=== PATIENT | male | born 1980 | race Caucasian/White ===

== ENCOUNTER 2017-11-15 10:04 | Emergency (ER) | payer BC ==
[~2017-11-15] VITALS: Ht 177.8 cm; Wt 80.1 kg
[~2017-11-15 10:04] MED LIST: LEVO5TAB7 PO; RMCI IV
[2017-11-15 10:06] VITALS: TEMP 36.4; Ht 177.8 cm; Wt 80.1 kg
[2017-11-15] MEDS ORDERED: SODIUM CHLORIDE 0.9% 1000ML 1,000 ML IV STA (10:24)
[2017-11-15] MEDS ORDERED: MoRPHine SULFATE 10 MG/ML CARP/VIAL IV STA ×2 (10:24→11:06)
[2017-11-15] MEDS ORDERED: ONDANSETRON INJ 2 MG/ML 2 ML VIAL IV STA (10:24)
[2017-11-15] MEDS ORDERED: OPTIRAY 320 IV PRN (10:30)
[2017-11-15 10:36] LABS: BASO % 0.3 %; BASO ABS # 0.02 K/uL (0-0.2); EOS % 1.3 %; EOS ABS # 0.09 K/uL (0-0.5); HEMOGLOBIN 14.7 g/dL (14.0-18.0); IG# 0.02 K/uL (0.00-0.02); LYMPH ABS # 2.42 K/uL (1.2-3.4); MEAN CELL VOLUME 90.5 fL (80-100); MEAN CORPUSCULAR HEMOGLOBIN 30.9 pg (25-34); MEAN CORPUSCULAR HGB CONC 34.2 g/dl (32-36); MEAN PLATELET VOLUME 10.1 fL (7.4-10.4); MONO % 9.1 %; MONO ABS # 0.65 K/uL (0.11-0.59); NEUT ABS # 3.91 K/uL (1.4-6.5); PLATELET COUNT 248 K/uL (130-400); RED CELL DISTRIBUTION WIDTH CV 12.4 % (11.5-14.5); RED CELL DISTRIBUTION WIDTH SD 41.2 fL (36.4-46.3); WHITE BLOOD COUNT 7.11 K/uL (4.8-10.8)
[2017-11-15 10:54] LABS: ALBUMIN 4.1 gm/dl (3.4-5.0); ALKALINE PHOSPHATASE 101 U/L (45-117); ALT/SGPT 38 U/L (12-78); AST/SGOT 24 U/L (15-37); BLOOD UREA NITROGEN 14 mg/dl (7-18); CALCIUM 8.8 mg/dl (8.5-10.1); CARBON DIOXIDE 25 mmol/L (21-32); CREATININE 1.12 mg/dl (0.60-1.40); GLUCOSE 110 mg/dl (70-99); LIPASE 178 U/L (73-393); SODIUM 140 mmol/L (136-145)
[2017-11-15] MEDS ORDERED: MoRPHine SULFATE 10 MG/ML CARP/VIAL IM STA (10:59)
[2017-11-15] MEDS ORDERED: METOCLOPRAMIDE HCL INJ 5 MG/ML 2 ML VIAL IV. STA (12:03)
[2017-11-15] MEDS ORDERED: MoRPHine SULFATE 4 MG/ML 1 ML CARP\\VIAL IV STA (12:33)
--- NOTE | 2017-11-15 15:20 | DIAGNOSTIC IMAGING REPORT ---
ABD/PELVIS IV AND ORAL CONT CLINICAL HISTORY: 37 years-old Male presenting with ABDOMINAL PAIN/GI, history of Crohn's disease. TECHNIQUE: Multidetector CT of the abdomen and pelvis was performed after the administration of oral and intravenous contrast. IV contrast: None. A dose lowering technique was used consistent with the principles of ALARA (as low as reasonably achievable). COMPARISON: 09/04/2017. CT DOSE (mGy.cm): The estimated cumulative dose is 353.88 mGy.cm. FINDINGS: Mortgage Funder topogram: Unremarkable. Lung bases: Bibasilar opacities greater on the right, likely atelectasis. Normal heart size. No pericardial or pleural effusion. Liver: Normal morphology. Density suggestive of hepatic steatosis. Few small hepatic cysts suspected. Patent hepatic vasculature. Biliary: No intrahepatic or extrahepatic biliary ductal dilatation. Normal gallbladder. Pancreas: Normal. Spleen: Normal. Adrenal glands: Normal. Kidneys and ureters: Asymmetric enhancement of the kidneys with delayed enhancement of the right kidney. Mild right pelvocaliectasis. Mild right hydroureter. Obstructing 3 mm calculus at the right ureterovesical junction. Mild right urothelial thickening. Moderate right perinephric fluid. Additional punctate nonobstructing right renal calculus in the interpolar region. Cyst suspected in the right kidney. Bladder: Normal. No bladder calculus. Pelvic organs: Prostate and seminal vesicles normal. Bowel: Few diverticula in the colon. Postsurgical changes of ileocecectomy with right lower quadrant ileocolic anastomosis. No bowel wall thickening allowing for underdistention of the small bowel and use of positive oral contrast. No bowel obstruction. Peritoneal cavity: No free fluid or intraperitoneal gas. Lymph nodes: No enlarged lymph nodes in the abdomen or pelvis. Vasculature: Aorta and IVC patent and normal in caliber. Abdominal wall: Bilateral gynecomastia. Musculoskeletal: Serpiginous sclerotic lines in the femoral heads again evidence of osteonecrosis. IMPRESSION: 1. Obstructing 3 mm calculus at the ureterovesical junction in the distal right ureter. Resultant mild right hydroureteronephrosis. The degree of perinephric fluid could suggest calyceal rupture. 2. Additional nonobstructing punctate right renal calculus. 3. No evidence of active bowel inflammation allowing for underdistention of distal small bowel. Postsurgical changes of ileocecectomy and right lower quadrant ileocolic anastomosis. 4. Hepatic steatosis. 5. Extensive right basilar atelectasis. Electronically signed by: Maurisio Chandler M.D. 11/15/2017 3:18 PM Dictated Date/Time: 11/15/2017 3:07 PM
[2017-11-15] MEDS ORDERED: KETOROLAC TROMETHAMINE 30 MG/ML VIAL IV STA (15:31)
[2017-11-15] MEDS ORDERED: ONDANSETRON INJ 2 MG/ML 2 ML VIAL ONE (15:51)
[2017-11-15] MEDS ORDERED: ONDA4TAB10 SL (17:10)
[2017-11-15] MEDS ORDERED: OXYC-737 PO (17:10)
[2017-11-15 17:21] VITALS: BP 118/68; PULSE 78; O2SAT 98
--- NOTE | 2017-11-16 12:37 | EMERGENCY ROOM VISIT NOTE ---
ED Visit Note First contact with patient: 10:14 Chief Complaint: Abdominal pain. History of Present Illness: Mr. Guy is a 37 year-old white male who ambulates into the ED complaining of lower abdominal pain inferior to the umbilicus in the midline. Historically patient reports Crohn's disease and is status post partial colectomy and ileectomy with reversal. Kidney stones with stent placement. Patient reports approximately 2 hours ago he was driving and had an acute onset of severe abdominal pain. Since that time the pain has been constant. He describes his pain as a sharp sensation and places it just inferior to the umbilicus in the midline of the lower quadrants. He rates his discomfort 8/10. His pain has been constant but slightly waxed and waned in intensity. His pain is nonradiating. He has not identified any aggravating or alleviating factors related to the pain. He has not taken any medications for pain prior to arrival at the hospital. Associated with his pain he reports he has been nauseated and vomiting and reports he had seen some bright red blood in his vomitus. He denies fevers, chills, sweats, skin eruptions, skin color changes, headache, dizziness, lightheadedness,, neck, back pain, chest pain, shortness of breath, upper abdominal pain, diarrhea, constipation, rectal bleeding, black/tarry stools, urinary symptoms, hematuria, diarrhea, rectal bleeding, black/tarry stools, urinary symptoms, hematuria. Review of Systems: As noted above in history of present illness. All body systems were reviewed and found to be negative as noted above. Past Medical History: As previously noted, bowel obstructions, psoas abscess. Current Medications: Remicade, Xyzal. Allergies to Medications: Macrolides. Social History: Patient is currently employed; he feels safe in his home environment; he denies tobacco and alcohol use. Physical Examination: Vital Signs: Date Time Temp Pulse Resp B/P (MAP) Pulse Ox O2 Delivery O2 Flow Rate FiO2 11/15/17 17:21 78 16 118/68 98 11/15/17 15:46 80 16 120/73 94 Room Air 11/15/17 14:52 67 11/15/17 14:02 50 18 119/72 95 Room Air 11/15/17 12:12 56 18 123/79 96 Room Air 11/15/17 10:47 46 11/15/17 10:40 45 18 137/85 95 Room Air 11/15/17 10:06 36.4 57 18 153/105 98 Room Air GENERAL: 37-year-old female in moderate distress due to pain, nontoxic-appearing , afebrile and hemodynamically stable. Patient is found lying prone on the bed writhing in pain. NEUROLOGICAL: Awake, alert and oriented to person, place and time. Answering questions appropriately and following commands. Good hand eye coordination. SKIN: Warm, dry and pink. No soft tissue eruptions or trauma noted. HEENT: Atraumatic and normocephalic. PERRLA. Sclera white and conjunctiva pink. Oral cavity moist and pink. Pharynx is nonerythematous or edematous. Speech normal. No lymphadenopathy. Trachea midline. No jugular venous distention. BACK: No tenderness over the bony spine. No CVA tenderness. THORAX: Lungs sounds are clear to auscultation and equal bilaterally with symmetrical chest wall. No wheezing, rales or rhonchi. No crepitus, tenderness , subcutaneous air or deformities noted. HEART: Regular rate and rhythm. No gallops, rubs or murmurs are appreciated. ABDOMEN: Flat and soft with diffuse tenderness throughout the lower abdomen. Positive bowel sounds in all quadrants. No guarding, rigidity or organomegaly. EXTREMITIES: Moves all extremities well on command and with purpose. All distal neurovascular statuses are intact and equal bilaterally. ED Course: Patient is assessed as noted above. Patient's medication list was reviewed. Laboratory Testing: Test 11/15/17 10:20 11/15/17 16:23 Range/Units White Blood Count 7.11 4.8-10.8 K/uL Red Blood Count 4.75 4.7-6.1 M/uL Hemoglobin 14.7 14.0-18.0 g/dL Hematocrit 43.0 42-52 % Mean Corpuscular Volume 90.5 80-100 fL Mean Corpuscular Hemoglobin 30.9 25-34 pg Mean Corpuscular Hemoglobin Concent 34.2 32-36 g/dl Platelet Count 248 130-400 K/uL Mean Platelet Volume 10.1 7.4-10.4 fL Neutrophils (%) (Auto) 55.0 % Lymphocytes (%) (Auto) 34.0 % Monocytes (%) (Auto) 9.1 % Eosinophils (%) (Auto) 1.3 % Basophils (%) (Auto) 0.3 % Neutrophils # (Auto) 3.91 1.4-6.5 K/uL Lymphocytes # (Auto) 2.42 1.2-3.4 K/uL Monocytes # (Auto) 0.65 0.11-0.59 K/uL Eosinophils # (Auto) 0.09 0-0.5 K/uL Basophils # (Auto) 0.02 0-0.2 K/uL RDW Standard Deviation 41.2 36.4-46.3 fL RDW Coefficient of Variation 12.4 11.5-14.5 % Immature Granulocyte % (Auto) 0.3 % Immature Granulocyte # (Auto) 0.02 0.00-0.02 K/uL Erythrocyte Sedimentation Rate 7 0-14 mm/hr Sodium Level 140 136-145 mmol/L Potassium Level 4.0 3.5-5.1 mmol/L Chloride Level 107 98-107 mmol/L Carbon Dioxide Level 25 21-32 mmol/L Anion Gap 8.0 3-11 mmol/L Blood Urea Nitrogen 14 7-18 mg/dl Creatinine 1.12 0.60-1.40 mg/dl Est Creatinine Clear Calc Drug Dose 93.2 ml/min Estimated GFR () 96.7 Estimated GFR (Non- 83.5 BUN/Creatinine Ratio 12.4 10-20 Random Glucose 110 70-99 mg/dl Calcium Level 8.8 8.5-10.1 mg/dl Total Bilirubin 0.3 0.2-1 mg/dl Direct Bilirubin < 0.1 0-0.2 mg/dl Aspartate Amino Transf (AST/SGOT) 24 15-37 U/L Alanine Aminotransferase (ALT/SGPT) 38 12-78 U/L Alkaline Phosphatase 101 45-117 U/L C-Reactive Protein < 0.29 0-0.29 mg/dl Total Protein 8.0 6.4-8.2 gm/dl Albumin 4.1 3.4-5.0 gm/dl Lipase 178 73-393 U/L Urine Color YELLOW Urine Appearance CLEAR CLEAR Urine pH 5.0 4.5-7.5 Urine Specific [place] 1.043 1.000-1.030 Urine Protein NEG NEG Urine Glucose (UA) NEG NEG Urine Ketones TRACE NEG Urine Occult Blood NEG NEG Urine Nitrite NEG NEG Urine Bilirubin NEG NEG Urine Urobilinogen NEG NEG Urine Leukocyte Esterase NEG NEG IV Contrast Abdominal/Pelvic CT: Was reviewed by myself and read by the radiologist and shows a 3 mm calculus in the right UVJ resulting in mild right hydroureteronephrosis. Radiologist notes with the degree of perinephric fluid this could represent a calyceal rupture. Additional nonobstructing punctate renal calculi were noted on the right. No evidence of acute bowel inflammation or for nondistended small bowel. Postsurgical changes were noted. Hepatic steatosis. Extensive right basilar atelectasis. Patient was hydrated with normal saline and he received a total of 60 mg of morphine IV and 30 mg of Toradol IV for pain and he received a total of 8 mg of Zofran and 10 mg of Reglan for nausea/vomiting. Patient was reassessed multiple times during her stay in emergency department. Patient's case was reviewed with Dr. Richards; we agreed on diagnostic approach, treatment, disposition and plan. Patient was educated about today's findings and instructed on his treatment plan ; he verbalized understanding and agreement with this plan. Right ureter calculus. Clinical Impression: Right ureter calculus. Patient initially my differential diagnosis Decision-Making: I considered Crohn's exacerbation, perforated viscus, bowel obstruction, acute appendicitis, ureter calculus, and other causes. Disposition: Patient discharged home in stable condition; prior to departure he was reassessed and subjectively reported that he was feeling much better. He rated his discomfort 2/10 and reported resolution of nausea. Plan: Patient was placed on a sliding pain medication scale of ibuprofen, acetaminophen and OxyIR; his name was checked in state database and no red flags were noted and he was given appropriate narcotic precautions. Patient was prescribed Zofran 4 mg every 6 hours as needed for nausea/vomiting. Patient was encouraged to stay well-hydrated with increased clear fluids. Patient was encouraged to strain all urine and collect all stones for testing. Patient was encouraged to follow-up with Dr. Angélica Cross, [facility] urology , for specialty care and treatment. Patient was encouraged return the ED for worsening/uncontrolled pain, worsening nausea/vomiting, fevers, urinary symptoms or any new/concerning symptoms. LATE NOTE: On reviewing the patient's case on November 16 and the findings of a suggestion calyceal rupture was found. I attempted to contact the patient but was unsuccessful. I did contact Dr. Cross for consultation and she felt regular follow-up was appropriate. Additionally I did give her the patient's contact information and she was going to have her office contact him for follow- up appointment.
== END 2017-11-15 17:21 | disposition home or self-care (01) ==
LOC: C.EDB 10:06
DX: N20.1 Calculus of ureter (principal); K50.90 Crohn's disease, unspecified, without complications; Z90.49 Acquired absence of other specified parts of digestive tract; Z79.899 Other long term (current) drug therapy; Z88.8 Allergy status to other drugs, medicaments and biological substances

== ENCOUNTER 2018-08-09 15:33 | Inpatient (IN) ==
[2018-08-09] MEDS ORDERED: MoRPHine SULFATE 4 MG/ML 1 ML CARP\\VIAL IV STA (15:56)
[2018-08-09] MEDS ORDERED: ONDANSETRON INJ 2 MG/ML 2 ML VIAL IV STA (15:56)
[2018-08-09] MEDS ORDERED: SODIUM CHLORIDE 0.9% 1000ML 1,000 ML IV ONE (15:56)
[2018-08-09 16:39] LABS: Hematocrit (blood only) 47.8 % (42-52); Hemoglobin 16.6 g/dL (14.0-18.0); Immature Granulocytes # (auto) 0.03 K/uL (0.00-0.02); Immature Granulocytes % (auto) 0.3 %; Lymphocytes # (auto) 0.48 K/uL (1.2-3.4); Lymphocytes % (auto) 4.2 %; Mean Corpuscular Hgb Conc 34.7 g/dL (32-36); Mean Corpuscular Volume 90.9 fL (80-100); Mean Platelet Volume 10.2 fL (7.4-10.4); Monocytes # (auto) 0.07 K/uL (0.11-0.59); Monocytes % (auto) 0.6 %; Neutrophils # (auto) 10.89 K/uL (1.4-6.5); Neutrophils % (auto) 94.9 %; Platelet Count 257 K/uL (130-400); RDW Coefficient of Variation 12.5 % (11.5-14.5); RDW Standard Deviation 41.6 fL (36.4-46.3); Red Blood Count 5.26 M/uL (4.7-6.1); White Blood Count 11.47 K/uL (4.8-10.8)
[2018-08-09 17:14] LABS: Alanine Aminotransferase 36 U/L (12-78); Albumin Level 4.6 gm/dl (3.4-5.0); Alkaline Phosphatase 132 U/L (45-117); Bilirubin,Total 0.6 mg/dl (0.2-1); Blood Urea Nitrogen 11 mg/dl (7-18); Calcium 9.6 mg/dl (8.5-10.1); Carbon Dioxide 25 mmol/L (21-32); Chloride 104 mmol/L (98-107); Est GFR (African American) 103.9; Est GFR (Non-African American) 89.6; Glucose 96 mg/dl (70-99); Sodium 137 mmol/L (136-145); Total Protein 9.2 gm/dl (6.4-8.2)
[2018-08-09 17:51] LABS: Potassium 4.2 mmol/L (3.5-5.1)
[2018-08-09 17:56] LABS: Aspartate Aminotransferase 17 U/L (15-37); Bilirubin Direct < 0.1 mg/dl (0-0.2)
[2018-08-09] MEDS ORDERED: IOVERSOL 100ml IV PRN (18:04)
--- NOTE | 2018-08-09 18:34 | CT Scan Report ---
ABDOMEN AND PELVIS CT WITH IV CONTRAST CT DOSE: 305.72 mGy.cm HISTORY: Acute generalized abdominal pain with history of Crohn's disease and prior small bowel obstr uction ro sbo hx crohns and sbo TECHNIQUE: Multiaxial CT images of the abdomen and pelvis were performed following the use of intrave nous contrast. A dose lowering technique was utilized adhering to the principles of ALARA. COMPARISON STUDY: CT abdomen and pelvis 11/15/2017. FINDINGS: Minimal subsegmental bibasilar atelectasis. Additionally, there are patchy groundglass densities abo ut the left lung base. No pneumatosis or pneumoperitoneum. The imaged inferior cardiac chambers appea r unremarkable. Hepatic steatosis. No evidence of cirrhosis or focal hepatic mass lesion. Patency of the hepatic and portal veins. Spleen, pancreas, gallbladder and adrenal glands are unremarkable. Mild nonspecific wal l thickening of the bladder with partial distention. No ureteral calculi or obstructive uropathy. Sug gested punctate nonobstructing calculus of the inferior pole right kidney. The aorta and IVC are unre markable. There is no adenopathy. Minimal colonic diverticulosis without acute diverticulitis. Partial distention about the majority of the colon. Postoperative changes from ileocecectomy with right lower quadrant ileocolic anastomosis. There are multiple prominent fluid-filled loops of ileum measuring up to 2.6 cm transversely with tr ansitioned decreased caliber bowel seen just proximal to the ileocolic anastomosis. There is a focal loop of ileum with demonstrates mucosal hyperemia with wall thickening (image 267 series 3) signifyin g the transition point. Minimal interloop edema. No drainable fluid collection or perforation. Soft tissues are unremarkable. Bones appear to be intact. Moderate disc space narrowing at L5-S1. Elisha scular necrosis about the bilateral femoral heads. No evidence of articular collapse. IMPRESSION: 1. Partial small bowel obstruction with transition point noted within the lower central abdomen. The transition point is noted at a focal loop of ileum which demonstrates wall thickening with mucosal hy peremia suggestive of a stricture likely related to patient's known inflammatory bowel disease. 2. Postoperative changes from ileocecectomy with ileocolic anastomosis. 3. No evidence of perforation, pneumatosis or pneumoperitoneum. 4. Mild colonic diverticulosis without acute diverticulitis. 5. 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 6. Mild subsegmental bibasilar atelectasis. Additional patchy groundglass opacities of the left lung base may reflect a superimposed pneumonitis. Correlate clinically. Electronically signed by: Hai Madrigal M.D. 08/09/2018 6:33 PM
--- NOTE | 2018-08-09 19:46 | History & Physical Report ---
Date of Service August 09, 2018 Assessment & Plan (1) Small bowel obstruction: Patient with partial SBO with transition point in the lower central abdomen. Hyperemia suggestive of stricture most likely secondary to underlying Crohns disease. Patient is comfortable at present. No nausea. -Admit to medical floor -Check ESR and CRP -Abdominal exams q 4 hours while awake -NPO -LR at 125mL/hr x 2 liters -Electrolyte repletion -Solumedrol 60mg IV daily -GI Consult - appreciate assistance with this case Present on Admission?: Yes (2) Crohns disease: As above. Patient with longstanding history of Crohns disease, known stricture with multiple SBOs in the past. He is on Remicade q 8 weeks. Frequent steroid use -Solumedrol 60mg IV daily. Patient with AVN noted on imaging - ideally provide shortest duration of steroids possible -Continue pro biotic -GI Consult -patient known to Dr. Poon Present on Admission?: Yes (3) Leukocytosis: Afebrile, hemodynamically stable. Most likely reactive in setting of SBO and possible Crohns flare -Monitor CBC F/E/N - LR at 125mL/hr x 2 liters, monitor electrolytes and replete as needed, NPO for ow PPx - patient is low risk for DVT. Encourage ambulation, IVF as above Code - Full Dispo - admit to medical floor History of Present Illness Chief Complaint: SBO Primary Care Provider: Keyshawn Frost Favio Guy is a pleasant 38yo C male with history of Crohns since age 12, s/p ileocolectomy, multiple SBOs in the past presenting with SBO. Patient states that this AM he began to feel epigastric abdominal pain. Nausea associated with the pain, no vomiting, no diarrhea or constipation. Last BM was this AM, small amount. He is presently not passing flatus. He denies fevers/chills. Denies melena/hematochezia. Symptoms are typical of prior SBOs. No additional complaints at this time ER Course: Morphine 4mg, Zofran 4mg Allergies Allergy/AdvReac Type Severity Reaction Status Date / Time Macrolide Antibiotics Allergy Intermediate GI SYMPTOMS Verified 08/09/18 16:35 Home Medications Home Medications Medication Instructions Recorded Confirmed Type infliximab [Remicade] 100 mg IV [id number] 01/06/18 08/09/18 History lactobacillus combination no.4 3,000 mmu cells PO HS 08/09/18 08/09/18 History [Probiotic] melatonin 10 mg PO HS 08/09/18 08/09/18 History Past Med/Surg History Medical History Hx of Crohn's disease Hx of renal calculi Hx of small bowel obstruction Surgical History History of surgical removal of terminal ileum Hx of colostomy Family History Other Unobtainable family history due to adoption Social History marital status: Current Living Situation: Significant Other current occupational status: unemployed Feels Safe at Home: Yes Smoking Status: Never smoker Hx Alcohol Use: Yes Hx Substance Use: No Review of Systems Review of Systems: All systems reviewed & are unremarkable except as noted in HPI & below Physical Exam Physical Exam: General: patient resting comfortably, NAD, non-toxic in appearance, AA&O x 4 Skin: warm, dry, intact, no rashes or lesions HEENT: NC/AT, PERRL, EOMI, anicteric sclera, conjunctiva without injection, external ear normal to inspection and nontender, nares patent, moist mucus membranes, dentition intact, no oropharyngeal lesions, neck supple, trachea midline, no LAD, no thyromegaly, no JVD Heart: +S1/S2, regular, no m/r/g Lungs: equal air entry bilaterally, no rales/rhonchi/wheezes Abd: bowel sounds absent after listening x 1 minute, soft, NT/ND, no ma sses/organomegaly/ascites Ext: warm, 2+ pulses in UE/LE bilaterally, no clubbing/cyanosis or edema Neuro: nonfocal, patient AA&O x 4, speech intact, no facial droop, moving all extremities on command with equal strength 5/5 Results & Data Vital Signs (Past 12 Hours) Vital Signs Temp Pulse Pulse Resp BP BP Pulse Ox 08/09/18 17:43 76 20 124/68 95 08/09/18 15:43 36.5 C 79 18 132/80 97 Laboratory Results Lab Results 08/09/18 08/09/18 08/09/18 Range/Units 16:07 16:07 17:28 WBC 11.47 H (4.8-10.8) K/uL RBC 5.26 (4.7-6.1) M/uL Hgb 16.6 (14.0-18.0) g/dL Hct 47.8 (42-52) % MCV 90.9 (80-100) fL MCH 31.6 (25-34) pg MCHC 34.7 (32-36) g/dL RDW Std Deviation 41.6 (36.4-46.3) fL RDW Coeff of Aga 12.5 (11.5-14.5) % Plt Count 257 (130-400) K/uL MPV 10.2 (7.4-10.4) fL Immature Gran % (Auto) 0.3 % Neut % (Auto) 94.9 % Lymph % (Auto) 4.2 % [place] % (Auto) 0.6 % Eos % (Auto) 0.0 % Baso % (Auto) 0.0 % Immature Gran # (Auto) 0.03 H (0.00-0.02) K/uL Neut # (Auto) 10.89 H (1.4-6.5) K/uL Lymph # (Auto) 0.48 L (1.2-3.4) K/uL [place] # (Auto) 0.07 L (0.11-0.59) K/uL Eos # (Auto) 0.00 (0-0.5) K/uL Baso # (Auto) 0.00 (0-0.2) K/uL Sodium 137 (136-145) mmol/L Potassium 4.2 (3.5-5.1) mmol/L Chloride 104 (98-107) mmol/L Carbon Dioxide 25 (21-32) mmol/L Anion Gap 8.0 (3-11) BUN 11 (7-18) mg/dl Creatinine 1.05 (0.6-1.4) mg/dl Est Cr Clr Drug Dosing Not Reportable Est GFR ( Amer) 103.9 Est GFR (Non-Af Amer) 89.6 BUN/Creatinine Ratio 10.0 (10-20) Glucose 96 (70-99) mg/dl Calcium 9.6 (8.5-10.1) mg/dl Total Bilirubin 0.6 (0.2-1) mg/dl Direct Bilirubin < 0.1 (0-0.2) mg/dl AST 17 (15-37) U/L ALT 36 (12-78) U/L Alkaline Phosphatase 132 H (45-117) U/L Total Protein 9.2 H (6.4-8.2) gm/dl Albumin 4.6 (3.4-5.0) gm/dl Lipase 117 (73-393) U/L Diagnostic Findings ABDOMEN AND PELVIS CT WITH IV CONTRAST CT DOSE: 305.72 mGy.cm HISTORY: Acute generalized abdominal pain with history of Crohn's disease and prior small bowel obstruction ro sbo hx crohns and sbo TECHNIQUE: Multiaxial CT images of the abdomen and pelvis were performed following the use of intravenous contrast. A dose lowering technique was utilized adhering to the principles of ALARA. COMPARISON STUDY: CT abdomen and pelvis 11/15/2017. FINDINGS: Minimal subsegmental bibasilar atelectasis. Additionally, there are patchy groundglass densities about the left lung base. No pneumatosis or pneumoperitoneum. The imaged inferior cardiac chambers appear unremarkable. Hepatic steatosis. No evidence of cirrhosis or focal hepatic mass lesion. Patency of the hepatic and portal veins. Spleen, pancreas, gallbladder and adrenal glands are unremarkable. Mild nonspecific wall thickening of the bladder with partial distention. No ureteral calculi or obstructive uropathy. Suggested punctate nonobstructing calculus of the inferior pole right kidney. The aorta and IVC are unremarkable. There is no adenopathy. Minimal colonic diverticulosis without acute diverticulitis. Partial distention about the majority of the colon. Postoperative changes from ileocecectomy with right lower quadrant ileocolic anastomosis. There are multiple prominent fluid- filled loops of ileum measuring up to 2.6 cm transversely with transitioned decreased caliber bowel seen just proximal to the ileocolic anastomosis. There is a focal loop of ileum with demonstrates mucosal hyperemia with wall thickening (image 267 series 3) signifying the transition point. Minimal interloop edema. No drainable fluid collection or perforation. Soft tissues are unremarkable. Bones appear to be intact. Moderate disc space narrowing at L5-S1. 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 No evidence of articular collapse. IMPRESSION: 1. Partial small bowel obstruction with transition point noted within the lower central abdomen. The transition point is noted at a focal loop of ileum which demonstrates wall thickening with mucosal hyperemia suggestive of a stricture likely related to patient's known inflammatory bowel disease. 2. Postoperative changes from ileocecectomy with ileocolic anastomosis. 3. No evidence of perforation, pneumatosis or pneumoperitoneum. 4. Mild colonic diverticulosis without acute diverticulitis. 5. 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 6. Mild subsegmental bibasilar atelectasis. Additional patchy groundglass opacities of the left lung base may reflect a superimposed pneumonitis. Correlate clinically. Electronically signed by: Hai Madrigal M.D. 08/09/2018 6:33 PM Dictated: 08/09/181820 Transcribed: 08/09/181820 Code Status & VTE Plan Code Status FULL Critical Care Time Critical Care Time: No (1) Crohns disease Gastrointestinal tract location: small intestine Digestive disease complication type: with intestinal obstruction Qualified Code(s): K50.012 - Crohn's disease of small intestine with intestinal obstruction
[2018-08-09] MEDS ORDERED: NON-FORMULARY MEDICATION (Lactobacillus Combination No.4 [Probiotic] 3,000 mmu cells) PO SCH (21:31)
[2018-08-09] MEDS ORDERED: ONDANSETRON INJ 2 MG/ML 2 ML VIAL IV PRN (21:31)
[2018-08-09] MEDS ORDERED: MoRPHine SULFATE 4 MG/ML 1 ML CARP\\VIAL IV PRN (21:31)
[2018-08-09 21:57] LABS: C Reactive Protein 0.45 mg/dl (0-0.29); Magnesium 2.1 mg/dl (1.8-2.4)
[2018-08-09] MEDS ORDERED: methylPREDNISolone 60 MG in SYRINGE 0 ML IV SCH (22:00)
[2018-08-09] MEDS: LACTATED RINGER'S 1,000 ML IV SCH (22:07)
--- NOTE | 2018-08-09 22:14 | Emergency Department Note ---
Entered by Fidel Romeo acting as a scribe for Viktor Dominguez History of Present Illness General Chief complaint: Abdominal Pain Stated complaint: abdominal pain-hx crohns Time Seen by Provider: 08/09/18 15:45 Source: patient History of Present Illness Onset (ago): hour(s) (this morning) Location: abdomen Pain Consistency: + intermittent Quality: + other (mid-abdominal pain prior to hx of small bowel obstruction) Associated symptoms: + other (nausea without vomiting) The patient is a 38 year old male who presents to the Emergency Room with complaints of intermittent mid-abdominal pain beginning this morning. The patient states that his pain comes in waves. He feels nauseated from the pain but denies any vomiting. He denies melena or hematochezia. He reports a history of Crohns treated with Remicade by Dr. Poon. He also notes a history of small bowel obstruction and states that his current symptoms feel similar. Home Medications Home Medications Medication Instructions Recorded Confirmed Type infliximab [Remicade] 100 mg IV Q8WK 01/06/18 08/09/18 History lactobacillus combination no.4 3,000 mmu cells PO HS 08/09/18 08/09/18 History [Probiotic] melatonin 10 mg PO HS 08/09/18 08/09/18 History Allergies Allergy/AdvReac Type Severity Reaction Status Date / Time Macrolide Antibiotics Allergy Intermediate GI SYMPTOMS Verified 08/09/18 16:35 Past Med/Surg History Medical History Hx of Crohn's disease Hx of renal calculi Hx of small bowel obstruction Surgical History History of surgical removal of terminal ileum Hx of colostomy Family History Other Unobtainable family history due to adoption Social History Preferred Language: Lithuanian Communication Ability: Effective Fabrication Supervisor Required: No Beliefs That Will Affect Care: None marital status: Current Living Situation: Spouse current occupational status: unemployed Other Information That Helps Us Care for You: No Feels Safe at Home: Yes Safety Concerns: Feels Safe At This Time Smoking Status: Former smoker Do You Dip or Chew Tobacco: No Second Hand Exposure: No Tobacco Cessation Education Requested by Patient: No Hx Alcohol Use: Yes Alcohol type: hard liquor Hx Substance Use: No Review of Systems See HPI for pertinent positives & negatives. and A total of 10 systems reviewed and were otherwise negative Physical Exam Vital Signs Vital Signs - 24 hr 08/09/18 15:43 08/09/18 17:43 08/09/18 19:50 Temperature 36.5 C Temperature Source Oral Sepsis Recent Fever Within 48 Hours No Sepsis New/Unexplained Change in Mental Status No Sepsis Action Taken by Nursing No Action Required Pulse Rate 79 Pulse Rate [Right Finger] 76 78 Respiratory Rate 18 20 16 Respiratory Effort / Characteristics Non-Labored Non-Labored Respiratory Depth Normal Normal Respiratory Pattern Blood Pressure 132/80 Blood Pressure [Right Arm] 124/68 114/86 Blood Pressure Mean 97 Blood Pressure Mean [Right Arm] 86 95 Blood Pressure Position [Right Arm] Pulse Oximetry 97 95 100 Oxygen Delivery Method Room Air Room Air 08/09/18 20:37 08/09/18 21:05 Temperature 36.8 C Temperature Source Oral Sepsis Recent Fever Within 48 Hours Sepsis New/Unexplained Change in Mental Status Sepsis Action Taken by Nursing Pulse Rate 62 Pulse Rate [Right Finger] 58 L Respiratory Rate 18 16 Respiratory Effort / Characteristics Non-Labored Spontaneous Respiratory Depth Normal Respiratory Pattern Regular Blood Pressure 139/79 Blood Pressure [Right Arm] 118/81 Blood Pressure Mean Blood Pressure Mean [Right Arm] 93 Blood Pressure Position [Right Arm] Sitting Pulse Oximetry 100 97 Oxygen Delivery Method Room Air Room Air GENERAL: He is oriented to person, place, and time. He appears well-developed and well-nourished. He does not appear distressed. HENT: Exam performed. - Head: Normocephalic and atraumatic. - Right Ear: External ear normal. No mastoid tenderness. - Left Ear: External ear normal. No mastoid tenderness. - Mouth/Throat: The oropharynx is clear and moist. No trismus in the jaw. No de ntal abscesses or uvula swelling. No oropharyngeal exudate or tonsillar abscesses. EYES: Conjunctivae and EOM are normal. Pupils are equal, round, and reactive to light. Right eye exhibits no discharge. Left eye exhibits no discharge. No scleral icterus. NECK: Normal range of motion. Neck supple. No JVD present. No spinous process tenderness present. No carotid bruit present. No rigidity. No tracheal deviation and normal range of motion present. No Brudzinski's sign and no Kernig's sign noted. CV: Normal rate, regular rhythm, normal heart sounds and intact distal pulses. There is no peripheral edema. Palpable radial pulses bue. PULM/CHEST: Effort normal and breath sounds normal. No respiratory distress. No stridor. He has no wheezes. He has no rales. - Chest Wall: He exhibits no tenderness. ABD: The abdomen is soft. Bowel sounds are normal. He has no distension. No mass is present. There is epigastric pain on palpation. There is no rebound, no guarding, no Terry's sign and no tenderness at McBurney's point. Rovsig negative. MUSC/SKEL: Normal range of motion. There is no peripheral edema, tenderness or deformity. LYMPH: No cervical adenopathy. NEURO: He is alert and oriented to person, place, and time. He has normal strength. No cranial nerve deficit or sensory deficit. Coordination and gait normal. GCS eye subscore is 4. GCS verbal subscore is 5. GCS motor subscore is 6. Cerebellar tests wnl. SKIN: Skin is warm and dry. He is not diaphoretic. PSYCH: He has a normal mood and affect. Behavior is normal. Judgment and thought content normal. Course 1554: The patient was evaluated in room C2B. A complete history and physical examination were performed. 185: Vital signs stable. Labs within normal limits. CT of the abdomen showed small bowel obstruction. The [facility] Hospitalist service was notified of the patients case. The patient will be evaluated for hospitalization under Dr. Tidwell. Administered Medications Lactated Ringer's (Lr) 1,000 mls @ 125 mls/hr IV .Q8H ALYSHA Stop: 08/10/18 13:30 Last Admin: 08/09/18 22:07 Dose: 125 mls/hr Documented by: [id number] Methylprednisolone 60 mg/ (Syringe) 0.96 mls @ 1.5 mls/min IV Q24H ALYSHA Stop: 09/08/18 21:59 Last Admin: 08/09/18 22:04 Dose: 1.5 mls/min Documented by: [id number] Discontinued Medications Sodium Chloride (Nss 1000ml) 1,000 mls @ 999 mls/hr IV .Q1H1M ONE Stop: 08/09/18 16:56 Last Infusion: 08/09/18 19:00 Dose: 0 mls/hr Documented by: [id number] Admin: 08/09/18 17:20 Dose: 999 mls/hr Documented by: [id number] Ioversol (Optiray 320 100ml) 93 ml IV ONCE PRN PRN Reason: Interaction Checking Stop: 08/13/18 18:03 Last Admin: 08/09/18 18:04 Dose: 93 ml Documented by: [id number] Morphine Sulfate (Morphine Sulfate) 4 mg IV NOW STA Stop: 08/09/18 15:57 Last Admin: 08/09/18 17:20 Dose: 4 mg Documented by: [id number] Ondansetron HCl (Zofran) 4 mg IV NOW STA Stop: 08/09/18 15:57 Last Admin: 08/09/18 17:20 Dose: 4 mg Documented by: [id number] Medical Decision Making Medical Records Attestation: I reviewed the patient's medical records. Home Medications Current Medication List: was personally reviewed by me Laboratory Data Attestation: I reviewed the patient's lab results. Result diagrams: 08/09/18 16:07 08/09/18 17:28 Lab Results 08/09/18 08/09/18 08/09/18 Range/Units 16:07 16:07 17:28 WBC 11.47 H (4.8-10.8) K/uL RBC 5.26 (4.7-6.1) M/uL Hgb 16.6 (14.0-18.0) g/dL Hct 47.8 (42-52) % MCV 90.9 (80-100) fL MCH 31.6 (25-34) pg MCHC 34.7 (32-36) g/dL RDW Std Deviation 41.6 (36.4-46.3) fL RDW Coeff of Aga 12.5 (11.5-14.5) % Plt Count 257 (130-400) K/uL MPV 10.2 (7.4-10.4) fL Immature Gran % (Auto) 0.3 % Neut % (Auto) 94.9 % Lymph % (Auto) 4.2 % [place] % (Auto) 0.6 % Eos % (Auto) 0.0 % Baso % (Auto) 0.0 % Immature Gran # (Auto) 0.03 H (0.00-0.02) K/uL Neut # (Auto) 10.89 H (1.4-6.5) K/uL Lymph # (Auto) 0.48 L (1.2-3.4) K/uL [place] # (Auto) 0.07 L (0.11-0.59) K/uL Eos # (Auto) 0.00 (0-0.5) K/uL Baso # (Auto) 0.00 (0-0.2) K/uL Sodium 137 (136-145) mmol/L Potassium 4.2 (3.5-5.1) mmol/L Chloride 104 (98-107) mmol/L Carbon Dioxide 25 (21-32) mmol/L Anion Gap 8.0 (3-11) BUN 11 (7-18) mg/dl Creatinine 1.05 (0.6-1.4) mg/dl Est Cr Clr Drug Dosing Not Reportable Est GFR ( Amer) 103.9 Est GFR (Non-Af Amer) 89.6 BUN/Creatinine Ratio 10.0 (10-20) Glucose 96 (70-99) mg/dl Calcium 9.6 (8.5-10.1) mg/dl Phosphorus 4.0 (2.5-4.9) mg/dl Magnesium 2.1 (1.8-2.4) mg/dl Total Bilirubin 0.6 (0.2-1) mg/dl Direct Bilirubin < 0.1 (0-0.2) mg/dl AST 17 (15-37) U/L ALT 36 (12-78) U/L Alkaline Phosphatase 132 H (45-117) U/L C-Reactive Protein 0.45 H (0-0.29) mg/dl Total Protein 9.2 H (6.4-8.2) gm/dl Albumin 4.6 (3.4-5.0) gm/dl Lipase 117 (73-393) U/L Imaging Data Radiologist's Impression: Radiology results as stated below per my review and the radiologist's interpretation: ABDOMEN AND PELVIS CT WITH IV CONTRAST CT DOSE: 305.72 mGy.cm HISTORY: Acute generalized abdominal pain with history of Crohn's disease and prior small bowel obstruction ro sbo hx crohns and sbo TECHNIQUE: Multiaxial CT images of the abdomen and pelvis were performed following the use of intravenous contrast. A dose lowering technique was utilized adhering to the principles of ALARA. COMPARISON STUDY: CT abdomen and pelvis 11/15/2017. FINDINGS: Minimal subsegmental bibasilar atelectasis. Additionally, there are patchy groundglass densities about the left lung base. No pneumatosis or pneumoperitoneum. The imaged inferior cardiac chambers appear unremarkable. Hepatic steatosis. No evidence of cirrhosis or focal hepatic mass lesion. Patency of the hepatic and portal veins. Spleen, pancreas, gallbladder and adrenal glands are unremarkable. Mild nonspecific wall thickening of the bladder with partial distention. No ureteral calculi or obstructive uropathy. Suggested punctate nonobstructing calculus of the inferior pole right kidney. The aorta and IVC are unremarkable. There is no adenopathy. Minimal colonic diverticulosis without acute diverticulitis. Partial distention about the majority of the colon. Postoperative changes from ileocecectomy with right lower quadrant ileocolic anastomosis. There are multiple prominent fluid- filled loops of ileum measuring up to 2.6 cm transversely with transitioned decreased caliber bowel seen just proximal to the ileocolic anastomosis. There is a focal loop of ileum with demonstrates mucosal hyperemia with wall thi ckening (image 267 series 3) signifying the transition point. Minimal interloop edema. No drainable fluid collection or perforation. Soft tissues are unremarkable. Bones appear to be intact. Moderate disc space narrowing at L5-S1. 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 No evidence of articular collapse. IMPRESSION: 1. Partial small bowel obstruction with transition point noted within the lower central abdomen. The transition point is noted at a focal loop of ileum which demonstrates wall thickening with mucosal hyperemia suggestive of a stricture likely related to patient's known inflammatory bowel disease. 2. Postoperative changes from ileocecectomy with ileocolic anastomosis. 3. No evidence of perforation, pneumatosis or pneumoperitoneum. 4. Mild colonic diverticulosis without acute diverticulitis. 5. 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 6. Mild subsegmental bibasilar atelectasis. Additional patchy groundglass opacities of the left lung base may reflect a superimposed pneumonitis. Correlate clinically. Electronically signed by: Hai Madrigal M.D. 08/09/2018 6:33 PM Blood Pressure Blood Pressure Findings: Normal blood pressure Blood Pressure Disposition: did not require urgent referral MDM Narrative Vital signs stable. Labs within normal limits. CT of the abdomen showed small bowel obstruction. The [facility] Hospitalist service was notified of the patients case. The patient will be evaluated for hospitalization under Dr. Tidwell. Impression & Plan Small bowel obstruction Discharge Plan Visit Data *Final* Discharge Date/Time: 08/09/18 20:37 Chief Complaint: Abdominal Pain Stated Complaint: abdominal pain-hx crohns ED Provider: Viktor Dominguez Discharge Problem: Small bowel obstruction Patient Disposition: Admitted As Inpatient Discharge Instructions Interventions: ED Discharge Assessment Last Done: 08/09/18 20:37 The scribe's documentation has been prepared under my direction and personally reviewed by me in its entirety. I confirm that the note above accurately reflects all work, treatment, procedures, and medical decision making performed by me.
[2018-08-10 05:30] LABS: Hematocrit (blood only) 41.6 % (42-52); Hemoglobin 14.2 g/dL (14.0-18.0); Immature Granulocytes # (auto) 0.04 K/uL (0.00-0.02); Immature Granulocytes % (auto) 0.4 %; Lymphocytes # (auto) 0.96 K/uL (1.2-3.4); Lymphocytes % (auto) 8.7 %; Mean Corpuscular Hgb Conc 34.1 g/dL (32-36); Mean Platelet Volume 10.1 fL (7.4-10.4); Monocytes % (auto) 0.9 %; Neutrophils # (auto) 9.94 K/uL (1.4-6.5); Platelet Count 256 K/uL (130-400); RDW Coefficient of Variation 12.5 % (11.5-14.5); Red Blood Count 4.62 M/uL (4.7-6.1); White Blood Count 11.04 K/uL (4.8-10.8)
[2018-08-10 06:00] LABS: BUN Creatinine Ratio 12.6 (10-20); Calcium 8.9 mg/dl (8.5-10.1); Creatinine Clr Calc Pharmacy 116.2 ml/min; Est GFR (African American) 125.7; Est GFR (Non-African American) 108.5; Potassium 4.1 mmol/L (3.5-5.1)
[2018-08-10] MEDS: LACTATED RINGER'S 1,000 ML IV SCH ×2 (06:12→06:21)
--- NOTE | 2018-08-10 09:17 | Gastrointestinal Consultation ---
Date of Consultation August 10, 2018 Assessment & Plan (1) Crohn's disease of ileum with intestinal obstruction: Patient is a 38 yo male with fibrostenosing Crohn's Disease with a history of distant ileocecectomy hospitalized with a small jun obstruction noted at the area of his ileal stricture. He has been advised in the past by his colorectal surgeon at [facility] to have another resection, but he has not complied with this recommendation. He has also been noncompliant with his Remicade infusions and office visits. 1) Pain is resolved at present; when patient begins to move his bowels, OK to increase diet to liquids. Did discuss with patient that upon discharge he should utilize a low residue/low fiber diet. 2) Change IV Solumedrol to 40 mg daily. Will plan to do an 8 week steroid taper upon discharge beginning at 40 mg daily x 1 week, then decreasing by 5 mg weekly x 8 weeks. Discussed importance of use of Vitamin D & Calcium supplementation while on corticosteroids and the need for an outpatient DEXA scan. 3) Given delay in Remicade therapy, will plan for an Infliximab trough and antibody levels to be performed prior to next infusion. 4) Discussed the importance of following through with his colorectal surgeon at [facility]. I did offer a local colorectal surgery evaluation, however he reports he will stay at [facility]. Discussed that SBOs may continue to happen until this issue is addressed surgically. 5) Plan to obtain orthopedic notes from outpatient evaluation of AVN. Thank you for allowing us to participate in the care of this patient. If you should have further questions or concerns, do not hesitate to contact us at extension [phone] or [phone]. Supervising Physician Co-Signing Physician Notes Agree with KRISTEN Cooper as above Abd: Soft, NT, ND, +BS Continue current therapy Continue supportive care History of Present Illness Reason for Consultation: SBO, Crohn's Disease Attending Physician: Keisha Marie DO History of Present Illness Patient is a 38 yo male with a known history of Crohn's Disease complicated by history of steroid dependency and fibrostenosing disease of the small bowel which has required surgical resection in the past. He is currently on Remicade 5 mg/kg q 8 hours but is not compliant with routine office follow-up. He also admits that he is more than 1 month overdue Additionally, he has followed for years with [facility] and reported to me at the time of establishing with our practice that he has been advised to have another surgery. This recommendation was made over 1 year ago. In the past he has told me that he has been putting this off. He has been hospitalized for SBOs in the past. He is now hospitalized with another bowel obstruction. After developing worsening abdominal pain, he presented for further evaluation at the ER. A CT scan indicates a transition point in the ileum and suggests stricturing disease. Imaging also indicates bilateral AVN which aligns with his history of steroid dependency. Of note, other than a hospitalization for another SBO, he has not utilized steroids in the past 1 year. He reports he saw someone from orthopedics for the AVN and was reassured it was less severe than originally thought, but I don't have records of this and he is unsure of which provider told him this. Today, he reports his pain has entirely resolved. He is passing flatus. He feels like he needs to have a bowel movement. He denies other symptoms at present. His H/H is within normal limits. WBC count is 11,000. Allergies Allergy/AdvReac Type Severity Reaction Status Date / Time Macrolide Antibiotics Allergy Intermediate GI SYMPTOMS Verified 08/09/18 16:35 Home Medications Home Medications Medication Instructions Recorded Confirmed Type infliximab [Remicade] 100 mg IV Q8WK 01/06/18 08/09/18 History lactobacillus combination no.4 3,000 mmu cells PO HS 08/09/18 08/09/18 History [Probiotic] melatonin 10 mg PO HS 08/09/18 08/09/18 History Patient History Medical History Hx of Crohn's disease Hx of renal calculi Hx of small bowel obstruction Surgical History History of surgical removal of terminal ileum Hx of colostomy Family History Other Unobtainable family history due to adoption Social History Preferred Language: Czech Communication Ability: Effective County Supervisor Required: No Beliefs That Will Affect Care: None marital status: Current Living Situation: Spouse current occupational status: unemployed Other Information That Helps Us Care for You: No Feels Safe at Home: Yes Safety Concerns: Feels Safe At This Time Smoking Status: Former smoker Do You Dip or Chew Tobacco: No Second Hand Exposure: No Tobacco Cessation Education Requested by Patient: No Hx Alcohol Use: Yes Alcohol type: hard liquor Hx Substance Use: No Review of Systems Constitutional: no chills, no sweats and no fatigue Eyes: no acute complaints Ear, Nose, Mouth, Throat: no acute complaints Respiratory: no cough and no dyspnea Cardiovascular: no chest pain Gastrointestinal: no abdominal pain, no bloating, no constipation and no diarrhea/loose stools Musculoskeletal: no back pain Integumentary: no rash Neurologic: no acute issues Psychiatric: no acute issues Endocrine: no fatigue Hematologic / Lymphatic: no easy bleeding Physical Exam Constitutional: WD/WN, vitals as above Eyes: PERRL, conjunctivae normal, anicteric sclerae ENMT: external ear and nose normal, oropharynx normal Neck: normal visual inspection Respiratory: normal respiratory effort, lungs clear to auscultation Cardiovascular: Rate/Rhythm: regular rate and regular rhythm Gastrointestinal (Abdomen): normal bowel sounds, soft, nontender, no hepatosplenomegaly Musculoskeletal: no cyanosis or clubbing, extremities motor strength 5/5 Skin: no rashes, warm and dry Psychiatric: A+Ox3, euthymic affect Results & Data Vital Signs (Past 12 Hours) Vital Signs Temp Pulse Resp BP Pulse Ox 08/10/18 07:35 36.7 C 86 16 106/65 97 08/09/18 23:39 36.6 C 56 L 16 116/77 95
[2018-08-10] MEDS: ACETAMINOPHEN 325 MG TAB PO PRN ×2 (16:22→21:59)
--- NOTE | 2018-08-10 18:17 | Family Medicine Progress Note ---
Date of Service August 10, 2018 Assessment & Plan (1) Crohn's disease of ileum with intestinal obstruction: Small bowel obstruction: Patient with partial SBO with transition point in the lower central abdomen. Hyperemia suggestive of stricture most likely secondary to underlying Crohns disease. -ESR (34) and CRP (.45) -Advanced to clear diet. No regular diet or discharge until BM passed -LR at 125mL/hr x 2 liters -Electrolyte repletion -Solumedrol 40mg IV daily -GI Consult - appreciate assistance with this case. Please see note from 08/10 for recommendations Crohns disease: As above. Patient with longstanding history of Crohns disease, known stricture with multiple SBOs in the past, non-compliant with outpatient plans. He is on Remicade q 8 weeks but has missed his last infusion. -Solumedrol 40mg IV daily. Patient with AVN noted on imaging - ideally provide shortest duration of steroids possible. Taper as directed by GI. -Continue pro biotic -GI Consult -patient known to Dr. Poon Leukocytosis: Afebrile, hemodynamically stable. Most likely reactive in setting of SBO and possible Crohns flare -Monitor CBC F/E/N - LR at 125mL/hr x 2 liters, monitor electrolytes and replete as needed, clear liquids for now PPx - patient is low risk for DVT. Encourage ambulation, IVF as above Code - Full (2) Crohns disease: Supervising Physician Co-Signing Physician Notes Resident Physician Supervision Note: I independently interviewed and examined the patient and verified the martini history and physical, reviewed labs and image studies, discussed the case with the resident Dr. Madrid and agree with the findings and care plan. Subjective Patient in good spirits today. Denies abdominal pain. Reports he is passing wind. Eager for discharge home. Denies n/v. Review of Systems Review of Systems: All systems reviewed & are unremarkable except as noted in HPI & below Constitutional: no fever, no chills and no body aches Respiratory: no cough Cardiovascular: no chest pain Gastrointestinal: no abdominal pain, no nausea and no vomiting Physical Exam Constitutional: WD/WN, vitals as above + well hydrated and average body habitus Eyes: PERRL, conjunctivae normal, anicteric sclerae ENMT: external ear and nose normal, oropharynx normal Neck: normal visual inspection Respiratory: normal respiratory effort, lungs clear to auscultation Cardiovascular: RRR, no murmur, no edema Gastrointestinal (Abdomen): normal bowel sounds, soft, nontender, no hepatosplenomegaly Skin: no rashes, warm and dry Neurologic: PERRL, EOMI, accommodation nl, no face palsy, no dysarthria Psychiatric: A+Ox3, euthymic affect Results & Data Vital Signs (Past 12 Hours) Vital Signs Temp Pulse Resp BP Pulse Ox 08/10/18 15:12 36.6 C 71 17 113/71 98 08/10/18 07:35 36.7 C 86 16 106/65 97 Laboratory Results 08/10/18 08/10/18 08/09/18 Range/Units 05:12 05:12 17:28 WBC 11.04 H (4.8-10.8) K/uL RBC 4.62 L (4.7-6.1) M/uL Hgb 14.2 (14.0-18.0) g/dL Hct 41.6 L (42-52) % MCV 90.0 (80-100) fL MCH 30.7 (25-34) pg MCHC 34.1 (32-36) g/dL RDW Std Deviation 41.0 (36.4-46.3) fL RDW Coeff of Aga 12.5 (11.5-14.5) % Plt Count 256 (130-400) K/uL MPV 10.1 (7.4-10.4) fL Immature Gran % (Auto) 0.4 % Neut % (Auto) 90.0 % Lymph % (Auto) 8.7 % Randall % (Auto) 0.9 % Eos % (Auto) 0.0 % Baso % (Auto) 0.0 % Immature Gran # (Auto) 0.04 H (0.00-0.02) K/uL Neut # (Auto) 9.94 H (1.4-6.5) K/uL Lymph # (Auto) 0.96 L (1.2-3.4) K/uL Randall # (Auto) 0.10 L (0.11-0.59) K/uL Eos # (Auto) 0.00 (0-0.5) K/uL Baso # (Auto) 0.00 (0-0.2) K/uL ESR (0-14) mm/hr Sodium 138 (136-145) mmol/L Potassium 4.1 (3.5-5.1) mmol/L Chloride 106 (98-107) mmol/L Carbon Dioxide 26 (21-32) mmol/L Anion Gap 6.0 (3-11) BUN 11 (7-18) mg/dl Creatinine 0.89 (0.6-1.4) mg/dl Est Cr Clr Drug Dosing 116.2 ml/min Est GFR ( Amer) 125.7 Est GFR (Non-Af Amer) 108.5 BUN/Creatinine Ratio 12.6 (10-20) Glucose 115 H (70-99) mg/dl Calcium 8.9 (8.5-10.1) mg/dl Phosphorus 4.0 (2.5-4.9) mg/dl Magnesium 2.1 (1.8-2.4) mg/dl C-Reactive Protein 0.45 H (0-0.29) mg/dl 08/09/18 Range/Units 16:07 WBC (4.8-10.8) K/uL RBC (4.7-6.1) M/uL Hgb (14.0-18.0) g/dL Hct (42-52) % MCV (80-100) fL MCH (25-34) pg MCHC (32-36) g/dL RDW Std Deviation (36.4-46.3) fL RDW Coeff of Aga (11.5-14.5) % Plt Count (130-400) K/uL MPV (7.4-10.4) fL Immature Gran % (Auto) % Neut % (Auto) % Lymph % (Auto) % Randall % (Auto) % Eos % (Auto) % Baso % (Auto) % Immature Gran # (Auto) (0.00-0.02) K/uL Neut # (Auto) (1.4-6.5) K/uL Lymph # (Auto) (1.2-3.4) K/uL Randall # (Auto) (0.11-0.59) K/uL Eos # (Auto) (0-0.5) K/uL Baso # (Auto) (0-0.2) K/uL ESR 34 H (0-14) mm/hr Sodium (136-145) mmol/L Potassium (3.5-5.1) mmol/L Chloride (98-107) mmol/L Carbon Dioxide (21-32) mmol/L Anion Gap (3-11) BUN (7-18) mg/dl Creatinine (0.6-1.4) mg/dl Est Cr Clr Drug Dosing ml/min Est GFR ( Amer) Est GFR (Non-Af Amer) BUN/Creatinine Ratio (10-20) Glucose (70-99) mg/dl Calcium (8.5-10.1) mg/dl Phosphorus (2.5-4.9) mg/dl Magnesium (1.8-2.4) mg/dl C-Reactive Protein (0-0.29) mg/dl Medications Administered Current Inpatient Medications Acetaminophen (Tylenol) 650 mg PO Q4H PRN PRN Reason: Pain or Fever Stop: 09/09/18 15:33 Last Admin: 08/10/18 16:22 Dose: 650 mg Documented by: Methylprednisolone 40 mg/ (Syringe) 0.64 mls @ 1.5 mls/min IV Q24H ALYSHA Stop: 09/09/18 21:59 Morphine Sulfate (Morphine Sulfate) 4 mg IV Q4H PRN PRN Reason: Pain Stop: 08/23/18 21:30 Ondansetron HCl (Zofran) 4 mg IV Q6H PRN PRN Reason: Nausea Stop: 09/08/18 21:30 Resident Activity Tracking Resident Involvement: Resident Care Provided Care Provided: Adult Hospital Medicine (1) Crohns disease Digestive disease complication type: with intestinal obstruction Gastrointestinal tract location: small intestine Qualified Code(s): K50.012 - Crohn's disease of small intestine with intestinal obstruction
[2018-08-10] MEDS ORDERED: methylPREDNISolone 40 MG in SYRINGE 0 ML IV SCH (22:00)
[2018-08-11 07:39] LABS: Hematocrit (blood only) 43.3 % (42-52); Hemoglobin 14.7 g/dL (14.0-18.0); Immature Granulocytes # (auto) 0.04 K/uL (0.00-0.02); Immature Granulocytes % (auto) 0.4 %; Lymphocytes # (auto) 0.78 K/uL (1.2-3.4); Lymphocytes % (auto) 7.3 %; Mean Corpuscular Hgb Conc 33.9 g/dL (32-36); Mean Corpuscular Volume 90.6 fL (80-100); Mean Platelet Volume 10.5 fL (7.4-10.4); Monocytes % (auto) 1.9 %; Neutrophils # (auto) 9.71 K/uL (1.4-6.5); Neutrophils % (auto) 90.4 %; Platelet Count 291 K/uL (130-400); RDW Coefficient of Variation 12.5 % (11.5-14.5); RDW Standard Deviation 41.2 fL (36.4-46.3); Red Blood Count 4.78 M/uL (4.7-6.1); White Blood Count 10.73 K/uL (4.8-10.8)
[2018-08-11 08:00] LABS: BUN Creatinine Ratio 16.8 (10-20); Calcium 8.8 mg/dl (8.5-10.1); Creatinine Clr Calc Pharmacy 107.7 ml/min; Est GFR (African American) 115.7; Est GFR (Non-African American) 99.9
--- NOTE | 2018-08-11 09:37 | Gastroenterology Progress Note ---
Date of Service August 11, 2018 Assessment & Plan (1) Crohn's disease of ileum with intestinal obstruction: Patient is a 38 yo male with fibrostenosing Crohn's Disease with a history of distant ileocecectomy hospitalized with a small bowel obstruction noted at the area of his ileal stricture. He is now pain-free, tolerating a diet, and moving his bowels. 1) Symptoms resolved at present. Patient is moving his bowels, is pain free, and is tolerating a diet. 2) Plan to do an 8 week steroid taper upon discharge beginning at 40 mg daily x 1 week, then decreasing by 5 mg weekly x 8 weeks. Discussed importance of use of Vitamin D & Calcium supplementation while on corticosteroids and the need for an outpatient DEXA scan. 3) Given delay in Remicade therapy, will plan for an Infliximab trough and antibody levels to be performed prior to next infusion. 4) Discussed the importance of following through with his colorectal surgeon at [facility]. I did offer a local colorectal surgery evaluation, however he reports he will stay at [facility]. Discussed that SBOs may continue to happen until this issue is addressed surgically. 5) Plan to obtain orthopedic notes from outpatient evaluation of AVN. Patient is ok for d/c from a GI standpoint. We will sign off at this time and will be contacting the patient regarding the appropriate outpatient follow-up. Thank you for allowing us to participate in the care of this patient. If you should have further questions or concerns, do not hesitate to contact us at extension [phone] or [phone]. Supervising Physician Co-Signing Physician Notes Agree with KRISTEN Cooper as above Patient discharged prior to my evaluation Subjective Patient is a 38 yo male hospitalized with a SBO 2/2 stricturing Crohn's Disease. He is feeling much better. Pain is resolved. He is moving his bowels and is tolerating a diet this AM (toast & oatmeal). He reports no further issues at present. Review of Systems Constitutional: no fever, no chills and no fatigue Respiratory: no cough and no dyspnea Cardiovascular: no chest pain Gastrointestinal: no abdominal pain, no nausea, no vomiting, no excessive flatulence, no constipation and no diarrhea/loose stools Physical Exam Constitutional: WD/WN, vitals as above Respiratory: normal respiratory effort, lungs clear to auscultation Cardiovascular: Rate/Rhythm: regular rate and regular rhythm Gastrointestinal (Abdomen): normal bowel sounds, soft, nontender, no hepatosplenomegaly Skin: no rashes, warm and dry Results & Data Vital Signs (Past 12 Hours) Vital Signs Temp Pulse Resp BP Pulse Ox 08/11/18 07:44 36.8 C 61 16 127/74 96 08/10/18 23:03 36.6 C 58 L 14 117/65 93
--- NOTE | 2018-08-11 11:52 | Discharge Summary ---
Date of Service August 11, 2018 Admission HPI Per Admitting Provider Favio Guy is a pleasant 38yo C male with history of Crohns since age 12, s/p ileocolectomy, multiple SBOs in the past presenting with SBO. Patient states that this AM he began to feel epigastric abdominal pain. Nausea associated with the pain, no vomiting, no diarrhea or constipation. Last BM was this AM, small amount. He is presently not passing flatus. He denies fevers/chills. Denies melena/hematochezia. Symptoms are typical of prior SBOs. No additional complaints at this time ER Course: Morphine 4mg, Zofran 4mg Principal Diagnosis SBO Discharge Exam Vitals noted and within normal limits . GENERAL: Awake, alert to person, place, and time, nontoxic-appearing, in no distress HENT: Normocephalic, atraumatic. Mucus membranes appear moist. EYES: Normal conjunctiva. Sclera non-icteric. EOMI. NECK: Supple. Full range of motion. No JVD RESPIRATORY: Clear to auscultation. Normal work of breathing. CARDIAC: Regular rate, normal rhythm. Extremities warm and well perfused. ABDOMEN: Soft, non-distended. No tenderness to palpation in all four quadrants. No rebound or guarding. No masses. Bowel sounds are normal. LOWER EXTREMITIES: Inspection of calves reveal equal size bilaterally. They are non-tender. No edema. No discoloration. NEURO: No focal gross focal motor deficits noted. Sensation in tact. CN II-XII grossly in tact. SKIN: Rash not present. No jaundice noted. Significant lesions not present. PSYCH: Appropriate mood and affect. Cooperative. Exam as done by Kacy Clement MD, Communications Program Manager. Discharge Data Allergies Allergy/AdvReac Type Severity Reaction Status Date / Time Macrolide Antibiotics Allergy Intermediate GI SYMPTOMS Verified 08/09/18 16:35 Consultations 08/09/18 18:47 ED Decision to Admit Stat 08/09/18 21:31 Consult Gastroenterology Routine Ordered Studies 08/09/18 15:56 CT abd pelvis IV con only Stat Hospital Course (1) Crohn's disease of ileum with intestinal obstruction: 38yo male with history of Crohns since age 12, s/p ileocolectomy, multiple SBOs in the past presenting with SBO. Follows with gastroenterology (Dr. Poon) and colorectal surgeon at [facility]. Small bowel obstruction: -Partial SBO with transition point in the lower central abdomen on CT. Hyperemia suggestive of stricture most likely secondary to underlying Crohns disease. Elevated ESR (34) and CRP (.45) here. Pain improved with bowel rest and slow advance of diet, and is pain free on day of discharge. -Electrolyte repletion and IV hydration given here, along with bowel rest and slow resumption of full diet upon discharge. -Seen by GI here (Dr. Poon and Jenniffer Alanis PA-C) - plan for prolonged taper of steroids (see below). Scheduling remicade in outpatient, and strong urging to follow up with colorectal surgeon in [facility] as previously discussed -- pt has been told he would benefit from resection, but has delayed, and not been fully compliant with remicade either. Avascular necrosis noted on CT scan - likely from the steroid use. Currently asymptomatic. To be followed as outpatient. Chronic steroid use GI recommends DEXA scan and continue vit D and calcium supplementation. Crohns disease: As above. Leukocytosis: Afebrile, hemodynamically stable. Most likely reactive in setting of SBO and possible Crohns flare A Racquel PATRICK (2) Crohns disease: Total Time Total Time Spent Total Time Spent (In Minutes): 30 Discharge Plan Discharge Items Patient Disposition: Home - Self-Care Reason For Visit: SBO Discharge Diagnosis: SBO, CROHN'S Condition: Good Discharge Goals: Decrease discomfort, Improve function and Learn about illness Activity: Per 'Additional Instructions' section Bathing: No limitations Sexual Activity: When tolerated Non-emergency contact: Primary Care Provider, Surgeon and Digital Marketing Lead Call non-emergency contact if: you have any medication questions, your pain is not controlled and your temperature is above 100.5 Follow-up/Referrals: Keyshawn Frost [Primary Care Provider] - 08/15/18 12:15 pm (Please, follow up with Dr. Frost on WednesdayAugust 15 at 12:15 pm. *If you need to change this appointment, call the office at [phone].) Diet: Low Fiber and Low Fat Addtl Provider Instructions: You were admitted due to abdominal pain found to be due to a small bowel obstruction -- which is located at the site of your previous surgery. As discussed, you will be following up with your surgeon at [facility] regarding plans for surgical intervention. As far as your medications, gastroenterology recommend: 1) Plan to do an 8 week steroid taper upon discharge beginning at 40 mg daily x 1 week (4 of 10mg tab daily), then 35 mg x 1 week (3 of 10mg tab + 1 of 5mg tab daily) , then 30mg x 1 week (3 of 10mg tab daily), then 25 mg x 1 wk (2 of 10 mg tab daily + 1 of 5mg tab daily), then 20 mg x 1 wk (2 of 10 mg tabs daily), then 15mg x 1 wk (1 of 10 mg tab + 1 of 5mg tab daily), then 10mg x 1 wk, (1 of 10mg tab daily) then 5 mg x 1 wk. (1 of 5mg tab daily). Tabs are in 10mg, and 5mg increments. Please see directions. As discussed, it is important to use Vitamin D & Calcium supplementation while on corticosteroids, and also to get an outpatient DEXA scan. 2) Given delay in Remicade therapy, GI will plan for an Infliximab trough and antibody levels to be performed prior to your next infusion. If your symptoms should recur, please do not hesitate to reach out directly to your brick picker, or your surgeon. Since surgery has been recommended in the past, delay in reaching out is not advised -- if you are at all concerned, you should return to the ER. Again, the sooner you reach out to your surgeon for follow up of this flare, the better. Be Well A Racquel PATRICK Prescriptions: New prednisone 5 mg tablet See Rx Instructions .ROUTE .COMPLEX Qty: 28 RF: 0 prednisone 10 mg tablet See Rx Instructions .ROUTE .COMPLEX Qty: 112 RF: 0 Continued Remicade 100 mg Recon Soln 100 mg IV Q8WK RF: 0 melatonin 10 mg Tablet 10 mg PO HS RF: 0 Probiotic 3 billion cell Capsule 3,000 mmu cells PO HS RF: 0 Stand-Alone Forms: Call Back Authorization, Replaced By [facility] Discharge Orders: Discharge Order (Routine); Ordered 08/11/18 Ordered By: Kacy Clement Admission Data Admit Date/Time: 08/09/18 19:35 Attending Provider: Cyndy Mckeon Admit Provider: Keisha Marie Primary Care Provider: Keyshawn Frost Other Providers: Caleb Tidwell ; Glynn Poon ; Keisha Marie Service: Surgical Services Other Interventions: Discharge Summary Assessment (RN) Last Done: 08/11/18 11:34 Pending Studies at Discharge: No DC Date/Time DO NOT enter until pt leaves facility: 08/11/18 12:12 Supervising Physician Co-Signing Physician Notes Resident Physician Supervision Note: I independently interviewed and examined the patient and verified the martini history and physical, reviewed labs and image studies, discussed the case with the resident Dr. Clement and agree with the findings and care plan. Resident Activity Tracking Resident Involvement: Resident Care Provided Care Provided: Adult Hospital Medicine
== END 2018-08-11 12:12 | disposition home or self-care (01) | DRG 386 ==
LOC: ED 15:33 → SUATTDRO 19:35 → 3W 19:35

== ENCOUNTER 2019-07-10 10:56 | Inpatient (IN) ==
[2019-07-10] MEDS ORDERED: SODIUM CHLORIDE 0.9% 1000ML 2,000 ML IV ONE (11:16)
[2019-07-10] MEDS ORDERED: MoRPHine SULFATE 4 MG/ML 1 ML CARP\\VIAL IV STA (11:16)
[2019-07-10] MEDS ORDERED: ONDANSETRON INJ 2 MG/ML 2 ML VIAL IV STA (11:16)
--- NOTE | 2019-07-10 11:29 | Emergency Department Note ---
History of Present Illness General Chief Complaint: Abdominal Pain Stated Complaint: ABD PAIN History of Present Illness Maximum Pain Intensity: 8 This patient is a 39-year-old male who presents to the emergency department ambulatory via private vehicle for evaluation of abdominal pain that started last night. He describes it as a severe, colicky cramping sensation particularly in the upper abdomen. The patient has a history of Crohn's disease. He reports having 3 surgeries on his abdomen approximately 20 years ago. Since then, he has gotten bowel obstruction secondary to adhesions. His last 1 was approximately 1 year ago. The patient also reports nausea without vomiting. He has had diarrhea since last night. No blood in his stool. The patient tried Zofran and oxycodone with minimal relief of his symptoms. He denies any fever. He is currently on Remicade every 8 weeks. Home Medications Home Medications Medication Instructions Recorded Confirmed Type infliximab 100 mg intravenous See Rx Instructions IV Q8WK 06/20/19 07/10/19 History solution Allergies Allergy/AdvReac Type Severity Reaction Status Date / Time Macrolide Antibiotics Allergy Intermediate GI SYMPTOMS Verified 07/10/19 11:44 Past Med/Surg History Medical History Crohn's disease of ileum with intestinal obstruction Encounter for postvasectomy sperm count Hx of renal calculi Surgical History History of surgical removal of terminal ileum Hx of colostomy Family History Other Adopted Unobtainable family history due to adoption Social History Preferred Language: Mozambican Communication Ability: Effective Brick Baker Required: No Beliefs That Will Affect Care: None marital status: Current Living Situation: Spouse current occupational status: unemployed Other Information That Helps Us Care for You: No Feels Safe at Home: Yes Safety Concerns: Feels Safe At This Time Smoking Status: Former smoker Tobacco Type: cigarettes ; Smoking End Date: more than 10 years ago ; Second Hand Exposure: No ; Hx Alcohol Use: Yes Alcohol type: hard liquor Hx Substance Use: No Review of Systems A total of 10 systems reviewed and were otherwise negative Physical Exam Vital Signs: Vital Signs - 24 hr 07/10/19 11:02 07/10/19 12:57 07/10/19 14:00 Temperature 36.8 C Temperature Source Oral Pulse Rate 114 H Pulse Rate [Apical ] 82 80 Respiratory Rate 20 18 18 Respiratory Effort / Characteristics Non-Labored Sponta neous Respiratory Depth Normal Respiratory Patter n Regular Blood Pressure 142/100 H Blood Pressure [Le ft Arm] 140/95 121/90 Blood Pressure Kim n 114 Blood Pressure Kim n [Left Arm] 110 100 Blood Pressure Pos ition Sitting Pulse Oximetry 96 98 98 Oxygen Delivery Me thod Room Air Room Air Sepsis Recent Feve r Within 48 Hours No Sepsis New/Unexpla ined Change in Men alessandra Status No Sepsis Action Take n by Nursing No Action Required 07/10/19 16:09 Temperature Temperature Source Pulse Rate Pulse Rate [Apical ] 70 Respiratory Rate 18 Respiratory Effort / Characteristics Respiratory Depth Respiratory Patter n Blood Pressure Blood Pressure [Le ft Arm] 113/71 Blood Pressure Kim n Blood Pressure Kim n [Left Arm] 85 Blood Pressure Pos ition Pulse Oximetry 97 Oxygen Delivery Me thod Room Air Sepsis Recent Feve r Within 48 Hours Sepsis New/Unexpla ined Change in Men alessandra Status Sepsis Action Take n by Nursing Constitutional: WD/WN, vitals as above Eyes: EOM intact bilaterally ENMT: external ear and nose normal, oropharynx normal Neck: trachea midline Respiratory: normal respiratory effort, lungs clear to auscultation Cardiovascular: RRR, no murmur, no edema Gastrointestinal (Abdomen): normal bowel sounds, soft, nontender, no hepatosplenomegaly Musculoskeletal: no cyanosis or clubbing, extremities motor strength 5/5 Skin: no rashes, warm and dry Neurologic: Alert and oriented x3. No focal motor deficits. Psychiatric: Acting appropriately Course Course Patient was seen and examined Vital signs including blood pressure were reviewed medications list was verified with patient Labs were obtained, and a saline lock was established Medications ordered Imaging was performed and reviewed Upon reevaluation, patient was still complaining of pain. He was ordered more medications. We discussed his results. He voiced understanding. The case was discussed with the mom and the hospitalist team. They kindly agreed to evaluate the patient for likely inpatient management. Administered Medications Hydromorphone HCl (Dilaudid) 0.5 mg IV Q3H PRN PRN Reason: Pain Stop: 07/24/19 17:08 Last Admin: 07/10/19 17:29 Dose: 0.5 mg Documented by: [id number] Sodium Chloride (Nss 1000ml) 1,000 mls @ 125 mls/hr IV .Q8H ALYSHA Stop: 07/11/19 17:08 Last Admin: 07/10/19 17:22 Dose: 125 mls/hr Documented by: [id number] Methylprednisolone 40 mg/ (Syringe) 0.64 mls @ 1.5 mls/min IV DAILY ALYSHA Stop: 08/09/19 17:29 Last Admin: 07/10/19 17:48 Dose: 1.5 mls/min Documented by: [id number] Ondansetron HCl (Zofran) 4 mg IV Q4H PRN PRN Reason: Nausea And Vomiting Stop: 08/09/19 17:08 Last Admin: 07/10/19 17:36 Dose: 4 mg Documented by: [id number] Discontinued Medications Hydromorphone HCl (Dilaudid) 0.5 mg IV NOW STA Stop: 07/10/19 14:02 Last Admin: 07/10/19 14:13 Dose: 0.5 mg Documented by: [id number] Sodium Chloride (Nss 1000ml) 2,000 mls @ 999 mls/hr IV .Q2H1M ONE Stop: 07/10/19 13:16 Last Infusion: 07/10/19 13:49 Dose: 0 mls/hr Documented by: [id number] Admin: 07/10/19 11:30 Dose: 999 mls/hr Documented by: [id number] Promethazine HCl (Phenergan) 25 mg in 51 mls @ 204 mls/hr IV NOW STA Stop: 07/10/19 14:15 Last Infusion: 07/10/19 16:17 Dose: 0 mls/hr Documented by: [id number] Admin: 07/10/19 14:13 Dose: 204 mls/hr Documented by: [id number] Ioversol (Optiray 320 100ml) 94 ml IV ONCE PRN PRN Reason: Interaction Checking Stop: 07/14/19 13:45 Last Admin: 07/10/19 13:47 Dose: 94 ml Documented by: [id number] Morphine Sulfate (Morphine Sulfate) 4 mg IV NOW STA Stop: 07/10/19 11:17 Last Admin: 07/10/19 11:31 Dose: 4 mg Documented by: [id number] Ondansetron HCl (Zofran) 4 mg IV NOW STA Stop: 07/10/19 11:17 Last Admin: 07/10/19 11:31 Dose: 4 mg Documented by: [id number] Medical Decision Making Differential Diagnosis Differential diagnosis: Crohn's flare, bowel obstruction, bowel perforation, gastroenteritis, pancreatitis, gallbladder pathology, among others Medical Records Attestation: I reviewed the patient's medical records. Home Medications Current Medication List: was personally reviewed by me Laboratory Data Attestation: I reviewed the patient's lab results. Result diagrams: 07/10/19 11:30 07/10/19 11:30 Lab Results 07/10/19 07/10/19 07/10/19 Range/Units 11:30 11:30 11:30 WBC 13.82 H (4.8-10.8) K/uL RBC 4.95 (4.7-6.1) M/uL Hgb 15.5 (14.0-18.0) g/dL Hct 45.2 (42-52) % MCV 91.3 (80-100) fL MCH 31.3 (25-34) pg MCHC 34.3 (32-36) g/dL RDW Std Deviation 41.1 (36.4-46.3) fL RDW Coeff of Aga 12.4 (11.5-14.5) % Plt Count 290 (130-400) K/uL MPV 10.1 (7.4-10.4) fL Immature Gran % (Auto) 0.1 % Neut % (Auto) 84.2 % Lymph % (Auto) 8.8 % [place] % (Auto) 6.7 % Eos % (Auto) 0.1 % Baso % (Auto) 0.1 % Immature Gran # (Auto) 0.02 (0.00-0.02) K/uL Neut # (Auto) 11.64 H (1.4-6.5) K/uL Lymph # (Auto) 1.22 (1.2-3.4) K/uL [place] # (Auto) 0.92 H (0.11-0.59) K/uL Eos # (Auto) 0.01 (0-0.5) K/uL Baso # (Auto) 0.01 (0-0.2) K/uL Sodium 138 (136-145) mmol/L Potassium 3.9 (3.5-5.1) mmol/L Chloride 105 (98-107) mmol/L Carbon Dioxide 25 (21-32) mmol/L Anion Gap 8.0 (3-11) BUN 13 (7-18) mg/dl Creatinine 0.94 (0.6-1.4) mg/dl Est Cr Clr Drug Dosing 108.9 ml/min Est GFR ( Amer) 117.9 Est GFR (Non-Af Amer) 101.7 BUN/Creatinine Ratio 13.4 (10-20) Glucose 96 (70-99) mg/dl Calcium 9.7 (8.5-10.1) mg/dl Phosphorus 4.0 (2.5-4.9) mg/dl Magnesium 2.1 (1.8-2.4) mg/dl Total Bilirubin 0.5 (0.2-1) mg/dl AST 20 (15-37) U/L ALT 32 (12-78) U/L Alkaline Phosphatase 103 (45-117) U/L Total Protein 8.9 H (6.4-8.2) gm/dl Albumin 4.3 (3.4-5.0) gm/dl Globulin 4.6 H (2.5-4.0) gm/dl Albumin/Globulin Ratio 0.9 (0.9-2) Urine Color Yellow Urine Appearance Clear (Clear) Urine pH 5.5 (4.5-7.5) Ur Specific [place] 1.022 (1.000-1.030) Urine Protein Negative (Negative) Urine Glucose (UA) Negative (Negative) Urine Ketones 1+ H (Negative) Urine Blood Negative (Negative) Urine Nitrite Negative (Negative) Urine Bilirubin Negative (Negative) Urine Urobilinogen Negative (Negative) Ur Leukocyte Esterase Negative (Negative) Imaging Data Attestation: I personally reviewed and interpreted this imaging study as follows: Radiologist's Impression: CT abdomen and pelvis with IV and oral contrast IMPRESSION: 1. High-grade partial or complete small bowel obstruction in the right mid abdomen, where there is feces within small bowel. This is located in the mid ileum. This could either be due to adhesions or, less likely, fibrostenotic stricture. 2. Postsurgical changes of ileocecectomy with unremarkable ileocolic anastomosis. No evidence of inflammatory change or obstruction of the neoterminal ileum or distal ileum. 3. No convincing evidence of active inflammation or penetrating disease. 4. Intramural fat deposition in the rectosigmoid colon can be seen as sequela of chronic inflammation as well as in the setting of obesity or chronic steroid exposure. 5. Hepatic steatosis suspected. ACT 112: Negative or not required by law. MDM Narrative This patient is a 39-year-old male, history of Crohn's, who presents to the emergency department with complaints of abdominal pain and nausea. On exam, his abdomen was fairly benign. He did have bowel sounds present. The patient's lab work reveals mild leukocytosis. I reviewed outpatient records. He has not had imaging for quite some time. A CT scan was performed. This is consistent with a likely high-grade partial small bowel obstruction versus possible a complete bowel obstruction. As the patient did not have pain relief for nausea relief and he is not tolerating liquids, I did not feel comfortable sending the patient home. The patient will be further evaluated by the hospitalist group for likely inpatient management. The patient was in agreement. Impression & Plan SBO (small bowel obstruction), Crohn disease Discharge Plan Visit Data *Final* Discharge Date/Time: 07/10/19 16:53 Chief Complaint: Abdominal Pain Stated Complaint: ABD PAIN ED Provider: Nehemiah Mcgowan ED Midlevel Provider: Bella Benoit Discharge Problem: SBO (small bowel obstruction), Crohn disease Patient Disposition: Admitted As Inpatient Condition: Fair Discharge Instructions Interventions: ED Discharge Assessment Last Done: 07/10/19 16:53
[2019-07-10 11:46] LABS: Basophils # (auto) 0.01 K/uL (0-0.2); Basophils % (auto) 0.1 %; Eosinophils # (auto) 0.01 K/uL (0-0.5); Eosinophils % (auto) 0.1 %; Hematocrit (blood only) 45.2 % (42-52); Hemoglobin 15.5 g/dL (14.0-18.0); Immature Granulocytes # (auto) 0.02 K/uL (0.00-0.02); Immature Granulocytes % (auto) 0.1 %; Lymphocytes # (auto) 1.22 K/uL (1.2-3.4); Lymphocytes % (auto) 8.8 %; Mean Corpuscular Hemoglobin 31.3 pg (25-34); Mean Corpuscular Hgb Conc 34.3 g/dL (32-36); Mean Corpuscular Volume 91.3 fL (80-100); Mean Platelet Volume 10.1 fL (7.4-10.4); Monocytes # (auto) 0.92 K/uL (0.11-0.59); Monocytes % (auto) 6.7 %; Neutrophils # (auto) 11.64 K/uL (1.4-6.5); Neutrophils % (auto) 84.2 %; Platelet Count 290 K/uL (130-400); RDW Coefficient of Variation 12.4 % (11.5-14.5); RDW Standard Deviation 41.1 fL (36.4-46.3); Red Blood Count 4.95 M/uL (4.7-6.1); White Blood Count 13.82 K/uL (4.8-10.8)
[2019-07-10 12:03] LABS: Albumin Level 4.3 gm/dl (3.4-5.0); BUN Creatinine Ratio 13.4 (10-20); Calcium 9.7 mg/dl (8.5-10.1); Creatinine Clr Calc Pharmacy 108.9 ml/min; Est GFR (African American) 117.9; Est GFR (Non-African American) 101.7; Magnesium 2.1 mg/dl (1.8-2.4); Potassium 3.9 mmol/L (3.5-5.1)
[2019-07-10 12:06] LABS: Albumin Globulin Ratio 0.9 (0.9-2); Bilirubin,Total 0.5 mg/dl (0.2-1); Globulin 4.6 gm/dl (2.5-4.0); Total Protein 8.9 gm/dl (6.4-8.2)
[2019-07-10 12:32] LABS: Appearance Urine Clear (Clear); Bilirubin Urine Negative (Negative); Blood Urine Negative (Negative); Color Urine Yellow; Glucose Urine UA Negative (Negative); Ketones Urine 1+ (Negative); Leukocyte Esterase Urine Negative (Negative); Nitrite Urine Negative (Negative); Protein Urine Negative (Negative); Specific Gravity Urine 1.022 (1.000-1.030); Urobilinogen Urine Negative (Negative); pH Urine 5.5 (4.5-7.5)
[2019-07-10] MEDS ORDERED: IOVERSOL 100ml IV PRN (13:46)
[2019-07-10] MEDS ORDERED: HYDROmorphone INJ 0.5 MG/0.5 ML SYR IV STA (14:01)
[2019-07-10] MEDS ORDERED: PROMETHAZINE 25 MG/51 ML BAG IV STA (14:01)
--- NOTE | 2019-07-10 14:01 | CT Scan Report ---
CT abd pelvis oral and IV con CLINICAL HISTORY: 39 years-old Male presenting with abd pain hx chron's/obs. TECHNIQUE: Multidetector CT of the abdomen and pelvis was performed after the administration of oral and intravenous contrast. IV contrast: 94 mL of Optiray 320. One or more dose lowering techniques wer e used consistent with the principles of ALARA (as low as reasonably achievable), including automatic exposure control, mA or kV adjustment to individual patient size, and/or use of iterative reconstruc tion. COMPARISON: 08/09/2018. CT DOSE (mGy.cm): The estimated cumulative dose is 361.26 mGy.cm. FINDINGS: [employer] topogram: Vasectomy clips noted. Lung bases: Normal heart size. No pericardial or pleural effusion. Minimal dependent changes likely a telectasis. Liver: Normal morphology. Density suggestive of hepatic steatosis. No focal lesion. Patent hepatic va sculature. Biliary: No intrahepatic or extrahepatic biliary ductal dilatation. Normal gallbladder. Pancreas: Normal. Spleen: Normal. Adrenal glands: Normal. Kidneys and ureters: Few small cysts in the right kidney. No nephrolithiasis or hydronephrosis. Urete rs nondistended. Bladder: Normal. Pelvic organs: Prostate and seminal vesicles normal. Bowel: Intramural fat deposition within the rectum and sigmoid colon. Few diverticula at the proximal sigmoid and descending colon. Postsurgical changes of ileocecectomy with a patent ileocolic anastomo sis. The distal ileum is decompressed. The neoterminal ileum is normal-appearing. Mid ileum is dilate d with feces noted at the site of a transition point located in the right posterior mid abdomen (seri es 3 image 309). Smooth transition to a less dilated caliber upstream. Focal kinking at the site of o bstruction. Stomach is mildly distended with oral contrast. Oral contrast has not progressed substant ially into the small bowel beyond the duodenum. Peritoneal cavity: Trace interloop fluid is noted in the left anterior and central abdomen. No free i ntraperitoneal gas. Lymph nodes: No enlarged lymph nodes in the abdomen or pelvis. Vasculature: Aorta and IVC patent and normal in caliber. Abdominal wall: Gynecomastia. 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 No evidence of cortic al collapse. Sacroiliac joints and spine grossly normal. IMPRESSION: 1. High-grade partial or complete small bowel obstruction in the right mid abdomen, where there is f eces within small bowel. This is located in the mid ileum. This could either be due to adhesions or, less likely, fibrostenotic stricture. 2. Postsurgical changes of ileocecectomy with unremarkable ileocolic anastomosis. No evidence of inf lammatory change or obstruction of the neoterminal ileum or distal ileum. 3. No convincing evidence of active inflammation or penetrating disease. 4. Intramural fat deposition in the rectosigmoid colon can be seen as sequela of chronic inflammatio n as well as in the setting of obesity or chronic steroid exposure. 5. Hepatic steatosis suspected. ACT 112: Negative or not required by law. Electronically signed by: Maurisio Chandler M.D. 07/10/2019 1:59 PM
--- NOTE | 2019-07-10 16:22 | History & Physical Report ---
Date of Service July 10, 2019 Assessment & Plan (1) Crohn's disease of ileum with intestinal obstruction: -Admit to [facility] -Currently n.p.o., continue supportive care for analgesia and nausea, pt will refuse NGT -WBC = 13.72, trend with a.m. CBC -CT abd reviewed: high grade partial or complete small bowel obstruction in the right mid abdomen, fibro-stenotic stricture, postsurgical changes of ileo- septectomy with unremarkable ileocolic anastomosis. -GI consulted, follows with Dr. Poon and Jenniffer Alanis as outpatient -last seen was about 1 year ago -Appears that he has been following with colorectal surgeon with [facility], may reconsider consultation with colorectal surgery pending GI consult -Typically receives Remicade infusion at [facility], was due 6 days ago, can try to arrange to infusion to happen while admitted to prevent further delay in therapy DVT ppx: Encourage ambulation, no chemical prophylaxis CODE STATUS: Full code Disposition: Patient from home, likely to remain in the hospital x1 to 2 days (2) Leukocytosis: - Trend as above. History of Present Illness Primary Care Provider: Keyshawn Frost This is a 39-year-old male with PMHx of fibrostenosing Crohn's disease, history of distant ileostomy, terminal ileum resection, done at age 15, with ileal stricture presenting with increased nausea and abdominal pain with small bowel obstruction as seen on abdominal imaging. Patient is currently maintained on Remicade every 8 weeks, last time taken was almost 9 weeks ago, but has just had difficulty having the procedure scheduled due to COVID-19. Patient reports adamantly that he will refuse an NG tube if this is presented for him to have placed. Last time of oral intake was last night for dinner. Patient was able to tolerate oral contrast for CT abdomen. Nausea and abdominal pain have subsided since receiving medication here in ER. Denies any other acute respiratory complaints. Allergies Allergy/AdvReac Type Severity Reaction Status Date / Time Macrolide Antibiotics Allergy Intermediate GI SYMPTOMS Verified 07/10/19 11:44 Home Medications Home Medications Medication Instructions Recorded Confirmed Type infliximab 100 mg intravenous See Rx Instructions IV Q8WK 06/20/19 07/10/19 History solution Past Med/Surg History Medical History (Updated 07/10/19 @ 16:27 by Gill Chand PA-C) Crohn's disease of ileum with intestinal obstruction Encounter for postvasectomy sperm count Hx of renal calculi Surgical History History of surgical removal of terminal ileum Hx of colostomy Family History Other Adopted Unobtainable family history due to adoption Social History Preferred Language: Kiswahili Communication Ability: Effective Physician/Internist Required: No Beliefs That Will Affect Care: None marital status: Current Living Situation: Spouse current occupational status: unemployed Other Information That Helps Us Care for You: No Feels Safe at Home: Yes Safety Concerns: Feels Safe At This Time Smoking Status: Former smoker Tobacco Type: cigarettes ; Smoking End Date: more than 10 years ago ; Second Hand Exposure: No ; Hx Alcohol Use: Yes Alcohol type: hard liquor Hx Substance Use: No Review of Systems Review of Systems: Constitutional: No fever, sweats or chills Eyes: No diplopia, no worsening or blurred vision ENT: normal hearing, no trouble swallowing Respiratory: No cough, sputum, dyspnea at rest or on exertion Cardiovascular: No chest pain, tightness or palpitations Abdomen: + Pain, + nausea, no vomiting, no diarrhea or constipation Musculoskeletal: No joint pain, calf pain, swelling Neurologic: No weakness, numbness/tingling, or balance problems Psychiatric: No anxiety or depression Skin: No rash or itch Physical Exam Physical Exam: General: awake, alert, no apparent distress Head: Normocephalic, atraumatic ENT: PERRL, EOMI, no pharyngeal exudate, mucous membranes moist Chest: Clear to auscultation, on room air, no adventitious breath sounds Cardiac: Regular rate and rhythm, no murmur, no JVD, normal peripheral pulses, good capillary refill Abdominal: NABS x 4 quadrants, soft, mildly distended in the epigastric region, + minimally tender in epigastric, otherwise nontender to palpation, no rebound, guarding or tenderness Extremities: Normal inspection, no peripheral edema or erythema, calfs nontender to palpation Psych: Normal mood and affect Neuro: AAO x 3, strength intact bilaterally and rated 5/5, no motor deficits, speech is clear, no peripheral sensory deficits Skin: no rash or erythema Constitutional: WD/WN, vitals as above Eyes: normal visual emerson by confrontation and + anicteric sclerae Neck: normal visual inspection and trachea midline Respiratory: normal respiratory effort, lungs clear to auscultation Cardiovascular: Rate/Rhythm: regular rate and regular rhythm Gastrointestinal (Abdomen): Inspection/Auscultation: + abdomen distended Percussion/Palpation: + abdomen tender (epigastric) and abdomen soft Musculoskeletal: Head/Neck/Chest: normocephalic and head atraumatic Neg for peripheral LE edema, + pedal pulses Skin: no rashes, warm and dry Neurologic: awake; not confused Speech / Cognition: normal speech Psychiatric: A+Ox3, euthymic affect Lymphatic: Exam as done by Lolis Miranda DO Results & Data Results & Data ([facility]) Vital Signs (Past 12 Hours) Vital Signs Temp Pulse Pulse Resp BP BP Pulse Ox 07/10/19 14:00 80 18 121/90 98 07/10/19 12:57 82 18 140/95 98 07/10/19 11:02 36.8 C 114 H 20 142/[address] abd pelvis oral and IV con CLINICAL HISTORY: 39 years-old Male presenting with abd pain hx chron's/obs. TECHNIQUE: Multidetector CT of the abdomen and pelvis was performed after the administration of oral and intravenous contrast. IV contrast: 94 mL of Optiray 320. One or more dose lowering techniques were used consistent with the principles of ALARA (as low as reasonably achievable), including automatic exposure control, mA or kV adjustment to individual patient size, and/or use of iterative reconstruction. COMPARISON: 08/09/2018. CT DOSE (mGy.cm): The estimated cumulative dose is 361.26 mGy.cm. FINDINGS: [employer] topogram: Vasectomy clips noted. Lung bases: Normal heart size. No pericardial or pleural effusion. Minimal dependent changes likely atelectasis. Liver: Normal morphology. Density suggestive of hepatic steatosis. No focal lesion. Patent hepatic vasculature. Biliary: No intrahepatic or extrahepatic biliary ductal dilatation. Normal gallbladder. Pancreas: Normal. Spleen: Normal. Adrenal glands: Normal. Kidneys and ureters: Few small cysts in the right kidney. No nephrolithiasis or hydronephrosis. Ureters nondistended. Bladder: Normal. Pelvic organs: Prostate and seminal vesicles normal. Bowel: Intramural fat deposition within the rectum and sigmoid colon. Few diverticula at the proximal sigmoid and descending colon. Postsurgical changes of ileocecectomy with a patent ileocolic anastomosis. The distal ileum is decompressed. The neoterminal ileum is normal-appearing. Mid ileum is dilated with feces noted at the site of a transition point located in the right posterior mid abdomen (series 3 image 309). Smooth transition to a less dilated caliber upstream. Focal kinking at the site of obstruction. Stomach is mildly distended with oral contrast. Oral contrast has not progressed substantially in to the small bowel beyond the duodenum. Peritoneal cavity: Trace interloop fluid is noted in the left anterior and central abdomen. No free intraperitoneal gas. Lymph nodes: No enlarged lymph nodes in the abdomen or pelvis. Vasculature: Aorta and IVC patent and normal in caliber. Abdominal wall: Gynecomastia. 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 No evidence of cortical collapse. Sacroiliac joints and spine grossly normal. IMPRESSION: 1. High-grade partial or complete small bowel obstruction in the right mid abdomen, where there is feces within small bowel. This is located in the mid ileum. This could either be due to adhesions or, less likely, fibrostenotic stricture. 2. Postsurgical changes of ileocecectomy with unremarkable ileocolic an astomosis. No evidence of inflammatory change or obstruction of the neoterminal ileum or distal ileum. 3. No convincing evidence of active inflammation or penetrating disease. 4. Intramural fat deposition in the rectosigmoid colon can be seen as sequela of chronic inflammation as well as in the setting of obesity or chronic steroid exposure. 5. Hepatic steatosis suspected. ACT 112: Negative or not required by law. Supervising Physician Co-Signing Physician Notes Pt seen and examined by me. Denies chest pain or SOB. Pt states he ate dinner last night without issue, but it was later that night that he had onset of nausea and abd pain. He has had no emesis with this. States he had a bowel movement last night prior to bed. Pt has had 3 surgeries related to his Crohn's disease. He states he has a piece of scar tissue that has caused many bowel obstructions over the last 20 years, about 1-2x/year. He states his abd pain is better, but pain meds are wearing off now. Nausea is improved. Pt states he will refuse NGT. "I would rather just throw up than have a tube down my nose." Agree with HPI/ROS as noted by PA See above for my exam in PE section Agree with plan as outlined above CTAP notes partial vs complete bowel obstruction Hx of same, has always resolved with conservative tx NPO, IVF Follows with Dr. Poon, c/s pending PG Care Time/CCT Total # of Minutes Spent Total Time Spent with Patient: Total time spent is greater than 50% in coordination of care (as documented) at patient's floor/unit and/or counseling patient: Coding Level of Care Code 03680 Initial Inpt Care Lvl 3 Diagnoses Crohn's disease of ileum with intestinal obstruction K50.012 Leukocytosis D72.829
[2019-07-10] MEDS ORDERED: PROMETHAZINE HCL 25 MG TAB PO PRN (17:09)
[2019-07-10] MEDS ORDERED: ACETAMINOPHEN 325 MG TAB PO PRN (17:09)
[2019-07-10] MEDS: SODIUM CHLORIDE 0.9% 1000ML 1,000 ML IV SCH (17:22)
[2019-07-10] MEDS: HYDROmorphone INJ 0.5 MG/0.5 ML SYR IV PRN (17:29)
[2019-07-10] MEDS: ONDANSETRON INJ 2 MG/ML 2 ML VIAL IV PRN (17:36)
[2019-07-10] MEDS: methylPREDNISolone 40 MG in SYRINGE 0 ML IV SCH (17:48)
--- NOTE | 2019-07-10 18:15 | Surgery Consultation ---
Date of Consultation July 10, 2019 Assessment & Plan (1) Crohn's disease of ileum with intestinal obstruction: This is a 39y M with a PMH of Crohn's disease requiring an ileostomy & ileocecectomy in the past around ~1995 at [facility] who now presents to the [facility] ED on 07/10/19 with complaints of abdominal pain. Workup in the ED with a CT scan showing high-grade partial or complete small bowel obstruction in the right mid abdomen, where there is feces within small bowel along with an unremarkable ileocolic anastomosis. At this time patient is minimally tender to palpation and abdomen is soft. He is feeling better since admission after receiving anti- emetics. He has not vomited with this episode of SBO thus far and he is currently refusing an NGT. Appreciate medical management of this patient along with a GI consultation. At this time recommended a course of conservative management with NPO + IVF for bowel rest. Dr Childers-patient seen and examined Agree with above-patient now has been ordered [id number] by the GI team We will obtain a KUB in the morning to assess transit of contrast and also check his mag and phos He does not seem to be in any distress and his small bowel does not seem to be significantly dilated Yet History of Present Illness Attending Physician: Lolis Miranda, History of Present Illness This is a 39y M with a PMH of Crohn's disease requiring an ileostomy & ileocecectomy in the past around ~1995 at [facility] who now presents to the [facility] ED on 07/10/19 with complaints of abdominal pain. Patient reports that his abdominal pain started last night and has been coming and going in waves of pain, located primarily in the central abdomen. He initially thought this was a flare of his Crohn's and that it would pass with time as it has before. Unfortunately, the pain continued to worsen and he had bouts of diarrhea this AM prompting him to come to the ER for evaluation. In the ED a CT a/p was obtained that revealed high-grade partial or complete small bowel obstruction in the right mid abdomen, where there is feces within small bowel. This is located in the mid ileum, and could either be due to adhesions or, less likely, fibrostenotic stricture. He patient reports a history of dealing with multiple Crohn's flare ups or bowel obstructions in the past, spending at least a wk in the hospital each year. Patient reports that all of his prior SBO's have been treated conservatively and he is currently refusing an NGT. He normally has 1-3 normal BM's a day, but last night endorsed + diarrhea (non-bloody). He endorses nausea without emesis, sweats associated with the pain, and some chills. He last ate yesterday evening, steak and potatoes. Patient has been seen by Dr. Poon and Jenniffer Alanis before and has been managed with Remicade infusions every 2 months and was due for one 6 days ago. He states he has followed with a Surgeon at [facility] as he understands he may need another surgery, however he admits that with the Covid-19 situation things have been postponed. Surgery was consulted to follow along for SBO. Allergies Allergy/AdvReac Type Severity Reaction Status Date / Time Macrolide Antibiotics Allergy Intermediate GI SYMPTOMS Verified 07/10/19 11:44 Home Medications Home Medications Medication Instructions Recorded Confirmed Type infliximab 100 mg intravenous See Rx Instructions IV [id number] 06/20/19 07/10/19 History solution Patient History Medical History Crohn's disease of ileum with intestinal obstruction Encounter for postvasectomy sperm count Hx of renal calculi Surgical History History of surgical removal of terminal ileum Hx of colostomy Family History Other Adopted Unobtainable family history due to adoption Social History Preferred Language: Bengali Communication Ability: Effective Sap Analyst Required: No Beliefs That Will Affect Care: None marital status: Current Living Situation: Spouse current occupational status: unemployed Other Information That Helps Us Care for You: No Feels Safe at Home: Yes Safety Concerns: Feels Safe At This Time Smoking Status: Former smoker Tobacco Type: cigarettes ; Smoking End Date: more than 10 years ago ; Second Hand Exposure: No ; Hx Alcohol Use: Yes Alcohol type: hard liquor Hx Substance Use: No Review of Systems Constitutional: + chills and + sweats; no fever Respiratory: allergies Gastrointestinal: + abdominal pain (intermittent abd. pain, mostly central), + nausea and + diarrhea/loose stools; no vomiting Physical Exam Physical Exam: awake/alert Respiratory: normal respiratory effort Gastrointestinal (Abdomen): Inspection/Auscultation: + abdomen distended (mild) and + abdominal surgical scar Percussion/Palpation: + abdomen tender (mild discomfort to palpation, mostly central abd) and abdomen soft Results & Data Vital Signs (Past 12 Hours) Vital Signs Temp Pulse Pulse Pulse Resp BP BP 07/10/19 17:06 36.9 C 64 16 102/65 07/10/19 16:53 75 18 120/77 07/10/19 16:09 70 18 113/71 07/10/19 14:00 80 18 121/90 07/10/19 12:57 82 18 140/95 07/10/19 11:02 36.8 C 114 H 20 142/100 H Pulse Ox 07/10/19 17:06 97 07/10/19 16:53 97 07/10/19 16:09 97 07/10/19 14:00 98 07/10/19 12:57 98 07/10/19 11:[address] abd pelvis oral and IV con CLINICAL HISTORY: 39 years-old Male presenting with abd pain hx chron's/obs. TECHNIQUE: Multidetector CT of the abdomen and pelvis was performed after the administration of oral and intravenous contrast. IV contrast: 94 mL of Optiray 320. One or more dose lowering techniques were used consistent with the tyler nciples of ALARA (as low as reasonably achievable), including automatic exposure control, mA or kV adjustment to individual patient size, and/or use of iterative reconstruction. COMPARISON: 08/09/2018. CT DOSE (mGy.cm): The estimated cumulative dose is 361.26 mGy.cm. FINDINGS: Media Relations Director topogram: Vasectomy clips noted. Lung bases: Normal heart size. No pericardial or pleural effusion. Minimal depen dent changes likely atelectasis. Liver: Normal morphology. Density suggestive of hepatic steatosis. No focal lesion. Patent hepatic vasculature. Biliary: No intrahepatic or extrahepatic biliary ductal dilatation. Normal gallbladder. Pancreas: Normal. Spleen: Normal. Adrenal glands: Normal. Kidneys and ureters: Few small cysts in the right kidney. No nephrolithiasis or hydronephrosis. Ureters nondistended. Bladder: Normal. Pelvic organs: Prostate and seminal vesicles normal. Bowel: Intramural fat deposition within the rectum and sigmoid colon. Few diverticula at the proximal sigmoid and descending colon. Postsurgical changes of ileocecectomy with a patent ileocolic anastomosis. The distal ileum is decompressed. The neoterminal ileum is normal-appearing. Mid ileum is dilated with feces noted at the site of a transition point located in the right posterior mid abdomen (series 3 image 309). Smooth transition to a less dilated caliber upstream. Focal kinking at the site of obstruction. Stomach is mildly distended with oral contrast. Oral contrast has not progressed substantially into the small bowel beyond the duodenum. Peritoneal cavity: Trace interloop fluid is noted in the left anterior and central abdomen. No free intraperitoneal gas. Lymph nodes: No enlarged lymph nodes in the abdomen or pelvis. Vasculature: Aorta and IVC patent and normal in caliber. Abdominal wall: Gynecomastia. 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 No evidence of cortical collapse. Sacroiliac joints and spine grossly normal. IMPRESSION: 1. High-grade partial or complete small bowel obstruction in the right mid abdomen, where there is feces within small bowel. This is located in the mid ileum. This could either be due to adhesions or, less likely, fibrostenotic stricture. 2. Postsurgical changes of ileocecectomy with unremarkable ileocolic anastomosis. No evidence of inflammatory change or obstruction of the neoterminal ileum or distal ileum. 3. No convincing evidence of active inflammation or penetrating disease. 4. Intramural fat deposition in the rectosigmoid colon can be seen as sequela of chronic inflammation as well as in the setting of obesity or chronic steroid exposure. 5. Hepatic steatosis suspected. ACT 112: Negative or not required by law. Electronically signed by: Maurisio Chandler M.D. 07/10/2019 1:59 PM PG Care Time/CCT Total # of Minutes Spent Total Time Spent with Patient: Total time spent is greater than 50% in coordination of care (as documented) at patient's floor/unit and/or counseling patient: Coding Level of Care Code 80229 Inpt Consult Level 3 Diagnoses Crohn's disease of ileum with intestinal obstruction K50.012
[2019-07-10] MEDS ORDERED: 1.2 MICRON FILTER 1 EA IV ONE (18:31)
[2019-07-10] MEDS ORDERED: INFLIXIMAB 100 MG/10 ML VIAL IV SCH (18:45)
[2019-07-11] MEDS: SODIUM CHLORIDE 0.9% 1000ML 1,000 ML IV SCH ×2 (01:27→08:40)
[2019-07-11] MEDS: ONDANSETRON INJ 2 MG/ML 2 ML VIAL IV PRN (04:42)
[2019-07-11] MEDS: HYDROmorphone INJ 0.5 MG/0.5 ML SYR IV PRN (04:42)
[2019-07-11 05:16] LABS: Hematocrit (blood only) 40.3 % (42-52); Hemoglobin 13.5 g/dL (14.0-18.0); Mean Corpuscular Hemoglobin 31.2 pg (25-34); Mean Corpuscular Hgb Conc 33.5 g/dL (32-36); Mean Corpuscular Volume 93.1 fL (80-100); Mean Platelet Volume 10.2 fL (7.4-10.4); Platelet Count 237 K/uL (130-400); RDW Coefficient of Variation 12.5 % (11.5-14.5); RDW Standard Deviation 42.9 fL (36.4-46.3); Red Blood Count 4.33 M/uL (4.7-6.1); White Blood Count 11.95 K/uL (4.8-10.8)
[2019-07-11 05:59] LABS: Albumin Globulin Ratio 0.8 (0.9-2); Albumin Level 3.2 gm/dl (3.4-5.0); BUN Creatinine Ratio 12.5 (10-20); Bilirubin,Total 0.6 mg/dl (0.2-1); Calcium 8.2 mg/dl (8.5-10.1); Creatinine Clr Calc Pharmacy 115.1 ml/min; Est GFR (African American) 124.8; Est GFR (Non-African American) 107.7; Globulin 3.8 gm/dl (2.5-4.0); Magnesium 2.1 mg/dl (1.8-2.4); Phosphorus 4.5 mg/dl (2.5-4.9); Potassium 4.4 mmol/L (3.5-5.1)
--- NOTE | 2019-07-11 08:04 | XRay Report ---
XR abdomen 2V w PA chest CLINICAL HISTORY: 39 years-old Male presenting with h/o sbo. TECHNIQUE: PA view of the chest and supine and left lateral decubitus views of the abdomen were obtai zandra. COMPARISON: CT from 07/10/2019 and plain radiographs from 02/13/2019 and 01/05/2018. FINDINGS: Cardiomediastinal silhouette normal. Minimal left basilar opacities. No pleural effusion or pneumotho rax. Residual oral contrast in the nondistended stomach. Contrast has transited to the rectum indicating t he absence of a complete bowel obstruction. Gaseous distended loop of small bowel in the upper abdome n. The extent of small bowel distention may be decreased or the appearance may be due to fluid-filled loops. No gross pneumoperitoneum. Allowing for bowel gas and oral contrast, no calcifications to suggest nephrolithiasis. Osseous structures normal. IMPRESSION: 1. Minimal left basilar atelectasis. 2. No complete bowel obstruction evidenced by oral contrast transiting to the rectum. 3. Small bowel obstruction likely persists. Evaluation limited by the paucity of small bowel gas. ACT 112: Negative or not required by law. Electronically signed by: Maurisio Chandler M.D. 07/11/2019 8:02 AM
--- NOTE | 2019-07-11 08:04 | Surgery Progress Note ---
Date of Service July 11, 2019 Assessment & Plan (1) SBO (small bowel obstruction): His KUB shows contrast in Lt colon- some progress, clinically looks improved cont npo for now, cont IV steroids may consider some clears later Subjective some mild pain feeling a little better- no fllatus or bm he is hungry Physical Exam Physical Exam: less distended, some bowel sounds min tenderness Constitutional: no acute distress and not ill appearing Respiratory: normal respiratory effort Cardiovascular: Rate/Rhythm: regular rate Skin: no rashes, warm and dry Neurologic: awake Psychiatric: Orientation: alert Results & Data Vital Signs (Past 12 Hours) Vital Signs Temp Pulse Resp BP Pulse Ox 07/11/19 07:58 36.6 C 07/11/19 07:52 59 L 16 109/66 92 07/10/19 23:37 36.6 C 60 16 117/67 96 PG Care Time/CCT Total # of Minutes Spent Total Time Spent with Patient: Total time spent is greater than 50% in coordination of care (as documented) at patient's floor/unit and/or counseling patient: Coding Level of Care Code 90464 Subseq Hosp Care Lvl 3 Diagnoses SBO (small bowel obstruction) K56.609
[2019-07-11] MEDS: methylPREDNISolone 40 MG in SYRINGE 0 ML IV SCH (08:41)
--- NOTE | 2019-07-11 10:34 | History & Physical Report ---
Date of Service July 11, 2019 Assessment & Plan (1) Crohn's disease of ileum with intestinal obstruction: I discussed the need for better detention chronic care of his aggressive form of Crohn's disease. It is atypical for a patient to be seen almost 1 year apart, with no interim care in our office, for obstructive symptoms. I informed him that to provide him with the best care, he will need to be seen 3 times per year, every 4 months, while on chronic therapy, to ensure that his lab testing and Immunizations are up to date, and also to attempt to intervene with mild symptoms prior to progression and need of hospitalization. Recommend continuing Solumedrol 40 mg IV daily If patient has BM, and can tolerate PO intake, he can be discharged. Increase Remicade to 10 mg/kg every 8 weeks Followup with Colorectal surgery at [facility] upon discharge. (2) Medical non-compliance: History of Present Illness Chief Complaint: Crohn's ileitis with SBO Primary Care Provider: Keyshawn Frost Favio Guy is a 39 yo CM with a history of fibrostenosing Crohn's ileitis and medical non-compliance who presented to the ER on 07/10/2019, with complaints of abdominal pain. He was subsequently admitted with evidence of a SBO on CT imaging. He is maintained on Remicade 5 mg/kg every 8 weeks. The patient has a remote history in 1995 of undergoing an ileocecectomy at [facility]. He was last admitted to [facility] in August 2018, and did not followup in our office as requested since that time. He was admitted, refused NG tube placement, received IV steroids, and was seen by surgery. He does not have any acute surgical needs. His abdominal X-ray from this AM did show contrast in the rectum from that which was administered for his CT scan, and therefore is evidence that this is not a complete obstruction. The patient is requesting inpatient Remicade therapy. At present he states that he has no abdominal pain. He has not passed gas, or had a BM during this hospitalization. He denies nausea, vomiting, hematemesis, melena, hematochezia, fevers or chills. He has no further complaints. Allergies Allergy/AdvReac Type Severity Reaction Status Date / Time Macrolide Antibiotics Allergy Intermediate GI SYMPTOMS Verified 07/10/19 11:44 Home Medications Home Medications Medication Instructions Recorded Confirmed Type infliximab 100 mg intravenous See Rx Instructions IV Q8WK 06/20/19 07/10/19 History solution Past Med/Surg History Medical History Crohn's disease of ileum with intestinal obstruction Encounter for postvasectomy sperm count Hx of renal calculi Surgical History History of surgical removal of terminal ileum Hx of colostomy Family History Other Adopted Unobtainable family history due to adoption Social History Preferred Language: Cook Islander Communication Ability: Effective Corporate Director Of Human Resources Required: No Beliefs That Will Affect Care: None marital status: Current Living Situation: Spouse current occupational status: unemployed Other Information That Helps Us Care for You: No Feels Safe at Home: Yes Safety Concerns: Feels Safe At This Time Smoking Status: Former smoker Tobacco Type: cigarettes ; Smoking End Date: more than 10 years ago ; Second Hand Exposure: No ; Hx Alcohol Use: Yes Alcohol type: hard liquor Hx Substance Use: No Review of Systems All systems reviewed & are unremarkable except as noted in HPI & below Physical Exam Constitutional: WD/WN, vitals as above Eyes: PERRL, conjunctivae normal, anicteric sclerae ENMT: external ear and nose normal, oropharynx normal Neck: trachea midline, no thyromegaly Respiratory: normal respiratory effort, lungs clear to auscultation Cardiovascular: RRR, no murmur, no edema Gastrointestinal (Abdomen): normal bowel sounds, soft, nontender, no hepatosplenomegaly Skin: no rashes, warm and dry Psychiatric: A+Ox3, euthymic affect Results & Data Vital Signs (Past 12 Hours) Vital Signs Temp Pulse Resp BP Pulse Ox 07/11/19 07:58 36.6 C 07/11/19 07:52 59 L 16 109/66 92 07/10/19 23:37 36.6 C 60 16 117/67 96 Code Status & VTE Plan VTE Prophylaxis Plan VTE Prophylaxis will be ordered: Yes Coding Level of Care Code 78565 Initial Inpt Care Lvl 3 Diagnoses Crohn's disease of ileum with intestinal obstruction K50.012 Medical non-compliance Z91.19
--- NOTE | 2019-07-11 12:42 | Hospitalist Progress Note ---
Date of Service July 11, 2019 Assessment & Plan (1) SBO (small bowel obstruction): -Admit to [facility] Seen by surgery, advised can adv diet if bowel movement--trial of clears pt refused NGT on admission -WBC = 13.72 on admission, improved -CT abd reviewed: high grade partial or complete small bowel obstruction in the right mid abdomen, fibro-stenotic stricture, postsurgical changes of ileo- septectomy with unremarkable ileocolic anastomosis. -GI consulted, follows with Dr. Poon and Jenniffer Alanis as outpatient -last seen was about 1 year ago F/U KUB this AM shows SBO, neg for large bowel involvement -Appears that he has been following with colorectal surgeon with [facility], may reconsider consultation with colorectal surgery pending GI consult (2) Leukocytosis: - Trend as above. (3) Crohn's disease of ileum with intestinal obstruction: -Typically receives Remicade infusion at [facility], was due 6 days ago, can try to arrange to infusion to happen while admitted to prevent further delay in therapy Pharmacy called and states that there was some sort of scheduling issue with [facility]. This will be available on d/c unless there is a Crohn's issue while admitted Pt is aware DVT ppx: Encourage ambulation, no chemical prophylaxis CODE STATUS: Full code Admission and Anticipated Discharge Date Admission Date: July 10, 2019 Subjective Pt states he is much improved. No current pain or nausea. He did not develop any emesis during his admission. He did have a large bowel movement earlier today. He is hungry and would like to eat. Pt denies fever, SOB, chest pain, LE pain or swelling. Review of Systems Review of Systems: Pertinent positives and negatives reviewed in HPI--all others negative Physical Exam Constitutional: WD/WN, vitals as above Eyes: normal visual emerson by confrontation and + anicteric sclerae Neck: normal visual inspection and trachea midline Respiratory: normal respiratory effort, lungs clear to auscultation Cardiovascular: Rate/Rhythm: regular rate and regular rhythm Gastrointestinal (Abdomen): Inspection/Auscultation: abdomen not distended Percussion/Palpation: abdomen soft; abdomen nontender Musculoskeletal: Head/Neck/Chest: normocephalic and head atraumatic Skin: no rashes, warm and dry Neurologic: awake; not confused Speech / Cognition: normal speech Psychiatric: A+Ox3, euthymic affect Results & Data Results & Data ([facility]) Vital Signs (Past 12 Hours) Vital Signs Temp Pulse Resp BP Pulse Ox 07/11/19 07:58 36.6 C 07/11/19 07:52 59 L 16 109/66 92 PG Care Time/CCT Total # of Minutes Spent Total Time Spent with Patient: Total time spent is greater than 50% in coordination of care (as documented) at patient's floor/unit and/or counseling patient: Coding Level of Care Code 17970 Subseq Hosp Care Lvl 3 Diagnoses SBO (small bowel obstruction) K56.609 Leukocytosis D72.829 Crohn's disease of ileum with intestinal obstruction K50.012
--- NOTE | 2019-07-11 15:05 | Discharge Summary ---
Date of Service July 11, 2019 Admission HPI Per Admitting Provider Favio Guy is a 39 yo CM with a history of fibrostenosing Crohn's ileitis and medical non-compliance who presented to the ER on 07/10/2019, with complaints of abdominal pain. He was subsequently admitted with evidence of a SBO on CT imaging. He is maintained on Remicade 5 mg/kg every 8 weeks. The patient has a remote history in 1995 of undergoing an ileocecectomy at [facility]. He was last admitted to [facility] in August 2018, and did not followup in our office as requested since that time. He was admitted, refused NG tube placement, received IV steroids, and was seen by surgery. He does not have any acute surgical needs. His abdominal X-ray from this AM did show contrast in the rectum from that which was administered for his CT scan, and therefore is evidence that this is not a complete obstruction. The patient is requesting inpatient Remicade therapy. At present he states that he has no abdominal pain. He has not passed gas, or had a BM during this hospitalization. He denies nausea, vomiting, hematemesis, melena, hematochezia, fevers or chills. He has no further complaints. Principal Diagnosis Pt states he is much improved. No current pain or nausea. He did not develop any emesis during his admission. He did have a large bowel movement earlier today. He is hungry and would like to eat. Pt denies fever, SOB, chest pain, LE pain or swelling. Pt tolerated clears and full liquids earlier today. He was still hungry and requested a full tray. Pt was re-evaluated by gen surg and felt that if he tolerated a full tray, he could be d/c'd to home. Pt was later able to tolerate a full diet and wants to go home. Discharge Exam Constitutional WD/WN, vitals as above Eyes normal visual emerson by confrontation and + anicteric sclerae Neck normal visual inspection and trachea midline Respiratory normal respiratory effort, lungs clear to auscultation Cardiovascular Rate/Rhythm: regular rate and regular rhythm Gastrointestinal (Abdomen) Inspection/Auscultation: abdomen not distended Percussion/Palpation: abdomen soft; abdomen nontender Musculoskeletal Head/Neck/Chest: normocephalic and head atraumatic Skin no rashes, warm and dry Neurologic awake; not confused Speech / Cognition: normal speech Psychiatric A+Ox3, euthymic affect Discharge Data Allergies Allergy/AdvReac Type Severity Reaction Status Date / Time Macrolide Antibiotics Allergy Intermediate GI SYMPTOMS Verified 07/10/19 11:44 Consultations 07/10/19 14:59 ED Decision to Admit Stat 07/10/19 17:09 Consult Gastroenterology Routine 07/10/19 17:26 Consult General Surgery Routine Ordered Studies 07/10/19 11:16 CT abd pelvis oral and IV con Stat Hospital Course (1) SBO (small bowel obstruction): -Admit to [facility] Seen by surgery, advised can adv diet if bowel movement--trial of clears pt refused NGT on admission -WBC = 13.72 on admission, improved -CT abd reviewed: high grade partial or complete small bowel obstruction in the right mid abdomen, fibro-stenotic stricture, postsurgical changes of ileo- septectomy with unremarkable ileocolic anastomosis. -GI consulted, follows with Dr. Poon and Jenniffer Alanis as outpatient -last seen was about 1 year ago F/U KUB this AM shows SBO, neg for large bowel involvement -Appears that he has been following with colorectal surgeon with [facility], may reconsider consultation with colorectal surgery pending GI consult (2) Leukocytosis: - Trend as above. (3) Crohn's disease of ileum with intestinal obstruction: -Typically [facility] Rem[facility]ade infusion at [facility], was due 6 days ago, can try to arrange to infusion to happen while admitted to prevent further delay in therapy Pharmacy called and states that there was some sort of scheduling issue with GI and [facility]. This will be available on d/c unless there is a Crohn's issue while admitted Pharmacy spoke with [facility] and pt is scheduled for remicade infusion tomorrow (07/11) at 7a with the [facility]. This was included on his d/c paperwork. DVT ppx: Encourage ambulation, no chemical prophylaxis CODE STATUS: Full code Total Time Total Time Spent Total Time Spent (In Minutes): >30 Total Time Includes: Examination of the Patient, Discharge Planning, Medication Reconciliation, Communication With Other Providers and Other Discharge Plan Discharge Items Patient Disposition: Home - Self-Care Reason For Visit: SBO Discharge Diagnosis: SBO Condition on Discharge: Fair Activity: Resume your previous activity Non-emergency contact: Primary Care Provider and Radar Technician Call non-emergency contact if: you have any medication questions, your symptoms worsen and your pain is not controlled Follow-up/Referrals: Keyshawn Frost [Primary Care Provider] - Diet: Regular Addtl Attending Provider Instructions: You are scheduled for your remicade infusion tomorrow (07/11) at 7a with the [facility]. Please let them know if you cannot make this appt. Pending Studies at Discharge: No Stand-Alone Forms: My [facility] [email or web address], Smoking Cessation Medications and DC Order Prescriptions: Continued Remicade 100 mg recon soln See Rx Instructions IV Q8WK RF: 0 Discharge Orders: Discharge Order (Routine); Ordered 07/11/19 Ordered By: Lolis Miranda Admission Data Admit Date/Time: 07/10/19 16:18 Attending Provider: Lolis Miranda Admit Provider: Lolis Miranda Primary Care Provider: Keyshawn Frost Other Providers: Glynn Poon ; Tray Childers ; Yasir Eddy Coding Level of Care Code D/C Day Management >30 mins Diagnoses SBO (small bowel obstruction) K56.609 Leukocytosis D72.829 Crohn's disease of ileum with intestinal obstruction K50.012
== END 2019-07-11 16:47 | disposition home or self-care (01) | DRG 387 ==
LOC: ED 10:56 → 3E 16:18

== ENCOUNTER 2019-11-03 19:21 | Inpatient (IN) ==
[2019-11-03] MEDS ORDERED: ONDANSETRON INJ 2 MG/ML 2 ML VIAL IV STA (20:17)
[2019-11-03] MEDS ORDERED: MoRPHine SULFATE 4 MG/ML 1 ML CARP\\VIAL IV STA (20:17)
[2019-11-03] MEDS ORDERED: SODIUM CHLORIDE 0.9% 1000ML 1,000 ML IV SCH (20:30)
--- NOTE | 2019-11-03 20:56 | Emergency Department Note ---
Impression & Plan SBO (small bowel obstruction), Crohn's colitis, Abdominal pain ED Provider Note NAME: ROSCOE YEAGER AGE: 39 SEX: M : 1980 ARRIVES VIA: Walk-In INFORMANT: Patient, ED PROVIDER(S): Bill Reddy MD Chief Complaint: Abdominal pain HPI: Patient does present with concern for abdominal pain. The patient states it is primarily located just above the umbilicus. This started around 3 PM it comes and goes. The patient states that it waxes and wanes. The patient does describe it is sharp and pulling. The patient has had some associated nausea with dry heaves. Patient denies any recent travel. Patient does have a known history of Crohn's and has had several surgeries in the past. No recent surgeries or procedures. The patient denies any tobacco use. The patient does occasionally his alcohol but none recently. The patient denies any chest pains, shortness of breath. The patient states that he did have a bowel movement today that was nonbloody. The patient denies any scrotal or penile pain or swelling. Patient did take 40 mg of prednisone prior to arrival. This did not improve his pain. Patient's pain is been persistent and has not improved since it began. ROS: See HPI for pertinent positives and negatives. A total of 10 systems were reviewed and otherwise negative. Past medical history: See below Surgical history: See below Social history: See below Physical Exam: GENERAL: Wearing a mask, NAD, non-toxic. Mildly uncomfortable in appearance. EYE EXAM: Normal conjunctiva. PERRL, no anisocoria and EOM's grossly intact w/o pain. NECK: Supple, no nuchal rigidity, no adenopathy, non-tender. No signs of meningismus. LUNGS: Clear to auscultation. Normal chest wall mechanics. HEART: NSR, no MRG. ABDOMEN: Abdomen soft, non-tender, normo-active bowel sounds, no masses, no r ebound or guarding. BACK: No CVA TTP. SKIN: No rashes and no bruising. UPPER EXTREMITIES: Upper extremities are grossly normal. LOWER EXTREMITIES: Grossly normal, no edema. NEURO EXAM: A&O x3, cranial nerves II-XII grossly intact, normal speech, moves all 4 extremities on command w/o issue. Differential diagnoses: Appendicitis, testicular torsion, infections, diverticulitis, UTI, obstruction, mesenteric ischemia, aortic pathology, inflammatory bowel disease, renal colic, PUD, pancreatitis, biliary pathology, hernia, volvulus, constipation, as well as other pathologies. Course: Patient was seen and evaluated the bedside. Full history physical exam was performed. EKG: None Imaging Studies: Radiology results as stated below per my review in the radiologist's interpretation: Cardiac monitoring: An order was placed for continuous cardiac monitoring. The monitor shows a rate of 80 with sinus rhythm. MDM: Patient was seen due to concern for abdominal pain. The patient was concerned of a possible Crohn's flare versus an obstruction. The patient does see Dr. Poon. Patient has mild white blood cell count of 15,000. Normal H&H and platelet count. Kidney function is unremarkable. Tracely elevated blood glucose at 106 with the patient did recently take prednisone. Patient did drink p.o. contrast and subsequently was taken for CT of the abdomen pelvis. Patient CT does show concern for small bowel obstruction and associated Crohn's flare. I did speak with the on-call general surgeon Dr. South. He is agreeable to medically admit as the patient does not have any active vomiting. An NG was placed given the concern for the gastric distention. The patient had refused this. I discussed the risks and benefits of placing the NG which he still declined at this time. I did speak the on-call hospitalist Dr. Marie. Patient was admitted to the medicine service. Past Med/Surg History Medical History Crohn's disease of ileum with intestinal obstruction Crohns disease (Inactive) Hx of renal calculi Surgical History History of surgical removal of terminal ileum Hx of colostomy Family History Other Adopted Unobtainable family history due to adoption Social History Smoking Status: Former smoker Tobacco Type: Cigarettes Second Hand Exposure: No; Hx Alcohol Use: Yes Alcohol type: hard liquor Hx Substance Use: No Preferred Language: Mauritian Communication Ability: Effective [employer] Required: No Beliefs That Will Affect Care: None marital status: Current Living Situation: Spouse current occupational status: unemployed Feels Safe at Home: Yes Allergies Allergies Allergy/AdvReac Type Severity Reaction Status Date / Time Macrolide Antibiotics Allergy Intermediate GI SYMPTOMS Verified 11/03/19 20:29 morphine AdvReac Redness of Verified 11/03/19 22:56 Skin ANTIBIOTICS ENDING AXCIN Allergy Unknown Uncoded 11/03/19 20:28 Home Meds Home Medications Medication Instructions Recorded Confirmed infliximab 100 mg intravenous See Rx Instructions IV Q8WK 06/20/19 11/03/19 solution prednisone 40 mg PO .TODAY 11/03/19 11/03/19 Results & Data (ED) Vital Signs Vital Signs - 24 hr 11/03/19 19:35 11/03/19 21:11 11/03/19 22:00 Temperature 36.9 C Temperature Source Oral Pulse Rate 89 80 Pulse Rate [Right Finger] 80 Pulse Rate from SpO2 Sensor 85 Respiratory Rate 24 20 16 Respiratory Effort / Characteristics Non-Labored Respiratory Depth Normal Blood Pressure 143/95 H 133/67 Blood Pressure [Left Arm] 129/75 Blood Pressure Mean 111 122 Blood Pressure Mean [Left Arm] 93 Pulse Oximetry 93 95 95 Oxygen Delivery Method Room Air Room Air Room Air Sepsis Recent Fever Within 48 Hours No Sepsis New/Unexplained Change in Mental Status No Sepsis Action Taken by Nursing No Action Required 11/03/19 22:30 11/03/19 23:00 11/03/19 23:30 Temperature Temperature Source Pulse Rate 76 85 76 Pulse Rate [Right Finger] Pulse Rate from SpO2 Sensor 74 85 75 Respiratory Rate 19 18 16 Respiratory Effort / Characteristics Respiratory Depth Blood Pressure 137/81 136/83 139/83 Blood Pressure [Left Arm] Blood Pressure Mean 98 100 94 Blood Pressure Mean [Left Arm] Pulse Oximetry 96 92 94 Oxygen Delivery Method Room Air Sepsis Recent Fever Within 48 Hours Sepsis New/Unexplained Change in Mental Status Sepsis Action Taken by Nursing 11/04/19 00:00 11/04/19 00:30 11/04/19 01:00 Temperature Temperature Source Pulse Rate 65 Pulse Rate [Right Finger] Pulse Rate from SpO2 Sensor 67 78 67 Respiratory Rate 15 Respiratory Effort / Characteristics Respiratory Depth Blood Pressure 124/74 116/65 112/70 Blood Pressure [Left Arm] Blood Pressure Mean 80 76 82 Blood Pressure Mean [Left Arm] Pulse Oximetry 95 93 94 Oxygen Delivery Method Sepsis Recent Fever Within 48 Hours Sepsis New/Unexplained Change in Mental Status Sepsis Action Taken by Correction Medications Current Medication List: was personally reviewed by me Laboratory Data Attestation: I reviewed the patient's lab results. Result diagrams: 11/03/19 21:42 11/03/19 21:42 Lab Results 11/03/19 11/03/19 Range/Units 21:42 21:42 WBC 15.28 H (4.8-10.8) K/uL RBC 4.91 (4.7-6.1) M/uL Hgb 15.5 (14.0-18.0) g/dL Hct 45.2 (42-52) % MCV 92.1 (80-100) fL MCH 31.6 (25-34) pg MCHC 34.3 (32-36) g/dL RDW Std Deviation 41.7 (36.4-46.3) fL RDW Coeff of Aga 12.3 (11.5-14.5) % Plt Count 254 (130-400) K/uL MPV 10.4 (7.4-10.4) fL Immature Gran % (Auto) 0.5 % Neut % (Auto) 89.4 % Lymph % (Auto) 7.4 % [place] % (Auto) 2.5 % Eos % (Auto) 0.1 % Baso % (Auto) 0.1 % Neut # (Auto) 13.67 H (1.4-6.5) K/uL Lymph # (Auto) 1.13 L (1.2-3.4) K/uL [place] # (Auto) 0.38 (0.11-0.59) K/uL Eos # (Auto) 0.02 (0-0.5) K/uL Baso # (Auto) 0.01 (0-0.2) K/uL Immature Gran # (Auto) 0.07 H (0.00-0.02) K/uL Sodium 139 (136-145) mmol/L Potassium 4.4 (3.5-5.1) mmol/L Chloride 109 H (98-107) mmol/L Carbon Dioxide 24 (21-32) mmol/L Anion Gap 6.0 (3-11) BUN 16 (7-18) mg/dl Creatinine 0.95 (0.6-1.4) mg/dl Est Cr Clr Drug Dosing 107.8 ml/min Est GFR ( Amer) 116.4 Est GFR (Non-Af Amer) 100.4 BUN/Creatinine Ratio 16.6 (10-20) Glucose 106 H (70-99) mg/dl Calcium 9.5 (8.5-10.1) mg/dl Total Bilirubin 0.3 (0.2-1) mg/dl AST 17 (15-37) U/L ALT 32 (12-78) U/L Alkaline Phosphatase 104 (45-117) U/L Total Protein 8.4 H (6.4-8.2) gm/dl Albumin 4.1 (3.4-5.0) gm/dl Globulin 4.3 H (2.5-4.0) gm/dl Albumin/Globulin Ratio 1.0 (0.9-2) Lipase 122 (73-393) U/L Administered Medications Fentanyl Citrate (Fentanyl Citrate) 75 mcg IV Q1H PRN PRN Reason: Pain Stop: 11/17/19 22:38 Last Admin: 11/04/19 00:01 Dose: 75 mcg Documented by: [id number] Admin: 11/03/19 22:51 Dose: 75 mcg Documented by: [id number] Ondansetron HCl (Zofran) 4 mg IV Q1H PRN PRN Reason: nausea Stop: 12/03/19 22:20 Last Admin: 11/04/19 00:01 Dose: 4 mg Documented by: [id number] Discontinued Medications Sodium Chloride (Nss 1000ml) 1,000 mls @ 999 mls/hr IV .Q1H1M ALYSHA Stop: 11/03/19 21:30 Last Infusion: 11/03/19 22:26 Dose: 0 mls/hr Documented by: [id number] Admin: 11/03/19 21:08 Dose: 999 mls/hr Documented by: [id number] Ioversol (Optiray 320 100ml) 94 ml IV ONCE ONE Stop: 11/04/19 00:21 Last Admin: 11/04/19 00:20 Dose: 94 ml Documented by: [id number] Morphine Sulfate (Morphine Sulfate) 4 mg IV NOW STA Stop: 11/03/19 20:18 Last Admin: 11/03/19 21:08 Dose: 4 mg Documented by: [id number] Ondansetron HCl (Zofran) 4 mg IV NOW STA Stop: 11/03/19 20:18 Last Admin: 11/03/19 21:08 Dose: 4 mg Documented by: [id number] Discharge Plan Visit Data Chief Complaint: GI Assessment Stated Complaint: GI Assessment- [facility] ED Provider: Bill Reddy Discharge Problem: SBO (small bowel obstruction), Crohn's colitis, Abdominal pain Forms Stand Alone Forms: [employer] Prescriptions Prescriptions: No Action Remicade 100 mg recon soln See Rx Instructions IV Q8WK RF: 0 prednisone 10 mg Tablet 40 mg PO .TODAY RF: 0 Discharge Problem: Crohn's colitis Qualifiers: Digestive disease complication type: with intestinal obstruction Qualified Code (s): K50.112 - Crohn's disease of large intestine with intestinal obstruction Abdominal pain Qualifiers: Abdominal location: periumbilical Qualified Code(s): R10.33 - Periumbilical pain
[2019-11-03 21:51] LABS: Basophils # (auto) 0.01 K/uL (0-0.2); Basophils % (auto) 0.1 %; Eosinophils # (auto) 0.02 K/uL (0-0.5); Eosinophils % (auto) 0.1 %; Hematocrit (blood only) 45.2 % (42-52); Hemoglobin 15.5 g/dL (14.0-18.0); Immature Granulocytes # (auto) 0.07 K/uL (0.00-0.02); Immature Granulocytes % (auto) 0.5 %; Lymphocytes # (auto) 1.13 K/uL (1.2-3.4); Lymphocytes % (auto) 7.4 %; Mean Corpuscular Hemoglobin 31.6 pg (25-34); Mean Corpuscular Hgb Conc 34.3 g/dL (32-36); Mean Corpuscular Volume 92.1 fL (80-100); Mean Platelet Volume 10.4 fL (7.4-10.4); Monocytes # (auto) 0.38 K/uL (0.11-0.59); Monocytes % (auto) 2.5 %; Neutrophils # (auto) 13.67 K/uL (1.4-6.5); Neutrophils % (auto) 89.4 %; Platelet Count 254 K/uL (130-400); RDW Coefficient of Variation 12.3 % (11.5-14.5); RDW Standard Deviation 41.7 fL (36.4-46.3); Red Blood Count 4.91 M/uL (4.7-6.1); White Blood Count 15.28 K/uL (4.8-10.8)
[2019-11-03 22:08] LABS: Albumin Level 4.1 gm/dl (3.4-5.0); BUN Creatinine Ratio 16.6 (10-20); Calcium 9.5 mg/dl (8.5-10.1); Creatinine Clr Calc Pharmacy 107.8 ml/min; Est GFR (African American) 116.4; Est GFR (Non-African American) 100.4; Potassium 4.4 mmol/L (3.5-5.1)
[2019-11-03 22:11] LABS: Bilirubin,Total 0.3 mg/dl (0.2-1); Globulin 4.3 gm/dl (2.5-4.0); Total Protein 8.4 gm/dl (6.4-8.2)
[2019-11-03] MEDS ORDERED: MoRPHine SULFATE 4 MG/ML 1 ML CARP\\VIAL IV PRN (22:21)
[2019-11-03] MEDS ORDERED: ONDANSETRON INJ 2 MG/ML 2 ML VIAL IV PRN (22:21)
[2019-11-03] MEDS: fentaNYL citrate 100 MCG/2 ML VIAL IV PRN (22:51)
[2019-11-04] MEDS: fentaNYL citrate 100 MCG/2 ML VIAL IV PRN (00:01)
[2019-11-04] MEDS ORDERED: IOVERSOL 100ml IV ONE (00:20)
[2019-11-04] MEDS ORDERED: SODIUM CHLORIDE 0.9% 500 ML IV SCH (00:45)
[2019-11-04] MEDS ORDERED: MoRPHine SULFATE 4 MG/ML 1 ML CARP\\VIAL IV STA (01:45)
[2019-11-04] MEDS ORDERED: HYDROmorphone INJ 1 MG/ML SYRINGE IV STA (01:47)
[2019-11-04] MEDS ORDERED: PROMETHAZINE 12.5 MG/50.5 ML BAG IV STA (01:50)
--- NOTE | 2019-11-04 02:36 | History & Physical Report ---
Date of Service November 04, 2019 Assessment & Plan (1) SBO (small bowel obstruction): 39-year-old male with Crohn's disease presenting with small bowel obstruction likely secondary to acute flare of Crohn's. He is afebrile, hemodynamically stable. Abdomen is tender but no peritoneal signs at this time. -Admit to medical floor N.p.o. except meds -Check ESR, CRP, lactic acid IV fluid and electrolyte repletion Pain control with Dilaudid 1 mg IV every 4 hours as needed Antiemetics with Zofran and Phenergan as needed Solu-Medrol 40 mg IV daily KUB later today General surgery consultation [facility] assistance. Consult gastroenterologypatient is known to Dr. Poon Present on Admission?: Yes (2) Crohn's colitis: Patient with history of Crohn's currently on infliximab 100 mg every 8 weeks. Received his injection yesterday. Management as above FENnormal saline at 100 mL/h x 2 L, electrolyte repletion as needed, n.p.o. for now Codefull Dispositionadmit to medical floor for ongoing management of SBO and Crohn's flare Admission and Anticipated Discharge Date Admission Date: 11/04/2019 Anticipated date of discharge: 11/06/19 History of Present Illness Chief Complaint: Abdominal pain Primary Care Provider: Keyshawn Frost Favio Guy is a 39-year-old male with history of Crohn's disease presenting with abdominal pain and partial bowel obstruction. Patient reports that this afternoon he had sudden onset of central abdominal pain as well as nausea and dry heaving. He is not passing flatus. Last bowel movement was this morning. He denies fevers/chills/chest pain/shortness of breath/bloody bowel movements. Patient with seeds infliximab 100 mg IV q. 8 weeks. His last infusion was today. Additionally, he took 40 mg of oral prednisone before coming to the ER in hopes of improving his abdominal pain. On arrival to the ER he was afebrile, hemodynamically stable. NG tube was refused Patient presently complaining of severe abdominal pain as well as nausea. No additional complaints at this time. He had an episode of emesis during my encounter which he vomited a bag full of contrast. ER course: Fentanyl, morphine, Zofran, normal saline, Phenergan Allergies Allergy/AdvReac Type Severity Reaction Status Date / Time Macrolide Antibiotics Allergy Intermediate GI SYMPTOMS Verified 11/03/19 20:29 morphine AdvReac Redness of Verified 11/03/19 22:56 Skin Home Medications Home Medications Medication Instructions Recorded Confirmed Type infliximab 100 mg intravenous See Rx Instructions IV Q8WK 06/20/19 11/03/19 History solution prednisone 40 mg PO .TODAY 11/03/19 11/03/19 History Past Med/Surg History Medical History Crohn's disease of ileum with intestinal obstruction Crohns disease (Inactive) Hx of renal calculi Surgical History History of surgical removal of terminal ileum Hx of colostomy Family History Other Adopted Unobtainable family history due to adoption Social History Smoking Status: Former smoker Tobacco Type: Cigarettes Second Hand Exposure: No; Hx Alcohol Use: Yes Alcohol type: hard liquor Hx Substance Use: No Preferred Language: Slovak Communication Ability: Effective Business Area Director Required: No Beliefs That Will Affect Care: None marital status: Current Living Situation: Spouse current occupational status: unemployed Feels Safe at Home: Yes Review of Systems Review of Systems: All systems reviewed & are unremarkable except as noted in HPI & below Physical Exam Physical Exam: General: patient resting comfortably, NAD, non-toxic in appearance, in mild distress secondary to pain and nausea, AA&O x 4 Skin: warm, dry, intact, no rashes or lesions HEENT: NC/AT, PERRL, EOMI, anicteric sclera, conjunctiva without injection, external ear normal to inspection and nontender, nares patent, moist mucus membranes, dentition intact, no oropharyngeal lesions, neck supple, trachea midline, no LAD, no thyromegaly, no JVD Heart: +S1/S2, regular, no m/r/g Lungs: equal air entry bilaterally, no rales/rhonchi/wheezes Abd: Diminished bowel sounds, soft, nondistended, tender with palpation but no rebound/guarding/peritoneal signs, no masses/organomegaly/ascites Ext: warm, 2+ pulses in UE/LE bilaterally, no clubbing/cyanosis or edema Neuro: nonfocal, patient AA&O x 4, speech intact, no facial droop, moving all extremities on command with equal strength 5/5 Results & Data Results & Data ([facility]) Vital Signs (Past 12 Hours) Vital Signs Temp Pulse Pulse Resp BP BP Pulse Ox 11/04/19 02:00 104/71 92 11/04/19 01:30 125/75 94 11/04/19 01:00 112/70 94 11/04/19 00:30 116/65 93 11/04/19 00:00 65 15 124/74 95 11/03/19 23:30 76 16 139/83 94 11/03/19 23:00 85 18 136/83 92 11/03/19 22:30 76 19 137/81 96 11/03/19 22:00 80 16 133/67 95 11/03/19 21:11 80 20 129/75 95 11/03/19 19:35 36.9 C 89 24 143/95 H 93 Laboratory Results Lab Results 11/03/19 11/03/19 Range/Units 21:42 21:42 WBC 15.28 H (4.8-10.8) K/uL RBC 4.91 (4.7-6.1) M/uL Hgb 15.5 (14.0-18.0) g/dL Hct 45.2 (42-52) % MCV 92.1 (80-100) fL MCH 31.6 (25-34) pg MCHC 34.3 (32-36) g/dL RDW Std Deviation 41.7 (36.4-46.3) fL RDW Coeff of Aga 12.3 (11.5-14.5) % Plt Count 254 (130-400) K/uL MPV 10.4 (7.4-10.4) fL Immature Gran % (Auto) 0.5 % Neut % (Auto) 89.4 % Lymph % (Auto) 7.4 % [place] % (Auto) 2.5 % Eos % (Auto) 0.1 % Baso % (Auto) 0.1 % Neut # (Auto) 13.67 H (1.4-6.5) K/uL Lymph # (Auto) 1.13 L (1.2-3.4) K/uL [place] # (Auto) 0.38 (0.11-0.59) K/uL Eos # (Auto) 0.02 (0-0.5) K/uL Baso # (Auto) 0.01 (0-0.2) K/uL Immature Gran # (Auto) 0.07 H (0.00-0.02) K/uL Sodium 139 (136-145) mmol/L Potassium 4.4 (3.5-5.1) mmol/L Chloride 109 H (98-107) mmol/L Carbon Dioxide 24 (21-32) mmol/L Anion Gap 6.0 (3-11) BUN 16 (7-18) mg/dl Creatinine 0.95 (0.6-1.4) mg/dl Est Cr Clr Drug Dosing 107.8 ml/min Est GFR ( Amer) 116.4 Est GFR (Non-Af Amer) 100.4 BUN/Creatinine Ratio 16.6 (10-20) Glucose 106 H (70-99) mg/dl Calcium 9.5 (8.5-10.1) mg/dl Total Bilirubin 0.3 (0.2-1) mg/dl AST 17 (15-37) U/L ALT 32 (12-78) U/L Alkaline Phosphatase 104 (45-117) U/L Total Protein 8.4 H (6.4-8.2) gm/dl Albumin 4.1 (3.4-5.0) gm/dl Globulin 4.3 H (2.5-4.0) gm/dl Albumin/Globulin Ratio 1.0 (0.9-2) Lipase 122 (73-393) U/L Diagnostic Findings CT abdomen and pelvis with contrast: Per stat radsmall bowel obstruction and active Crohn's disease. Previous bowel surgery. Appendix not identified. Gastric distention. Mild fatty liver. Small right renal cysts. Small low- attenuation foci in the right kidney. Avascular necrosis of the hips. Code Status & VTE Plan Code Status Full code PG Care Time/CCT Total # of Minutes Spent Total Time Spent with Patient: Total time spent is greater than 50% in coordination of care (as documented) at patient's floor/unit and/or counseling patient: Coding Level of Care Code 10315 Initial Inpt Care Lvl 2 Diagnoses SBO (small bowel obstruction) K56.609 Crohn's colitis K50.112 Digestive disease complication type: with intestinal obstruction (1) Crohn's colitis Digestive disease complication type: with intestinal obstruction Qualified Code(s): K50.112 - Crohn's disease of large intestine with intestinal obstruction
[2019-11-04] MEDS ORDERED: HYDROmorphone INJ 1 MG/ML SYRINGE IV PRN (02:49)
[2019-11-04] MEDS ORDERED: ONDANSETRON INJ 2 MG/ML 2 ML VIAL IV PRN (02:49)
[2019-11-04] MEDS ORDERED: PROMETHAZINE HCL 12.5 MG in SODIUM CHLORIDE 0.9% 50 ML IV PRN (02:49)
[2019-11-04] MEDS ORDERED: methylPREDNISolone 40 MG in SYRINGE 0 ML IV SCH (03:00)
[2019-11-04] MEDS: SODIUM CHLORIDE 0.9% 1000ML 1,000 ML IV SCH ×2 (03:14→14:31)
[2019-11-04 03:28] LABS: C Reactive Protein 0.49 mg/dl (0-0.29); Phosphorus 3.3 mg/dl (2.5-4.9)
--- NOTE | 2019-11-04 07:21 | CT Scan Report ---
CT abd pelvis oral and IV con CT DOSE: 446.64 mGy.cm HISTORY: Pain. Crohn's disease. h/o crohn's ab pain TECHNIQUE: Multiaxial CT images of the abdomen and pelvis were performed following the use of intrave nous and oral contrast. A dose lowering technique was utilized adhering to the principles of ALARA. COMPARISON STUDY: 07/10/2019 FINDINGS: Lung bases are clear. The liver spleen and pancreas are unremarkable. Kidneys enhance uniformly. The upper abdominal bowel pattern is nonobstructive. Operative changes consistent with a prior partial small bowel resection Moderate distention of the mid to distal small bowel. Mild infiltrative change of the fat surrounding the distal small bowel which is normal in terms of caliber. Transit mild edematous change of the res idual components of the sigmoid. No evidence for true abscess collection. Process. IMPRESSION: 1. Findings consistent with a partial distal small bowel obstructive process. 2. Well-defined abscess or collection is not seen. 3. Postoperative changes as have been described multiple number of prior times. ACT 112: Negative or not required by law. The above report was generated using voice recognition software. It may contain grammatical, syntax or spelling errors. Electronically signed by: Luis Manuel Clya M.D. 11/04/2019 7:19 AM
[2019-11-04 09:02] LABS: Basophils # (auto) 0.01 K/uL (0-0.2); Basophils % (auto) 0.1 %; Hematocrit (blood only) 42.9 % (42-52); Hemoglobin 14.8 g/dL (14.0-18.0); Immature Granulocytes # (auto) 0.03 K/uL (0.00-0.02); Immature Granulocytes % (auto) 0.3 %; Lymphocytes # (auto) 0.94 K/uL (1.2-3.4); Lymphocytes % (auto) 8.8 %; Mean Corpuscular Hemoglobin 31.8 pg (25-34); Mean Corpuscular Hgb Conc 34.5 g/dL (32-36); Mean Corpuscular Volume 92.1 fL (80-100); Mean Platelet Volume 10.2 fL (7.4-10.4); Monocytes # (auto) 0.08 K/uL (0.11-0.59); Monocytes % (auto) 0.8 %; Neutrophils # (auto) 9.59 K/uL (1.4-6.5); Platelet Count 247 K/uL (130-400); RDW Coefficient of Variation 12.5 % (11.5-14.5); RDW Standard Deviation 42.1 fL (36.4-46.3); Red Blood Count 4.66 M/uL (4.7-6.1); White Blood Count 10.65 K/uL (4.8-10.8)
[2019-11-04 09:28] LABS: BUN Creatinine Ratio 12.3 (10-20); Calcium 9.4 mg/dl (8.5-10.1); Creatinine Clr Calc Pharmacy 113.8 ml/min; Est GFR (African American) 124.3; Est GFR (Non-African American) 107.2; Potassium 4.3 mmol/L (3.5-5.1)
--- NOTE | 2019-11-04 09:37 | XRay Report ---
XR KUB/Abdomen 1 view CLINICAL HISTORY: SBO COMPARISON STUDY: No previous studies for comparison. FINDINGS: The soft tissues, psoas shadows, renal outlines and intestinal gas pattern appear normal. T here is no evidence for bowel obstruction. No abnormal abdominal calcifications are seen. IMPRESSION: Normal study. ACT 112: Negative or not required by law. The above report was generated using voice recognition software. It may contain grammatical, syntax or spelling errors. Electronically signed by: Luis Manuel Clay M.D. 11/04/2019 9:35 AM
[2019-11-04 11:45] VITALS: BP 125/71; PULSE 105; TEMP 98.4; O2SAT 94
[2019-11-04 11:46] LABS: Appearance Urine Clear (Clear); Bilirubin Urine Negative (Negative); Blood Urine Negative (Negative); Color Urine Yellow; Glucose Urine UA Negative (Negative); Ketones Urine Negative (Negative); Leukocyte Esterase Urine Negative (Negative); Nitrite Urine Negative (Negative); Protein Urine Negative (Negative); Specific Gravity Urine 1.014 (1.000-1.030); Urobilinogen Urine Negative (Negative)
[2019-11-04] MEDS ORDERED: ACETAMINOPHEN 325 MG TAB PO PRN (13:56)
--- NOTE | 2019-11-04 15:48 | Discharge Summary ---
Date of Service November 04, 2019 Admission HPI Per Admitting Provider Favio Guy is a 39-year-old male with history of Crohn's disease presenting with abdominal pain and partial bowel obstruction. Patient reports that this afternoon he had sudden onset of central abdominal pain as well as nausea and dry heaving. He is not passing flatus. Last bowel movement was this morning. He denies fevers/chills/chest pain/shortness of breath/bloody bowel movements. Patient with seeds infliximab 100 mg IV q. 8 weeks. His last infusion was today. Additionally, he took 40 mg of oral prednisone before coming to the ER in hopes of improving his abdominal pain. On arrival to the ER he was afebrile, hemodynamically stable. NG tube was refused Patient presently complaining of severe abdominal pain as well as nausea. No additional complaints at this time. He had an episode of emesis during my encounter which he vomited a bag full of contrast. ER course: Fentanyl, morphine, Zofran, normal saline, Phenergan Admission Exam Per Admitting Provider General: patient resting comfortably, NAD, non-toxic in appearance, in mild distress secondary to pain and nausea, AA&O x 4 Skin: warm, dry, intact, no rashes or lesions HEENT: NC/AT, PERRL, EOMI, anicteric sclera, conjunctiva without injection, external ear normal to inspection and nontender, nares patent, moist mucus membranes, dentition intact, no oropharyngeal lesions, neck supple, trachea midline, no LAD, no thyromegaly, no JVD Heart: +S1/S2, regular, no m/r/g Lungs: equal air entry bilaterally, no rales/rhonchi/wheezes Abd: Diminished bowel sounds, soft, nondistended, tender with palpation but no rebound/guarding/peritoneal signs, no masses/organomegaly/ascites Ext: warm, 2+ pulses in UE/LE bilaterally, no clubbing/cyanosis or edema Neuro: nonfocal, patient AA&O x 4, speech intact, no facial droop, moving all extremities on command with equal strength 5/5 Principal Diagnosis SBO Discharge Exam Constitutional WD/WN, vitals as above no acute distress Eyes PERRL, conjunctivae normal, anicteric sclerae ENMT external ear and nose normal, oropharynx normal Neck trachea midline, no thyromegaly Respiratory normal respiratory effort, lungs clear to auscultation Cardiovascular RRR, no murmur, no edema Gastrointestinal (Abdomen) normal bowel sounds, soft, nontender, no hepatosplenomegaly Musculoskeletal no cyanosis or clubbing, extremities motor strength 5/5 Skin no rashes, warm and dry Neurologic PERRL, EOMI, accommodation nl, no face palsy, no dysarthria Psychiatric A+Ox3, euthymic affect Lymphatic no cervical or axillary lymphadenopathy Discharge Data Allergies Allergy/AdvReac Type Severity Reaction Status Date / Time Macrolide Antibiotics Allergy Intermediate GI SYMPTOMS Verified 11/03/19 20:29 morphine AdvReac Redness of Verified 11/03/19 22:56 Skin Consultations 11/04/19 00:44 ED Decision to Admit Stat 11/04/19 02:49 Consult Gastroenterology Routine 11/04/19 15:25 Consult [facility] tube station attendant Routine Ordered Studies 11/03/19 20:17 CT abd pelvis oral and IV con Urgent Hospital Course (1) SBO (small bowel obstruction): 39-year-old male with Crohn's disease presenting with small bowel obstruction on CT, likely secondary to acute flare of Crohn's. Admitted to general medical floor. CRP elevated slightly at 0.49, ESR 10. Vital signs stable. Afebrile. Given IVF, antiemetics and pain control. Repeat KUB with resolution of SBO Patient tolerated low fiber diet. No abdominal pain. Instructed to continue prednisone 40mg x 5 days and to follow up with Dr. Poon and PCP outpatient Nurse navigator to make appointment next week and call with appointment time. GI consulted, but given improvement and follows with jatinder Medina for discharge with close follow up (2) Crohn's colitis: Patient with history of Crohn's currently on infliximab 100 mg every 8 weeks. Received his injection 11/01 Discharged home with prednisone, zofran and instructed to follow up with Dr. Poon's office and PCP for post hospital follow up. Total Time Total Time Spent Total Time Spent (In Minutes): 60 Discharge Plan Discharge Items Patient Disposition: Home - Self-Care Reason For Visit: SBO, CROHNS Discharge Diagnosis: Small Bowel Obstruction, Crohns Goals: You have been hospitalized for an acute medical problem. During your stay at [facility], we have made an effort to correct the problem that brought you to the hospital while keeping you as comfortable as possible. Medications were used to bring your condition under control and your discharge instructions will include directions for any medications you should take after leaving the hospital. Please make sure you see your Primary Care Provider as part of your follow up plan. Activity: Resume your previous activity Non-emergency contact: Primary Care Provider and Coin Wrapping Machine Operator Call non-emergency contact if: you have any medication questions, your symptoms worsen and your pain is concerning for you Follow-up/Referrals: Glynn Poon DO [Physician] - (in 1 week) Keyshawn Frost [Primary Care Provider] - Diet: Low Fiber Addtl Attending Provider Instructions: You have been hospitalized for a small bowel obstruction secondary to your crohn's disease. You were given IV fluids and pain control and repeat imaging has shown resolution of the obstruction. It is recommended that you follow up with Dr. Poon in the next week to monitor your crohn's and for routine maintenance. You should continue 40mg of prednisone daily for the next fine days and then may resume prior dosing. A prescription has been sent for the increased dose of prednisone to your pharmacy. Please follow up with your primary care provider in the next week to monitor your progress and for hospital follow-up. A short prescription of Zofran (ondansetron) has been sent that you may utilize as needed for nausea. Please return to the emergency room for any worsening abdominal pain, fevers, inability to maintain adequate oral intake or for any other symptoms that are concerning for you. It has been a pleasure being a part of the medical team providing for you while you have been in the hospital. Take care! Pending Studies at Discharge: No Stand-Alone Forms: My [facility] [employer], Smoking Cessation Medications and DC Order Prescriptions: New ondansetron 4 mg tablet,disintegrating 4 mg PO Q6H PRN (Reason: nausea and vomiting) Qty: 7 RF: 0 Continued Remicade 100 mg recon soln See Rx Instructions IV Q8WK RF: 0 Changed prednisone 10 mg Tablet 40 mg PO QDB 5 Days Qty: 20 RF: 0 Discharge Orders: Discharge Order (Routine); Ordered 11/04/19 Ordered By: Yamilet Crowe Admission Data Admit Date/Time: 11/04/19 01:55 Attending Provider: Surjit Bardales Admit Provider: Keisha Marie Primary Care Provider: Keyshawn Frost Other Providers: Keisha Marie ; Glynn Poon Other Interventions: Discharge Summary Assessment (RN) Last Done: 11/04/19 15:09 DC Date/Time DO NOT enter until pt leaves facility: 11/04/19 15:45 Coding Level of Care Code Admit/DC Same Day >8hr Level 3 Diagnoses SBO (small bowel obstruction) K56.609 Crohn's colitis K50.112 Digestive disease complication type: with intestinal obstruction
== END 2019-11-04 15:45 | disposition home or self-care (01) | DRG 389 ==
LOC: ED 19:21 → SUATTDRO 11-04 01:55 → 3N 11-04 01:55

== ENCOUNTER 2020-07-26 17:18 | Inpatient (IN) ==
[2020-07-26] MEDS ORDERED: SODIUM CHLORIDE 0.9% 1000ML 1,000 ML IV ONE (18:08)
[2020-07-26] MEDS ORDERED: HYDROmorphone INJ 0.5 MG/0.5 ML SYR IV STA ×3 (18:20→20:49)
[2020-07-26] MEDS ORDERED: ONDANSETRON INJ 2 MG/ML 2 ML VIAL IV STA (18:20)
--- NOTE | 2020-07-26 18:26 | Emergency Department Note ---
Impression & Plan SBO (small bowel obstruction), Crohn's colitis, Leukocytosis, Abdominal pain ED Provider Note NAME: ROSCOE YEAGER AGE: 40 SEX: M : 1980 ARRIVES VIA: Walk-In INFORMANT: Patient ED PROVIDER(S): Tony Mckay DO CHIEF COMPLAINT: abdominal pain HPI: Patient is a 40-year-old male who presents the ER for abdominal pain. Symptoms started this past Wednesday. It comes and goes in waves. He describes as a dull severe pain that last for several minutes and then abates. He had surgery in April to fix a stricture which was causing him multiple bowel ob structions. He denies any headache or change in vision. No chest pain or shortness of breath. Belly pain is in the epigastric region. Denies any dysuria urgency or frequency. Still passing gas. Last bowel movement was on Wednesday. He has not been eating much or drinking much since Wednesday. ROS: See above HPI for pertinent positives & negatives. A total of 10 systems reviewed and were otherwise negative. PAST MEDICAL HISTORY:See Below PAST SURGICAL HISTORY:See Below FAMILY HISTORY:See Below SOCIAL HISTORY:See Below HOME MEDICATIONS:See Below ALLERGIES:See Below VITALS:See Below PHYSICAL EXAMINATION: GENERAL: Sitting up in bed, alert, disheveled, curled up holding abdomen EYE EXAM: normal conjunctiva. PERRL and EOM's grossly intact. OROPHARYNX: no exudate, no erythema, lips, buccal mucosa, and tongue normal and mucous membranes are moist NECK: supple, no nuchal rigidity, no adenopathy, non-tender LUNGS: Clear to auscultation. Normal chest wall mechanics HEART: no murmurs, S1 normal and S2 normal ABDOMEN: abdomen soft, mild epigastric tenderness with an old midline incision which is clean dry and intact, normo-active bowel sounds, no masses, no rebound or guarding. UPPER EXTREMITIES: upper extremities are grossly normal. LOWER EXTREMITIES: No pitting edema. NEURO EXAM: Normal sensorium, cranial nerves II-XII grossly intact, normal speech, no gross weakness of arms, no gross weakness of legs. MEDICAL DECISION MAKING: Patient is a 40-year-old male with a past medical history of Crohn's and multiple small bowel obstructions and recent abdominal surgery back in April that presents the ER for abdominal pain some nausea. He has not had a bowel movement since Wednesday. IV was established blood work was obtained. Labs show a leukocytosis of 14,000. No significant anemia. BMP with mild hyponatremia. LFTs bilirubin was unremarkable. Lipase was normal. UA was clean. Covid was negative. CT abdomen pelvis confirms small bowel obstruction. He was given IV fluids and 2 dose of IV narcotics as well as Zofran. He was updated bedside and discussed with the hospitalist as well as been from general surgery who evaluated him at bedside and patient was admitted to Dr. Marie. Triage Nursing notes reviewed. Limited review of prior medical records performed Vital Signs: reviewed and remarkable for no significant abnormalities Differential diagnosis: Differential diagnoses includes but is not limited to gastritis, peptic ulcer disease, GERD, gallbladder disease, pancreatitis, small bowel obstruction, acute coronary syndrome, pericarditis, ischemic bowel, irritable bowel disease, irritable bowel syndrome, appendicitis, diverticulitis, malignancy, hernia, urinary tract infection, torsion, [/ectopic (if female)], perforation, trauma, infectious. ER treatment provided: See below Diagnostics interpreted by me: ECG: none Cardiac Monitoring: An order was placed for continuous cardiac monitoring. The monitor shows a rate of 62 with sinus rhythm. Laboratory studies: As stated above and show below. Imaging studies: CT abdomen pelvis shows small bowel obstruction Consultation(s): Discussed with Dr. Marie from the hospitalist service for admission Discussed with Quincy Siddiqi from general surgery who evaluated the patient at bedside Procedures: none Critical Care: None Past Med/Surg History Medical History Crohn's disease of ileum with intestinal obstruction Crohns disease Hx of renal calculi Lumbar herniated disc Surgical History History of colostomy reversal 1995 History of cystoscopy History of surgical removal of terminal ileum History of tonsillectomy Hx of colostomy 1995 Hx of vasectomy Family History Other Adopted Unobtainable family history due to adoption Social History Smoking Status: Never smoker Tobacco Type: Cigarettes Second Hand Exposure: No; Hx Alcohol Use: Yes Alcohol type: beer Hx Substance Use: No Preferred Language: Zimbabwean Communication Ability: Effective Residence Hall Director Required: No Beliefs That Will Affect Care: None marital status: Current Living Situation: Spouse and Family Current Living Situation Comment: Lives with and 2 kids current occupational status: unemployed Feels Safe at Home: Yes Assistive Devices: Contacts and Glasses Allergies Allergies Allergy/AdvReac Type Severity Reaction Status Date / Time clarithromycin [From Biaxin] Allergy Intermediate "got Verified 07/26/20 19:36 really sick" morphine AdvReac Mild "arm got Verified 07/26/20 19:36 red" Home Meds Home Medications Medication Instructions Recorded Confirmed infliximab 100 mg intravenous See Rx Instructions IV Q8WK 12/15/19 07/26/20 solution budesonide [Uceris] 9 mg PO DAILY 07/26/20 07/26/20 dicyclomine 20 mg PO BID 07/26/20 07/26/20 Results & Data (ED) Vital Signs Vital Signs - 24 hr 07/26/20 17:51 07/26/20 18:08 07/26/20 19:19 Temperature 36.7 C Temperature Source Temporal Artery Scan Pulse Rate 116 H Pulse Rate [Apical] 66 Respiratory Rate 19 18 Respiratory Effort / Characteristics Non-Labored Respiratory Depth Normal Blood Pressure 130/84 Blood Pressure [Left Arm] 126/84 Blood Pressure Mean 99 Blood Pressure Mean [Left Arm] 98 Pulse Oximetry 96 96 97 Oxygen Delivery Method Room Air Room Air Room Air Sepsis Recent Fever Within 48 Hours No Sepsis New/Unexplained Change in Mental Status No Sepsis Action Taken by Nursing No Action Required 07/26/20 21:00 Temperature Temperature Source Pulse Rate Pulse Rate [Apical] 65 Respiratory Rate 18 Respiratory Effort / Characteristics Respiratory Depth Blood Pressure Blood Pressure [Left Arm] 128/65 Blood Pressure Mean Blood Pressure Mean [Left Arm] 86 Pulse Oximetry 98 Oxygen Delivery Method Room Air Sepsis Recent Fever Within 48 Hours Sepsis New/Unexplained Change in Mental Status Sepsis Action Taken by Nursing Laboratory Data Result diagrams: 07/26/20 18:40 07/26/20 18:40 Lab Results 07/26/20 07/26/20 07/26/20 Range/Units 18:40 18:40 18:40 WBC 14.45 H (4.8-10.8) K/uL RBC 5.19 (4.7-6.1) M/uL Hgb 16.2 (14.0-18.0) g/dL Hct 47.1 (42-52) % MCV 90.8 (80-100) fL MCH 31.2 (25-34) pg MCHC 34.4 (32-36) g/dL RDW Std Deviation 42.4 (36.4-46.3) fL RDW Coeff of Aga 12.9 (11.5-14.5) % Plt Count 311 (130-400) K/uL MPV 10.1 (7.4-10.4) fL Immature Gran % (Auto) 0.2 % Neut % (Auto) 82.5 % Lymph % (Auto) 9.3 % [place] % (Auto) 7.6 % Eos % (Auto) 0.3 % Baso % (Auto) 0.1 % Neut # (Auto) 11.93 H (1.4-6.5) K/uL Lymph # (Auto) 1.34 (1.2-3.4) K/uL [place] # (Auto) 1.10 H (0.11-0.59) K/uL Eos # (Auto) 0.04 (0-0.5) K/uL Baso # (Auto) 0.01 (0-0.2) K/uL Immature Gran # (Auto) 0.03 H (0.00-0.02) K/uL Sodium 135 L (136-145) mmol/L Potassium 4.3 (3.5-5.1) mmol/L Chloride 101 (98-107) mmol/L Carbon Dioxide 24 (21-32) mmol/L Anion Gap 10.0 (3-11) BUN 13 (7-18) mg/dl Creatinine 0.98 (0.6-1.4) mg/dl Est Cr Clr Drug Dosing 100.2 ml/min Est GFR ( Amer) 111.3 Est GFR (Non-Af Amer) 96.1 BUN/Creatinine Ratio 13.0 (10-20) Glucose 105 H (70-99) mg/dl Calcium 9.5 (8.5-10.1) mg/dl Total Bilirubin 0.6 (0.2-1) mg/dl AST 19 (15-37) U/L ALT 23 (12-78) U/L Alkaline Phosphatase 140 H (45-117) U/L Total Protein 9.1 H (6.4-8.2) gm/dl Albumin 4.0 (3.4-5.0) gm/dl Globulin 5.1 H (2.5-4.0) gm/dl Albumin/Globulin Ratio 0.8 L (0.9-2) Lipase 69 L (73-393) U/L Specimen Hemolysis Urine Color Dark Yellow Urine Appearance Clear (Clear) Urine pH 5.0 (4.5-7.5) Ur Specific [place] 1.032 H (1.000-1.030) Urine Protein 1+ H (Negative) Urine Glucose (UA) Negative (Negative) Urine Ketones 4+ H (Negative) Urine Blood Trace H (Negative) Urine Nitrite Negative (Negative) Urine Bilirubin Negative (Negative) Urine Urobilinogen Negative (Negative) Ur Leukocyte Esterase Negative (Negative) Urine WBC (Auto) 1-5 (0-5) /hpf Urine RBC (Auto) 0-4 (0-4) /hpf U Hyaline Cast (Auto) 1-5 (0-5) /lpf U Epithel Cells (Auto) 0-5 (0-5) /lpf Urine Bacteria (Auto) Negative (Negative) COVID-19 Eval Order SARS-CoV-2 (PCR) (Negative) Influenza Type A (PCR) (Neg) Influenza Type B (PCR) (Neg) RSV (RT-PCR) (Neg) 07/26/20 07/26/20 Range/Units 20:25 20:25 WBC (4.8-10.8) K/uL RBC (4.7-6.1) M/uL Hgb (14.0-18.0) g/dL Hct (42-52) % MCV (80-100) fL MCH (25-34) pg MCHC (32-36) g/dL RDW Std Deviation (36.4-46.3) fL RDW Coeff of Aga (11.5-14.5) % Plt Count (130-400) K/uL MPV (7.4-10.4) fL Immature Gran % (Auto) % Neut % (Auto) % Lymph % (Auto) % [place] % (Auto) % Eos % (Auto) % Baso % (Auto) % Neut # (Auto) (1.4-6.5) K/uL Lymph # (Auto) (1.2-3.4) K/uL [place] # (Auto) (0.11-0.59) K/uL Eos # (Auto) (0-0.5) K/uL Baso # (Auto) (0-0.2) K/uL Immature Gran # (Auto) (0.00-0.02) K/uL Sodium (136-145) mmol/L Potassium (3.5-5.1) mmol/L Chloride (98-107) mmol/L Carbon Dioxide (21-32) mmol/L Anion Gap (3-11) BUN (7-18) mg/dl Creatinine (0.6-1.4) mg/dl Est Cr Clr Drug Dosing ml/min Est GFR ( Amer) Est GFR (Non-Af Amer) BUN/Creatinine Ratio (10-20) Glucose (70-99) mg/dl Calcium (8.5-10.1) mg/dl Total Bilirubin (0.2-1) mg/dl AST (15-37) U/L ALT (12-78) U/L Alkaline Phosphatase (45-117) U/L Total Protein (6.4-8.2) gm/dl Albumin (3.4-5.0) gm/dl Globulin (2.5-4.0) gm/dl Albumin/Globulin Ratio (0.9-2) Lipase (73-393) U/L Specimen Hemolysis Urine Color Urine Appearance (Clear) Urine pH (4.5-7.5) Ur Specific [place] (1.000-1.030) Urine Protein (Negative) Urine Glucose (UA) (Negative) Urine Ketones (Negative) Urine Blood (Negative) Urine Nitrite (Negative) Urine Bilirubin (Negative) Urine Urobilinogen (Negative) Ur Leukocyte Esterase (Negative) Urine WBC (Auto) (0-5) /hpf Urine RBC (Auto) (0-4) /hpf U Hyaline Cast (Auto) (0-5) /lpf U Epithel Cells (Auto) (0-5) /lpf Urine Bacteria (Auto) (Negative) COVID-19 Eval Order CovFluRsv at [facility] SARS-CoV-2 (PCR) NEGATIVE (Negative) Influenza Type A (PCR) Negative (Neg) Influenza Type B (PCR) Negative (Neg) RSV (RT-PCR) Negative (Neg) Administered Medications Discontinued Medications Hydromorphone HCl (Hydromorphone Inj 0.5 Mg/0.5 Ml Syr) 0.5 mg IV NOW STA Stop: 07/26/20 18:21 Last Admin: 07/26/20 18:51 Dose: 0.5 mg Documented by: [id number] Hydromorphone HCl (Hydromorphone Inj 0.5 Mg/0.5 Ml Syr) 0.5 mg IV NOW STA Stop: 07/26/20 20:43 Last Admin: 07/26/20 21:13 Dose: 0.5 mg Documented by: [id number] Sodium Chloride (Nss 1000ml) 1,000 mls @ 999 mls/hr IV .Q1H1M ONE Stop: 07/26/20 19:08 Last Infusion: 07/26/20 19:47 Dose: 0 mls/hr Documented by: [id number] Admin: 07/26/20 18:46 Dose: 999 mls/hr Documented by: [id number] Ioversol (Optiray 300 100ml) 87 ml IV ONCE ONE Stop: 07/26/20 19:45 Last Admin: 07/26/20 19:45 Dose: 87 ml Documented by: [id number] Ondansetron HCl (Ondansetron Inj 2 Mg/Ml 2 Ml Vial) 4 mg IV NOW STA Stop: 07/26/20 18:21 Last Admin: 07/26/20 18:50 Dose: 4 mg Documented by: [id number] Imaging Data Radiologist's Impression: Abdomen/Pelvis CT 07/26/20 18:08 CT OF THE ABDOMEN AND PELVIS WITH CONTRAST CLINICAL HISTORY: Abdominal pain. Crohn's disease. COMPARISON STUDY: CT of the abdomen and pelvis February 28, 2020. TECHNIQUE: Following IV administration of 87 mL of Optiray, axial images of the abdomen and pelvis were obtained from the lung bases to the proximal femurs. Images were reviewed in the axial, sagittal, and coronal planes. IV contrast was administered without complication. Automated exposure control was utilized for the study. A dose lowering technique was utilized adhering to the principles of ALARA. CT DOSE: 352.79 mGy.cm FINDINGS: Ground glass opacities within the lower lungs favor atelectasis. No pneumatosis, free air or portal venous gas is present. There is probable hepatic steatosis. Several subcentimeter hepatic lesions are similar to prior exam. These are likely benign. The spleen, adrenal glands and pancreas as well as the left kidney are unremarkable. A few right renal calculi measure up to 4 mm. There is a probable cyst within the upper pole of the right kidney. There are no ureteral calculi and there is no hydronephrosis. There is no biliary or pancreatic ductal dilatation. Interval bowel resection is noted since CT of February 28, 2020 with ileocolonic anastomosis is noted. Note is made of multiple loops of mildly dilated small bowel with bowel wall thickening and evidence for hyperemia. There is mesenteric infiltration and a small amount of ascites. This has developed since prior CT. Transition point within the right mid abdomen is noted on axial image 282 of 506. Distal small bowel is decompressed. Small bowel feces sign is noted. The findings represent a small bowel obstruction. Major vasculature is patent. There is no abscess. 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 There is no evidence for collapse. IMPRESSION: 1. Multiple loops of mildly dilated small bowel with transition point within the right mid abdomen and decompressed distal small bowel. Small bowel feces sign. The findings represent a small bowel obstruction which could be due to adhesions or active inflammatory bowel disease. Associated mesenteric infiltration and a small amount of ascites. No abscess. No free air. 2. Mild wall thickening and evidence for hyperemia of multiple small bowel loops suggests active inflammatory bowel disease. ACT 112: Negative or not required by law. Electronically signed by: Jethro Nino M.D. 07/26/2020 8:08 PM Discharge Plan Visit Data Chief Complaint: Abdominal Pain Stated Complaint: STOMACH PAIN ED Provider: Tony Mckay Discharge Problem: SBO (small bowel obstruction), Crohn's colitis, Leukocytosis, Abdominal pain Forms Stand Alone Forms: My [facility] [employer] Prescriptions Prescriptions: No Action Remicade 100 mg recon soln See Rx Instructions IV Q8WK RF: 0 dicyclomine 20 mg Tablet 20 mg PO BID RF: 0 budesonide [Uceris] 9 mg Tablet,Delayed And Ext.Release 9 mg PO DAILY RF: 0 Discharge Problem: Crohn's colitis Qualifiers: Digestive disease complication type: unspecified complication Qualified Code(s): K50.119 - Crohn's disease of large intestine with unspecified complications Leukocytosis Qualifiers: Leukocytosis type: unspecified Qualified Code(s): D72.829 - Elevated white blood cell count, unspecified Abdominal pain Qualifiers: Abdominal location: unspecified location Qualified Code(s): R10.9 - Unspecified abdominal pain
[2020-07-26 18:49] LABS: Basophils # (auto) 0.01 K/uL (0-0.2); Basophils % (auto) 0.1 %; Eosinophils # (auto) 0.04 K/uL (0-0.5); Eosinophils % (auto) 0.3 %; Hematocrit (blood only) 47.1 % (42-52); Hemoglobin 16.2 g/dL (14.0-18.0); Immature Granulocytes # (auto) 0.03 K/uL (0.00-0.02); Immature Granulocytes % (auto) 0.2 %; Lymphocytes # (auto) 1.34 K/uL (1.2-3.4); Lymphocytes % (auto) 9.3 %; Mean Corpuscular Hemoglobin 31.2 pg (25-34); Mean Corpuscular Hgb Conc 34.4 g/dL (32-36); Mean Corpuscular Volume 90.8 fL (80-100); Mean Platelet Volume 10.1 fL (7.4-10.4); Monocytes % (auto) 7.6 %; Neutrophils # (auto) 11.93 K/uL (1.4-6.5); Neutrophils % (auto) 82.5 %; Platelet Count 311 K/uL (130-400); RDW Coefficient of Variation 12.9 % (11.5-14.5); RDW Standard Deviation 42.4 fL (36.4-46.3); Red Blood Count 5.19 M/uL (4.7-6.1); White Blood Count 14.45 K/uL (4.8-10.8)
[2020-07-26 18:56] LABS: Appearance Urine Clear (Clear); Bacteria Urine Automated Negative (Negative); Bilirubin Urine Negative (Negative); Blood Urine Trace (Negative); Color Urine Dark Yellow; Epithelial Cell Urine Auto 0-5 /lpf (0-5); Glucose Urine UA Negative (Negative); Ketones Urine 4+ (Negative); Leukocyte Esterase Urine Negative (Negative); Nitrite Urine Negative (Negative); Protein Urine 1+ (Negative); RBC Urine Automated 0-4 /hpf (0-4); Specific Gravity Urine 1.032 (1.000-1.030); Urobilinogen Urine Negative (Negative)
[2020-07-26 19:12] LABS: Albumin Globulin Ratio 0.8 (0.9-2); Bilirubin,Total 0.6 mg/dl (0.2-1); Calcium 9.5 mg/dl (8.5-10.1); Creatinine Clr Calc Pharmacy 100.2 ml/min; Est GFR (African American) 111.3; Est GFR (Non-African American) 96.1; Globulin 5.1 gm/dl (2.5-4.0); Potassium 4.3 mmol/L (3.5-5.1); Total Protein 9.1 gm/dl (6.4-8.2)
[2020-07-26] MEDS ORDERED: OPTIRAY 300 100mL IV ONE (19:44)
--- NOTE | 2020-07-26 20:10 | CT Scan Report ---
CT OF THE ABDOMEN AND PELVIS WITH CONTRAST CLINICAL HISTORY: Abdominal pain. Crohn's disease. COMPARISON STUDY: CT of the abdomen and pelvis February 28, 2020. TECHNIQUE: Following IV administration of 87 mL of Optiray, axial images of the abdomen and pelvis we re obtained from the lung bases to the proximal femurs. Images were reviewed in the axial, sagittal, and coronal planes. IV contrast was administered without complication. Automated exposure control wa s utilized for the study. A dose lowering technique was utilized adhering to the principles of ALARA . CT DOSE: 352.79 mGy.cm FINDINGS: Ground glass opacities within the lower lungs favor atelectasis. No pneumatosis, free air o r portal venous gas is present. There is probable hepatic steatosis. Several subcentimeter hepatic le sions are similar to prior exam. These are likely benign. The spleen, adrenal glands and pancreas as well as the left kidney are unremarkable. A few right renal calculi measure up to 4 mm. There is a pr obable cyst within the upper pole of the right kidney. There are no ureteral calculi and there is no hydronephrosis. There is no biliary or pancreatic ductal dilatation. Interval bowel resection is note d since CT of February 28, 2020 with ileocolonic anastomosis is noted. Note is made of multiple loops of mildly dilated small bowel with bowel wall thickening and evidence for hyperemia. There is mesent jaclyn infiltration and a small amount of ascites. This has developed since prior CT. Transition point within the right mid abdomen is noted on axial image 282 of 506. Distal small bowel is decompressed. Small bowel feces sign is noted. The findings represent a small bowel obstruction. Major vasculature is patent. There is no abscess. 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 There is no vikki dence for collapse. IMPRESSION: 1. Multiple loops of mildly dilated small bowel with transition point within the right mid abdomen an d decompressed distal small bowel. Small bowel feces sign. The findings represent a small bowel obstr uction which could be due to adhesions or active inflammatory bowel disease. Associated mesenteric in filtration and a small amount of ascites. No abscess. No free air. 2. Mild wall thickening and evidence for hyperemia of multiple small bowel loops suggests active infl ammatory bowel disease. ACT 112: Negative or not required by law. Electronically signed by: Jethro Nino M.D. 07/26/2020 8:08 PM
--- NOTE | 2020-07-26 20:42 | History & Physical Report ---
Date of Service July 26, 2020 Assessment & Plan (1) Crohn's disease of ileum with intestinal obstruction: 40 yo C male with history of Crohn's disease since age 12, presently being managed with Infliximab infusion q 8 weeks. Patient with multiple bowel surgeries and multiple episodes of SBO in the past. He most recently had a redo ileocolic resection and lysis of adhesions performed at [facility] [place] on [place]. Patient presents today with two days of intermittent abdominal pain, last BM [address] with multiple loops of mildly dilated SB with transition points in the right mid abdomen and decompressed distal small bowel - findings consistent with SBO possibly due to adhesions or active inflammatory bowel disease. Patient is afebrile, HD stable, non-toxic in appearance. No abdominal distention or nausea at this time. -Admit to medical floor -Check ESR, CRP -Keep NPO, bowel rest -IVF with LR at 125mL/hr, electrolyte repletion as needed -Zofran 4mg IV q 6 hours PRN nausea -Dilaudid 0.5mg IV q 2 hours as needed -GI Consultation appreciated - patient is known to Dr. Poon -Will hold off on steroids for now. Patient states he is to avoid Prednisone due to AVN of hips F/E/N - LR at 125mL/hr x 2 liters, montior electroltyes and replete as needed, NPO for now Ppx - Lovenox daily Code - Full per discussion with patient Dispo -Admit to medical Present on Admission?: Yes History of Present Illness Chief Complaint: Abdominal pain Primary Care Provider: Keyshawn Frost Favio Guy is a 40yo male with history of Crohn's disease since age 12 currently on Remicade presenting with abdominal pain and partial bowel obstruction. Patient has been having episodic abdominal pain over the last 2 days. He states the pain comes in waves and is fairly severe, 8/10 and is located diffusely but mostly above his umbilicus. Pain episodes are associated with chills, nausea and sweating. He denies diarrhea/vomiting. Last BM was 2 days ago. He has not really eaten much x 2 days. He is passing gas without difficulty. Patient was prescribed budesonide and dicyclomine yesterday for presumed Crohn's flare. He reports he is not to take Prednisone anymore due to avascular necrosis of the hips. No additional complaints at this time. Patient has had multiple bowel obstructions in the past. Last colonoscopy on 03/11/20 revealed a stenotic and ulcerated end-to-end ileo-colonic anastomosis. He was seen at [facility] and had laparoscopic assisted ileocolic resection and lysis of adhesions performed on 04/15/20. He has been doing quite well since then and is understandably frustrated to be back in the hospital for a bowel obstruction. Patient follows locally with Dr. Poon. ER Course: Dilaudid 0.5mg, Zofran 4mg IV, NSS x 1L Allergies Allergy/AdvReac Type Severity Reaction Status Date / Time clarithromycin [From Biaxin] Allergy Intermediate "got Verified 07/26/20 19:36 really sick" morphine AdvReac Mild "arm got Verified 07/26/20 19:36 red" Home Medications Medication Instructions Recorded Confirmed Type infliximab 100 mg intravenous See Rx Instructions IV Q8WK 12/15/19 07/26/20 History solution budesonide [Uceris] 9 mg PO DAILY 07/26/20 07/26/20 History dicyclomine 20 mg PO BID 07/26/20 07/26/20 History Past Med/Surg History Medical History Crohn's disease of ileum with intestinal obstruction Crohns disease Hx of renal calculi Lumbar herniated disc Surgical History History of colostomy reversal 1995 History of cystoscopy History of surgical removal of terminal ileum History of tonsillectomy Hx of colostomy 1995 Hx of vasectomy Family History Other Adopted Unobtainable family history due to adoption Social History Smoking Status: Never smoker Tobacco Type: Cigarettes Second Hand Exposure: No; Hx Alcohol Use: Yes Alcohol type: beer Hx Substance Use: No Preferred Language: Greek Communication Ability: Effective Cotton Puller Required: No Beliefs That Will Affect Care: None marital status: Current Living Situation: Spouse and Family Current Living Situation Comment: Lives with and 2 kids current occupational status: unemployed Feels Safe at Home: Yes Assistive Devices: Contacts and Glasses Review of Systems Review of Systems: All systems reviewed & are unremarkable except as noted in HPI & below Physical Exam Physical Exam: General: patient resting comfortably, NAD, non-toxic in appearance, AA&O x 4 Skin: warm, dry, intact, no rashes or lesions HEENT: NC/AT, PERRL, EOMI, anicteric sclera, conjunctiva without injection, external ear normal to inspection and nontender, nares patent, slightly dry mucus membranes, dentition intact, no oropharyngeal lesions, neck supple, trachea midline, no LAD, no thyromegaly, no JVD Heart: +S1/S2, regular, no m/r/g Lungs: equal air entry bilaterally, no rales/rhonchi/wheezes Abd: +BS mildly hyperactive, soft, NT/ND, no masses/organomegaly/ascites Ext: warm, 2+ pulses in UE/LE bilaterally, no clubbing/cyanosis or edema Neuro: nonfocal, patient AA&O x 4, speech intact, no facial droop, moving all extremities on command with equal strength 5/5 Results & Data Results & Data ([facility]) Vital Signs (Past 12 Hours) Vital Signs Temp Pulse Pulse Resp BP BP Pulse Ox 07/26/20 19:19 66 18 126/84 97 07/26/20 18:08 96 07/26/20 17:51 36.7 C 116 H 19 130/84 96 Laboratory Results Lab Results 07/26/20 07/26/20 07/26/20 Range/Units 18:40 18:40 18:40 WBC 14.45 H (4.8-10.8) K/uL RBC 5.19 (4.7-6.1) M/uL Hgb 16.2 (14.0-18.0) g/dL Hct 47.1 (42-52) % MCV 90.8 (80-100) fL MCH 31.2 (25-34) pg MCHC 34.4 (32-36) g/dL RDW Std Deviation 42.4 (36.4-46.3) fL RDW Coeff of Aga 12.9 (11.5-14.5) % Plt Count 311 (130-400) K/uL MPV 10.1 (7.4-10.4) fL Immature Gran % (Auto) 0.2 % Neut % (Auto) 82.5 % Lymph % (Auto) 9.3 % [place] % (Auto) 7.6 % Eos % (Auto) 0.3 % Baso % (Auto) 0.1 % Neut # (Auto) 11.93 H (1.4-6.5) K/uL Lymph # (Auto) 1.34 (1.2-3.4) K/uL [place] # (Auto) 1.10 H (0.11-0.59) K/uL Eos # (Auto) 0.04 (0-0.5) K/uL Baso # (Auto) 0.01 (0-0.2) K/uL Immature Gran # (Auto) 0.03 H (0.00-0.02) K/uL Sodium 135 L (136-145) mmol/L Potassium 4.3 (3.5-5.1) mmol/L Chloride 101 (98-107) mmol/L Carbon Dioxide 24 (21-32) mmol/L Anion Gap 10.0 (3-11) BUN 13 (7-18) mg/dl Creatinine 0.98 (0.6-1.4) mg/dl Est Cr Clr Drug Dosing 100.2 ml/min Est GFR ( Amer) 111.3 Est GFR (Non-Af Amer) 96.1 BUN/Creatinine Ratio 13.0 (10-20) Glucose 105 H (70-99) mg/dl Calcium 9.5 (8.5-10.1) mg/dl Total Bilirubin 0.6 (0.2-1) mg/dl AST 19 (15-37) U/L ALT 23 (12-78) U/L Alkaline Phosphatase 140 H (45-117) U/L Total Protein 9.1 H (6.4-8.2) gm/dl Albumin 4.0 (3.4-5.0) gm/dl Globulin 5.1 H (2.5-4.0) gm/dl Albumin/Globulin Ratio 0.8 L (0.9-2) Lipase 69 L (73-393) U/L Specimen Hemolysis Urine Color Dark Yellow Urine Appearance Clear (Clear) Urine pH 5.0 (4.5-7.5) Ur Specific [place] 1.032 H (1.000-1.030) Urine Protein 1+ H (Negative) Urine Glucose (UA) Negative (Negative) Urine Ketones 4+ H (Negative) Urine Blood Trace H (Negative) Urine Nitrite Negative (Negative) Urine Bilirubin Negative (Negative) Urine Urobilinogen Negative (Negative) Ur Leukocyte Esterase Negative (Negative) Urine WBC (Auto) 1-5 (0-5) /hpf Urine RBC (Auto) 0-4 (0-4) /hpf U Hyaline Cast (Auto) 1-5 (0-5) /lpf U Epithel Cells (Auto) 0-5 (0-5) /lpf Urine Bacteria (Auto) Negative (Negative) COVID-19 Eval Order 07/26/20 Range/Units 20:25 WBC (4.8-10.8) K/uL RBC (4.7-6.1) M/uL Hgb (14.0-18.0) g/dL Hct (42-52) % MCV (80-100) fL MCH (25-34) pg MCHC (32-36) g/dL RDW Std Deviation (36.4-46.3) fL RDW Coeff of Aga (11.5-14.5) % Plt Count (130-400) K/uL MPV (7.4-10.4) fL Immature Gran % (Auto) % Neut % (Auto) % Lymph % (Auto) % [place] % (Auto) % Eos % (Auto) % Baso % (Auto) % Neut # (Auto) (1.4-6.5) K/uL Lymph # (Auto) (1.2-3.4) K/uL [place] # (Auto) (0.11-0.59) K/uL Eos # (Auto) (0-0.5) K/uL Baso # (Auto) (0-0.2) K/uL Immature Gran # (Auto) (0.00-0.02) K/uL Sodium (136-145) mmol/L Potassium (3.5-5.1) mmol/L Chloride (98-107) mmol/L Carbon Dioxide (21-32) mmol/L Anion Gap (3-11) BUN (7-18) mg/dl Creatinine (0.6-1.4) mg/dl Est Cr Clr Drug Dosing ml/min Est GFR ( Amer) Est GFR (Non-Af Amer) BUN/Creatinine Ratio (10-20) Glucose (70-99) mg/dl Calcium (8.5-10.1) mg/dl Total Bilirubin (0.2-1) mg/dl AST (15-37) U/L ALT (12-78) U/L Alkaline Phosphatase (45-117) U/L Total Protein (6.4-8.2) gm/dl Albumin (3.4-5.0) gm/dl Globulin (2.5-4.0) gm/dl Albumin/Globulin Ratio (0.9-2) Lipase (73-393) U/L Specimen Hemolysis Urine Color Urine Appearance (Clear) Urine pH (4.5-7.5) Ur Specific [place] (1.000-1.030) Urine Protein (Negative) Urine Glucose (UA) (Negative) Urine Ketones (Negative) Urine Blood (Negative) Urine Nitrite (Negative) Urine Bilirubin (Negative) Urine Urobilinogen (Negative) Ur Leukocyte Esterase (Negative) Urine WBC (Auto) (0-5) /hpf Urine RBC (Auto) (0-4) /hpf U Hyaline Cast (Auto) (0-5) /lpf U Epithel Cells (Auto) (0-5) /lpf Urine Bacteria (Auto) (Negative) COVID-19 Eval Order [facility]FluRsv at [facility] Diagnostic Findings CT OF THE ABDOMEN AND PELVIS WITH CONTRAST CLINICAL HISTORY: Abdominal pain. Crohn's disease. COMPARISON STUDY: CT of the abdomen and pelvis February 28, 2020. TECHNIQUE: Following IV administration of 87 mL of Optiray, axial images of the abdomen and pelvis were obtained from the lung bases to the proximal femurs. Images were reviewed in the axial, sagittal, and coronal planes. IV contrast was administered without complication. Automated exposure control was utilized for the study. A dose lowering technique was utilized adhering to the principles of ALARA. CT DOSE: 352.79 mGy.cm FINDINGS: Ground glass opacities within the lower lungs favor atelectasis. No pneumatosis, free air or portal venous gas is present. There is probable hepatic steatosis. Several subcentimeter hepatic lesions are similar to prior exam. These are likely benign. The spleen, adrenal glands and pancreas as well as the left kidney are unremarkable. A few right renal calculi measure up to 4 mm. There is a probable cyst within the upper pole of the right kidney. There are no ureteral calculi and there is no hydronephrosis. There is no biliary or pancreatic ductal dilatation. Interval bowel resection is noted since CT of February 28, 2020 with ileocolonic anastomosis is noted. Note is made of multiple loops of mildly dilated small bowel with bowel wall thickening and evidence for hyperemia. There is mesenteric infiltration and a small amount of ascites. This has developed since prior CT. Transition point within the right mid abdomen is noted on axial image 282 of 506. Distal small bowel is decompr essed. Small bowel feces sign is noted. The findings represent a small bowel obstruction. Major vasculature is patent. There is no abscess. 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 There is no evidence for collapse. IMPRESSION: 1. Multiple loops of mildly dilated small bowel with transition point within the right mid abdomen and decompressed distal small bowel. Small bowel feces sign. The findings represent a small bowel obstruction which could be due to adhesions or active inflammatory bowel disease. Associated mesenteric infiltration and a small amount of ascites. No abscess. No free air. 2. Mild wall thickening and evidence for hyperemia of multiple small bowel loops suggests active inflammatory bowel disease. ACT 112: Negative or not required by law. Electronically signed by: Jethro Nino M.D. 07/26/2020 8:08 PM Dictated: 07/26/201952Transcribed: 07/26/201952 Code Status & VTE Plan Code Status Full Code PG Care Time/CCT Total # of Minutes Spent Total Time Spent with Patient: Total time spent is greater than 50% in coordination of care (as documented) at patient's floor/unit and/or counseling patient: Coding Level of Care Code 80274 Initial Inpt Care Lvl 2 Diagnoses Crohn's disease of ileum with intestinal obstruction K50.012
--- NOTE | 2020-07-26 21:12 | Surgery Consultation ---
Date of Consultation July 26, 2020 Assessment & Plan (1) SBO (small bowel obstruction): Patient is being admitted to the hospital by the hospitalist service. We will proceed as follows: Maintain n.p.o. status Provide IV fluid for hydration Provide analgesics Provide antiemetics Discussed with the patient that as he does not have any nausea, vomiting, or abdominal distention he would not require an NG tube at this time. If he clinically deteriorates to have discussed with him that this modality may be required. Primary service has already consulted the patient's prison officer which I feel is the prudent course of action as we cannot definitively ascertain if the patient is having a current flare of his Crohn's disease. Will await gastroenterology input to see if patient will require any further modalities for this problem. I have discussed with the patient that ideally we would prefer to avoid surgical intervention as patient is already required multiple surgeries with small bowel resection. If the patient does require further small bowel resection this could place him at risk for short gut syndrome. In addition I have discussed with the patient that if he does require any additional surgery it is best to be performed by his colorectal surgeon at [facility] who specializes in this problem. We will continue to follow along while the patient is hospitalized. Supervising Physician Co-Signing Physician Notes History, labs and imaging reviewed, agree with above. 40 y/o with diverticulitis with contained microperforation and possible abscess. Will plan for non operative management, patient may benefit from elective sigmoidectomy. IV abx, npo, ivf's. May need colonoscopy if hasn't had one recently. History of Present Illness Reason for Consultation: Abdominal pain History of Present Illness This is a 40-year-old male who was diagnosed with Crohn's disease at the age of 12. Patient says that during his childhood he required 3 surgeries secondary to this disease. He also most recently had a surgery in April of this year at [facility] secondary to a small bowel stricture. Patient says that he was doing well however approximately 2 days ago he began experiencing some abdominal pain. He felt as though he was having a flare of his Crohn's disease so he has been in contact with his local prison officer. He said that they tried various medicines but despite these modalities his abdominal pain did not improve. He did notice some shakes when he has waves of pain but has not had any fevers or chills. He denies any nausea vomiting. He denies any bright red blood per rectum or melanotic stools. He also denies any diarrhea. He notes that the pain is described as a cramp-like pain without any modifying factors. As the pain has not improved whatsoever in the past 48 hours he presented to the emergency department In the emergency department the patient had labs and imaging which were independently reviewed by myself. Patient underwent a CT scan of the abdomen that showed some dilated loops of small bowel raising the concern for a small bowel obstruction. Distal small bowel was noted to be decompressed. Hyperemia of some of the small bowel was noted raising concern for an inflammatory bowel disease flare. There is no abscess or free air noted. Patient's white blood cell count was elevated at 14.4. His hemoglobin, hematocrit, and platelet count are all noted be within normal range. A chemistry profile showed his sodium was 135, potassium was noted be within normal range. His BUN and creatinine were noted to be within normal range. A Covid test has been sent and is pending At the time of my interview he is resting comfortably in bed he was in no distress. He was noted to be afebrile and hemodynamically stable. Allergies Allergy/AdvReac Type Severity Reaction Status Date / Time clarithromycin [From Biaxin] Allergy Intermediate "got Verified 07/26/20 19:36 really sick" morphine AdvReac Mild "arm got Verified 07/26/20 19:36 red" Home Medications Medication Instructions Recorded Confirmed Type infliximab 100 mg intravenous See Rx Instructions IV Q8WK 12/15/19 07/26/20 History solution budesonide [Uceris] 9 mg PO DAILY 07/26/20 07/26/20 History dicyclomine 20 mg PO BID 07/26/20 07/26/20 History Patient History Medical History Crohn's disease of ileum with intestinal obstruction Crohns disease Hx of renal calculi Lumbar herniated disc Surgical History History of colostomy reversal 1995 History of cystoscopy History of surgical removal of terminal ileum History of tonsillectomy Hx of colostomy 1995 Hx of vasectomy Family History Other Adopted Unobtainable family history due to adoption Social History Smoking Status: Former smoker Tobacco Type: Cigarettes Second Hand Exposure: No; Hx Alcohol Use: Yes Alcohol type: beer Hx Substance Use: No Preferred Language: Rwandan Communication Ability: Effective Crimp Setter Required: No Beliefs That Will Affect Care: None marital status: Current Living Situation: Spouse and Family Current Living Situation Comment: Lives with and 2 kids current occupational status: unemployed Feels Safe at Home: Yes Assistive Devices: Glasses Review of Systems Constitutional: + chills; no fever Eyes: no diplopia Ear, Nose, Mouth, Throat: no ear pain Respiratory: no cough and no dyspnea Cardiovascular: no chest pain Gastrointestinal: + abdominal pain; no nausea, no vomiting, no diarrhea/loose stools and no blood in stools Genitourinary: no dysuria Musculoskeletal: no back pain Integumentary: no rash Neurologic: no localized weakness Physical Exam Constitutional: well developed and well nourished; no acute distress Eyes: no conjunctival abnormality ENMT: Ears: no hearing impairment Neck: trachea midline Respiratory: normal respiratory effort, lungs clear to auscultation Cardiovascular: Rate/Rhythm: regular rate and regular rhythm Gastrointestinal (Abdomen): Abdomen is soft and nondistended. There is some generalized tenderness noted with palpation throughout his abdomen. There is no rebound tenderness or guarding. Patient had a well-healed midline incision. He also had several well-healed laparoscopic surgical sites. There is no evidence of any enterocutaneous fistulas. No palpable hernias were noted. Musculoskeletal: No calf tenderness Skin: no rashes, warm and dry Neurologic: moves all extremities Psychiatric: A+Ox3, euthymic affect Results & Data ([facility]) Vital Signs (Past 12 Hours) Vital Signs Temp Pulse Pulse Resp BP BP Pulse Ox 07/26/20 19:19 66 18 126/84 97 07/26/20 18:08 96 07/26/20 17:51 36.7 C 116 H 19 130/84 96 PG Care Time/CCT Total # of Minutes Spent Total Time Spent with Patient: Total time spent is greater than 50% in coordin ation of care (as documented) at patient's floor/unit and/or counseling patient: Coding Level of Care Code 18544 Inpt Consult Level 5 Diagnoses SBO (small bowel obstruction) K56.609
[2020-07-26 21:40] LABS: Influenza A virus by PCR Negative (Neg); Influenza B virus by PCR Negative (Neg); RSV by PCR Negative (Neg); SARS CoV2 RNA(COVID-19) InHosp NEGATIVE (Negative)
[2020-07-26] MEDS: LACTATED RINGER'S 1,000 ML IV SCH (22:45)
[2020-07-26 23:00] LABS: C Reactive Protein 2.97 mg/dl (0-0.29); Magnesium 2.2 mg/dl (1.8-2.4)
[2020-07-26] MEDS ORDERED: HYDROmorphone INJ 0.5 MG/0.5 ML SYR ONE (23:16)
[2020-07-27] MEDS: FAMOTIDINE 20 MG in SYRINGE 3 ML IV SCH ×3 (00:21→21:08)
--- NOTE | 2020-07-27 05:54 | Surgery Progress Note ---
Date of Service July 27, 2020 Assessment & Plan (1) SBO (small bowel obstruction): Patient has either small bowel obstruction versus a a flare of his Crohn's disease. We will continue his management the following fashion: Continue n.p.o. status Continue IV fluid for hydration Await GI recommendations about the need for possible steroids for possible Crohn's flare Continue analgesics Continue antiemetics Serial labs are to be followed with today's labs pending As noted previously if the patient does require surgical intervention will be best be served by his colorectal surgeon at [facility] Lovenox is in place for DVT prevention We will continue to follow along while patient is hospitalized Admission and Anticipated Discharge Date Admission Date: July 26, 2020 Supervising Physician Co-Signing Physician Notes Patient seen and examined, labs reviewed, agree with above. 40-year-old male with history of Crohn's disease and multiple abdominal surgeries including resection of a stricture in [place] in April, presented with Crohn's flare versus partial small bowel obstruction. He has been passing flatus. He states this feels more like a flare. He is on Remicade for maintenance. He normally sees [facility]. He has a history of avascular necrosis so they are hesitant to use steroids but this is worked for him in the past. On exam he is afebrile with stable vitals. His abdomen is soft, mildly tender, minimally distended. This appears to be more likely a Crohn's flare, we will recommend consulting GI. If he did need surgical intervention would recommend transfer to tertiary facility with colorectal support. Otherwise continue nonoperative management for now. Patient refuses NG tube. Subjective Patient notes that since admission he feels slightly improved. He denies any worsening abdominal pain. He denies nausea vomiting. He is passing flatus but his bowels were not moving. He denies any fevers, shakes, chills. Physical Exam Gastrointestinal (Abdomen): Abdomen is soft and nondistended. Bowel sounds are present. Patient did have some generalized discomfort of his abdomen with palpation but no rebound tenderness or guarding is noted. Results & Data ([facility]) Vital Signs (Past 12 Hours) Vital Signs Temp Pulse Pulse Pulse Resp BP BP 07/26/20 22:45 37 C 72 18 131/74 07/26/20 21:00 65 18 128/65 07/26/20 19:19 66 18 126/84 07/26/20 18:08 07/26/20 17:51 36.7 C 116 H 19 130/84 Pulse Ox 07/26/20 22:45 95 07/26/20 21:00 98 07/26/20 19:19 97 07/26/20 18:08 96 07/26/20 17:51 96 PG Care Time/CCT Total # of Minutes Spent Total Time Spent with Patient: Total time spent is greater than 50% in coordination of care (as documented) at patient's floor/unit and/or counseling p atient: Coding Level of Care Code 79881 Subseq Hosp Care Lvl 1 Diagnoses SBO (small bowel obstruction) K56.609
[2020-07-27] MEDS: LACTATED RINGER'S 1,000 ML IV SCH ×3 (06:37→23:11)
[2020-07-27 06:54] LABS: Basophils # (auto) 0.01 K/uL (0-0.2); Basophils % (auto) 0.1 %; Eosinophils # (auto) 0.05 K/uL (0-0.5); Eosinophils % (auto) 0.6 %; Hematocrit (blood only) 38.1 % (42-52); Hemoglobin 13.1 g/dL (14.0-18.0); Immature Granulocytes # (auto) 0.01 K/uL (0.00-0.02); Immature Granulocytes % (auto) 0.1 %; Lymphocytes # (auto) 1.43 K/uL (1.2-3.4); Lymphocytes % (auto) 16.8 %; Mean Corpuscular Hemoglobin 31.1 pg (25-34); Mean Corpuscular Hgb Conc 34.4 g/dL (32-36); Mean Corpuscular Volume 90.5 fL (80-100); Mean Platelet Volume 10.1 fL (7.4-10.4); Monocytes # (auto) 0.75 K/uL (0.11-0.59); Monocytes % (auto) 8.8 %; Neutrophils # (auto) 6.28 K/uL (1.4-6.5); Neutrophils % (auto) 73.6 %; Platelet Count 278 K/uL (130-400); RDW Coefficient of Variation 12.9 % (11.5-14.5); Red Blood Count 4.21 M/uL (4.7-6.1); White Blood Count 8.53 K/uL (4.8-10.8)
[2020-07-27 07:16] LABS: Alanine Aminotransferase 14 U/L (12-78); Albumin Level 3.2 gm/dl (3.4-5.0); Aspartate Aminotransferase 10 U/L (15-37); BUN Creatinine Ratio 14.4 (10-20); Bilirubin Direct < 0.1 mg/dl (0-0.2); Blood Urea Nitrogen 11 mg/dl (7-18); Calcium 8.9 mg/dl (8.5-10.1); Carbon Dioxide 27 mmol/L (21-32); Chloride 103 mmol/L (98-107); Creatinine Clr Calc Pharmacy 133.1 ml/min; Est GFR (Non-African American) 114.7; Glucose 97 mg/dl (70-99); Sodium 136 mmol/L (136-145)
[2020-07-27 07:29] LABS: Alkaline Phosphatase 106 U/L (45-117); Bilirubin,Total 0.5 mg/dl (0.2-1); Total Protein 6.9 gm/dl (6.4-8.2)
[2020-07-27] MEDS: ENOXAPARIN INJ 40 MG/0.4 ML SYR SQ SCH (07:39)
[2020-07-27] MEDS: HYDROmorphone INJ 0.5 MG/0.5 ML SYR IV PRN ×3 (07:40→14:23)
[2020-07-27] MEDS: ONDANSETRON INJ 2 MG/ML 2 ML VIAL IV PRN ×2 (07:46→18:29)
--- NOTE | 2020-07-27 14:27 | Gastrointestinal Consultation ---
Date of Consultation July 27, 2020 Assessment & Plan (1) SBO (small bowel obstruction): (2) Crohn's disease of ileum with intestinal obstruction: active IBD with SBO. 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 We discussed possible short term steroid use to overcome this flare vs. surgical options, he is amenable to trying to steroids at this time Recs: --start IV solumedrol 40 mg BID, if no improvement in 2 days then would discontinue steroids and transfer to [facility] for surgical evaluation --daily KUBs --NPO --replete lytes prn supportive care Thank you for allowing me to participate in the care of this patient History of Present Illness Attending Physician: Ad Carreno, DO 40 yo male with hx Crohns disease on remicade last dose in may 2020, s/p surgery for small bowel/anastomotic stricture in Apr 2020 at [facility] here with worsening symptoms, abdominal pains. CT imaging shows small bowel obstruction and evidence of active IBD. Currently NPO for the last 3 days. labs reviewed. VSS. Allergies Allergy/AdvReac Type Severity Reaction Status Date / Time clarithromycin [From Biaxin] Allergy Intermediate "got Verified 07/26/20 19:36 really sick" morphine AdvReac Mild "arm got Verified 07/26/20 19:36 red" Home Medications Medication Instructions Recorded Confirmed Type infliximab 100 mg intravenous See Rx Instructions IV [id number] 12/15/19 07/26/20 History solution budesonide [Uceris] 9 mg PO DAILY 07/26/20 07/26/20 History dicyclomine 20 mg PO BID 07/26/20 07/26/20 History Patient History Medical History Crohn's disease of ileum with intestinal obstruction Crohns disease Hx of renal calculi Lumbar herniated disc Surgical History History of colostomy reversal 1995 History of cystoscopy History of surgical removal of terminal ileum History of tonsillectomy Hx of colostomy 1995 Hx of vasectomy Family History Other Adopted Unobtainable family history due to adoption Social History Smoking Status: Former smoker Tobacco Type: Cigarettes Second Hand Exposure: No; Hx Alcohol Use: Yes Alcohol type: beer Hx Substance Use: No Preferred Language: Romansh Communication Ability: Effective 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 Required: No Beliefs That Will Affect Care: None marital status: Current Living Situation: Spouse and Family Current Living Situation Comment: Lives with and 2 kids current occupational status: unemployed Feels Safe at Home: Yes Assistive Devices: Glasses Review of Systems Constitutional: no fever, no chills and no weight loss Eyes: as per Subjective / HPI Ear, Nose, Mouth, Throat: as per Subjective / HPI Respiratory: no dyspnea and no dyspnea on exertion Cardiovascular: no chest pain and no palpitations Gastrointestinal: as per Subjective / HPI Musculoskeletal: no joint pain and no swelling Integumentary: no rash and no lesions Neurologic: no numbness and no paresthesia Psychiatric: no depression and no anxiety Endocrine: no fatigue Hematologic / Lymphatic: no easy bleeding and no easy bruising Physical Exam Constitutional: WD/WN, vitals as above Eyes: EOM intact bilaterally Neck: normal visual inspection Respiratory: normal respiratory effort, lungs clear to auscultation Cardiovascular: RRR, no murmur, no edema Gastrointestinal (Abdomen): Inspection/Auscultation: abdomen normal to inspection; abdomen not distended Percussion/Palpation: + abdomen tender (mild) and abdomen soft; no hepatosplenomegaly Musculoskeletal: Extremities: no cyanosis Gait: normal gait Skin: no rashes, warm and dry Neurologic: moves all extremities Psychiatric: A+Ox3, euthymic affect Results & Data ([facility]) Vital Signs (Past 12 Hours) Vital Signs Temp Pulse Resp BP Pulse Ox 07/27/20 08:09 36.9 C 63 18 115/67 94 PG Care Time/CCT Total # of Minutes Spent Total Time Spent with Patient: Total time spent is greater than 50% in coordination of care (as documented) at patient's floor/unit and/or counseling patient: Coding Level of Care Code 93032 Inpt Consult Level 4 Diagnoses SBO (small bowel obstruction) K56.609 Crohn's disease of ileum with intestinal obstruction K50.012
[2020-07-27] MEDS ORDERED: HYDROmorphone INJ 0.5 MG/0.5 ML SYR IV STA (15:00)
[2020-07-27] MEDS ORDERED: HYDROmorphone INJ 0.5 MG/0.5 ML SYR IV PRN (15:02)
--- NOTE | 2020-07-27 15:28 | Hospitalist Progress Note ---
Date of Service July 27, 2020 Assessment & Plan (1) Abdominal pain: 40yo male with Crohn's disease (on remicade) admitted 07/26 with severe abdominal pain and nausea suspected 2/2 Crohn's flare-up vs SBO. Patient has a history of multiple bowel surgeries (three in childhood at [facility], and a recent ileocolic resection and adhesion lysis on 04/15/20 at [facility]) as well as a history of recurrent SBO. Abdominal pain, nausea -CT abd/pelvis with mildly dilated loops of small bowel with transition points in the right mid-abdomen, decompressed distal small bowel, bowel wall thickening and hyperemia -Consistent with SBO as well as Crohn's flare-up; could be either or both -Pain/nausea improved, passing flatus -Surgery consulted, appreciate ongoing recommendations: -Surgery currently not indicated -If necessary, will require transfer to tertiary medical center (likely [facility]) -GI consulted, appreciate ongoing recommendations: -Trial of solumedrol IV 40mg bid; cautious use given history of AVN -If no improvement within 2 days, d/c steroids and recommend transfer to [facility] -Daily KUB -NPO; replete electrolytes as indicated -LR at 125mL/hr -Continue dilauded- increased dose on 07/27 from 0.5mg to 1mg (q2h prn), continue to monitor -Continue zofran 4mg q6h prn -Continue famotidine 20mg IV bid -BMP daily History of avascular necrosis -Cautious use of steroids -Will monitor for symptoms given trial of solumedrol FEN: NPO, LR at 125mL/hr Code status: full code DVT ppx: lovenox 40mg qAM Isolation: none Held home meds: dicyclomine, budesonide Consults: general surgery, GI Dispo: med/surg (2) Crohn's colitis: Admission and Anticipated Discharge Date Admission Date: July 26, 2020 Supervising Physician Co-Signing Physician Notes I also saw the patient with the resident physician and confirmed martini portions of the history and physical examination. Agree with the impression and plan as noted in the resident documentation. Briefly, 40-year-old male with history of Crohn's disease, presently managed with infliximab infusion to 2 months, with recent surgery at [facility] in [place] (04/15/2020, ileocolic resection and lysis of adhesions) admitted yesterday with Crohn's flare and small bowel obstruction. This morning, upon exam, he states the pain is improved. He notes "gurgling" with passing of flatus. Exam 127/80, 59, 18, 36.7 C, 94% on room air Alert and oriented. No acute distress. Hemodynamically stable. Abdomen soft, mildly tender. No rebound or guarding. Bowel sounds are auscultated but hypoactive. Data Blood blood cell count improved from 14.45 to 8.53 this morning. Hemoglobin 13.1 Sodium 136, potassium 4.0, BUN 11, creatinine 0.75. AST 10, ALT 14. Alkaline phosphatase 106. C-reactive protein from admission 2.97. PCR for COVID-19, influenza, and RSV are negative. CT of the abdomen pelvis consistent with small bowel obstruction. There is also noted to be mild wall thickening and hyperemia of multiple small bowel loops consistent with active IBD. Impression and plan IBD, active flare Small bowel obstruction Appreciate consultations from gastroenterology and general surgery N.p.o./bowel rest IV fluids Trial of Solu-Medrol Pain control DVT prophylaxis Disposition will depend on course over next 24-48 hours. Subjective Patient is doing okay today - has "been better, been worse". Endorses continued abdominal pain - it is far better than yesterday, but still not well-controlled. No BM since admission (last BM 07/24) but continues to pass flatus. Only experiences nausea when he has a sharp pain. Denies fever, chills, SOB, diarrhea, dizziness, lightheadedness, or other symptoms. Review of Systems Review of Systems: See HPI Physical Exam Physical Exam: Constitutional: well-appearing, no acute distress, interactive CV: regular rhythm, no murmurs, extremities well-perfused Resp: CTABL, no increased work of breathing GI: soft, nondistended, mild tenderness to palpation just right of the umbilicus, minimal tenderness to palpation elsewhere, no guarding or rebound tenderness, BS normoactive in all four quadrants Skin: warm, dry, no rashes appreciated Results & Data Results & Data ([facility]) Vital Signs (Past 12 Hours) Vital Signs Temp Pulse Resp BP Pulse Ox 07/27/20 08:09 36.9 C 63 18 115/67 94 Resident Activity Tracking Resident Involvement: Resident Care Provided Care Provided: Adult Hospital Medicine (1) Abdominal pain Abdominal location: unspecified location Qualified Code(s): R10.9 - Unspecified abdominal pain (2) Crohn's colitis Digestive disease complication type: unspecified complication Qualified Code(s): K50.119 - Crohn's disease of large intestine with unspecified complications
[2020-07-27] MEDS: methylPREDNISolone 40 MG in SYRINGE 0 ML IV SCH (15:52)
--- NOTE | 2020-07-28 06:05 | Surgery Progress Note ---
Date of Service July 28, 2020 Assessment & Plan (1) SBO (small bowel obstruction): Small bowel obstruction may be related to a flare of his Crohn's disease. GI recommendations noted and steroids have been initiated. As patient symptoms have improved and he is passing flatus may consider advancing diet to clears Continue IV fluid for hydration until certain oral intake is adequate Continue analgesics Continue antiemetics As noted previously if the patient does require surgical intervention will be best be served by his colorectal surgeon at [facility] Lovenox is in place for DVT prevention We will continue to follow along while patient is hospitalized Admission and Anticipated Discharge Date Admission Date: July 26, 2020 Supervising Physician Co-Signing Physician Notes Patient seen and examined, labs reviewed, agree with above. 40-year-old male with history of Crohn's disease and multiple abdominal surgeries including resec tion of a stricture in [place] in April, presented with Crohn's flare versus partial small bowel obstruction. Patient saw Dr. Dao with GI in consultation yesterday, steroids were started. He is feeling much better, continues to pass gas. Still slightly bloated and with some discomfort but this is significantly improved. On exam he is afebrile stable vitals. Abdomen soft, mildly distended, nontender. KUB with partially dilated small bowel but air in the left colon. We will advance him to clear liquids. He will need continued follow-up with GI and potentially with his colorectal surgeon. Subjective Patient notes that his abdominal pain is improved since admission. He denies nausea vomiting. He did not have a bowel movement but is passing flatus. He denies any fevers, shakes, chills. Physical Exam Constitutional: well developed and well nourished; no acute distress Gastrointestinal (Abdomen): Abdomen is soft and nondistended with positive bowel sounds. There is minimal pain with palpation. Results & Data ([facility]) Vital Signs (Past 12 Hours) Vital Signs Temp Pulse Resp BP Pulse Ox 07/27/20 23:03 36.4 C L 65 14 107/55 L 94 PG Care Time/CCT Total # of Minutes Spent Total Time Spent with Patient: Total time spent is greater than 50% in coordination of care (as documented) at patient's floor/unit and/or counseling patient: Coding Level of Care Code 16184 Subseq Hosp Care Lvl 1 Diagnoses SBO (small bowel obstruction) K56.609
[2020-07-28] MEDS: LACTATED RINGER'S 1,000 ML IV SCH ×2 (06:22→14:24)
[2020-07-28 07:37] LABS: Basophils # (auto) 0.01 K/uL (0-0.2); Basophils % (auto) 0.1 %; Hematocrit (blood only) 37.3 % (42-52); Hemoglobin 13.1 g/dL (14.0-18.0); Immature Granulocytes # (auto) 0.01 K/uL (0.00-0.02); Immature Granulocytes % (auto) 0.1 %; Lymphocytes # (auto) 1.38 K/uL (1.2-3.4); Lymphocytes % (auto) 16.6 %; Mean Corpuscular Hemoglobin 31.3 pg (25-34); Mean Corpuscular Hgb Conc 35.1 g/dL (32-36); Mean Corpuscular Volume 89.2 fL (80-100); Mean Platelet Volume 9.8 fL (7.4-10.4); Monocytes % (auto) 7.2 %; Platelet Count 273 K/uL (130-400); RDW Coefficient of Variation 12.6 % (11.5-14.5); RDW Standard Deviation 40.6 fL (36.4-46.3); Red Blood Count 4.18 M/uL (4.7-6.1)
[2020-07-28 07:48] LABS: Calcium 9.2 mg/dl (8.5-10.1); Creatinine Clr Calc Pharmacy 127.9 ml/min; Est GFR (African American) 130.9; Est GFR (Non-African American) 112.9; Potassium 4.2 mmol/L (3.5-5.1)
--- NOTE | 2020-07-28 07:55 | XRay Report ---
KUB CLINICAL HISTORY: concern for SBO COMPARISON STUDY: CT of the abdomen and pelvis July 26, 2020. FINDINGS: A loop of moderately dilated small bowel is noted. There is a small amount of gas within th e rectum. There is gas within the left colon. A right renal calculus is noted. IMPRESSION: Loop of moderately dilated small bowel. The findings suggest a persistent small bowel ob struction. ACT 112: Negative or not required by law. Electronically signed by: Jethro Nino M.D. 07/28/2020 7:54 AM
[2020-07-28] MEDS: ENOXAPARIN INJ 40 MG/0.4 ML SYR SQ SCH (08:41)
[2020-07-28] MEDS: methylPREDNISolone 40 MG in SYRINGE 0 ML IV SCH (08:42)
[2020-07-28] MEDS: FAMOTIDINE 20 MG in SYRINGE 3 ML IV SCH (08:43)
--- NOTE | 2020-07-28 09:40 | Hospitalist Progress Note ---
Date of Service July 28, 2020 Assessment & Plan (1) Abdominal pain: 40yo male with Crohn's disease (on remicade) admitted 07/26 with severe abdominal pain and nausea suspected 2/2 Crohn's flare-up vs SBO. Patient has a history of multiple bowel surgeries (three in childhood at [facility], and a recent ileocolic resection and adhesion lysis on 04/15/20 at [facility]) as well as a history of recurrent SBO. Abdominal pain, nausea -CT abd/pelvis with mildly dilated loops of small bowel with transition points in the right mid-abdomen, decompressed distal small bowel, bowel wall thickening and hyperemia -Consistent with SBO as well as Crohn's flare-up; could be either or both -Pain/nausea improved, passing flatus -Surgery consulted, appreciate ongoing recommendations: -Surgery currently not indicated -If necessary, will require transfer to tertiary medical center (likely [facility]) -GI consulted, appreciate ongoing recommendations: -Trial of solumedrol IV 40mg bid; cautious use given history of AVN -If no improvement within 2 days, d/c steroids and recommend transfer to [facility] [[email or web address] -Daily KUB -NPO; replete electrolytes as indicated -LR at 125mL/hr -Continue dilauded- increased dose on 07/27 from 0.5mg to 1mg (q2h prn), continue to monitor -Continue zofran 4mg q6h prn -Continue famotidine 20mg IV bid -BMP daily History of avascular necrosis -Cautious use of steroids -Will monitor for symptoms given trial of solumedrol FEN: NPO, LR at 125mL/hr Code status: full code DVT ppx: lovenox 40mg qAM Isolation: none Held home meds: dicyclomine, budesonide Consults: general surgery, GI Dispo: med/surg (2) Crohn's colitis: Admission and Anticipated Discharge Date Admission Date: July 26, 2020 Results & Data Results & Data ([facility]) Vital Signs (Past 12 Hours) Vital Signs Temp Pulse Resp BP Pulse Ox 07/28/20 07:51 36.8 C 68 18 117/68 94 07/27/20 23:03 36.4 C L 65 14 107/55 L 94 (1) Abdominal pain Abdominal location: unspecified location Qualified Code(s): R10.9 - Unspecified abdominal pain (2) Crohn's colitis Digestive disease complication type: unspecified complication Qualified Code(s): K50.119 - Crohn's disease of large intestine with unspecified complications
--- NOTE | 2020-07-28 16:04 | Discharge Summary ---
Date of Service July 28, 2020 Admission HPI Per Admitting Provider Favio Guy is a 40yo male with history of Crohn's disease since age 12 currently on Remicade presenting with abdominal pain and partial bowel obstruction. Patient has been having episodic abdominal pain over the last 2 days. He states the pain comes in waves and is fairly severe, 8/10 and is located diffusely but mostly above his umbilicus. Pain episodes are associated with chills, nausea and sweating. He denies diarrhea/vomiting. Last BM was 2 days ago. He has not really eaten much x 2 days. He is passing gas without difficulty. Patient was prescribed budesonide and dicyclomine yesterday for presumed Crohn's flare. He reports he is not to take Prednisone anymore due to avascular necrosis of the hips. No additional complaints at this time. Patient has had multiple bowel obstructions in the past. Last colonoscopy on 03/11/20 revealed a stenotic and ulcerated end-to-end ileo-colonic anastomosis. He was seen at [facility] and had laparoscopic assisted ileocolic resection and lysis of adhesions performed on 04/15/20. He has been doing quite well since then and is understandably frustrated to be back in the hospital for a bowel obstruction. Patient follows locally with Dr. Poon. ER Course: Dilaudid 0.5mg, Zofran 4mg IV, NSS x 1L Admission Exam Per Admitting Provider General: patient resting comfortably, NAD, non-toxic in appearance, AA&O x 4 Skin: warm, dry, intact, no rashes or lesions HEENT: NC/AT, PERRL, EOMI, anicteric sclera, conjunctiva without injection, external ear normal to inspection and nontender, nares patent, slightly dry mucus membranes, dentition intact, no oropharyngeal lesions, neck supple, trachea midline, no LAD, no thyromegaly, no JVD Heart: +S1/S2, regular, no m/r/g Lungs: equal air entry bilaterally, no rales/rhonchi/wheezes Abd: +BS mildly hyperactive, soft, NT/ND, no masses/organomegaly/ascites Ext: warm, 2+ pulses in UE/LE bilaterally, no clubbing/cyanosis or edema Neuro: nonfocal, patient AA&O x 4, speech intact, no facial droop, moving all extremities on command with equal strength 5/5 Principal Diagnosis SBO Crohn's exacerbation Discharge Exam General: A&Ox3. NAD. Cooperative. HEENT: Atraumatic, normocephalic. Pulm: CTAB A&P. -wheezes, -rales, -rhonchi. Symmetrical chest rise. No increase work of breathing. No respiratory distress. Cardiac: RRR, -mrg. Radial pulses intact and symmetrical. Abdominal: soft, non-tender, non-distended, BS x 4 Skin: warm, dry Discharge Data Allergies Allergy/AdvReac Type Severity Reaction Status Date / Time clarithromycin [From Biaxin] Allergy Intermediate "got Verified 07/26/20 19:36 really sick" morphine AdvReac Mild "arm got Verified 07/26/20 19:36 red" Consultations 07/26/20 20:13 ED Decision to Admit Stat 07/26/20 22:32 Consult Gastroenterology Routine Ordered Studies 07/26/20 18:08 CT abd pelvis IV con only Stat Hospital Course (1) Abdominal pain: 40yo male with Crohn's disease (on remicade) admitted 07/26-07/28 with severe abdominal pain and nausea suspected 2/2 Crohn's flare-up vs SBO. Patient has a history of multiple bowel surgeries (three in childhood at [facility], and a recent ileocolic resection and adhesion lysis on 04/15/20 at [facility]) as well as a history of recurrent SBO. Abdominal pain, nausea - CT abd/pelvis with mildly dilated loops of small bowel with transition points in the right mid-abdomen, decompressed distal small bowel, bowel wall thickening and hyperemia -Consistent with SBO as well as Crohn's flare-up; could be either or both - GI consulted for Crohn's flare: started patient on Solu-Medrol 40mg IV BID, after 3 doses patient's abdominal pain completely resolved (no need for pain meds x24 hours) - Surgery consulted for SBO: recommended bowel rest; patient quickly improved, had BM x2 on 07/28, and was gradually advanced to low-fiber diet on 07/28 which he tolerated well without issues -Patient was also repleted with LR at 125mL/hr; stopped on 07/28 - On discharge, patient will do 6-day Prednisone taper (60/40/20) - f/u with GI and PCP History of avascular necrosis -Cautious use of steroids (2) Crohn's colitis: Total Time Total Time Spent Total Time Spent (In Minutes): 40 minutes Total Time Includes: Examination of the Patient, Discharge Planning, Medication Reconciliation and Communication With Other Providers Discharge Plan Discharge Items Patient Disposition: Home - Self-Care Reason For Visit: SBO, CROHNS DISEASE Discharge Diagnosis: SBO Crohn's Exacerbation Activity: Per Instructions section Non-emergency contact: Primary Care Provider and Drum Sander Offbearer Call non-emergency contact if: you have any medication questions, your symptoms worsen, your pain is not controlled and you have a fever Follow-up/Referrals: Jose Granados [Physician] - Keyshawn Frost [Primary Care Provider] - Diet: Low Fiber Addtl Attending Provider Instructions: You were admitted to [facility] on 07/26/2020 for a small bowel obstruction and Crohn's exacerbation. In regards to the small bowel obstruction, our surgeon was consulted and recommended you have a short bowel rest (nothing by mouth) without surgical intervention. This seemed to help, as your abdominal pain improved and you eventually passed gas and had a bowel movement on 07/28. You were also advanced to a low-fiber diet and did well with this. In regards to your Crohn's exacerbation, our GI specialist was consulted and recommended IV steroids (Solu-Medrol), which seemed to lead to significant improvement in your abdominal pain almost immediately after initiation. You will be discharged in improved, stable condition on 07/28/2020. You will be prescribed a 6-day steroid taper as follows, starting TOMORROW: 1. Prednisone 60mg (3 pills) per day x2 days 2. Prednisone 40mg (2 pills) per day x2 days 3. Prednisone 20 mg (1 pill) per day x2 days You should follow up closely with your GI doctor and your PCP. You should continue to maintain a low-fiber diet. You should continue to take your home medications as prescribed. We hope you continue to feel better. It was a pleasure to help provide your care while you were hospitalized. Pending Studies at Discharge: No Stand-Alone Forms: My [facility], Smoking Cessation Medications and DC Order Prescriptions: New prednisone 20 mg tablet 20 mg PO DAILY Qty: 12 RF: 0 Continued Remicade 100 mg recon soln See Rx Instructions IV Q8WK RF: 0 dicyclomine 20 mg Tablet 20 mg PO BID RF: 0 budesonide [Uceris] 9 mg Tablet,Delayed And Ext.Release 9 mg PO DAILY RF: 0 Discharge Orders: Discharge Order (Routine); Ordered 07/28/20 Ordered By: Jae Maldonado Admission Data Admit Date/Time: 07/26/20 20:40 Attending Provider: Ad Carreno Admit Provider: Keisha Marie Primary Care Provider: Keyshawn Frost Other Providers: Keisha Marie ; Glynn Poon Resident Activity Tracking Resident Involvement: Resident Care Provided Care Provided: Adult Hospital Medicine
[2020-07-28] MEDS ORDERED: methylPREDNISolone 40 MG in SYRINGE 0 ML IV ONE (17:00)
== END 2020-07-28 17:50 | disposition home or self-care (01) | DRG 386 ==
LOC: ED 17:18 → SUATTDRO 20:40 → 3N 20:40

== ENCOUNTER 2021-07-16 21:26 | Observation (INO) ==
[2021-07-16] MEDS ORDERED: ACETAMINOPHEN 1,000 MG/100 ML VIAL IV STA (22:17)
[2021-07-16] MEDS ORDERED: SODIUM CHLORIDE 0.9% 1000ML 1,000 ML IV ONE (22:17)
[2021-07-16] MEDS ORDERED: METOCLOPRAMIDE HCL INJ 5 MG/ML 2 ML VIAL IV STA (22:17)
--- NOTE | 2021-07-16 23:24 | Emergency Department Note ---
History of Present Illness General Chief complaint: GI Assessment Stated complaint: CROHNS FLARE UP History of Present Illness Maximum Pain Intensity: 6 This 41-year-old with Crohn's disease and follows with [facility] presents to the ER complaining of abdominal pain concern for another Crohn's flare who is on Remicade Location: Abdomen Quality: Painful Severity: Moderate Duration: Past day Timing: Started yesterday Context: Patient was concerned and came in Modifying factors: better with rest; worse with activity Patient complains of subjective fever and chills. He has had an abscess and colon resection in the past. Patient denies chest pain, dyspnea, vomiting, diarrhea, cough, congestion. Home Medications Medication Instructions Recorded Confirmed Type infliximab 100 mg intravenous See Rx Instructions IV Q8WK 12/15/19 07/17/21 History solution (Remicade) levocetirizine 5 mg tablet (Xyzal) 5 mg PO HS PRN 09/20/20 07/17/21 History acetaminophen 500 mg tablet 1,000 mg PO Q6H PRN 07/17/21 07/17/21 History (Tylenol Extra Strength) ibuprofen 200 mg tablet 400 mg PO Q6H PRN 07/17/21 07/17/21 History Allergies Allergy/AdvReac Type Severity Reaction Status Date / Time clarithromycin [From Biaxin] Allergy Intermediate "got Verified 07/17/21 01:08 really sick" Past Med/Surg History Medical History Abdominal pain Crohn's disease of ileum with intestinal obstruction Crohns disease Hx of renal calculi Leukocytosis Lumbar herniated disc Surgical History History of colostomy reversal 1995 History of cystoscopy History of surgical removal of terminal ileum History of tonsillectomy Hx of colostomy 1995 Hx of vasectomy Family History Other Adopted Unobtainable family history due to adoption Social History Smoking Status: Never smoker Tobacco Type: Cigarettes Second Hand Exposure: No; Hx Alcohol Use: Yes Alcohol type: beer Hx Substance Use: No Preferred Language: Indian Communication Ability: Effective Manager Convention Required: No Beliefs That Will Affect Care: None marital status: Current Living Situation: Spouse and Family Current Living Situation Comment: Lives with and 2 kids current occupational status: unemployed Feels Safe at Home: Yes Assistive Devices: None Review of Systems A total of 10 systems reviewed and were otherwise negative Physical Exam Vital Signs Vital Signs - 24 hr 07/16/21 21:42 07/17/21 02:00 Temperature 36.6 C Temperature Source Oral Pulse Rate 90 Pulse Rate [Right] 87 Respiratory Rate 18 18 Respiratory Effort / Characteristics Non-Labored Spontaneous Non-Labored Respiratory Depth Normal Normal Blood Pressure 118/63 Blood Pressure [Right Arm] 132/90 Blood Pressure Mean 81 Blood Pressure Mean [Right Arm] 104 Pulse Oximetry 97 99 Oxygen Delivery Method Room Air Room Air Sepsis Recent Fever Within 48 Hours No Sepsis New/Unexplained Change in Mental Status No Sepsis Action Taken by Nursing No Action Required VITALS: Vitals are noted on the nurse's note and reviewed by myself. Vital signs stable. GENERAL: White male who appears in pain, in no acute distress, nondiaphoretic, well-developed well-nourished. SKIN: The skin was without rashes, erythema, edema, or bruising. There is no tenting of the skin. Capillary reflex less than 2 seconds. HEAD: Normocephalic atraumatic. EARS: External auditory canals clear EYES: Pupils equal round and reactive to light and accommodation. Conjunctivae without injection, sclerae without icterus. Extraocular movements intact. NOSE: Patent, turbinates without inflammation or discharge. MOUTH: Mucous membranes moist. Pharynx without erythema or exudate. Uvula midline. Airway patent. Tongue does not deviate. NECK: Supple without nuchal rigidity. No lymphadenopathy. No thyromegaly. Cervical spine is nontender. No JVD. HEART: Regular rate and rhythm . LUNGS: Clear to auscultation bilaterally without wheezes, rales or rhonchi. No retractions or accessory muscle use. ABDOMEN: Positive bowel sounds x 4. Normal tympanic percussion. Soft, tender mid abdomen, without masses or organomegaly. Terry sign negative. No guarding or rebound tenderness. No CVA tenderness MUSCULOSKELETAL: No muscle atrophy, erythema, or edema noted. NEURO: Patient was alert and oriented to person place and time. Normal sensation to light and sharp touch. No focal neurological deficits. Course Administered Medications Discontinued Medications Sodium Chloride (Nss 1000ml) 1,000 mls @ 999 mls/hr IV .Q1H1M ONE Stop: 07/16/21 23:17 Last Infusion: 07/17/21 00:14 Dose: 0 mls/hr Documented by: [id number] Admin: 07/16/21 23:21 Dose: 999 mls/hr Documented by: [id number] Acetaminophen (Ofirmev) 1,000 mg in 100 mls @ 400 mls/hr IV NOW STA Stop: 07/16/21 22:31 Last Infusion: 07/17/21 00:14 Dose: 0 mls/hr Documented by: [id number] Admin: 07/16/21 23:21 Dose: 400 mls/hr Documented by: [id number] Ioversol (Optiray 320 100ml) 100 ml IV ONCE ONE Stop: 07/17/21 01:22 Last Admin: 07/17/21 01:22 Dose: 93 ml Documented by: [id number] Metoclopramide HCl (Metoclopramide Hcl Inj 5 Mg/Ml 2 Ml Vial) 10 mg IV NOW STA Stop: 07/16/21 22:18 Last Admin: 07/16/21 23:21 Dose: 10 mg Documented by: [id number] Medical Decision Making Medical Records Attestation: I reviewed the patient's medical records. Home Medications Current Medication List: was personally reviewed by me Laboratory Data Attestation: I reviewed the patient's lab results. Result diagrams: 07/16/21 23:11 07/16/21 23:11 Lab Results 07/16/21 07/16/21 07/16/21 Range/Units 23:11 23:11 23:11 WBC 18.32 H (4.8-10.8) K/uL RBC 4.71 (4.7-6.1) M/uL Hgb 15.1 (14.0-18.0) g/dL Hct 43.4 (42-52) % MCV 92.1 (80-100) fL MCH 32.1 (25-34) pg MCHC 34.8 (32-36) g/dL RDW Std Deviation 44.2 (36.4-46.3) fL RDW Coeff of Aga 13.0 (11.5-14.5) % Plt Count 259 (130-400) K/uL MPV 10.6 H (7.4-10.4) fL Immature Gran % (Auto) 0.3 % Neut % (Auto) 90.1 % Lymph % (Auto) 4.2 % Creek % (Auto) 5.2 % Eos % (Auto) 0.1 % Baso % (Auto) 0.1 % Neut # (Auto) 16.52 H (1.4-6.5) K/uL Lymph # (Auto) 0.77 L (1.2-3.4) K/uL Creek # (Auto) 0.95 H (0.11-0.59) K/uL Eos # (Auto) 0.01 (0-0.5) K/uL Baso # (Auto) 0.02 (0-0.2) K/uL Immature Gran # (Auto) 0.05 H (0.00-0.02) K/uL ESR 26 H (0-15) mm/hr Sodium 136 (136-145) mmol/L Potassium 3.8 (3.5-5.1) mmol/L Chloride 102 (98-107) mmol/L Carbon Dioxide 25 (21-32) mmol/L Anion Gap 9 (3-11) BUN 10 (6-23) mg/dl Creatinine 0.75 (0.6-1.4) mg/dl Est Cr Clr Drug Dosing 133.8 ml/min Est GFR ( Amer) 132.1 ml/min Est GFR (Non-Af Amer) 113.9 ml/min BUN/Creatinine Ratio 13.3 (10-20) Glucose 96 (70-99(Fasting)) mg/dl Lactate (0.4-2.0) mmol/L Calcium 9.7 (8.5-10.1) mg/dl Total Bilirubin 0.6 (0.2-1.0) mg/dl AST 17 (13-39) U/L ALT 15 (7-52) U/L Alkaline Phosphatase 111 H (34-104) U/L C-Reactive Protein 0.58 H (0-0.5) mg/dl Total Protein 8.0 (6.0-8.3) gm/dl Albumin 4.6 (3.4-5.0) gm/dl Globulin 3.4 (2.5-4.0) gm/dl Albumin/Globulin Ratio 1.4 (0.9-2) Lipase 20 (11-82) U/L 07/16/21 Range/Units 23:11 WBC (4.8-10.8) K/uL RBC (4.7-6.1) M/uL Hgb (14.0-18.0) g/dL Hct (42-52) % MCV (80-100) fL MCH (25-34) pg MCHC (32-36) g/dL RDW Std Deviation (36.4-46.3) fL RDW Coeff of Aga (11.5-14.5) % Plt Count (130-400) K/uL MPV (7.4-10.4) fL Immature Gran % (Auto) % Neut % (Auto) % Lymph % (Auto) % Creek % (Auto) % Eos % (Auto) % Baso % (Auto) % Neut # (Auto) (1.4-6.5) K/uL Lymph # (Auto) (1.2-3.4) K/uL Creek # (Auto) (0.11-0.59) K/uL Eos # (Auto) (0-0.5) K/uL Baso # (Auto) (0-0.2) K/uL Immature Gran # (Auto) (0.00-0.02) K/uL ESR (0-15) mm/hr Sodium (136-145) mmol/L Potassium (3.5-5.1) mmol/L Chloride (98-107) mmol/L Carbon Dioxide (21-32) mmol/L Anion Gap (3-11) BUN (6-23) mg/dl Creatinine (0.6-1.4) mg/dl Est Cr Clr Drug Dosing ml/min Est GFR ( Amer) ml/min Est GFR (Non-Af Amer) ml/min BUN/Creatinine Ratio (10-20) Glucose (70-99(Fasting)) mg/dl Lactate 0.5 (0.4-2.0) mmol/L Calcium (8.5-10.1) mg/dl Total Bilirubin (0.2-1.0) mg/dl AST (13-39) U/L ALT (7-52) U/L Alkaline Phosphatase (34-104) U/L C-Reactive Protein (0-0.5) mg/dl Total Protein (6.0-8.3) gm/dl Albumin (3.4-5.0) gm/dl Globulin (2.5-4.0) gm/dl Albumin/Globulin Ratio (0.9-2) Lipase (11-82) U/L Imaging Data Attestation: I personally reviewed and interpreted this imaging study as follows: MDM Narrative Prior records/ancillary studies reviewed. Triage Nursing notes reviewed. Additional history obtained from nursing. The patient's history was concerning for abdominal pain. Differential diagnosis: Etiologies such as appendicitis, diverticulitis, PUD, biliary pathology, UTI, pancreatitis, obstruction, mesenteric ischemia, aortic pathology, infections, inflammatory bowel disease, renal colic, as well as others were entertained. Physical examination findings: As above. ER treatment provided: An order was placed for continuous cardiac monitoring. The monitor shows a rate of 60-1 20 with a sinus rhythm. IV fluids, Tylenol, Reglan On reassessment the patient felt better. Diagnostics interpreted by me: The labs revealed leukocytosis, elevated inflammatory markers Imaging studies: Preliminary Findings Only See Final Report For Complete Findings CT ABDOMEN & PELVIS With Contrast: Fluid with air-fluid levels visualized in the colon, compatible with a diarrheal state. Fluid-filled dilated loops of small bowel within the upper abdomen with trace interloop fluid and probable transition visualized in the right lower quadrant, compatible with a small bowel obstruction which may be the result of adhesions.. Status post right hemicolectomy. No drainable fluid collection or free air visualized in the abdomen or pelvis. Heterogeneous opacities left lung base laterally favored atelectasis over infiltrate. Radiologist: Lily Caraballo M.D. Consultation: A consultation was placed with the hospitalist. The case was discussed and diagnostics were reviewed. The patient was evaluated in the ER for further treatment. Exam and history seem consistent with Crohn's with bowel obstruction that is re current. Medicine was consulted. He will be evaluated for admission. By the evaluation outlined above emergent etiologies such as appendicitis, diverticulitis, PUD, biliary pathology, UTI, pancreatitis, mesenteric ischemia, aortic pathology, infections, renal colic, as well as others were deemed relatively unlikely. The pt informed about the findings as listed above. All questions were answered and pleased with the treatment. The chart was completed utilizing [employer] voice recognition software. Grammatical errors, random word insertions, pronoun errors, and incomplete sen tences are an occassional consequence of this system due to software limitations, ambient noise, and hardware issues. Any formal questions or concerns about the content, text, or information contained within the body of this dictation should be directly addressed to the physician assistant account manager for clar ification. Impression & Plan SBO (small bowel obstruction) Discharge Plan Visit Data Chief Complaint: GI Assessment Stated Complaint: CROHNS FLARE UP ED Provider: Bill Reddy ED Midlevel Provider: Kaia Clarke Discharge Problem: SBO (small bowel obstruction) Patient Disposition: Admitted As Inpatient Condition: Good Forms Stand Alone Forms: [employer] Prescriptions Prescriptions: No Action Remicade 100 mg recon soln See Rx Instructions IV Q8WK RF: 0 acetaminophen [Tylenol Extra Strength] 500 mg Tablet 1,000 mg PO Q6H PRN (Reason: Pain) RF: 0 ibuprofen 200 mg Tablet 400 mg PO Q6H PRN (Reason: Pain) RF: 0 levocetirizine [Xyzal] 5 mg Tablet 5 mg PO HS PRN (Reason: Congestion) RF: 0 Referrals Referrals: Keyshawn Frost [Primary Care Provider] -
[2021-07-16 23:42] LABS: Basophils # (auto) 0.02 K/uL (0-0.2); Basophils % (auto) 0.1 %; Eosinophils # (auto) 0.01 K/uL (0-0.5); Eosinophils % (auto) 0.1 %; Hematocrit (blood only) 43.4 % (42-52); Hemoglobin 15.1 g/dL (14.0-18.0); Immature Granulocytes # (auto) 0.05 K/uL (0.00-0.02); Immature Granulocytes % (auto) 0.3 %; Lymphocytes # (auto) 0.77 K/uL (1.2-3.4); Lymphocytes % (auto) 4.2 %; Mean Corpuscular Hemoglobin 32.1 pg (25-34); Mean Corpuscular Hgb Conc 34.8 g/dL (32-36); Mean Corpuscular Volume 92.1 fL (80-100); Mean Platelet Volume 10.6 fL (7.4-10.4); Monocytes # (auto) 0.95 K/uL (0.11-0.59); Monocytes % (auto) 5.2 %; Neutrophils # (auto) 16.52 K/uL (1.4-6.5); Neutrophils % (auto) 90.1 %; Platelet Count 259 K/uL (130-400); RDW Standard Deviation 44.2 fL (36.4-46.3); Red Blood Count 4.71 M/uL (4.7-6.1); White Blood Count 18.32 K/uL (4.8-10.8)
[2021-07-16 23:43] LABS: Albumin Globulin Ratio 1.4 (0.9-2); Albumin Level 4.6 gm/dl (3.4-5.0); BUN Creatinine Ratio 13.3 (10-20); Bilirubin,Total 0.6 mg/dl (0.2-1.0); C Reactive Protein 0.58 mg/dl (0-0.5); Calcium 9.7 mg/dl (8.5-10.1); Creatinine Clr Calc Pharmacy 133.8 ml/min; Est GFR (African American) 132.1 ml/min; Est GFR (Non-African American) 113.9 ml/min; Globulin 3.4 gm/dl (2.5-4.0); Potassium 3.8 mmol/L (3.5-5.1)
[2021-07-17] MEDS ORDERED: OPTIRAY 320 100ml IV ONE (01:21)
[2021-07-17] MEDS ORDERED: methylPREDNISolone 125 MG/2 ML VIAL IV STA (03:35)
--- NOTE | 2021-07-17 03:36 | History & Physical Report ---
Date of Service July 17, 2021 Assessment & Plan (1) SBO (small bowel obstruction): Plan: Small bowel obstruction- History right hemicolectomy Solu-Medrol 60 mg IV x1 now, then 40 mg IV every 8 hours Zosyn 4.5 g IV every 8 hours Famotidine 20 mg IV every 12 hours LR at 80 mils per hour Consult his cloth reeler Dr. Carlos (2) Crohn's colitis: Plan: See above History of Present Illness Chief Complaint: The patient presents with acute onset of lower abdominal pelvic pain along with nausea over the past 24 hours Primary Care Provider: Keyshawn Frost The patient is a 41-year-old male with a past medical history including small bowel obstructions, Crohn's disease, surgery for release of colon stricture and COVID-19 infection April 2021. He presents with symptoms of worsening lower abdominal pelvic pain over the past [address] scan of abdomen pelvis in the emergency department reveals small bowel obstruction with probable transition point right lower quadrant, and signs of previous right hemicolectomy. The patient reports that he did a trial of prednisone yesterday, without any significant relief. Allergies Allergy/AdvReac Type Severity Reaction Status Date / Time clarithromycin [From Biaxin] Allergy Intermediate "got Verified 07/17/21 01:08 really sick" Home Medications Medication Instructions Recorded Confirmed Type infliximab 100 mg intravenous See Rx Instructions IV Q8WK 12/15/19 07/17/21 History solution (Remicade) levocetirizine 5 mg tablet (Xyzal) 5 mg PO HS PRN 09/20/20 07/17/21 History acetaminophen 500 mg tablet 1,000 mg PO Q6H PRN 07/17/21 07/17/21 History (Tylenol Extra Strength) ibuprofen 200 mg tablet 400 mg PO Q6H PRN 07/17/21 07/17/21 History Past Med/Surg History Medical History Abdominal pain Crohn's disease of ileum with intestinal obstruction Crohns disease Hx of renal calculi Leukocytosis Lumbar herniated disc Surgical History History of colostomy reversal 1995 History of cystoscopy History of surgical removal of terminal ileum History of tonsillectomy Hx of colostomy 1995 Hx of vasectomy Family History Other Adopted Unobtainable family history due to adoption Social History Smoking Status: Never smoker Tobacco Type: Cigarettes Second Hand Exposure: No; Hx Alcohol Use: Yes Alcohol type: beer Hx Substance Use: No Preferred Language: Niuean Communication Ability: Effective Pulmonologist Required: No Beliefs That Will Affect Care: None marital status: Current Living Situation: Spouse and Family Current Living Situation Comment: Lives with and 2 kids current occupational status: unemployed Feels Safe at Home: Yes Assistive Devices: None Review of Systems Review of Systems: The patient denies chest pain, palpitations, shortness of breath, dyspnea on exertion, cough, lower extremity swelling, sore throat, fevers, chills, sweats, vomiting, blood in urine or stool, dysuria, urinary frequency or urgency, lightheadedness, dizziness, headache, memory loss, loss of consciousness, rash, abnormal bruising or bleeding, imbalance, focal or generalized weakness, numbness or tingling in arms or legs, generalized arthralgias or myalgias, back or neck pain, or night sweats. The review of systems is otherwise negative other than for that already noted a dontrell, and at least 10 systems have been reviewed. Physical Exam Physical Exam: The patient is awake, alert and oriented 3, well developed and well nourished, normocephalic and atraumatic, lying in bed and in no acute distress. HEENT--PERRL, EOMI, mucous membranes and oropharynx dry. Neck--supple. No JVD. No bruits. Thyroid normal, trachea midline, no adenopathy. Heart--normal S1 and S2. No murmurs, rubs or gallops. Lungs--clear bilaterally, no respiratory distress, no accessory muscle use. Abdomen--generalized abdominal discomfort, most concentrated in right lower abdominal pelvic region Extremities--no cyanosis or clubbing. No edema. Dermatologic--normal skin turgor, normal color, no abnormal lymph nodes, no rash. Neurologic--cranial nerves II through XII grossly intact. Rheumatologic--normal range of motion. Psychiatric--normal affect. Results & Data Results & Data ([facility]) Vital Signs (Past 12 Hours) Vital Signs Temp Pulse Pulse Resp BP BP Pulse Ox 07/17/21 02:00 87 18 132/90 99 07/16/21 21:42 36.6 C 90 18 118/63 97 Laboratory Results Laboratory Results WBC 18.32 K/uL (4.8-10.8) H 07/16/21 23:11 RBC 4.71 M/uL (4.7-6.1) 07/16/21 23:11 Hgb 15.1 g/dL (14.0-18.0) 07/16/21 23:11 Hct 43.4 % (42-52) 07/16/21 23:11 MCV 92.1 fL (80-100) 07/16/21 23:11 MCH 32.1 pg (25-34) 07/16/21 23:11 MCHC 34.8 g/dL (32-36) 07/16/21 23:11 RDW Std Deviation 44.2 fL (36.4-46.3) 07/16/21 23:11 RDW Coeff of Aga 13.0 % (11.5-14.5) 07/16/21 23:11 Plt Count 259 K/uL (130-400) 07/16/21 23:11 MPV 10.6 fL (7.4-10.4) H 07/16/21 23:11 Immature Gran % (Auto) 0.3 % 07/16/21 23:11 Neut % (Auto) 90.1 % 07/16/21 23:11 Lymph % (Auto) 4.2 % 07/16/21 23:11 [place] % (Auto) 5.2 % 07/16/21 23:11 Eos % (Auto) 0.1 % 07/16/21 23:11 Baso % (Auto) 0.1 % 07/16/21 23:11 Neut # (Auto) 16.52 K/uL (1.4-6.5) H 07/16/21 23:11 Lymph # (Auto) 0.77 K/uL (1.2-3.4) L 07/16/21 23:11 [place] # (Auto) 0.95 K/uL (0.11-0.59) H 07/16/21 23:11 Eos # (Auto) 0.01 K/uL (0-0.5) 07/16/21 23:11 Baso # (Auto) 0.02 K/uL (0-0.2) 07/16/21 23:11 Immature Gran # (Auto) 0.05 K/uL (0.00-0.02) H 07/16/21 23:11 ESR 26 mm/hr (0-15) H 07/16/21 23:11 Sodium 136 mmol/L (136-145) 07/16/21 23:11 Potassium 3.8 mmol/L (3.5-5.1) 07/16/21 23:11 Chloride 102 mmol/L (98-107) 07/16/21 23:11 Carbon Dioxide 25 mmol/L (21-32) 07/16/21 23:11 Anion Gap 9 (3-11) 07/16/21 23:11 BUN 10 mg/dl (6-23) 07/16/21 23:11 Creatinine 0.75 mg/dl (0.6-1.4) 07/16/21 23:11 Est Cr Clr Drug Dosing 133.8 ml/min 07/16/21 23:11 Est GFR ( Amer) 132.1 ml/min 07/16/21 23:11 Est GFR (Non-Af Amer) 113.9 ml/min 07/16/21 23:11 BUN/Creatinine Ratio 13.3 (10-20) 07/16/21 23:11 Glucose 96 mg/dl (70-99(Fasting)) 07/16/21 23:11 Lactate 0.5 mmol/L (0.4-2.0) 07/16/21 23:11 Calcium 9.7 mg/dl (8.5-10.1) 07/16/21 23:11 Total Bilirubin 0.6 mg/dl (0.2-1.0) 07/16/21 23:11 AST 17 U/L (13-39) 07/16/21 23:11 ALT 15 U/L (7-52) 07/16/21 23:11 Alkaline Phosphatase 111 U/L (34-104) H 07/16/21 23:11 C-Reactive Protein 0.58 mg/dl (0-0.5) H 07/16/21 23:11 Total Protein 8.0 gm/dl (6.0-8.3) 07/16/21 23:11 Albumin 4.6 gm/dl (3.4-5.0) 07/16/21 23:11 Globulin 3.4 gm/dl (2.5-4.0) 07/16/21 23:11 Albumin/Globulin Ratio 1.4 (0.9-2) 07/16/21 23:11 Lipase 20 U/L (11-82) 07/16/21 23:11 SARS-CoV-2, RNA, NAAT NEGATIVE (NEGATIVE) 07/17/21 02:47 Diagnostic Findings [facility] Patient: ROSCOE YEAGER (Male) : 80 Status: ER Date: 07/17/21 01:13 Room #: History: PAIN AT MID ABD, H/O CHRONS Slices: [id number] Priors: Tech: Davon June @ [phone] Exams: CT ABDOMEN & PELVIS With Contrast Contrast: IV Amt: 93 ML OPTIRAY 320 Accession Numbers: [id number] Referring Physician: REFERRED SELF Preliminary Findings Only See Final Report For Complete Findings CT ABDOMEN & PELVIS With Contrast: Fluid with air-fluid levels visualized in the colon, compatible with a diarrheal state. Fluid-filled dilated loops of small bowel within the upper abdomen with trace interloop fluid and probable transition visualized in the right lower quadrant, compatible with a small bowel obstruction which may be the result of adhesions.. Status post right hemicolectomy. No drainable fluid collection or free air visualized in the abdomen or pelvis. Heterogeneous opacities left lung base laterally favored atelectasis over infiltrate. Radiologist: Lily Caraballo M.D. Study ready at 01:24 and initial results transmitted at 01:38 *This report constitutes a preliminary interpretation only. Non-acute findings felt to be unrelated to the clinical presentation may not be discussed in this report. The study will be interpreted and a final report will be generated by the local Radiologist the following shift. To reach the [facility] radiology department call [phone]. If a discrepancy is found between the preliminary and final interpretations of this study, please notify us via our Client Portal at [email or web address], under QA Exams. You can also fax this report with a description of the discrepancy, or include the final report, to our daytime fax number [phone]. If faxing, please indicate the severity of discrepancy using one of the following categories: [ ] 1 - Agree/Informational [ ] 2 - Unlikely to Affect Management [ ] 3 - Possible Eventual Change of Management [ ] 4 - Probable Immediate Change of Management For all other patient related information, please fax us at [phone]. [id number] Code Status & VTE Plan VTE Prophylaxis Plan VTE Prophylaxis will be ordered: Yes PG Care Time/CCT Total # of Minutes Spent Total Time Spent with Patient: Total time spent is greater than 50% in coordination of care (as documented) at patient's floor/unit and/or counseling patient: Coding Level of Care Code 73647 Initial Inpt Care Lvl 2 Diagnoses SBO (small bowel obstruction) K56.609 Crohn's colitis K50.119 Digestive disease complication type: unspecified complication (1) Crohn's colitis Digestive disease complication type: unspecified complication Qualified Code(s): K50.119 - Crohn's disease of large intestine with unspecified complications
[2021-07-17] MEDS ORDERED: LACTATED RINGER'S 1,000 ML IV SCH (05:50)
[2021-07-17] MEDS ORDERED: PIPERACILL/TAZOBAC CONSULT ACTIVE PRN (05:50)
[2021-07-17] MEDS ORDERED: PIPERACILLIN/TAZOBACTAM 4.5 GM in DEXTROSE 5% 100 ML IV SCH (05:50)
[2021-07-17] MEDS ORDERED: ACETAMINOPHEN 1000 MG/100 ML IV IV PRN (05:50)
[2021-07-17] MEDS ORDERED: ONDANSETRON INJ 2 MG/ML 2 ML VIAL IV PRN (05:50)
[2021-07-17] MEDS ORDERED: ACETAMINOPHEN 1,000 MG/100 ML VIAL IV PRN (06:15)
[2021-07-17] MEDS ORDERED: PIPERACILLIN/TAZOBACTAM 4.5 GM in DEXTROSE 5% 100 ML IV ONE (06:30)
[2021-07-17] MEDS ORDERED: FAMOTIDINE 20 MG in SYRINGE 3 ML IV SCH (07:00)
--- NOTE | 2021-07-17 09:03 | CT Scan Report ---
ABDOMEN AND PELVIS CT WITH IV CONTRAST CT DOSE: 302.35 mGy.cm HISTORY: crohns, fever/pain, hx abscess, SBO TECHNIQUE: Multiaxial CT images of the abdomen and pelvis were performed following the use of intrave nous contrast. A dose lowering technique was utilized adhering to the principles of ALARA. COMPARISON STUDY: Abdomen and pelvis CT 07/26/2020. 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 There is moderate deg enerative disc disease at L5-S1. No fractures within the visualized osseous structures. Peripheral de nsities within the left lung base favor atelectasis or scarring. This remains unchanged. No pneumoper itoneum. No pneumatosis. There is a 5 mm hypodense lesion within the right hepatic lobe, unchanged. T his is likely benign. The gallbladder, pancreas, spleen, and adrenal glands are unremarkable. Stable 1 cm hypodense lesion within the upper pole the right kidney. This favors a cyst. No ureteral stones. No hydronephrosis. The bladder is unremarkable. The main portal vein is patent. Normal caliber abdom inal aorta. No retroperitoneal lymphadenopathy. No pelvic free fluid. Colonic diverticulosis. No evid ence for acute diverticulitis. Fluid-filled colon. Evidence for prior right hemicolectomy with an ile ocolonic anastomosis. Multiple dilated loops of proximal to mid small bowel with inflammatory change and edema surrounding the dilated loops of bowel within the right midabdomen. The distal loops of res idual ileum are decompressed. Probable transition point in the right lower quadrant given the caliber change of small bowel. Therefore, these findings favor a small bowel obstruction. A few loops of bow el within the right midabdomen are mildly thickened which may represent superimposed inflammatory bow el disease. No abscess or perforation identified at this time. IMPRESSION: 1. Multiple dilated gas and fluid-filled loops of proximal to mid small bowel with a probable transit ion point within the right midabdomen where there are a few thickened loops of small bowel and a smal l amount of interloop fluid and inflammatory change. Therefore, this is consistent with a small bowel obstruction. This could be due to the inflammatory change or adhesions. 2. Status right hemicolectomy. 3. Fluid-filled colon consistent with a diarrheal illness. ACT 112: Negative or not required by law. Electronically signed by: Damion Kaplan M.D. 07/17/2021 9:01 AM
--- NOTE | 2021-07-17 11:56 | Hospitalist Progress Note ---
Date of Service July 17, 2021 Assessment & Plan (1) SBO (small bowel obstruction): Plan: Small bowel obstruction- History right hemicolectomy Presents to hospital with abdominal pain and inability to pass gas CT abdomen showed evidence of SBO Solu-Medrol 60 mg IV x1 now, then 40 mg IV every 8 hours Zosyn 4.5 g IV every 8 hours Famotidine 20 mg IV every 12 hours LR at 80 mils per hour Upon evaluation this morning, patient said he had passed gas and about to have b owel movement Will introduce clear liquid diet (2) Crohn's colitis: Plan: See above Plan: continue to monitor Admission and Anticipated Discharge Date Admission Date: July 17, 2021 Subjective patient seen and examined, says he is passing gas and about to have a bowel movement Review of Systems Review of Systems: All systems reviewed are negative, apart from the ones contained in the history. Physical Exam Physical Exam: The patient is awake, alert and oriented 3, well developed and well nourished, normocephalic and atraumatic, lying in bed and in no acute distress. HEENT--PERRL, EOMI, mucous membranes and oropharynx mildly dry Neck--supple. No JVD. No bruits. Thyroid normal, trachea midline, no adenopathy. Heart--normal S1 and S2. No murmurs, rubs or gallops. Lungs--clear bilaterally, no respiratory distress, no accessory muscle use. Abdomen--normal bowel sounds and soft. Mild epigastric and left sided abdominal pain Extremities--no cyanosis or clubbing. No edema. Dermatologic--normal skin turgor, normal color, no abnormal lymph nodes, no rash. Neurologic--cranial nerves II through XII grossly intact. Rheumatologic--normal range of motion. Psychiatric--normal affect. Results & Data Results & Data ([facility]) Vital Signs (Past 12 Hours) Vital Signs Temp Pulse Resp BP Pulse Ox 07/17/21 07:28 97.7 F 69 18 100/58 L 94 07/17/21 05:50 98.1 F 80 18 117/70 98 07/17/21 02:00 87 18 132/90 99 PG Care Time/CCT Total # of Minutes Spent Total Time Spent with Patient: Total time spent is greater than 50% in coordination of care (as documented) at patient's floor/unit and/or counseling patient: Coding Level of Care Code 15340 Subseq Hosp Care Lvl 2 Diagnoses SBO (small bowel obstruction) K56.609 Crohn's colitis K50.119 Digestive disease complication type: unspecified complication Time Spent (min) 35 (1) Crohn's colitis Digestive disease complication type: unspecified complication Qualified Code(s): K50.119 - Crohn's disease of large intestine with unspecified complications
[2021-07-17] MEDS ORDERED: PIPERACILLIN/TAZOBACTAM 3.375 GM in DEXTROSE 5% 100 ML IV SCH (12:00)
[2021-07-17] MEDS ORDERED: methylPREDNISolone 40 MG in SYRINGE 0 ML IV SCH (12:00)
--- NOTE | 2021-07-17 14:19 | Discharge Summary ---
Date of Service July 17, 2021 Admission HPI Per Admitting Provider The patient is a 41-year-old male with a past medical history including small bowel obstructions, Crohn's disease, surgery for release of colon stricture and COVID-19 infection April 2021. He presents with symptoms of worsening lower abdominal pelvic pain over the past [address] scan of abdomen pelvis in the emergency department reveals small bowel obstruction with probable transition point right lower quadrant, and signs of previous right hemicolectomy. The patient reports that he did a trial of prednisone yesterday, without any significant relief. Principal Diagnosis SBO-resolved Discharge Exam The patient is awake, alert and oriented 3, well developed and well nourished, normocephalic and atraumatic, lying in bed and in no acute distress. HEENT--PERRL, EOMI, mucous membranes and oropharynx mildly dry Neck--supple. No JVD. No bruits. Thyroid normal, trachea midline, no adenopathy. Heart--normal S1 and S2. No murmurs, rubs or gallops. Lungs--clear bilaterally, no respiratory distress, no accessory muscle use. Abdomen--normal bowel sounds and soft. Mild epigastric and left sided abdominal pain Extremities--no cyanosis or clubbing. No edema. Dermatologic--normal skin turgor, normal color, no abnormal lymph nodes, no rash. Neurologic--cranial nerves II through XII grossly intact. Rheumatologic--normal range of motion. Psychiatric--normal affect. Discharge Data Allergies Allergy/AdvReac Type Severity Reaction Status Date / Time clarithromycin [From Biaxin] Allergy Intermediate "got Verified 07/17/21 01:08 really sick" Consultations 07/17/21 03:40 ED Decision to Admit Stat Ordered Studies 07/16/21 22:17 CT abd pelvis IV con only Urgent Hospital Course (1) SBO (small bowel obstruction): Small bowel obstruction- History right hemicolectomy Presents to hospital with abdominal pain and inability to pass gas CT abdomen showed evidence of SBO Solu-Medrol 60 mg IV x1 now, then 40 mg IV every 8 hours Zosyn 4.5 g IV every 8 hours Famotidine 20 mg IV every 12 hours LR at 80 mils per hour Upon evaluation this morning, patient said he had passed gas and about to have bowel movement patient tolerated diet (2) Crohn's colitis: See above continue to monitor Total Time Total Time Spent Total Time Spent (In Minutes): 35 Discharge Plan Discharge Items Patient Disposition: Home - Self-Care Reason For Visit: SBO, [place] Discharge Diagnosis: SBO-resolved Condition on Discharge: Good Activity: Resume your previous activity Non-emergency contact: Primary Care Provider and Automotive Sales Professional Call non-emergency contact if: you have any medication questions and your symptoms worsen Follow-up/Referrals: Keyshawn Frost [Primary Care Provider] - Diet: Regular Addtl Attending Provider Instructions: please make appointment to follow up with your regular Doctors Pending Studies at Discharge: No Stand-Alone Forms: [employer], Smoking Cessation Medications and DC Order Prescriptions: Continued Remicade 100 mg recon soln See Rx Instructions IV Q8WK RF: 0 acetaminophen [Tylenol Extra Strength] 500 mg Tablet 1,000 mg PO Q6H PRN (Reason: Pain) RF: 0 ibuprofen 200 mg Tablet 400 mg PO Q6H PRN (Reason: Pain) RF: 0 levocetirizine [Xyzal] 5 mg Tablet 5 mg PO HS PRN (Reason: Congestion) RF: 0 Discharge Orders: Discharge Order (Routine); Ordered 07/17/21 Ordered By: Radu Montalvo Admission Data Admit Date/Time: 07/17/21 03:35 Attending Provider: Radu Montalvo Admit Provider: David Glass Primary Care Provider: Keyshawn Frost Other Providers: David Glass Coding Level of Care Code D/C DAY MANAGEMENT >30 MINS Diagnoses SBO (small bowel obstruction) K56.609 Crohn's colitis K50.119 Digestive disease complication type: unspecified complication Time Spent (min) 35
== END 2021-07-17 16:30 | disposition home or self-care (01) ==
LOC: ED 21:26 → INTOOBSV 07-17 03:35 → 3E 07-17 03:35 → SUATTDRO 07-17 03:35 → 3E 07-17 04:53

== ENCOUNTER 2022-01-01 03:20 | Observation (INO) ==
[2022-01-01] MEDS ORDERED: ONDANSETRON INJ 2 MG/ML 2 ML VIAL IV STA ×2 (03:46→07:36)
[2022-01-01] MEDS ORDERED: ACETAMINOPHEN 1,000 MG/100 ML VIAL IV STA (03:46)
[2022-01-01] MEDS ORDERED: SODIUM CHLORIDE 0.9% 1000ML 1,000 ML IV SCH (04:00)
[2022-01-01 05:22] LABS: Basophils # (auto) 0.02 K/uL (0-0.2); Basophils % (auto) 0.1 %; Hematocrit (blood only) 42.7 % (40.1-51.0); Hemoglobin 14.3 g/dl (14.0-18.0); Immature Granulocytes # (auto) 0.04 K/uL (0.00-0.02); Immature Granulocytes % (auto) 0.3 %; Lymphocytes # (auto) 0.87 K/uL (1.2-3.4); Mean Corpuscular Hemoglobin 30.6 pg (25.0-34.0); Mean Corpuscular Hgb Conc 33.5 g/dL (32.0-36.0); Mean Corpuscular Volume 91.4 fL (80.0-100.0); Monocytes # (auto) 0.92 K/uL (0.24-0.82); Monocytes % (auto) 6.3 %; Neutrophils # (auto) 12.75 K/uL (1.4-6.5); Neutrophils % (auto) 87.3 %; Platelet Count 280 K/uL (130-400); RDW Coefficient of Variation 12.6 % (11.5-14.5); RDW Standard Deviation 41.6 fL (36.4-46.3); Red Blood Count 4.67 M/uL (4.63-6.08)
[2022-01-01 05:41] LABS: Alanine Aminotransferase 10 U/L (7-52); Albumin Level 4.5 gm/dl (3.4-5.0); Alkaline Phosphatase 111 U/L (34-104); Anion Gap 9 (3-11); Aspartate Aminotransferase 14 U/L (13-39); Bilirubin,Total 0.4 mg/dl (0.2-1.0); Blood Urea Nitrogen 14 mg/dl (6-23); C Reactive Protein 4.46 mg/dl (0-0.5); Calcium 9.6 mg/dl (8.5-10.1); Carbon Dioxide 27 mmol/L (21-32); Chloride 101 mmol/L (98-107); Est GFR (African American) 107.9 ml/min; Est GFR (Non-African American) 93.1 ml/min; Globulin 4.3 gm/dl (2.5-4.0); Glucose 105 mg/dl (70-99(Fasting)); Lipase 4 U/L (11-82); Magnesium 2.1 mg/dl (1.7-2.4); Potassium 4.4 mmol/L (3.5-5.1); Sodium 137 mmol/L (136-145); Total Protein 8.8 gm/dl (6.0-8.3)
--- NOTE | 2022-01-01 07:18 | Emergency Department Note ---
History of Present Illness General Chief complaint: Constipation Stated complaint: CONSTIPATED Time Seen by Provider: 01/01/22 03:38 History of Present Illness Maximum Pain Intensity: 10 This is a 41-year-old male presenting to the emergency department for evaluation of abdominal pain and constipation for the past 2 to 3 days. The patient has a history of Crohn's disease with obstruction in the past. He feels identical to previous episodes. He is on Remicade. Patient has not had a fever. He rates his discomfort a 10/10. He typically follows with [facility]. He does not report any chest pain, chest tightness, or bloody stools. He has not taken thing for the counter for symptoms. Home Medications Medication Instructions Recorded Confirmed Type infliximab 100 mg intravenous See Rx Instructions IV Q8WK 12/15/19 07/17/21 History solution (Remicade) levocetirizine 5 mg tablet (Xyzal) 5 mg PO HS PRN Congestion 09/20/20 07/17/21 History acetaminophen 500 mg tablet 1,000 mg PO Q6H PRN Pain 07/17/21 07/17/21 History (Tylenol Extra Strength) ibuprofen 200 mg tablet 400 mg PO Q6H PRN Pain 07/17/21 07/17/21 History Allergies Allergy/AdvReac Type Severity Reaction Status Date / Time clarithromycin [From Biaxin] Allergy Intermediate "got Verified 07/17/21 01:08 really sick" Past Med/Surg History Medical History Abdominal pain Crohn's disease of ileum with intestinal obstruction Crohns disease Hx of renal calculi Leukocytosis Lumbar herniated disc SBO (small bowel obstruction) Surgical History History of colostomy reversal 1995 History of cystoscopy History of surgical removal of terminal ileum History of tonsillectomy Hx of colostomy 1995 Hx of vasectomy Family History Other Adopted Unobtainable family history due to adoption Social History Smoking Status: Never smoker Tobacco Type: Cigarettes Second Hand Exposure: No; Hx Alcohol Use: No Hx Substance Use: No Preferred Language: Japanese Communication Ability: Effective Staple Fiber Washer Required: No Beliefs That Will Affect Care: None marital status: Current Living Situation: Spouse Current Living Situation Comment: Lives with and 2 kids current occupational status: unemployed Feels Safe at Home: Yes Assistive Devices: None Review of Systems A total of 10 systems reviewed and were otherwise negative Physical Exam Vital Signs Vital Signs - 24 hr 01/01/22 03:29 01/01/22 05:21 Temperature 36.6 C Temperature Source Temporal Artery Scan Pulse Rate 85 Pulse Rate [Right] 78 Respiratory Rate 20 18 Respiratory Effort / Characteristics Non-Labored Spontaneous Non-Labored Respiratory Depth Normal Normal Blood Pressure 145/92 H Blood Pressure [Right Arm] 140/78 Blood Pressure Mean 109 Blood Pressure Mean [Right Arm] 98 Pulse Oximetry 95 98 Oxygen Delivery Method Room Air Room Air Sepsis Recent Fever Within 48 Hours No Sepsis New/Unexplained Change in Mental Status N/A Sepsis Action Taken by Nursing No Action Required VITALS: Vitals are noted on the nurse's note and reviewed by myself. Vital signs stable. GENERAL: Mildly ill-appearing white male who is laying on his right side. HEAD: Normocephalic atraumatic. MOUTH: Mucous membranes moist. Tonsils are not enlarged. Pharynx without erythema, blood, or exudate. Uvula midline. Airway patent. NECK: Supple without nuchal rigidity. No lymphadenopathy. No thyromegaly. Cervical spine is nontender. HEART: Regular rate and rhythm without murmurs gallops or rubs. LUNGS: Clear to auscultation bilaterally without wheezes, rales or rhonchi. No retractions or accessory muscle use. ABDOMEN: Decreased and slow bowel sounds x 4. Soft with mild diffuse tenderness. MUSCULOSKELETAL: No muscle atrophy, erythema, or edema noted. Full range of mot ion in all extremities. Course Administered Medications Discontinued Medications Sodium Chloride (Nss 1000ml) 1,000 mls @ 999 mls/hr IV .Q1H1M ALYSHA Stop: 01/01/22 05:00 Last Infusion: 01/01/22 05:52 Dose: 0 mls/hr Documented By: Admin: 01/01/22 05:02 Dose: 999 mls/hr Documented By: SHADI Acetaminophen (Ofirmev) 1,000 mg in 100 mls @ 400 mls/hr IV NOW STA Stop: 01/01/22 04:00 Last Infusion: 01/01/22 05:52 Dose: 0 mls/hr Documented By: Admin: 01/01/22 05:01 Dose: 400 mls/hr Documented By: SHADI Ondansetron HCl (Ondansetron Inj 2 Mg/Ml 2 Ml Vial) 4 mg IV NOW STA Stop: 01/01/22 03:47 Last Admin: 01/01/22 05:02 Dose: 4 mg Documented By: SHADI Medical Decision Making Differential Diagnosis Differential diagnosis: Etiologies such as biliary colic, cholecystitis, hepatitis, pancreatitis, cardiac disease, pancreatitis, gastritis, peptic ulcer disease, appendicitis, cystitis, diverticulitis, mesenteric ischemia, inflammatory bowel disease, ileus, bowel obstruction, testicular/adnexal torsion, aortic pathology, shingles, as well as others were considered Laboratory Data Result diagrams: 01/01/22 05:00 01/01/22 05:00 Lab Results 01/01/22 01/01/22 Range/Units 05:00 05:00 WBC 14.60 H (4.8-10.8) K/ul RBC 4.67 (4.63-6.08) M/uL Hgb 14.3 (14.0-18.0) g/dl Hct 42.7 (40.1-51.0) % MCV 91.4 (80.0-100.0) fL MCH 30.6 (25.0-34.0) pg MCHC 33.5 (32.0-36.0) g/dL RDW Std Deviation 41.6 (36.4-46.3) fL RDW Coeff of Aga 12.6 (11.5-14.5) % Plt Count 280 (130-400) K/uL MPV 10.0 (9.4-12.4) fL Immature Gran % (Auto) 0.3 % Neut % (Auto) 87.3 % Lymph % (Auto) 6.0 % [place] % (Auto) 6.3 % Eos % (Auto) 0.0 % Baso % (Auto) 0.1 % Neut # (Auto) 12.75 H (1.4-6.5) K/uL Lymph # (Auto) 0.87 L (1.2-3.4) K/uL [place] # (Auto) 0.92 H (0.24-0.82) K/uL Eos # (Auto) 0.00 (0-0.50) K/uL Baso # (Auto) 0.02 (0-0.2) K/uL Immature Gran # (Auto) 0.04 H (0.00-0.02) K/uL Sodium 137 (136-145) mmol/L Potassium 4.4 (3.5-5.1) mmol/L Chloride 101 (98-107) mmol/L Carbon Dioxide 27 (21-32) mmol/L Anion Gap 9 (3-11) BUN 14 (6-23) mg/dl Creatinine 1.00 (0.6-1.4) mg/dl Est Cr Clr Drug Dosing Not Reportable Est GFR ( Amer) 107.9 ml/min Est GFR (Non-Af Amer) 93.1 ml/min BUN/Creatinine Ratio 14.0 (10-20) Glucose 105 H (70-99(Fasting)) mg/dl Calcium 9.6 (8.5-10.1) mg/dl Magnesium 2.1 (1.7-2.4) mg/dl Total Bilirubin 0.4 (0.2-1.0) mg/dl AST 14 (13-39) U/L ALT 10 (7-52) U/L Alkaline Phosphatase 111 H (34-104) U/L C-Reactive Protein 4.46 H (0-0.5) mg/dl Total Protein 8.8 H (6.0-8.3) gm/dl Albumin 4.5 (3.4-5.0) gm/dl Globulin 4.3 H (2.5-4.0) gm/dl Albumin/Globulin Ratio 1.0 (0.9-2) Lipase 4 L (11-82) U/L MDM Narrative Physical exam and history were performed. Nursing notes, EMR, and Medication List were personally reviewed. Patient appears to have generalized abdominal pain with some nausea and concern for small bowel obstruction. The patient appears uncomfortable on exam. Exam is concerning for small bowel obstruction. IV access was established and labs were obtained. Patient was hydrated with normal saline and given IV Tylenol and IV Zofran. He adamantly refuses NG tube. CT scan with IV and oral contrast was ordered. Patient's blood work is as above and was reviewed. He does have an elevated white count of 14,000. He does not have a significant anemia or gross electrolyte imbalance. Transaminases are not diagnostic. CRP is 4.46. Sed rate and urine are pending at the time of this dictation. Patient remained in stable condition until the time of shift change. Case was discussed with my colleague, Guadalupe Martin PA-C, who will assume care at this time. We are awaiting CT imaging as well as the remaining blood work. Please see Ms. Martin's dictation for further patient course, plan, disposition. The chart was completed utilizing eMeter Voice Recognition Software. Grammatical errors, random word insertions, pronoun errors, and incomplete sentences are an occasional consequence of this system due to software limitations, ambient noise, and hardware issues. Any formal questions or concerns about the content, text, or information contained within the body of this dictation should be directly addressed to the provider for clarification. . Impression & Plan Abdominal pain, Crohn's disease Discharge Plan Visit Data Chief Complaint: Constipation Stated Complaint: CONSTIPATED ED Provider: Henrietta Murry ED Midlevel Provider: Alejandro Blandon Discharge Problem: Abdominal pain, Crohn's disease Forms Stand Alone Forms: [facility] Prescriptions Prescriptions: No Action Remicade 100 mg recon soln See Rx Instructions IV Q8WK Rx Instructions: INFUSE 10MG/KG EVERY 8 WEEKS IV. acetaminophen [Tylenol Extra Strength] 500 mg Tablet 1,000 mg PO Q6H PRN (Reason: Pain) ibuprofen 200 mg Tablet 400 mg PO Q6H PRN (Reason: Pain) levocetirizine [Xyzal] 5 mg Tablet 5 mg PO HS PRN (Reason: Congestion) Referrals Referrals: Keyshawn Frost [Primary Care Provider] -
--- NOTE | 2022-01-01 07:20 | Emergency Department Note ---
ED Visit Note Patient care was assumed from my colleague, Alejandro Blandon PA-C, at the time of shift change. Please see his dictation for full history of present illness and emergency department course prior to my assumption of care. At the time of shift change, CT abd/pelvis with PO and IV contrast is pending. On exam, the patient was resting in bed, no acute distress. He did say that he still had abdominal pain. His abdomen was nondistended, soft to palpation. He did note tenderness to palpation over the bilateral upper quadrants. No rebound, guarding or rigidity. He was given morphine 4 mg IV and Zofran 4 mg IV. CAT scan of the abd/pelv returned, reviewed by radiologist and myself as below. He did have findings compatible with a small bowel obstruction with a right lower quadrant distal transition point. No evidence of closed-loop obstruction, bowel ischemia or perforation. Upon reevaluation, the patient was feeling improved after receiving the medications. I discussed the results the above findings with him at bedside. I did contact general surgery and spoke with ENA Liu. She agreed to evaluate the patient with Dr. Marks and recommended admission with medicine so that they could follow along. They did not recommend an NG tube at this time as he is not currently vomiting. I then spoke with Dr. Bennett of the [facility] hospitalist group, he agreed to evaluate the patient for further management. Please see his documentation for additional plan and disposition thereafter. The patient verbalized understanding and agreement with the treatment plan as above.
[2022-01-01] MEDS ORDERED: MoRPHine SULFATE 4 MG/ML 1 ML CARP\\VIAL IV STA (07:33)
[2022-01-01] MEDS ORDERED: IOVERSOL 350 MG 100mL Prefilled Syringe IV ONE (07:52)
--- NOTE | 2022-01-01 08:22 | CT Scan Report ---
CT abd pelvis oral and IV con CLINICAL HISTORY: abd pain. Hx crohns. Hx sbo. TECHNIQUE: Helical axial images of the abdomen and pelvis were obtained and displayed. Automated dose lowering techniques and/or adjustment according to patient size were utilized for this exam. This e xam was performed with intravenous contrast. CT DOSE: 309.40 mGy.cm COMPARISON: Comparison is made to CT abdomen pelvis 07/17/2021 and renal ultrasound 09/20/2020 FINDINGS: Lower chest: No acute abnormality Liver: Subcentimeter hypodensities in the liver are too small to characterize. Gallbladder and biliary tree: Cholelithiasis is seen without evidence of cholecystitis. No intra- or extrahepatic biliary ductal dilation. Pancreas: Unremarkable, no focal lesions. Spleen: Unremarkable. Adrenals: Unremarkable. Kidneys and ureters: Nonobstructive right nephrolithiasis is seen. There is a 11 mm right renal hypod ensity which measures greater than simple fluid density. It was found to represent a cyst prior sound . Bladder: Unremarkable. Reproductive organs: Unremarkable. Bowel: Patient is status post colonic resection. There are numerous dilated loops of small bowel with out a well-defined proximal transition point. A distal transition point is identified in the right lo wer quadrant. There is increased vascularity and fat stranding but no evidence of perforation. Lymph nodes Retroperitoneal: Unremarkable. Pelvic: Unremarkable. Mesenteric: Unremarkable. Peritoneum: Normal. Vessels: Unremarkable. Abdominal wall: Unremarkable. 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 IMPRESSION: 1. Findings are compatible with small bowel obstruction with a right lower quadrant distal transitio n point. No evidence of closed loop obstruction, bowel ischemia, or perforation. 2. Nonobstructive nephrolithiasis. No evidence of hydronephrosis. 3. Additional findings as above. ACT 112: Negative or not required by law. Electronically signed by: Yasir Galan M.D. 01/01/2022 8:20 AM
--- NOTE | 2022-01-01 09:31 | History & Physical Report ---
Date of Service January 01, 2022 Assessment & Plan (1) SBO (small bowel obstruction): Plan: Could be internal to the bowel from a Crohn's related stricture or external to the bowel from adhesions. Gen surg consultation appreciated. I have spoken with Dr Slade from [facility] who will consult. NPO, IVF, pain meds, anti-emetics, walk the halls, etc. Defer to GI whether IV steroid therapy should be employed. Repeat labs am. (2) Crohn's disease: Plan: Long-standing, dx age 12. On Remicade immunotherapy - last infusion 2 weeks ago. Took 40mg of prednisone yesterday at home. [facility] consult requested; defer to GI whether to utilize IV steroids. He has lost weight over the last few months but he attributes this more so to recurrent infections (COVID 11/24, now probable RSV). Stools have been normal recently with no blood/mucous. No chronic Crohn's symptoms by his report. (3) URI (upper respiratory infection): Plan: Probable RSV. Both children & are sick with RSV. He has had URI symptoms x 1 week. COVID test today is negative. Will presume he has mild RSV and place in droplet isolation. Mucinex prn cough. Estela for congestion. Check 2-view cxr but O2 sats wnl. (4) Nephrolithiasis: Plan: History of, and has nonobstructing stones on CT today. Likely due to his Crohn's. No Rx needed today. (5) DVT prophylaxis: Plan: Will add lovenox 40mg daily starting tomorrow. History of Present Illness Chief Complaint: abdominal pain, no stool or flatus Primary Care Provider: Keyshawn Frost 41yo male with long-standing Crohn's disease diagnosed at age 12 - on chronic Remicade and managed by Dr Keyshawn [facility] - with prior history of multiple episodes of SBO. Patient presents with the acute onset of abdominal pain beginning yesterday am. Epigastric in location. He noted no stool or flatus yesterday. Last BM was 12/30 and was normal with no blood or mucous. The pain reminded him of prior SBO episodes and thus he restricted his diet to water/liquids only. He called the [facility] office and prednisone was called in. He took 40mg of prednisone yesterday. The abdominal pain persisted all evening yesterday and overnight. Thus, he came to the hospital for evaluation early this AM. He did have 1 episode of emesis in the ER but none since. He passed a small amount of flatus in the ER. He received IV morphine and IV tylenol with improvement in his abdominal pain. He states that even if NG tube was recommended he would decline such. 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 Currently has been sick with probable RSV - cough, congestion - for over 1 week. Both of his children and are sick with RSV. Allergies Allergy/AdvReac Type Severity Reaction Status Date / Time clarithromycin [From Biaxin] Allergy Intermediate "got Verified 07/17/21 01:08 really sick" Home Medications Medication Instructions Recorded Confirmed Type infliximab 100 mg intravenous See Rx Instructions IV Q8WK 12/15/19 07/17/21 History solution (Remicade) levocetirizine 5 mg tablet (Xyzal) 5 mg PO HS PRN Congestion 09/20/20 07/17/21 History acetaminophen 500 mg tablet 1,000 mg PO Q6H PRN Pain 07/17/21 07/17/21 History (Tylenol Extra Strength) ibuprofen 200 mg tablet 400 mg PO Q6H PRN Pain 07/17/21 07/17/21 History Past Med/Surg History Medical History (Updated 01/01/22 @ 10:34 by Favio Bennett) Crohn's disease of ileum with intestinal obstruction Crohns disease Hx of renal calculi Lumbar herniated disc SBO (small bowel obstruction) Surgical History History of colostomy reversal 1995 History of cystoscopy History of surgical removal of terminal ileum History of tonsillectomy Hx of colostomy 1995 Hx of vasectomy S/P small bowel resection Apr 2020 laparoscopic converted to open lysis of adhesions and bowel resection [facility], [place], operated by [facility] Family History Other Adopted Unobtainable family history due to adoption Social History (Updated 01/01/22 @ 10:31 by Favio Bennett) Smoking Status: Never smoker Tobacco Type: Cigarettes Second Hand Exposure: No; Hx Alcohol Use: No Hx Substance Use: No Preferred Language: Tongan Communication Ability: Effective Time Checker Required: No Beliefs That Will Affect Care: None marital status: Current Living Situation: Spouse Current Living Situation Comment: Lives with and 2 kids current occupational status: employed current occupation: [employer] - [employer] How many Children do You have: 2 Feels Safe at Home: Yes Assistive Devices: None Review of Systems Review of Systems: gen - no fevers, no chills; 15 pounds of weight loss since summer 2021 HENT - nasal congestion, sore throat neck - no pain CV - no chest pain pulm - cough, congestion but no dyspnea or wheezing GI - abdominal pain x 24 hours; nausea/emesis; no blood in stool, no diarrhea, no mucous in stool - no voiding issues musculo - chronic b/l knee and ankle pain due to Crohn's skin - no rash neuro - some headache with URI endo - no diabetes psych - no depression/anxiety Physical Exam Physical Exam: gen - NAD, nontoxic eyes - PERRL HENT - nasal congestion; mild erythema of throat; no ulcers; MMM neck - no JVD lymph - no cervical lymph nodes heart - RRR, s1 s2, no murmur lungs - decreased BS right base; no rales; no wheezing abd - soft NT ND BS+; no HSM ext - no edema, pulses 2+ b/l skin - no rash neuro - DTRs 2+ b/l upper and lower extremities psych - a/o x 3 Results & Data Results & Data ([facility]) Vital Signs (Past 12 Hours) Vital Signs Temp Pulse Pulse Resp BP BP Pulse Ox 01/01/22 08:02 68 21 100 01/01/22 05:21 78 18 140/78 98 01/01/22 03:29 36.6 C 85 20 145/92 H 95 O2 Del Method 01/01/22 08:02 Room Air 01/01/22 05:21 Room Air 01/01/22 03:29 Room Air Laboratory Results Laboratory Results - last 24 hr 01/01/22 01/01/22 01/01/22 05:00 05:00 05:00 WBC 14.60 H RBC 4.67 Hgb 14.3 Hct 42.7 MCV 91.4 MCH 30.6 MCHC 33.5 RDW Std Deviation 41.6 RDW Coeff of Aga 12.6 Plt Count 280 MPV 10.0 Immature Gran % (Auto) 0.3 Neut % (Auto) 87.3 Lymph % (Auto) 6.0 [place] % (Auto) 6.3 Eos % (Auto) 0.0 Baso % (Auto) 0.1 Neut # (Auto) 12.75 H Lymph # (Auto) 0.87 L [place] # (Auto) 0.92 H Eos # (Auto) 0.00 Baso # (Auto) 0.02 Immature Gran # (Auto) 0.04 H ESR 68 H Sodium 137 Potassium 4.4 Chloride 101 Carbon Dioxide 27 Anion Gap 9 BUN 14 Creatinine 1.00 Est Cr Clr Drug Dosing Not Reportable Est GFR ( Amer) 107.9 Est GFR (Non-Af Amer) 93.1 BUN/Creatinine Ratio 14.0 Glucose 105 H Calcium 9.6 Magnesium 2.1 Total Bilirubin 0.4 AST 14 ALT 10 Alkaline Phosphatase 111 H C-Reactive Protein 4.46 H Total Protein 8.8 H Albumin 4.5 Globulin 4.3 H Albumin/Globulin Ratio 1.0 Lipase 4 L SARS-CoV-2, RNA, NAAT 01/01/22 08:07 WBC RBC Hgb Hct MCV MCH MCHC RDW Std Deviation RDW Coeff of Aga Plt Count MPV Immature Gran % (Auto) Neut % (Auto) Lymph % (Auto) [place] % (Auto) Eos % (Auto) Baso % (Auto) Neut # (Auto) Lymph # (Auto) [place] # (Auto) Eos # (Auto) Baso # (Auto) Immature Gran # (Auto) ESR Sodium Potassium Chloride Carbon Dioxide Anion Gap BUN Creatinine Est Cr Clr Drug Dosing Est GFR ( Amer) Est GFR (Non-Af Amer) BUN/Creatinine Ratio Glucose Calcium Magnesium Total Bilirubin AST ALT Alkaline Phosphatase C-Reactive Protein Total Protein Albumin Globulin Albumin/Globulin Ratio Lipase SARS-CoV-2, RNA, NAAT NEGATIVE Diagnostic Findings Abdomen/Pelvis CT 01/01/22 03:46 CT abd pelvis oral and IV con CLINICAL HISTORY: abd pain. Hx crohns. Hx sbo. TECHNIQUE: Helical axial images of the abdomen and pelvis were obtained and displayed. Automated dose lowering techniques and/or adjustment according to patient size were utilized for this exam. This exam was performed with intravenous contrast. CT DOSE: 309.40 mGy.cm COMPARISON: Comparison is made to CT abdomen pelvis 07/17/2021 and renal ultrasound 09/20/2020 FINDINGS: Lower chest: No acute abnormality Liver: Subcentimeter hypodensities in the liver are too small to characterize. Gallbladder and biliary tree: Cholelithiasis is seen without evidence of cholecystitis. No intra- or extrahepatic biliary ductal dilation. Pancreas: Unremarkable, no focal lesions. Spleen: Unremarkable. Adrenals: Unremarkable. Kidneys and ureters: Nonobstructive right nephrolithiasis is seen. There is a 11 mm right renal hypodensity which measures greater than simple fluid density. It was found to represent a cyst prior sound. Bladder: Unremarkable. Reproductive organs: Unremarkable. Bowel: Patient is status post colonic resection. There are numerous dilated loops of small bowel without a well-defined proximal transition point. A distal transition point is identified in the right lower quadrant. There is increased vascularity and fat stranding but no evidence of perforation. Lymph nodes Retroperitoneal: Unremarkable. Pelvic: Unremarkable. Mesenteric: Unremarkable. Peritoneum: Normal. Vessels: Unremarkable. Abdominal wall: Unremarkable. 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 IMPRESSION: 1. Findings are compatible with small bowel obstruction with a right lower quadrant distal transition point. No evidence of closed loop obstruction, bowel ischemia, or perforation. 2. Nonobstructive nephrolithiasis. No evidence of hydronephrosis. 3. Additional findings as above. ACT 112: Negative or not required by law. Electronically signed by: Yasir Galan M.D. 01/01/2022 8:20 AM PG Care Time/CCT Total # of Minutes Spent Total Time Spent with Patient: Total time spent is greater than 50% in coordination of care (as documented) at patient's floor/unit and/or counseling patient: Coding Level of Care Code 14734 Initial Inpt Care Lvl 2 Diagnoses SBO (small bowel obstruction) K56.609 Crohn's disease K50.90 URI (upper respiratory infection) J06.9 Nephrolithiasis N20.0 DVT prophylaxis Z29.9
--- NOTE | 2022-01-01 09:51 | Surgery Consultation ---
Date of Consultation January 01, 2022 Assessment & Plan (1) Abdominal pain: (2) Crohn's disease: (3) SBO (small bowel obstruction): Plan 41 yo male with history of Crohn's disease with prior ileostomy/colon resection with ostomy and reversal in 1989, lysis of adhesions and bowel resection in 2020 , recurrent SBOs, on Remicade who presented to ED with abdominal pain, nausea, vomiting x 1, inability to pass gas with CT scan consistent with SBO with transition point in RLQ. Now feeling much better, good bowel sounds, no abdominal pain and passing flatus. Abdominal exam is benign. Plan: No surgical intervention required or recommended at this time. Would recommend medicine admit for observation and bowel rest for now , IV fluids, IV Tylenol as needed for pain, IV antiemetics. IF continues to pass flatus throughout day could consider some clear liquids. Encourage ambulation to increase GI motility Dr. Marks has seen and examined pt, agrees with above. See addendum for further recommendations/plan. Supervising Physician Co-Signing Physician Notes I have seen and examined the patient personally and agree with the above assessment plan. In brief, patient with Crohn's disease who has had multiple small bowel obstruction in the past. He is starting to pass flatus and is feeling better. We will monitor and slowly advance his diet as tolerated. We will follow along. History of Present Illness Reason for Consultation: Recurrent SBO History of Crohn's Requesting Physician: Favio Bennett Attending Physician: Favio Bennett History of Present Illness Favio is a 41 yo male with history of Crohn's disease with colon ileostomy resection and ileostomy in 1989 and reversal with recurrent SBO and recent surgery at [facility] in April of 2020 for scar tissue requiring bowel resection presented to ED with increasing abdominal pain, no flatus or bowel movement, nausea, and one episode of vomiting. States pain is similar to previous bowel obstructions. Has been on Remicade for 20+ years. Gets injection every 2 months and just had last injection 2 weeks ago. States his pain was 10/10 on presentation but was given IV Tylenol and states he is feeling better, passing gas, and having no pain. He was admitted here in July for SBO which was treated conservatively with IV Steroids. He states all of his prior obstructions resolved on their own without requiring surgical intervention. CT scan with po and oral contrast is showing distended small bowel loops with transition point in the RLQ. No evidence of closed loops obstruction. Leukocyt osis of 14k but afebrile. Allergies Allergy/AdvReac Type Severity Reaction Status Date / Time clarithromycin [From Biaxin] Allergy Intermediate "got Verified 07/17/21 01:08 really sick" Home Medications Medication Instructions Recorded Confirmed Type infliximab 100 mg intravenous See Rx Instructions IV Q8WK 12/15/19 07/17/21 History solution (Remicade) levocetirizine 5 mg tablet (Xyzal) 5 mg PO HS PRN Congestion 09/20/20 07/17/21 History acetaminophen 500 mg tablet 1,000 mg PO Q6H PRN Pain 07/17/21 07/17/21 History (Tylenol Extra Strength) ibuprofen 200 mg tablet 400 mg PO Q6H PRN Pain 07/17/21 07/17/21 History Patient History Medical History (Updated 01/01/22 @ 10:34 by Favio Bennett) Crohn's disease of ileum with intestinal obstruction Crohns disease Hx of renal calculi Lumbar herniated disc SBO (small bowel obstruction) Surgical History History of colostomy reversal 1995 History of cystoscopy History of surgical removal of terminal ileum History of tonsillectomy Hx of colostomy 1995 Hx of vasectomy S/P small bowel resection Apr 2020 laparoscopic converted to open lysis of adhesions and bowel resection [facility] Family History Other Adopted Unobtainable family history due to adoption Social History (Updated 01/01/22 @ 10:31 by Favio Bennett) Smoking Status: Never smoker Tobacco Type: Cigarettes Second Hand Exposure: No; Hx Alcohol Use: No Hx Substance Use: No Preferred Language: Croatian Communication Ability: Effective Psychiatric Social Worker Required: No Beliefs That Will Affect Care: None marital status: Current Living Situation: Spouse Current Living Situation Comment: Lives with and 2 kids current occupational status: employed 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 [employer] How many Children do You have: 2 Feels Safe at Home: Yes Assistive Devices: None Review of Systems Review of Systems: All systems reviewed & are unremarkable except as noted in HPI & below Physical Exam Constitutional: WD/WN, vitals as above cooperative and comfortable; no acute distress and not ill appearing Neck: normal visual inspection and trachea midline Respiratory: normal respiratory effort; no respiratory distress, no labored breathing and no retractions Gastrointestinal (Abdomen): Inspection/Auscultation: abdomen normal to inspection, normal bowel sounds (all 4 quadrants) and + abdominal surgical scar (midline upper laparotomy scar, RLQ transverse scar and paramidline); abdomen not distended Percussion/Palpation: abdomen soft; abdomen nontender, no guarding, abdomen not rigid and abdomen not firm Skin: no rashes, warm and dry Psychiatric: A+Ox3, euthymic affect Results & Data ([facility]) Vital Signs (Past 12 Hours) Vital Signs Temp Pulse Pulse Resp BP BP Pulse Ox 01/01/22 08:02 68 21 100 01/01/22 05:21 78 18 140/78 98 01/01/22 03:29 36.6 C 85 20 145/92 H 95 O2 Del Method 01/01/22 08:02 Room Air 01/01/22 05:21 Room Air 01/01/22 03:29 Room Air Laboratory Results 01/01/22 01/01/22 01/01/22 Range/Units 08:07 05:00 05:00 WBC (4.8-10.8) K/ul RBC (4.63-6.08) M/uL Hgb (14.0-18.0) g/dl Hct (40.1-51.0) % MCV (80.0-100.0) fL MCH (25.0-34.0) pg MCHC (32.0-36.0) g/dL RDW Std Deviation (36.4-46.3) fL RDW Coeff of Aga (11.5-14.5) % Plt Count (130-400) K/uL MPV (9.4-12.4) fL Immature Gran % (Auto) % Neut % (Auto) % Lymph % (Auto) % [place] % (Auto) % Eos % (Auto) % Baso % (Auto) % Neut # (Auto) (1.4-6.5) K/uL Lymph # (Auto) (1.2-3.4) K/uL [place] # (Auto) (0.24-0.82) K/uL Eos # (Auto) (0-0.50) K/uL Baso # (Auto) (0-0.2) K/uL Immature Gran # (Auto) (0.00-0.02) K/uL ESR 68 H (0-15) mm/hr Sodium 137 (136-145) mmol/L Potassium 4.4 (3.5-5.1) mmol/L Chloride 101 (98-107) mmol/L Carbon Dioxide 27 (21-32) mmol/L Anion Gap 9 (3-11) BUN 14 (6-23) mg/dl Creatinine 1.00 (0.6-1.4) mg/dl Est Cr Clr Drug Dosing Not Reportable Est GFR ( Amer) 107.9 ml/min Est GFR (Non-Af Amer) 93.1 ml/min BUN/Creatinine Ratio 14.0 (10-20) Glucose 105 H (70-99(Fasting)) mg/dl Calcium 9.6 (8.5-10.1) mg/dl Magnesium 2.1 (1.7-2.4) mg/dl Total Bilirubin 0.4 (0.2-1.0) mg/dl AST 14 (13-39) U/L ALT 10 (7-52) U/L Alkaline Phosphatase 111 H (34-104) U/L C-Reactive Protein 4.46 H (0-0.5) mg/dl Total Protein 8.8 H (6.0-8.3) gm/dl Albumin 4.5 (3.4-5.0) gm/dl Globulin 4.3 H (2.5-4.0) gm/dl Albumin/Globulin Ratio 1.0 (0.9-2) Lipase 4 L (11-82) U/L SARS-CoV-2, RNA, NAAT NEGATIVE (NEGATIVE) 01/01/22 Range/Units 05:00 WBC 14.60 H (4.8-10.8) K/ul RBC 4.67 (4.63-6.08) M/uL Hgb 14.3 (14.0-18.0) g/dl Hct 42.7 (40.1-51.0) % MCV 91.4 (80.0-100.0) fL MCH 30.6 (25.0-34.0) pg MCHC 33.5 (32.0-36.0) g/dL RDW Std Deviation 41.6 (36.4-46.3) fL RDW Coeff of Aga 12.6 (11.5-14.5) % Plt Count 280 (130-400) K/uL MPV 10.0 (9.4-12.4) fL Immature Gran % (Auto) 0.3 % Neut % (Auto) 87.3 % Lymph % (Auto) 6.0 % [place] % (Auto) 6.3 % Eos % (Auto) 0.0 % Baso % (Auto) 0.1 % Neut # (Auto) 12.75 H (1.4-6.5) K/uL Lymph # (Auto) 0.87 L (1.2-3.4) K/uL [place] # (Auto) 0.92 H (0.24-0.82) K/uL Eos # (Auto) 0.00 (0-0.50) K/uL Baso # (Auto) 0.02 (0-0.2) K/uL Immature Gran # (Auto) 0.04 H (0.00-0.02) K/uL ESR (0-15) mm/hr Sodium (136-145) mmol/L Potassium (3.5-5.1) mmol/L Chloride (98-107) mmol/L Carbon Dioxide (21-32) mmol/L Anion Gap (3-11) BUN (6-23) mg/dl Creatinine (0.6-1.4) mg/dl Est Cr Clr Drug Dosing Est GFR ( Amer) ml/min Est GFR (Non-Af Amer) ml/min BUN/Creatinine Ratio (10-20) Glucose (70-99(Fasting)) mg/dl Calcium (8.5-10.1) mg/dl Magnesium (1.7-2.4) mg/dl Total Bilirubin (0.2-1.0) mg/dl AST (13-39) U/L ALT (7-52) U/L Alkaline Phosphatase (34-104) U/L C-Reactive Protein (0-0.5) mg/dl Total Protein (6.0-8.3) gm/dl Albumin (3.4-5.0) gm/dl Globulin (2.5-4.0) gm/dl Albumin/Globulin Ratio (0.9-2) Lipase (11-82) U/L SARS-CoV-2, RNA, NAAT (NEGATIVE) Diagnostic Findings CT abd pelvis oral and IV con CLINICAL HISTORY: abd pain. Hx crohns. Hx sbo. TECHNIQUE: Helical axial images of the abdomen and pelvis were obtained and displayed. Automated dose lowering techniques and/or adjustment according to patient size were utilized for this exam. This exam was performed with intravenous contrast. CT DOSE: 309.40 mGy.cm COMPARISON: Comparison is made to CT abdomen pelvis 07/17/2021 and renal ultrasound 09/20/2020 FINDINGS: Lower chest: No acute abnormality Liver: Subcentimeter hypodensities in the liver are too small to characterize. Gallbladder and biliary tree: Cholelithiasis is seen without evidence of cholecystitis. No intra- or extrahepatic biliary ductal dilation. Pancreas: Unremarkable, no focal lesions. Spleen: Unremarkable. Adrenals: Unremarkable. Kidneys and ureters: Nonobstructive right nephrolithiasis is seen. There is a 11 mm right renal hypodensity which measures greater than simple fluid density. It was found to represent a cyst prior sound. Bladder: Unremarkable. Reproductive organs: Unremarkable. Bowel: Patient is status post colonic resection. There are numerous dilated loops of small bowel without a well-defined proximal transition point. A distal transition point is identified in the right lower quadrant. There is increased vascularity and fat stranding but no evidence of perforation. Lymph nodes Retroperitoneal: Unremarkable. Pelvic: Unremarkable. Mesenteric: Unremarkable. Peritoneum: Normal. Vessels: Unremarkable. Abdominal wall: Unremarkable. 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 IMPRESSION: 1. Findings are compatible with small bowel obstruction with a right lower quadrant distal transition point. No evidence of closed loop obstruction, bowel ischemia, or perforation. 2. Nonobstructive nephrolithiasis. No evidence of hydronephrosis. 3. Additional findings as above.
--- NOTE | 2022-01-01 11:14 | XRay Report ---
XR chest 2V PA/lateral CLINICAL HISTORY: RSV exposure, cough, eval pneumonia TECHNIQUE: 2 views of the chest were obtained. Comparison: Comparison is made to chest radiograph 07/11/2019 FINDINGS: No lines and tubes are seen. The cardiomediastinal silhouette is normal. The lungs are clear. No evid ence of pleural effusion or pneumothorax. IMPRESSION: No acute abnormalities and in particular no evidence of pneumonia. ACT 112: Negative or not required by law. Electronically signed by: Yasir Galan M.D. 01/01/2022 11:13 AM
[2022-01-01] MEDS ORDERED: MoRPHine SULFATE 2 MG/ML CARP IV PRN (13:57)
[2022-01-01] MEDS ORDERED: ONDANSETRON INJ 2 MG/ML 2 ML VIAL IV PRN (13:57)
[2022-01-01] MEDS ORDERED: ACETAMINOPHEN 1,000 MG in EMPTY BAG 0 ML IV PRN (14:07)
[2022-01-01] MEDS: ACETAMINOPHEN 1000 MG/100 ML IV IV PRN ×2 (14:48→20:54)
--- NOTE | 2022-01-01 15:42 | Gastrointestinal Consultation ---
Date of Consultation January 01, 2022 Assessment & Plan (1) Crohn's colitis: Difficult to know if this is an active Crohn's flare or obstruction related to adhesions. He feels like things are opening up as his pain is much better and he is passing gas. He does need to have a good bowel movement. I do think it is worthwhile to do a prednisone taper and since he is feeling better and not vomiting we will try oral prednisone rather than IV. I don't see an issue with putting him on clear liquids when he can tolerate them. I will start him on prednisone 30 mg daily. 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 He has been on remicade for 20 years and has really done well. His last dose was 2 weeks ago. Recently he called Dr. Carlos because he thought he may be flaring so a tapering course of prednisone was called in. He had surgery a couple of years ago for adhesions. He had surgery many years ago for bowel resection. He has recently been sick first with COVID then with RSV. He thought he was just immunocompromised because of that. Allergies Allergy/AdvReac Type Severity Reaction Status Date / Time clarithromycin [From Biaxin] Allergy Intermediate "got Verified 07/17/21 01:08 really sick" Home Medications Medication Instructions Recorded Confirmed Type infliximab 100 mg intravenous See Rx Instructions IV Q8WK 12/15/19 07/17/21 History solution (Remicade) levocetirizine 5 mg tablet (Xyzal) 5 mg PO HS PRN Congestion 09/20/20 07/17/21 History acetaminophen 500 mg tablet 1,000 mg PO Q6H PRN Pain 07/17/21 07/17/21 History (Tylenol Extra Strength) ibuprofen 200 mg tablet 400 mg PO Q6H PRN Pain 07/17/21 07/17/21 History Patient History Medical History Crohn's disease of ileum with intestinal obstruction Crohns disease Hx of renal calculi Lumbar herniated disc SBO (small bowel obstruction) Surgical History History of colostomy reversal 1995 History of cystoscopy History of surgical removal of terminal ileum History of tonsillectomy Hx of colostomy 1995 Hx of vasectomy S/P small bowel resection Apr 2020 laparoscopic converted to open lysis of adhesions and bowel resection [facility] Family History Other Adopted Unobtainable family history due to adoption Social History Smoking Status: Never smoker Tobacco Type: Cigarettes Second Hand Exposure: No; Hx Alcohol Use: No Hx Substance Use: No Preferred Language: Prydeinig Communication Ability: Effective Digital Forensic Analyst Required: No Beliefs That Will Affect Care: None marital status: Current Living Situation: Spouse Current Living Situation Comment: Lives with and 2 kids current occupational status: employed current occupation: [employer] industry How many Children do You have: 2 Feels Safe at Home: Yes Assistive Devices: None Review of Systems Review of Systems: All systems reviewed & are unremarkable except as noted in HPI & below Physical Exam Constitutional: WD/WN, vitals as above no acute distress Eyes: PERRL, conjunctivae normal, anicteric sclerae ENMT: external ear and nose normal, oropharynx normal Neck: trachea midline, no thyromegaly Respiratory: normal respiratory effort, lungs clear to auscultation Cardiovascular: RRR, no murmur, no edema Gastrointestinal (Abdomen): normal bowel sounds, soft, nontender, no hepatosplenomegaly Inspection/Auscultation: + abdominal surgical scar Musculoskeletal: Extremities: no cyanosis and no clubbing Skin: no rashes, warm and dry Neurologic: PERRL, EOMI, accommodation nl, no face palsy, no dysarthria Psychiatric: Orientation: alert and oriented x 3 Results & Data ([facility]) Vital Signs (Past 12 Hours) Vital Signs Pulse Pulse Resp BP Pulse Ox O2 Del Method 01/01/22 10:30 66 13 98 Room Air 01/01/22 10:15 68 18 98 Room Air 01/01/22 10:00 65 14 97 Room Air 01/01/22 09:45 75 16 98 Room Air 01/01/22 09:30 68 14 98 Room Air 01/01/22 09:15 71 21 98 Room Air 01/01/22 09:00 78 15 97 Room Air 01/01/22 08:45 59 L 15 97 Room Air 01/01/22 08:30 61 15 97 Room Air 01/01/22 08:15 61 16 98 Room Air 01/01/22 08:02 68 21 100 Room Air 01/01/22 05:21 78 18 140/78 98 Room Air Laboratory Results 01/01/22 01/01/22 01/01/22 Range/Units 08:07 05:00 05:00 WBC (4.8-10.8) K/ul RBC (4.63-6.08) M/uL Hgb (14.0-18.0) g/dl Hct (40.1-51.0) % MCV (80.0-100.0) fL MCH (25.0-34.0) pg MCHC (32.0-36.0) g/dL RDW Std Deviation (36.4-46.3) fL RDW Coeff of Aga (11.5-14.5) % Plt Count (130-400) K/uL MPV (9.4-12.4) fL Immature Gran % (Auto) % Neut % (Auto) % Lymph % (Auto) % [place] % (Auto) % Eos % (Auto) % Baso % (Auto) % Neut # (Auto) (1.4-6.5) K/uL Lymph # (Auto) (1.2-3.4) K/uL [place] # (Auto) (0.24-0.82) K/uL Eos # (Auto) (0-0.50) K/uL Baso # (Auto) (0-0.2) K/uL Immature Gran # (Auto) (0.00-0.02) K/uL ESR 68 H (0-15) mm/hr Sodium 137 (136-145) mmol/L Potassium 4.4 (3.5-5.1) mmol/L Chloride 101 (98-107) mmol/L Carbon Dioxide 27 (21-32) mmol/L Anion Gap 9 (3-11) BUN 14 (6-23) mg/dl Creatinine 1.00 (0.6-1.4) mg/dl Est Cr Clr Drug Dosing Not Reportable Est GFR ( Amer) 107.9 ml/min Est GFR (Non-Af Amer) 93.1 ml/min BUN/Creatinine Ratio 14.0 (10-20) Glucose 105 H (70-99(Fasting)) mg/dl Calcium 9.6 (8.5-10.1) mg/dl Magnesium 2.1 (1.7-2.4) mg/dl Total Bilirubin 0.4 (0.2-1.0) mg/dl AST 14 (13-39) U/L ALT 10 (7-52) U/L Alkaline Phosphatase 111 H (34-104) U/L C-Reactive Protein 4.46 H (0-0.5) mg/dl Total Protein 8.8 H (6.0-8.3) gm/dl Albumin 4.5 (3.4-5.0) gm/dl Globulin 4.3 H (2.5-4.0) gm/dl Albumin/Globulin Ratio 1.0 (0.9-2) Lipase 4 L (11-82) U/L SARS-CoV-2, RNA, NAAT NEGATIVE (NEGATIVE) 01/01/22 Range/Units 05:00 WBC 14.60 H (4.8-10.8) K/ul RBC 4.67 (4.63-6.08) M/uL Hgb 14.3 (14.0-18.0) g/dl Hct 42.7 (40.1-51.0) % MCV 91.4 (80.0-100.0) fL MCH 30.6 (25.0-34.0) pg MCHC 33.5 (32.0-36.0) g/dL RDW Std Deviation 41.6 (36.4-46.3) fL RDW Coeff of Aga 12.6 (11.5-14.5) % Plt Count 280 (130-400) K/uL MPV 10.0 (9.4-12.4) fL Immature Gran % (Auto) 0.3 % Neut % (Auto) 87.3 % Lymph % (Auto) 6.0 % [place] % (Auto) 6.3 % Eos % (Auto) 0.0 % Baso % (Auto) 0.1 % Neut # (Auto) 12.75 H (1.4-6.5) K/uL Lymph # (Auto) 0.87 L (1.2-3.4) K/uL [place] # (Auto) 0.92 H (0.24-0.82) K/uL Eos # (Auto) 0.00 (0-0.50) K/uL Baso # (Auto) 0.02 (0-0.2) K/uL Immature Gran # (Auto) 0.04 H (0.00-0.02) K/uL ESR (0-15) mm/hr Sodium (136-145) mmol/L Potassium (3.5-5.1) mmol/L Chloride (98-107) mmol/L Carbon Dioxide (21-32) mmol/L Anion Gap (3-11) BUN (6-23) mg/dl Creatinine (0.6-1.4) mg/dl Est Cr Clr Drug Dosing Est GFR ( Amer) ml/min Est GFR (Non-Af Amer) ml/min BUN/Creatinine Ratio (10-20) Glucose (70-99(Fasting)) mg/dl Calcium (8.5-10.1) mg/dl Magnesium (1.7-2.4) mg/dl Total Bilirubin (0.2-1.0) mg/dl AST (13-39) U/L ALT (7-52) U/L Alkaline Phosphatase (34-104) U/L C-Reactive Protein (0-0.5) mg/dl Total Protein (6.0-8.3) gm/dl Albumin (3.4-5.0) gm/dl Globulin (2.5-4.0) gm/dl Albumin/Globulin Ratio (0.9-2) Lipase (11-82) U/L SARS-CoV-2, RNA, NAAT (NEGATIVE) Diagnostic Findings Abdomen/Pelvis CT 01/01/22 03:46 CT abd pelvis oral and IV con CLINICAL HISTORY: abd pain. Hx crohns. Hx sbo. TECHNIQUE: Helical axial images of the abdomen and pelvis were obtained and displayed. Automated dose lowering techniques and/or adjustment according to patient size were utilized for this exam. This exam was performed with intravenous contrast. CT DOSE: 309.40 mGy.cm COMPARISON: Comparison is made to CT abdomen pelvis 07/17/2021 and renal ultrasound 09/20/2020 FINDINGS: Lower chest: No acute abnormality Liver: Subcentimeter hypodensities in the liver are too small to characterize. Gallbladder and biliary tree: Cholelithiasis is seen without evidence of cholecystitis. No intra- or extrahepatic biliary ductal dilation. Pancreas: Unremarkable, no focal lesions. Spleen: Unremarkable. Adrenals: Unremarkable. Kidneys and ureters: Nonobstructive right nephrolithiasis is seen. There is a 11 mm right renal hypodensity which measures greater than simple fluid density. It was found to represent a cyst prior sound. Bladder: Unremarkable. Reproductive organs: Unremarkable. Bowel: Patient is status post colonic resection. There are numerous dilated loops of small bowel without a well-defined proximal transition point. A distal transition point is identified in the right lower quadrant. There is increased vascularity and fat stranding but no evidence of perforation. Lymph nodes Retroperitoneal: Unremarkable. Pelvic: Unremarkable. Mesenteric: Unremarkable. Peritoneum: Normal. Vessels: Unremarkable. Abdominal wall: Unremarkable. 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 IMPRESSION: 1. Findings are compatible with small bowel obstruction with a right lower quadrant distal transition point. No evidence of closed loop obstruction, bowel ischemia, or perforation. 2. Nonobstructive nephrolithiasis. No evidence of hydronephrosis. 3. Additional findings as above. ACT 112: Negative or not required by law. Electronically signed by: Yasir Galan M.D. 01/01/2022 8:20 AM Chest X-Ray 01/01/22 10:18 XR chest 2V PA/lateral CLINICAL HISTORY: RSV exposure, cough, eval pneumonia TECHNIQUE: 2 views of the chest were obtained. Comparison: Comparison is made to chest radiograph 07/11/2019 FINDINGS: No lines and tubes are seen. The cardiomediastinal silhouette is normal. The lungs are clear. No evidence of pleural effusion or pneumothorax. IMPRESSION: No acute abnormalities and in particular no evidence of pneumonia. ACT 112: Negative or not required by law. Electronically signed by: Yasir Galan M.D. 01/01/2022 11:13 AM (1) Crohn's colitis Digestive disease complication type: unspecified complication Qualified Code(s): K50.119 - Crohn's disease of large intestine with unspecified complications
[2022-01-01] MEDS: FAMOTIDINE 20 MG in SYRINGE 3 ML IV SCH ×2 (15:46→20:40)
[2022-01-01] MEDS: guaiFENesin 600 MG TABCR PO SCH ×2 (15:47→20:40)
[2022-01-01] MEDS: D5W AND NSS 1,000 ML IV SCH ×2 (15:57→22:42)
[2022-01-01] MEDS: predniSONE 10 MG TABLET PO SCH (16:53)
[2022-01-01] MEDS: FEXOFENADINE 60 MG TAB PO SCH ×2 (16:53→20:40)
[2022-01-01] MEDS: FLUTICASONE PROPIONATE NA SPR 16 GM BTL SCH (16:53)
[2022-01-01] MEDS ORDERED: BENZONATATE 100 MG CAPSULE PO PRN (20:02)
[2022-01-02] MEDS: D5W AND NSS 1,000 ML IV SCH (05:15)
--- NOTE | 2022-01-02 07:56 | Gastroenterology Progress Note ---
Date of Service January 02, 2022 Assessment & Plan (1) Crohn's colitis: Plan: Seems to be doing well. Will advance to clear liquids. Dr. Dao to take over Present on Admission?: Yes Admission and Anticipated Discharge Date Admission Date: January 01, 2022 Subjective Feeling well. Passing "a lot of gas". No bowel movement. Minor cramping controlled with Tylenol. He would like to try liquids Physical Exam Constitutional: WD/WN, vitals as above Results & Data ([facility]) Vital Signs (Past 12 Hours) Vital Signs Temp Pulse Resp BP Pulse Ox O2 Del Method 01/01/22 21:42 36.9 C 67 18 118/76 94 Room Air (1) Crohn's colitis Digestive disease complication type: unspecified complication Qualified Code(s): K50.119 - Crohn's disease of large intestine with unspecified complications
[2022-01-02] MEDS ORDERED: ENOXAPARIN INJ 40 MG/0.4 ML SYR SQ SCH (09:00)
[2022-01-02] MEDS: FAMOTIDINE 20 MG in SYRINGE 3 ML IV SCH (09:31)
[2022-01-02] MEDS: guaiFENesin 600 MG TABCR PO SCH (09:32)
[2022-01-02] MEDS: FEXOFENADINE 60 MG TAB PO SCH (09:32)
[2022-01-02] MEDS: FLUTICASONE PROPIONATE NA SPR 16 GM BTL SCH (09:33)
[2022-01-02 10:15] LABS: Basophils # (auto) 0.01 K/uL (0-0.2); Basophils % (auto) 0.1 %; Hematocrit (blood only) 41.5 % (40.1-51.0); Hemoglobin 13.5 g/dl (14.0-18.0); Immature Granulocytes # (auto) 0.02 K/uL (0.00-0.02); Immature Granulocytes % (auto) 0.2 %; Lymphocytes # (auto) 2.11 K/uL (1.2-3.4); Lymphocytes % (auto) 25.1 %; Mean Corpuscular Hemoglobin 29.9 pg (25.0-34.0); Mean Corpuscular Hgb Conc 32.5 g/dL (32.0-36.0); Mean Platelet Volume 10.5 fL (9.4-12.4); Monocytes # (auto) 0.37 K/uL (0.24-0.82); Monocytes % (auto) 4.4 %; Neutrophils # (auto) 5.89 K/uL (1.4-6.5); Neutrophils % (auto) 70.2 %; Platelet Count 252 K/uL (130-400); RDW Coefficient of Variation 12.7 % (11.5-14.5); Red Blood Count 4.51 M/uL (4.63-6.08)
--- NOTE | 2022-01-02 10:31 | Surgery Progress Note ---
Date of Service January 02, 2022 Assessment & Plan (1) Abdominal pain: (2) Crohn's disease: (3) SBO (small bowel obstruction): Plan 41 yo male with history of Crohn's disease with prior ileostomy/colon resection with ostomy and reversal in 1989, lysis of adhesions and bowel resection in 2020 , recurrent SBOs, on Remicade who presented to ED with abdominal pain, nausea, vomiting x 1, inability to pass gas with CT scan consistent with SBO with transition point in RLQ. 01/02/2022: Passing gas Minimal pain more cramping in nature no n,v Plan: No surgical intervention required or recommended at this time. advance to full liquids and likely as tolerated Continue medical management Encourage ambulation in hallway to increase GI motility possible discharge this evening Dr. Marks has seen and examined pt, agrees with above Admission and Anticipated Discharge Date Admission Date: January 01, 2022 Supervising Physician Co-Signing Physician Notes I have seen and examined the patient personally and agree with the above assessment plan. He is significantly improved. We will advance his diet as tolerated. He may be discharged to home this evening from the surgical perspective. Subjective Having some cramping abdominal pain but not severe tolerating clear liquids so far No nausea or vomiting Passing some gas No bowel movement Ambulating hallway Physical Exam Constitutional: WD/WN, vitals as above + thin, cooperative and comfortable; no acute distress, not ill appearing and not frail appearing Respiratory: normal respiratory effort; no respiratory distress, no labored breathing and no retractions Gastrointestinal (Abdomen): Inspection/Auscultation: abdomen normal to inspection, + abdominal surgical scar (mildine laparotomy, RLQ transverse, laparoscopic scars) and + hypoactive bowel sounds (Present in bilateral lower quadrants but faint); abdomen not distended Percussion/Palpation: abdomen soft; abdomen nontender, no guarding and abdomen not rigid Skin: no rashes, warm and dry Psychiatric: A+Ox3, euthymic affect Results & Data ([facility]) Vital Signs (Past 12 Hours) Vital Signs Temp Pulse Resp BP Pulse Ox 01/02/22 07:55 36.8 C 65 18 105/63 96 Laboratory Results 01/02/22 01/02/22 Range/Units 09:32 09:32 WBC 8.40 (4.8-10.8) K/ul RBC 4.51 L (4.63-6.08) M/uL Hgb 13.5 L (14.0-18.0) g/dl Hct 41.5 (40.1-51.0) % MCV 92.0 (80.0-100.0) fL MCH 29.9 (25.0-34.0) pg MCHC 32.5 (32.0-36.0) g/dL RDW Std Deviation 43.0 (36.4-46.3) fL RDW Coeff of Aga 12.7 (11.5-14.5) % Plt Count 252 (130-400) K/uL MPV 10.5 (9.4-12.4) fL Immature Gran % (Auto) 0.2 % Neut % (Auto) 70.2 % Lymph % (Auto) 25.1 % Hodgeman % (Auto) 4.4 % Eos % (Auto) 0.0 % Baso % (Auto) 0.1 % Neut # (Auto) 5.89 (1.4-6.5) K/uL Lymph # (Auto) 2.11 (1.2-3.4) K/uL Hodgeman # (Auto) 0.37 (0.24-0.82) K/uL Eos # (Auto) 0.00 (0-0.50) K/uL Baso # (Auto) 0.01 (0-0.2) K/uL Immature Gran # (Auto) 0.02 (0.00-0.02) K/uL Sodium 140 (136-145) mmol/L Potassium 3.4 L D (3.5-5.1) mmol/L Chloride 103 (98-107) mmol/L Carbon Dioxide 30 (21-32) mmol/L Anion Gap 7 (3-11) BUN 8 (6-23) mg/dl Creatinine 0.87 (0.6-1.4) mg/dl Est Cr Clr Drug Dosing 111.1 ml/min Est GFR ( Amer) 124.2 ml/min Est GFR (Non-Af Amer) 107.2 ml/min BUN/Creatinine Ratio 9.2 L (10-20) Glucose 110 H (70-99(Fasting)) mg/dl Calcium 8.9 (8.5-10.1) mg/dl
[2022-01-02 10:35] LABS: BUN Creatinine Ratio 9.2 (10-20); Calcium 8.9 mg/dl (8.5-10.1); Creatinine Clr Calc Pharmacy 111.1 ml/min; Est GFR (African American) 124.2 ml/min; Est GFR (Non-African American) 107.2 ml/min; Potassium 3.4 mmol/L (3.5-5.1)
[2022-01-02] MEDS ORDERED: D5W AND 1/2NSS + 20MEQ KCL 20 MEQ/1,000 ML BAG IV SCH (11:30)
[2022-01-02] MEDS: predniSONE 10 MG TABLET PO SCH (11:44)
[2022-01-02] MEDS ORDERED: BENZONATATE 100 MG CAPSULE PO SCH (14:00)
[2022-01-02] MEDS ORDERED: COUGH DROP (SUGAR FREE) LOZ 24 LOZ/1 BOX BUCCAL STA (15:15)
[2022-01-02] MEDS ORDERED: POTASSIUM CHLORIDE CRTAB 20 MEQ TABCR PO STA (16:39)
--- NOTE | 2022-01-02 16:52 | Discharge Summary ---
Date of Service date of admission - January 01, 2022 date of discharge - January 02, 2022 Admission HPI Per Admitting Provider 41yo male with long-standing Crohn's disease diagnosed at age 12 - on chronic Remicade and managed by Dr Keyshawn Carlos [facility] - with prior history of multiple episodes of SBO. Patient presents with the acute onset of abdominal pain beginning yesterday am. Epigastric in location. He noted no stool or flatus yesterday. Last BM was 12/30 and was normal with no blood or mucous. The pain reminded him of prior SBO episodes and thus he restricted his diet to water/liquids only. He called the [facility] office and prednisone was called in. He took 40mg of prednisone yesterday. The abdominal pain persisted all evening yesterday and overnight. Thus, he came to the hospital for evaluation early this AM. He did have 1 episode of emesis in the ER but none since. He passed a small amount of flatus in the ER. He received IV morphine and IV tylenol with improvement in his abdominal pain. He states that even if NG tube was recommended he would decline such. 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 Currently has been sick with probable RSV - cough, congestion - for over 1 week. Both of his children and are sick with RSV. Principal Diagnosis 1. SBO 2. Long-standing Crohn's disease 3. Probable RSV infection Discharge Exam gen - NAD, looks good, mild cough nose - congested mouth - MMM heart - RRR, s1 s2, no murmur lungs - CTA b/l abd - soft NT ND BS+ ext - no edema, pulses 2+ b/l Discharge Data Allergies Allergy/AdvReac Type Severity Reaction Status Date / Time clarithromycin [From Biaxin] Allergy Intermediate "got Verified 07/17/21 01:08 really sick" Consultations [facility] General surgery Ordered Studies Abdomen/Pelvis CT 01/01/22 03:46 CT abd pelvis oral and IV con CLINICAL HISTORY: abd pain. Hx crohns. Hx sbo. TECHNIQUE: Helical axial images of the abdomen and pelvis were obtained and displayed. Automated dose lowering techniques and/or adjustment according to patient size were utilized for this exam. This exam was performed with intravenous contrast. CT DOSE: 309.40 mGy.cm COMPARISON: Comparison is made to CT abdomen pelvis 07/17/2021 and renal u ltrasound 09/20/2020 FINDINGS: Lower chest: No acute abnormality Liver: Subcentimeter hypodensities in the liver are too small to characterize. Gallbladder and biliary tree: Cholelithiasis is seen without evidence of cholecystitis. No intra- or extrahepatic biliary ductal dilation. Pancreas: Unremarkable, no focal lesions. Spleen: Unremarkable. Adrenals: Unremarkable. Kidneys and ureters: Nonobstructive right nephrolithiasis is seen. There is a 11 mm right renal hypodensity which measures greater than simple fluid density. It was found to represent a cyst prior sound. Bladder: Unremarkable. Reproductive organs: Unremarkable. Bowel: Patient is status post colonic resection. There are numerous dilated loops of small bowel without a well-defined proximal transition point. A distal transition point is identified in the right lower quadrant. There is increased vascularity and fat stranding but no evidence of perforation. Lymph nodes Retroperitoneal: Unremarkable. Pelvic: Unremarkable. Mesenteric: Unremarkable. Peritoneum: Normal. Vessels: Unremarkable. Abdominal wall: Unremarkable. 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 IMPRESSION: 1. Findings are compatible with small bowel obstruction with a right lower quadrant distal transition point. No evidence of closed loop obstruction, bowel ischemia, or perforation. 2. Nonobstructive nephrolithiasis. No evidence of hydronephrosis. 3. Additional findings as above. ACT 112: Negative or not required by law. Electronically signed by: Yasir Galan M.D. 01/01/2022 8:20 AM Chest X-Ray 01/01/22 10:18 XR chest 2V PA/lateral CLINICAL HISTORY: RSV exposure, cough, eval pneumonia TECHNIQUE: 2 views of the chest were obtained. Comparison: Comparison is made to chest radiograph 07/11/2019 FINDINGS: No lines and tubes are seen. The cardiomediastinal silhouette is normal. The lungs are clear. No evidence of pleural effusion or pneumothorax. IMPRESSION: No acute abnormalities and in particular no evidence of pneumonia. ACT 112: Negative or not required by law. Electronically signed by: Yasir Galan M.D. 01/01/2022 11:13 AM Hospital Course (1) SBO (small bowel obstruction): Could be internal to the bowel from a Crohn's related stricture or external to the bowel from adhesions. Seen by both general surgery and [facility]. Conservative treatment advised including bowel rest, IV fluids, pain meds, etc. NG tube was deferred. [facility] did recommend prednisone in the event that the Crohn's itself (stricturing, etc) was contributing to the SBO. He improved with the above and started to pass flatus with stool. Clear liquid diet was resumed, and this was advanced without any intolerance. At discharge he will follow a low-fiber diet for about 10 days, and continue on prednisone 30mg/day. He will need close f/u with [facility] within 7-10 days of discharge to recheck his Crohn's. (2) Crohn's disease: Long-standing, dx age 12. On Remicade immunotherapy - last infusion 2 weeks prior to admission. Took 40mg of prednisone at home the day prior to admission. [facility] was consulted and they advised ongoing prednisone usage for his Crohn's. He will need close f/u with [facility] shortly after discharge. Continue 30mg/day of prednisone upon discharge. (3) URI (upper respiratory infection): Probable RSV. His 2 children & were sick with RSV. He had URI symptoms x 1 week prior to admission. COVID test here was negative. It was presumed he had mild RSV. 2-view CXR was negative for pneumonia. Continue symptomatic care at home. (4) Nephrolithiasis: History of, and had nonobstructing stones on CT abd/pelvis this admission. Likely due to his Crohn's. No Rx needed. Total Time Total Time Spent Total Time Spent (In Minutes): 35 Discharge Plan Discharge Items Patient Disposition: Home - Self-Care Reason For Visit: CROHN'S DISEASE; SMALL BOWEL OBSTRUCTION Discharge Diagnosis: Small bowel obstruction - resolving Probable RSV infection Crohn's disease Activity: As commented below Activity Comment: gradually increase activities over the next week Non-emergency contact: Primary Care Provider and [employer] Supp[employer] Sales Representative Call non-emergency contact if: you have any medication questions and your symptoms worsen Follow-up/Referrals: Keyshawn Carlos MD [Physician] - 01/07/22 2:40 pm Keyshawn Frost [Primary Care Provider] - Diet: Low Fiber Addtl Attending Provider Instructions: Mr Guy, You were admitted for small bowel obstruction. Most small bowel blockages are caused by adhesions (scar tissue in the abdominal cavity). Adhesions are external to the bowel. With Crohn's disease you can develop strictures inside the bowel lumen itself. Strictures can also cause small bowel blockages. Regardless of etiology your bowel blockage improved with IV fluids, bowel rest, and time. You are now passing gas and having bowel movements. You are tolerating a liquid diet. Both GI and general surgery saw you in consult while here. GI is recommending that you stay on prednisone daily until you are seen in the clinic at [facility] in [place]. Recommendations - 1. gradually introduce low-fiber foods into the diet (see handout). Please stay on a low-fiber diet for at least 10 days. 2. take prednisone 30mg once daily with food. Take your next dose on 01/03/22. 3. continue any combination of [id number] medications for your suspected RSV symptoms - mucinex for cough, astepro nasal spray for nasal congestion, tylenol or motrin for headache or pain, etc. Your symptoms should improve from the virus over the next 1-2 weeks. See handout on RSV. Follow-up - see [facility] as listed in follow-up appointment section Return to [facility] if - * you develop fevers over 100 degrees * you have worsening abdominal pain * you have shortness of breath * you are having severe nausea and/or vomiting * you are not passing any gas or stool from your rectum * you see large amounts of blood in your stool * any other concerns It was our pleasure to care for you at [facility]! Stay well, Dr Bennett Pending Studies at Discharge: No Stand-Alone Forms: My [facility], Smoking Cessation Medications and DC Order Prescriptions: New prednisone 10 mg Tablet 30 mg PO DAILY Qty: 40 0RF ondansetron 4 mg tablet,disintegrating 4 mg PO Q6H PRN (Reason: nausea and vomiting) Qty: 10 0RF Continued Remicade 100 mg recon soln See Rx Instructions IV [id number] Rx Instructions: INFUSE 10MG/KG EVERY 8 WEEKS IV. acetaminophen [Tylenol Extra Strength] 500 mg Tablet 1,000 mg PO Q6H PRN (Reason: Pain) ibuprofen 200 mg Tablet 400 mg PO Q6H PRN (Reason: Pain) levocetirizine [Xyzal] 5 mg Tablet 5 mg PO HS PRN (Reason: Congestion) Discharge Orders: Discharge Order (Routine); Ordered 01/02/22 Ordered By: Favio Willis/Other Patient Handouts: Small Bowel Obstruction, Low-Fiber Diet, RSV (Respiratory Syncytial Virus) Admission Data Admit Date/Time: 01/01/22 09:30 Attending Provider: Favio Bennett Admit Provider: Favio Bennett Primary Care Provider: Keyshawn Frost Other Providers: Favio Bennett ; Clare Slade Jr Other Interventions: Discharge Summary Assessment (RN) Last Done: 01/02/22 17:13 Coding Level of Care Code D/C DAY MANAGEMENT >30 MINS Diagnoses SBO (small bowel obstruction) K56.609 Crohn's disease K50.90 URI (upper respiratory infection) J06.9 Nephrolithiasis N20.0
== END 2022-01-02 17:51 | disposition home or self-care (01) ==
LOC: ED 03:20 → INTOOBSV 09:30 → EDINP 09:30 → 3N 17:23
DX: J06.9 Acute upper respiratory infection, unspecified; K56.609 Unspecified intestinal obstruction, unspecified as to partial versus complete obstruction; K50.119 Crohn's disease of large intestine with unspecified complications; Z88.1 Allergy status to other antibiotic agents; N20.0 Calculus of kidney

== ENCOUNTER 2024-05-04 17:53 | Observation (INO) ==
[2024-05-04 18:30] LABS: Hematocrit (blood only) 43.9 % (42.0-52.0); Hemoglobin 15.2 g/dl (14.0-18.0); Mean Corpuscular Hgb Conc 34.6 g/dL (32.0-36.0); Mean Corpuscular Volume 89.6 fL (80.0-100.0); Mean Platelet Volume 9.8 fL (9.4-12.4); Platelet Count 337 K/uL (130-400); RDW Coefficient of Variation 12.3 % (11.5-14.5); RDW Standard Deviation 40.7 fL (36.4-46.3); White Blood Count 11.43 K/ul (4.8-10.8)
[2024-05-04] MEDS: ONDANSETRON INJ 2 MG/ML 2 ML VIAL IV STA (18:42)
[2024-05-04] MEDS: KETOROLAC TROMETHAMINE 15 MG/ML VIAL IV STA (18:42)
[2024-05-04 18:46] LABS: Albumin Level 4.8 gm/dl (3.4-5.0); BUN Creatinine Ratio 14.1 (10-20); Bilirubin Direct 0.1 mg/dl (0-0.2); Bilirubin,Total 0.5 mg/dl (0.2-1.0); Calcium 9.5 mg/dl (8.6-10.3); Creatinine Clr Calc Pharmacy 102.5 ml/min; Potassium 3.8 mmol/L (3.5-5.1)
[2024-05-04 18:47] LABS: Basophils # (auto) 0.01 K/uL (0.00-0.20); Basophils % (auto) 0.1 %; Immature Granulocytes # (auto) 0.04 K/uL (0.01-0.20); Immature Granulocytes % (auto) 0.3 %; Lymphocytes # (auto) 0.75 K/uL (1.20-3.40); Lymphocytes % (auto) 6.6 %; Monocytes # (auto) 0.05 K/uL (0.11-0.59); Monocytes % (auto) 0.4 %; Neutrophils # (auto) 10.58 K/uL (1.40-6.50); Neutrophils % (auto) 92.6 %
--- NOTE | 2024-05-04 18:51 | Emergency Department Note ---
History of Present Illness General Chief Complaint: Constipation Stated Complaint: BOWELS OBSTRUCTION, CHRONS DISEASE Time Seen by Provider: 05/04/24 18:03 History of Present Illness Provider Complaint: abdominal pain Onset (ago): 1 day(s) Pain Consistency: constant Location: diffuse Severity: moderate Maximum Pain Intensity: 7 Current Pain Intensity: 7 Quality: + stabbing and + sharp Relieved By: + nothing Exacerbated By: + nothing Context: + history of similar episodes (Feels like previous SBO's); no foreign travel, no possible food poisoning, no sick contacts, no recent antibiotic use, no recent surgery/procedure or no recent injury Associated Symptoms: + nausea and + constipation; no vomiting, no diarrhea, no fever, no chills, no dysuria, no hematemesis, no hematochezia, no melena, no hematuria, no headache, no chest pain and no breathing difficulty Decreased flatulence. Home Medications Medication Instructions Recorded Confirmed Type infliximab 100 mg intravenous See Rx Instructions IV Q8WK 12/15/19 01/12/24 History solution (Remicade) multivitamin 1 tab PO DAILY 07/14/22 07/14/22 History cholecalciferol (vitamin D3) 25 125 mcg PO DAILY 09/06/23 09/06/23 History mcg (1,000 unit) capsule cyanocobalamin (vitamin B-12) 1,000 mcg IM .Weekly #10 mL 12/20/23 Rx 1,000 mcg/mL injection solution syringe with needle, safety 3 mL #1 ea 12/24/23 Rx 25 gauge x 1" (BD Integra Syringe) albuterol sulfate 90 mcg/actuation See Rx Instructions inhalation 01/12/24 01/12/24 Rx aerosol inhaler (Ventolin HFA) .COMPLEX PRN shortness of breath or wheezing #8.5 grams amoxicillin 875 mg-potassium 1 tab PO BID 10 days #20 tabs 01/12/24 01/12/24 Rx clavulanate 125 mg tablet benzonatate 100 mg capsule 100 mg PO .COMPLEX PRN cough #30 01/12/24 01/12/24 Rx caps prednisone 20 mg tablet 40 mg (2 x 20 mg) PO DAILY 5 days 01/12/24 01/12/24 Rx #10 tabs Allergies Allergy/AdvReac Type Severity Reaction Status Date / Time clarithromycin [From Biaxin] Allergy Intermediate "got Verified 05/04/24 21:01 really sick" Past Med/Surg History Problem List (Updated 05/04/24 @ 21:04 by Viktor Dominguez MD) Small bowel obstruction (Acute) B12 deficiency Inguinal hernia Testicular pain COVID-19 (Acute) Medical non-compliance Crohn's disease of ileum with intestinal obstruction Medical History Nephrolithiasis URI (upper respiratory infection) SBO (small bowel obstruction) Crohn's disease Lumbar herniated disc SBO (small bowel obstruction) Hx of renal calculi Crohns disease Surgical History S/P small bowel resection Apr 2020 laparoscopic converted to open lysis of adhesions and bowel resection [facility] History of cystoscopy Hx of vasectomy History of colostomy reversal 1995 History of tonsillectomy History of surgical removal of terminal ileum Hx of colostomy 1995 Family History Other Adopted Unobtainable family history due to adoption Social History Smoking Status: Former smoker Tobacco Type: Cigarettes Age Started Using Tobacco: 16; Age Quit Using Tobacco: 30; packs per day: 0.5; Second Hand Exposure: No; Do You Dip or Chew Tobacco: No; Hx Alcohol Use: Yes Alcohol type: hard liquor Alcohol Intake Frequency: 2-4 x/Month Hx Substance Use: No Preferred Language: [place] Island[place] Communication Ability: Effective Visual Impairment: Partially Limited Hearing Ability: Normal Regional Geodetic Advisor Required: No Beliefs That Will Affect Care: None marital status: Current Living Situation: Family Current Living Situation Comment: Lives with and 2 kids current occupational status: employed 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 ) during the past year weight has: remained stable Dental Care, Regularly: Yes Physical Activity Frequency: 5-6 Times per Week Seatbelt Use: always Sunscreen Use: No Assistive Devices: Glasses Physical Exam 2 Vital Signs: Vital Signs - 24 hr 05/04/24 17:57 05/04/24 18:14 05/04/24 18:15 Temperature 36.5 C Temperature Source Temporal Artery Sc an Pulse Rate 97 H 83 Pulse Rate [Apical ] 83 Pulse Rhythm [Apic al] Pulse Strength [Ap ical] Respiratory Rate 16 19 Respiratory Effort / Characteristics Non-Labored Sponta neous Non-Labored Sponta neous Respiratory Depth Normal Normal Respiratory Patter n Blood Pressure 147/92 H Blood Pressure [Ri ght Arm] 122/82 Blood Pressure Kim n 110 Blood Pressure Kim n [Right Arm] 95 Blood Pressure Pos ition Sitting Blood Pressure Pos ition [Right Arm] Pulse Oximetry 98 96 95 Oxygen Delivery Me thod Room Air Room Air Room Air Sepsis Recent Feve r Within 48 Hours No Sepsis New/Unexpla ined Change in Men alessandra Status N/A Sepsis Action Take n by Nursing No Action Required 05/04/24 19:26 05/04/24 20:00 Temperature Temperature Source Pulse Rate 86 Pulse Rate [Apical ] 68 Pulse Rhythm [Apic al] Regular Pulse Strength [Ap ical] Normal Respiratory Rate 18 Respiratory Effort / Characteristics Non-Labored Respiratory Depth Normal Respiratory Patter n Regular Blood Pressure Blood Pressure [Ri ght Arm] 132/85 Blood Pressure Kim n Blood Pressure Kim n [Right Arm] 100 Blood Pressure Pos ition Blood Pressure Pos ition [Right Arm] Sitting Pulse Oximetry 95 Oxygen Delivery Me thod Room Air Sepsis Recent Feve r Within 48 Hours Sepsis New/Unexpla ined Change in Men alessandra Status Sepsis Action Take n by Nursing Physical Exam: Physical Exam GENERAL: oriented to person, place, and time. appears well-developed and well- nourished. She does not appear distressed. HENT: Exam performed. -Head: Normocephalic and atraumatic. -Right Ear: External ear normal. No mastoid erythema -Left Ear: External ear normal. No mastoid erythema -Mouth/Throat: The oropharynx is clear and moist. No trismus in the jaw. No dental abscesses or uvula swelling. No oropharyngeal exudate or tonsillar abscesses. EYES: Conjunctivae and EOM are normal.Right eye exhibits no discharge. Left eye exhibits no discharge. No scleral icterus. NECK: Normal range of motion. Neck supple. No JVD present. No tracheal deviation and normal range of motion present. CV: Normal rate, regular rhythm, normal heart sounds and intact distal pulses. There is no peripheral edema. Palpable radial pulses bue. PULM/CHEST: Effort normal and breath sounds normal. No respiratory distress. No stridor. no wheezes.no rales. -Chest Wall: no tenderness to palpation ABD: The abdomen is soft. Bowel sounds are normal. no distension. No mass is present. There is no tenderness. There is no rebound, no guarding, no Terry's sign and no tenderness at McBurney's point. Rovsig negative MUSC/SKEL: Normal range of motion. There is no peripheral edema, tenderness or deformity. NEURO: Motor and sensation grossly intact. SKIN: Skin is warm and dry. not diaphoretic. PSYCH: normal mood and affect. Behavior is normal. Judgment and thought content normal. Course Course 1802: The patient was evaluated in room A10. A complete history and physical exam was performed Cardiac monitoring: An order was placed for continuous cardiac monitoring. The monitor shows a rate of 80 with sinus rhythm interpreted by ak 2000: Vital signs stable. Labs are unremarkable. CT shows small bowel obstruction. Patient will be admitted to medicine and general surgery will be placed on consult. Administered Medications Discontinued Medications Sodium Chloride (Nss) 1,000 mls @ 125 mls/hr IV .Q8H [facility] Stop: 05/05/24 19:59 Last Admin: 05/04/24 20:24 Dose: 125 mls/hr Documented By: SEVEN Ioversol (Optiray 320 100ml) 90 ml IV ONCE ONE Stop: 05/04/24 19:03 Last Admin: 05/04/24 19:02 Dose: 90 ml Documented By: SHARDA Ketorolac Tromethamine (Ketorolac Tromethamine 15 Mg/Ml Vial) 15 mg IV NOW STA Stop: 05/04/24 18:35 Last Admin: 05/04/24 18:42 Dose: 15 mg Documented By: HAIM Morphine Sulfate (Morphine Sulfate 4 Mg/Ml 1 Ml Carp\\Vial) 4 mg IV NOW STA Stop: 05/04/24 19:58 Last Admin: 05/04/24 20:23 Dose: Not Given Documented By: SEVEN Ondansetron HCl (Ondansetron Inj 2 Mg/Ml 2 Ml Vial) 4 mg IV NOW STA Stop: 05/04/24 18:35 Last Admin: 05/04/24 18:42 Dose: 4 mg Documented By: HAIM Medical Decision Making Laboratory Data Attestation: I reviewed the patient's lab results. 05/04/24 18:10 05/04/24 18:10 Lab Results 05/04/24 Range/Units 18:10 WBC 11.43 H (4.8-10.8) K/ul RBC 4.90 (4.70-6.10) M/uL Hgb 15.2 (14.0-18.0) g/dl Hct 43.9 (42.0-52.0) % MCV 89.6 (80.0-100.0) fL MCH 31.0 (25.0-34.0) pg MCHC 34.6 (32.0-36.0) g/dL RDW Std Deviation 40.7 (36.4-46.3) fL RDW Coeff of Aga 12.3 (11.5-14.5) % Plt Count 337 (130-400) K/uL MPV 9.8 (9.4-12.4) fL Immature Gran % (Auto) 0.3 % Neut % (Auto) 92.6 % Lymph % (Auto) 6.6 % Branch % (Auto) 0.4 % Eos % (Auto) 0.0 % Baso % (Auto) 0.1 % Neut # (Auto) 10.58 H (1.40-6.50) K/uL Lymph # (Auto) 0.75 L (1.20-3.40) K/uL Branch # (Auto) 0.05 L (0.11-0.59) K/uL Eos # (Auto) 0.00 (0.00-0.50) K/uL Baso # (Auto) 0.01 (0.00-0.20) K/uL Immature Gran # (Auto) 0.04 (0.01-0.20) K/uL PT 10.4 (9.0-12.0) Seconds INR 1.0 (0.9-1.1) APTT 28 (21-31) Seconds PTT Ratio 1.0 Sodium 136 (136-145) mmol/L Potassium 3.8 (3.5-5.1) mmol/L Chloride 103 (98-107) mmol/L Carbon Dioxide 24 (21-32) mmol/L Anion Gap 9 (3-11) BUN 13 (6-23) mg/dl Creatinine 0.92 (0.6-1.4) mg/dl Est Cr Clr Drug Dosing 102.5 ml/min eGFR 105.19 BUN/Creatinine Ratio 14.1 (10-20) Glucose 118 H (70-99(Fasting)) mg/dl Calcium 9.5 (8.6-10.3) mg/dl Total Bilirubin 0.5 (0.2-1.0) mg/dl Direct Bilirubin 0.1 (0-0.2) mg/dl AST 21 (13-39) U/L ALT 19 (7-52) U/L Alkaline Phosphatase 116 H (34-104) U/L Total Protein 9.0 H (6.0-8.3) gm/dl Albumin 4.8 (3.4-5.0) gm/dl Lipase 20 (11-82) U/L Imaging Data Radiologist's Impression: Abdomen/Pelvis CT 05/04/24 18:03 Exam(s): CT ABDOMEN + PELVIS With Contrast IV Amt: 90 ml optiray 320 EXAM: CT Abdomen and Pelvis With Intravenous Contrast CLINICAL HISTORY: Reason for exam: abd pain ro sbo. TECHNIQUE: Axial computed tomography images of the abdomen and pelvis with intravenous contrast. CTDI is 14 mGy and DLP is 784 mGy-cm. Automated exposure control was utilized for the study. A dose lowering technique was utilized adhering to the principles of ALARA. CONTRAST: Patient received 90 ml optiray 320 of IV contrast COMPARISON: No relevant prior studies available. FINDINGS: ABDOMEN: Liver: Unremarkable. Gallbladder and bile ducts: Unremarkable. Pancreas: Unremarkable. Spleen: Unremarkable. Adrenals: Unremarkable. Kidneys and ureters: Unremarkable. No obstructing stones. No hydronephrosis. Stomach and bowel: Small bowel obstruction. Transition point within the right lower quadrant. No pneumatosis. Intact suture anastomosis in the colon. PELVIS: Appendix: No findings to suggest acute appendicitis. Bladder: Unremarkable. Reproductive: Unremarkable as visualized. ABDOMEN and PELVIS: Intraperitoneal space: Unremarkable. No free air. No significant fluid collection. 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 Soft tissues: Unremarkable. Vasculature: Unremarkable. Lymph nodes: Unremarkable. IMPRESSION: Small bowel obstruction. Transition point within the right lower quadrant. Electronically signed by: Diams Carrasco MD 05/04/24 19:49 PM MDM Narrative 1803: The patient was evaluated in room A10. A complete history and physical exam was performed Cardiac monitoring: An order was placed for continuous cardiac monitoring. The monitor shows a rate of 80 with sinus rhythm interpreted by me 2000: Vital signs stable. Labs are unremarkable. CT shows small bowel obstruction. Patient will be admitted to medicine and general surgery will be placed on consult. Impression & Plan Small bowel obstruction Discharge Plan Visit Data Chief Complaint: Constipation Stated Complaint: BOWELS OBSTRUCTION, CHRONS DISEASE ED Provider: Viktor Dominguez Discharge Problem: Small bowel obstruction Patient Disposition: Admitted As Inpatient Forms Stand Alone Forms: [facility] [employer] Prescriptions Prescriptions: No Action cyanocobalamin (vitamin B-12) 1,000 mcg/mL solution 1,000 mcg IM .Weekly Qty: 10 2RF (DME) BD Integra Syringe 3 mL 25 gauge x 1" syringe See Rx Instructions .Route Qty: 1 0RF Rx Instructions: As directed with b12 injections multivitamin Tablet 1 tab PO DAILY Remicade 100 mg recon soln See Rx Instructions IV Q8WK Rx Instructions: INFUSE 10MG/KG EVERY 8 WEEKS IV. cholecalciferol (vitamin D3) 25 mcg (1,000 unit) capsule 125 mcg PO DAILY albuterol sulfate [Ventolin HFA] 90 mcg/actuation HFA aerosol inhaler See Rx Instructions inhalation .COMPLEX PRN (Reason: shortness of breath or wheezing) Qty: 8.5 0RF Rx Instructions: 1-2 INH 4-6 PRN; benzonatate 100 mg capsule 100 mg PO .COMPLEX PRN (Reason: cough) Qty: 30 0RF Rx Instructions: 100 mg orally 1 or 2 capsules every 8 hours as needed for cough. PRN; prednisone 20 mg tablet 40 mg PO DAILY 5 Days Qty: 10 0RF Rx Instructions: Take with food amoxicillin-pot clavulanate 875-125 mg tablet 1 tab PO BID 10 Days Qty: 20 0RF Referrals Referrals: Shoaib Schmidt CRNP [Primary Care Provider] -
[2024-05-04 18:55] LABS: Partial Thromboplastin Time 28 Seconds (21-31); Prothrombin Time 10.4 Seconds (9.0-12.0)
[2024-05-04] MEDS: OPTIRAY 320 100ml IV ONE (19:02)
--- NOTE | 2024-05-04 19:50 | CT Scan Report ---
Exam(s): CT ABDOMEN + PELVIS With Contrast IV Amt: 90 ml optiray 320 EXAM: CT Abdomen and Pelvis With Intravenous Contrast CLINICAL HISTORY: Reason for exam: abd pain ro sbo. TECHNIQUE: Axial computed tomography images of the abdomen and pelvis with intravenous contrast. CTDI is 14 mGy and DLP is 784 mGy-cm. Automated exposure control was utilized for the study. A dose lowering technique was utilized adhering to the principles of ALARA. CONTRAST: Patient received 90 ml optiray 320 of IV contrast COMPARISON: No relevant prior studies available. FINDINGS: ABDOMEN: Liver: Unremarkable. Gallbladder and bile ducts: Unremarkable. Pancreas: Unremarkable. Spleen: Unremarkable. Adrenals: Unremarkable. Kidneys and ureters: Unremarkable. No obstructing stones. No hydronephrosis. Stomach and bowel: Small bowel obstruction. Transition point within the right lower quadrant. No pneumatosis. Intact suture anastomosis in the colon. PELVIS: Appendix: No findings to suggest acute appendicitis. Bladder: Unremarkable. Reproductive: Unremarkable as visualized. ABDOMEN and PELVIS: Intraperitoneal space: Unremarkable. No free air. No significant fluid collection. 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 Soft tissues: Unremarkable. Vasculature: Unremarkable. Lymph nodes: Unremarkable. IMPRESSION: Small bowel obstruction. Transition point within the right lower quadrant. Electronically signed by: Dimas Carrasco MD 05/04/24 19:49 PM
--- NOTE | 2024-05-04 20:14 | Surgery Consultation ---
Date of Consultation May 04, 2024 Assessment & Plan (1) SBO (small bowel obstruction): Plan I discussed with the treating emergency room physician and the patient is being admitted on the hospitalist service. From a surgical perspective we recommend the following: On patient's CT scan he does have evidence of a small bowel obstruction but he does not appear to have much in the way of inflammation so this is doubtful a Crohn's exacerbation and potentially may be on the basis of adhesions as he has had numerous previous surgeries Would recommend maintaining n.p.o. status Would recommend hydrating intravenous fluids As the patient has not had any vomiting and his abdomen is nonpainful and nondistended I feel we can hold on placing an NG tube. I did discuss the potential need to use this modality with the patient if he does have worsening of his clinical course and he notes that he would likely refuse this modality anyway We can begin advancing the patient's diet beginning with clear liquids once he has return of bowel function I did discuss with the patient that it be preferable to avoid surgical intervention in this patient due to his multiple previous abdominal surgeries and underlying history of Crohn's disease At the time of my interview the patient was nontoxic-appearing with a nonpainful abdomen, he was afebrile and normotensive without tachycardia and only had a slight leukocytosis. He also does not exhibit acute kidney injury therefore feel conservative measures are warranted at this time Additional recommendations be forthcoming based on his clinical course as unfolds Supervising Physician Co-Signing Physician Notes pnt d/w FIDEL, labs and imaging reviewed, agree with above. H/o crohn's and multiple abd surgeries, presents with abd pain. Similar episodes with sbo in past. CT personally reviewed and interpreted, agree with crohn's flare with partial sbo. Admit to medicine, GI consult for possible steroids. No surgical indication at this time. Avoid surgery if possible. History of Present Illness Reason for Consultation: Small bowel obstruction History of Present Illness This is a 44-year-old male who presented to the emergency department secondary to abdominal pain. Patient says that he has a history of Crohn's disease for which he has had for at least 20 years. Patient says that he currently takes Remicade infusions every 2 months. He notes that his most recent Remicade infusion was approximately 2 months ago and his next 1 is due at approximately 4 days. He says that he has had no issues with maintaining compliance of this medication. He does follow locally with [facility] gastroenterology. Concerning the patient's Crohn disease the patient says that he has had 4 previous abdominal surgeries. He says that he has had his terminal ileum removed. Following that surgery he said he had had a wound dehiscence requiring an additional surgery as well as a temporary ileostomy. He subsequently had his ileostomy reversed. (These 3 surgeries were done approximately 1995 according to the patient). Patient notes that he then had recurrent small bowel obstructions and therefore underwent an exploratory laparotomy with lysis of adhesions. He believes he may have had some bowel resected at that time. The surgery was performed approximate 4 years ago at [facility]. Patient does note that he has had 1 small bowel obstruction the best of his knowledge following his most recent surgery. He says it was treated conservatively without the need for surgery. He presented to the hospital today secondary to some waxing and waning abdominal pain over the past 1 to 2 days. He says that the pain got progressively worse and he had some nausea without vomiting and therefore presented to the emergency department due to concern for small bowel obstruction. He notes his most recent bowel movement was yesterday and he has not passed any flatus since that time. He denies any fevers, shakes, or chills. Since arrival to the hospital this patient has had labs and imaging which I independent reviewed. A CT scan of the abdomen pelvis showed the patient had concern for small bowel obstruction with a transition point in the right lower quadrant. There was no free intraperitoneal air or free intraperitoneal fluid. There is no pneumatosis noted. A CBC revealed white blood cell count of slight elevation of 11.4. Hemoglobin and hematocrit as well as a platelet count were normal. Coagulation studies were normal. Chemistry profile showed sodium and potassium as well as the BUN and creatinine were normal. At the time of my interview the patient was resting comfortably in bed he was in no distress. Allergies Allergy/AdvReac Type Severity Reaction Status Date / Time clarithromycin [From Biaxin] Allergy Intermediate "got Verified 05/04/24 21:01 really sick" Home Medications Medication Instructions Recorded Confirmed Type infliximab 100 mg intravenous See Rx Instructions IV Q8WK 12/15/19 05/04/24 History solution (Remicade) multivitamin 1 tab PO DAILY 07/14/22 05/04/24 History cholecalciferol (vitamin D3) 25 125 mcg PO DAILY 09/06/23 05/04/24 History mcg (1,000 unit) capsule cyanocobalamin (vitamin B-12) 1,000 mcg IM .Weekly #10 mL 12/20/23 05/04/24 Rx 1,000 mcg/mL injection solution syringe with needle, safety 3 mL #1 ea 12/24/23 Rx 25 gauge x 1" (BD Integra Syringe) albuterol sulfate 90 mcg/actuation See Rx Instructions inhalation 01/12/24 05/04/24 Rx aerosol inhaler (Ventolin HFA) .COMPLEX PRN shortness of breath or wheezing #8.5 grams benzonatate 100 mg capsule 100 mg PO .COMPLEX PRN cough #30 01/12/24 05/04/24 Rx caps prednisone 20 mg tablet 40 mg (2 x 20 mg) PO DAILY 5 days 01/12/24 05/04/24 Rx #10 tabs Patient History Medical History Nephrolithiasis URI (upper respiratory infection) SBO (small bowel obstruction) Crohn's disease Lumbar herniated disc SBO (small bowel obstruction) Hx of renal calculi Crohns disease Surgical History S/P small bowel resection Apr 2020 laparoscopic converted to open lysis of adhesions and bowel resection [facility] History of cystoscopy Hx of vasectomy History of colostomy reversal 1995 History of tonsillectomy History of surgical removal of terminal ileum Hx of colostomy 1995 Family History Other Adopted Unobtainable family history due to adoption Social History Smoking Status: Former smoker Tobacco Type: Cigarettes Age Started Using Tobacco: 16; Age Quit Using Tobacco: 30; packs per day: 0.5; Second Hand Exposure: No; Do You Dip or Chew Tobacco: No; Hx Alcohol Use: Yes Alcohol type: hard liquor Alcohol Intake Frequency: 2-4 x/Month Hx Substance Use: No Preferred Language: Com[place] Communication Ability: Effective Visual Impairment: Partially Limited Hearing Ability: Normal Merchandising Consultant Required: No Beliefs That Will Affect Care: None marital status: Current Living Situation: Family Current Living Situation Comment: Lives with and 2 kids current occupational status: employed 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 ) during the past year weight has: remained stable Dental Care, Regularly: Yes Physical Activity Frequency: 5-6 Times per Week Seatbelt Use: always Sunscreen Use: No Assistive Devices: Glasses Review of Systems Review of Systems: All systems reviewed & are unremarkable except as noted in HPI & below Physical Exam Constitutional: WD/WN, vitals as above Eyes: no conjunctival abnormality ENMT: Ears: no hearing impairment and no external ear abnormality Mouth: no oropharynx abnormality Neck: trachea midline Respiratory: normal respiratory effort; no respiratory distress and no labored breathing Cardiovascular: Rate/Rhythm: regular rate and regular rhythm Gastrointestinal (Abdomen): At the time of interview the patient's abdomen was soft and nondistended. It is not rigid. There is no rebound tenderness or guarding. Patient had absolutely no pain with palpation. Musculoskeletal: No calf tenderness Skin: no rashes Neurologic: moves all extremities Psychiatric: A+Ox3, euthymic affect Results & Data Vital Signs (Past 12 Hours) Vital Signs Temp Pulse Pulse Resp BP BP Pulse Ox 05/04/24 19:26 86 05/04/24 18:15 83 19 122/82 95 05/04/24 18:14 83 96 05/04/24 17:57 36.5 C 97 H 16 147/92 H 98 O2 Del Method 05/04/24 19:26 05/04/24 18:15 Room Air 05/04/24 18:14 Room Air 05/04/24 17:57 Room Air PG Care Time/CCT Total # of Minutes Spent Total Time Spent with Patient: Total time spent is greater than 50% in coordination of care (as documented) at patient's floor/unit and/or counseling patient: Coding Level of Care Code 67492 IN/OBS CONSULT LVL 5,80M Diagnoses SBO (small bowel obstruction) K56.609
[2024-05-04] MEDS: MoRPHine SULFATE 4 MG/ML 1 ML CARP\\VIAL IV STA (20:23)
[2024-05-04] MEDS: SODIUM CHLORIDE 0.9% 1,000 ML IV SCH (20:24)
[2024-05-04] MEDS ORDERED: ONDANSETRON INJ 2 MG/ML 2 ML VIAL IV PRN (20:49)
--- NOTE | 2024-05-04 21:01 | History & Physical Report ---
Date of Service May 04, 2024 Assessment & Plan (1) Small bowel obstruction: (2) Crohn's disease of ileum with intestinal obstruction: (3) S/P small bowel resection: Plan The patient is a 44-year-old male with a past medical history including Crohn's disease since age 12, on Remicade IV per outpatient GI, history of multiple bowel obstruction surgeries. He did a brief trial of prednisone today, which sometimes helps when his symptoms developed, however, with persistence of w orsening symptoms, he presents to the emergency department for assessment. Workup in the ED included a CT scan abdomen pelvis which consistent with small bowel obstruction with transition point in the right lower quadrant. Patient was assessed by surgery while in ED, who felt symptoms and imaging were more consistent with potential adhesions versus inflammation associated with Crohn's. Patient is referred by the emergency department to [facility] for admission for SBO. #Small bowel obstruction/transition point right lower quadrant/history of Crohn's with previous resection- CT scan abdomen pelvis with above reading. Symptoms are primarily in the midepigastric region NPO Etiology appears to be more related to adhesions versus inflammation, although there likely is a combination of both Patient reports that he usually gets started on some form of steroids, when these symptoms occur Solu-Medrol 40 mg IV now, then every 12 hours Protonix 40 mg IV now and then every morning Zosyn 4.5 g IV every 8 hours Zofran 4 mg IV every 4 hours as needed Acetaminophen 1 g IV every 8 hours needed for mild pain or fever Morphine sulfate 2 mg IV every 3 hours needed for moderate pain Morphine sulfate 4 mg IV every 3 hours needed for severe pain Patient prefers to avoid narcotics NSS + KCl 20 mill equivalents at 100 mL/h x 2 L Patient is already been seen by general surgery in emergency department, will follow along Crohn's disease- Patient receives Remicade in the outpatient setting, and next dosing was to be on May 08 with [facility] gastroenterology History of Present Illness Chief Complaint: The patient presents to the emergency department with complaint of right lower quadrant toward midepigastric pain, described as intermittently sharp and stabbing, without nausea or vomiting, which began earlier in the day today, similar to previous episodes of small bowel obstruction associated with known history of Crohn's disease Primary Care Provider: MILI Razo The patient is a 44-year-old male with a past medical history including Crohn's disease since age 12, on Remicade IV per outpatient GI, history of multiple bowel obstruction surgeries. He did a brief trial of prednisone today, which sometimes helps when his symptoms developed, however, with persistence of worsening symptoms, he presents to the emergency department for assessment. Workup in the ED included a CT scan abdomen pelvis which consistent with small bowel obstruction with transition point in the right lower quadrant. Patient was assessed by surgery while in ED, who felt symptoms and imaging were more consistent with potential adhesions versus inflammation associated with Crohn's. Patient is referred by the emergency department to [facility] for admission for SBO. Allergies Allergy/AdvReac Type Severity Reaction Status Date / Time clarithromycin [From Biaxin] Allergy Intermediate "got Verified 05/04/24 21:01 really sick" Home Medications Medication Instructions Recorded Confirmed Type infliximab 100 mg intravenous See Rx Instructions IV [id number] 12/15/19 05/04/24 History solution (Remicade) multivitamin 1 tab PO DAILY 07/14/22 05/04/24 History cholecalciferol (vitamin D3) 25 125 mcg PO DAILY 09/06/23 05/04/24 History mcg (1,000 unit) capsule cyanocobalamin (vitamin B-12) 1,000 mcg IM .Weekly #10 mL 12/20/23 05/04/24 Rx 1,000 mcg/mL injection solution syringe with needle, safety 3 mL #1 ea 12/24/23 Rx 25 gauge x 1" (BD Integra Syringe) albuterol sulfate 90 mcg/actuation See Rx Instructions inhalation 01/12/24 05/04/24 Rx aerosol inhaler (Ventolin HFA) .COMPLEX PRN shortness of breath or wheezing #8.5 grams benzonatate 100 mg capsule 100 mg PO .COMPLEX PRN cough #30 01/12/24 05/04/24 Rx caps prednisone 20 mg tablet 40 mg (2 x 20 mg) PO DAILY 5 days 01/12/24 05/04/24 Rx #10 tabs Past Med/Surg History Problem List (Updated 05/04/24 @ 21:04 by Viktor Dominguez MD) S/P small bowel resection Apr 2020 laparoscopic converted to open lysis of adhesions and bowel resection [facility] Small bowel obstruction (Acute) B12 deficiency Inguinal hernia Testicular pain COVID-19 (Acute) Medical non-compliance Crohn's disease of ileum with intestinal obstruction Medical History Nephrolithiasis URI (upper respiratory infection) SBO (small bowel obstruction) Crohn's disease Lumbar herniated disc SBO (small bowel obstruction) Hx of renal calculi Crohns disease Surgical History S/P small bowel resection Apr 2020 laparoscopic converted to open lysis of adhesions and bowel resection [facility] History of cystoscopy Hx of vasectomy History of colostomy reversal 1995 History of tonsillectomy History of surgical removal of terminal ileum Hx of colostomy 1995 Family History Other Adopted Unobtainable family history due to adoption Social History Smoking Status: Former smoker Tobacco Type: Cigarettes Age Started Using Tobacco: 16; Age Quit Using Tobacco: 30; packs per day: 0.5; Second Hand Exposure: No; Do You Dip or Chew Tobacco: No; Hx Alcohol Use: Yes Alcohol type: hard liquor Alcohol Intake Frequency: 2-4 x/Month Hx Substance Use: No Preferred Language: Dominican Communication Ability: Effective Visual Impairment: Partially Limited Hearing Ability: Normal 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 ) during the past year weight has: remained stable Dental Care, Regularly: Yes Physical Activity Frequency: 5-6 Times per Week Seatbelt Use: always Sunscreen Use: No Assistive Devices: Glasses Review of Systems Review of Systems: The patient denies chest pain, palpitations, shortness of breath, dyspnea on exertion, cough, lower extremity swelling, sore throat, fevers, chills, sweats, weight change, fatigue, nausea, vomiting, blood in urine or stool, dysuria, urinary frequency or urgency, lightheadedness, dizziness, headache, memory loss, loss of consciousness, rash, abnormal bruising or bleeding, imbalance, focal or generalized weakness, numbness or tingling in arms or legs, generalized arthralgias or myalgias, back or neck pain, or night sweats. The review of systems is otherwise negative other than for that already noted above, and at least 10 systems have been reviewed. Physical Exam Physical Exam: The patient is awake, alert and oriented 3, well developed and well nourished, normocephalic and atraumatic, lying in bed and in no acute distress. HEENT--PERRL, EOMI, mucous membranes and oropharynx mildly dry. Neck--supple. No JVD. No bruits. Thyroid normal, trachea midline, no adenopathy. Heart--normal S1 and S2. No murmurs, rubs or gallops. Lungs--clear bilaterally, no respiratory distress, no accessory muscle use. Abdomen--normal bowel sounds and soft. Mild tenderness right lower toward mid epigastric area. Nondistended, no hernias or masses, no organomegaly. Extremities--no cyanosis or clubbing. No edema. Dermatologic--normal skin turgor, normal color, no abnormal lymph nodes, no rash. Neurologic--cranial nerves II through XII grossly intact. Rheumatologic--normal range of motion. Psychiatric--normal affect. Results & Data Results & Data Vital Signs (Past 12 Hours) Vital Signs Temp Pulse Pulse Resp BP BP Pulse Ox 05/04/24 20:00 68 18 132/85 95 05/04/24 19:26 86 05/04/24 18:15 83 19 122/82 95 05/04/24 18:14 83 96 05/04/24 17:57 36.5 C 97 H 16 147/92 H 98 O2 Del Method 05/04/24 20:00 Room Air 05/04/24 19:26 05/04/24 18:15 Room Air 05/04/24 18:14 Room Air 05/04/24 17:57 Room Air Laboratory Results Laboratory Results WBC 11.43 K/ul (4.8-10.8) H 05/04/24 18:10 RBC 4.90 M/uL (4.70-6.10) 05/04/24 18:10 Hgb 15.2 g/dl (14.0-18.0) 05/04/24 18:10 Hct 43.9 % (42.0-52.0) 05/04/24 18:10 MCV 89.6 fL (80.0-100.0) 05/04/24 18:10 MCH 31.0 pg (25.0-34.0) 05/04/24 18:10 MCHC 34.6 g/dL (32.0-36.0) 05/04/24 18:10 RDW Std Deviation 40.7 fL (36.4-46.3) 05/04/24 18:10 RDW Coeff of Aga 12.3 % (11.5-14.5) 05/04/24 18:10 Plt Count 337 K/uL (130-400) 05/04/24 18:10 MPV 9.8 fL (9.4-12.4) 05/04/24 18:10 Immature Gran % (Auto) 0.3 % 05/04/24 18:10 Neut % (Auto) 92.6 % 05/04/24 18:10 Lymph % (Auto) 6.6 % 05/04/24 18:10 [place] % (Auto) 0.4 % 05/04/24 18:10 Eos % (Auto) 0.0 % 05/04/24 18:10 Baso % (Auto) 0.1 % 05/04/24 18:10 Neut # (Auto) 10.58 K/uL (1.40-6.50) H 05/04/24 18:10 Lymph # (Auto) 0.75 K/uL (1.20-3.40) L 05/04/24 18:10 [place] # (Auto) 0.05 K/uL (0.11-0.59) L 05/04/24 18:10 Eos # (Auto) 0.00 K/uL (0.00-0.50) 05/04/24 18:10 Baso # (Auto) 0.01 K/uL (0.00-0.20) 05/04/24 18:10 Immature Gran # (Auto) 0.04 K/uL (0.01-0.20) 05/04/24 18:10 PT 10.4 Seconds (9.0-12.0) 05/04/24 18:10 INR 1.0 (0.9-1.1) 05/04/24 18:10 APTT 28 Seconds (21-31) 05/04/24 18:10 PTT Ratio 1.0 05/04/24 18:10 Sodium 136 mmol/L (136-145) 05/04/24 18:10 Potassium 3.8 mmol/L (3.5-5.1) 05/04/24 18:10 Chloride 103 mmol/L (98-107) 05/04/24 18:10 Carbon Dioxide 24 mmol/L (21-32) 05/04/24 18:10 Anion Gap 9 (3-11) 05/04/24 18:10 BUN 13 mg/dl (6-23) 05/04/24 18:10 Creatinine 0.92 mg/dl (0.6-1.4) 05/04/24 18:10 Est Cr Clr Drug Dosing 102.5 ml/min 05/04/24 18:10 eGFR 105.19 05/04/24 18:10 BUN/Creatinine Ratio 14.1 (10-20) 05/04/24 18:10 Glucose 118 mg/dl (70-99(Fasting)) H 05/04/24 18:10 Calcium 9.5 mg/dl (8.6-10.3) 05/04/24 18:10 Total Bilirubin 0.5 mg/dl (0.2-1.0) 05/04/24 18:10 Direct Bilirubin 0.1 mg/dl (0-0.2) 05/04/24 18:10 AST 21 U/L (13-39) 05/04/24 18:10 ALT 19 U/L (7-52) 05/04/24 18:10 Alkaline Phosphatase 116 U/L (34-104) H 05/04/24 18:10 Total Protein 9.0 gm/dl (6.0-8.3) H 05/04/24 18:10 Albumin 4.8 gm/dl (3.4-5.0) 05/04/24 18:10 Lipase 20 U/L (11-82) 05/04/24 18:10 Impressions Abdomen/Pelvis CT 05/04/24 18:03 Exam(s): CT ABDOMEN + PELVIS With Contrast IV Amt: 90 ml optiray 320 EXAM: CT Abdomen and Pelvis With Intravenous Contrast CLINICAL HISTORY: Reason for exam: abd pain ro sbo. TECHNIQUE: Axial computed tomography images of the abdomen and pelvis with intravenous contrast. CTDI is 14 mGy and DLP is 784 mGy-cm. Automated exposure control was utilized for the study. A dose lowering technique was utilized adhering to the principles of ALARA. CONTRAST: Patient received 90 ml optiray 320 of IV contrast COMPARISON: No relevant prior studies available. FINDINGS: ABDOMEN: Liver: Unremarkable. Gallbladder and bile ducts: Unremarkable. Pancreas: Unremarkable. Spleen: Unremarkable. Adrenals: Unremarkable. Kidneys and ureters: Unremarkable. No obstructing stones. No hydronephrosis. Stomach and bowel: Small bowel obstruction. Transition point within the right lower quadrant. No pneumatosis. Intact suture anastomosis in the colon. PELVIS: Appendix: No findings to suggest acute appendicitis. Bladder: Unremarkable. Reproductive: Unremarkable as visualized. ABDOMEN and PELVIS: Intraperitoneal space: Unremarkable. No free air. No significant fluid collection. 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 Soft tissues: Unremarkable. Vasculature: Unremarkable. Lymph nodes: Unremarkable. IMPRESSION: Small bowel obstruction. Transition point within the right lower quadrant. Electronically signed by: Dimas Carrasco MD 05/04/24 19:49 PM Code Status & VTE Plan Code Status Full code VTE Prophylaxis Plan VTE Prophylaxis will be ordered: Yes PG Care Time/CCT Total # of Minutes Spent Total Time Spent with Patient: Total time spent is greater than 50% in coordination of care (as documented) at patient's floor/unit and/or counseling patient: Coding Level of Care Code 00613 INT INP/OBS CARE 3/75MIN Diagnoses Small bowel obstruction K56.609 Crohn's disease of ileum with intestinal obstruction K50.012 S/P small bowel resection Z90.49
[2024-05-04] MEDS: methylPREDNISolone 125 MG/2 ML VIAL IV STA (22:04)
[2024-05-04] MEDS: NSS + 20MEQ KCL 20 MEQ/1,000 ML BAG IV SCH (22:06)
[2024-05-04] MEDS: 4.5GM X1 IV STA (22:06)
[2024-05-04] MEDS: PANTOprazole 40 MG/10 ML SYR IV ONE (22:06)
[2024-05-04] MEDS ORDERED: ALBUTEROL HFA 8 GM INHALER INH PRN (22:44)
[2024-05-04] MEDS ORDERED: MoRPHine SULFATE 4 MG/ML 1 ML CARP\\VIAL IV PRN (22:44)
[2024-05-04] MEDS ORDERED: MoRPHine SULFATE 2 MG/ML CARP IV PRN (22:44)
[2024-05-04] MEDS ORDERED: ACETAMINOPHEN 1000 MG/100 ML IV IV PRN (22:44)
[2024-05-05] MEDS: PIPERACILLIN/TAZOBACTAM 4.5 GM/100 ML BAG IV SCH (01:31)
[2024-05-05 06:40] LABS: Hematocrit (blood only) 41.3 % (42.0-52.0); Hemoglobin 13.9 g/dl (14.0-18.0); Mean Corpuscular Hemoglobin 30.7 pg (25.0-34.0); Mean Corpuscular Hgb Conc 33.7 g/dL (32.0-36.0); Mean Corpuscular Volume 91.2 fL (80.0-100.0); Mean Platelet Volume 10.1 fL (9.4-12.4); Platelet Count 302 K/uL (130-400); RDW Coefficient of Variation 12.5 % (11.5-14.5); RDW Standard Deviation 41.1 fL (36.4-46.3); Red Blood Count 4.53 M/uL (4.70-6.10); White Blood Count 18.03 K/ul (4.8-10.8)
[2024-05-05 06:53] VITALS: O2SAT 95
[2024-05-05 07:01] LABS: Albumin Globulin Ratio 1.3 (0.9-2); Albumin Level 4.2 gm/dl (3.4-5.0); BUN Creatinine Ratio 14.5 (10-20); Bilirubin,Total 0.7 mg/dl (0.2-1.0); Calcium 9.1 mg/dl (8.6-10.3); Creatinine Clr Calc Pharmacy 85.7 ml/min; Globulin 3.3 gm/dl (2.5-4.0); Magnesium 1.9 mg/dl (1.7-2.4); Potassium 4.1 mmol/L (3.5-5.1); Total Protein 7.5 gm/dl (6.0-8.3)
[2024-05-05 07:04] LABS: Basophils # (auto) 0.02 K/uL (0.00-0.20); Basophils % (auto) 0.1 %; Immature Granulocytes # (auto) 0.16 K/uL (0.01-0.20); Immature Granulocytes % (auto) 0.9 %; Lymphocytes # (auto) 0.86 K/uL (1.20-3.40); Lymphocytes % (auto) 4.8 %; Monocytes # (auto) 0.15 K/uL (0.11-0.59); Monocytes % (auto) 0.8 %; Neutrophils # (auto) 16.84 K/uL (1.40-6.50); Neutrophils % (auto) 93.4 %; RBC Morphology Unremarkable
[2024-05-05] MEDS ORDERED: methylPREDNISolone 10 mg/mL (For Ped Dose < 7mg) IV SCH (08:00)
[2024-05-05] MEDS: methylPREDNISolone 40 MG in SYRINGE 0 ML IV SCH (08:23)
[2024-05-05] MEDS: PANTOprazole 40 MG/10 ML SYR IV SCH (08:23)
--- NOTE | 2024-05-05 09:27 | Surgery Progress Note ---
Date of Service May 05, 2024 Assessment & Plan (1) Crohn's disease of ileum with intestinal obstruction: Plan: Pt here with history of crohn's disease with multiple abdominal surgeries in the past here with abdominal pain and CT imaging concerning for SBO in the RLQ WBC 18 (11) but could be related to IV steroids. Vital signs are stable Patient feels much better overall, he is walking hours worth in the hallways. He is passing gas Will trial patient on clears and see how he fairs, if doing well may ADAT Will likely need course of steroids upon dispo, will leave this up to medicine He follows up with [facility] GI No indications for surgical intervention at this time, will follow while pt is here as above. feeling much better. +flatus. no indications for surgical intervention. will start clears. likely d/c soon Admission and Anticipated Discharge Date Admission Date: May 04, 2024 Subjective Patient feeling much better this AM. He is ambulating the hallways. His pain is improved. He is passing gas. He believes it feels more like a crohn's flare than an SBO, as he has experienced both in the past. Physical Exam Physical Exam: awake/alert, no distress Respiratory: normal respiratory effort Results & Data Vital Signs (Past 12 Hours) Vital Signs Temp Pulse Pulse Resp BP Pulse Ox O2 Del Method 05/05/24 06:52 97.9 F 71 16 105/63 95 Room Air 05/04/24 23:02 Room Air 05/04/24 23:02 98.2 F 72 16 129/85 94 Room Air 05/04/24 22:59 98.2 F 72 16 129/85 94 Room Air 05/04/24 22:22 Room Air 05/04/24 22:22 70 17 129/81 98 Room Air PG Care Time/CCT Total # of Minutes Spent Total Time Spent with Patient: Total time spent is greater than 50% in coordination of care (as documented) at patient's floor/unit and/or counseling patient: Coding Level of Care Code 41236 SUB INP/OBS CARE 04/29MIN Diagnoses Crohn's disease of ileum with intestinal obstruction K50.012
[2024-05-05 14:28] VITALS: BP 136/83; PULSE 93; RESP 17; TEMP 98.6
--- NOTE | 2024-05-05 16:55 | Discharge Summary ---
Discharge Summary Date of Service May 05, 2024 Principal Dx & Hospital Course #1 = Principal Diagnosis (1) Small bowel obstruction: (2) Crohn's disease of ileum with intestinal obstruction: (3) S/P small bowel resection: Plan The patient is a 44-year-old male with a past medical history including Crohn's disease since age 12, on Remicade IV per outpatient GI, history of multiple bowel obstruction surgeries. He did a brief trial of prednisone on 05/04/24, which sometimes helps when his symptoms developed, however, with persistence of worsening symptoms, he presents to the emergency department for assessment. Workup in the ED included a CT scan abdomen pelvis which consistent with small bowel obstruction with transition point in the right lower quadrant. Patient was assessed by surgery while in ED, who felt symptoms and imaging were more consistent with potential adhesions versus inflammation associated with Crohn's. He recovered quickly with return of bowel function (flatus and BM) and tolerated low fiber diet. #Small bowel obstruction/transition point right lower quadrant/history of Crohn's with previous resection- - CT scan abdomen pelvis with above reading. Symptoms were primarily in the midepigastric region; now resolved - Etiology appears to be more related to adhesions versus inflammation, although there likely is a combination of both - Given Solu-Medrol 40 mg IV Q12H while hospitalized - Prednisone taper on discharge of 50 mg x 3 days, 40 mg x 30 days, 30 mg x 3 days, 20 mg x 3 days, 10 mg x 3 days, 5 mg x 3 days - Diet was advanced to low fiber/residue, well-tolerated, recommend following that diet x 1 week then advancing as tolerated - Recommend follow-up with [facility] GI, PCP. 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 Recommend bone density test, will defer to PCP #Crohn's disease- - Patient receives Remicade in the outpatient setting, and next dosing is to be on May 08 with [facility] gastroenterology Dispo: Discharged home 05/05/2024 Notes For Next Care Provider Recommend follow-up with [facility] GI outpatient Recommend PCP follow-up. Recommend bone density test CT noted avascular necrosis of bilateral femoral heads -- presuming this is due to heavy steroid use previously Admission HPI Per Admitting Provider The patient is a 44-year-old male with a past medical history including Crohn's disease since age 12, on Remicade IV per outpatient GI, history of multiple bowel obstruction surgeries. He did a brief trial of prednisone today, which sometimes helps when his symptoms developed, however, with persistence of worsening symptoms, he presents to the emergency department for assessment. Workup in the ED included a CT scan abdomen pelvis which consistent with small bowel obstruction with transition point in the right lower quadrant. Patient was assessed by surgery while in ED, who felt symptoms and imaging were more consistent with potential adhesions versus inflammation associated with Crohn's. [facility]. Discharge Exam General: No acute distress, nondiaphoretic, well-developed, well-nourished. Cardiac: Regular rate and rhythm without murmurs gallops or rubs. Pulm: Clear to auscultation bilaterally without wheezes, rales or rhonchi. No respiratory distress. 95% on room air. Abdominal: Soft, nontender, nondistended. Bowel sounds present. No rebound or guarding. Neuro: A&O x3. No focal neurological deficits. Discharge Plan Discharge Items Patient Disposition: Home - Self-Care Reason For Visit: SBO, CROHN'S Discharge Diagnosis: Crohn's flare versus adhesive SBO Activity: Resume your previous activity Non-emergency contact: Primary Care Provider and Fibre Composite Technician Call non-emergency contact if: you have any medication questions, your symptoms worsen, your pain is not controlled and you have a fever Follow-up/Referrals: Shoaib Schmidt CRNP [Primary Care Provider] - 05/11/24 2:00 pm (Follow-up in 1 week) Clare Slade Jr, MD [Physician] - (Follow-up in 1-2 weeks) Deepa Summers PA-C [Physician Drop Hammer Set Up Operator] - 05/23/24 12:40 pm Diet: Low Fiber and Other - See Diet Comment Diet Comment: Advance as tolerated Addtl Attending Provider Instructions: Favio Raul were admitted to the hospital due to concern of Crohn's flare versus adhesive small bowel obstruction (SBO). You have improved quickly and did not require any surgical intervention. Since you have had return of your bowel function (passing gas) and tolerating food, you can be discharged from the hospital and continue your course of treatment at home. Upon discharge from the hospital: * Take prednisone taper as instructed below Take 50 mg (5 pills) x 3 days, then 40 mg (4 pills) x 3 days, then 30 mg (3 pills) x 3 days, then 20 mg (2 pills) x 3 days, then 10 mg (1 pill) x 3 days, then 5 mg (half tablet) x 4 days * Please eat a low fiber/residue diet for 1 week; you can advance your diet as tolerated. These foods include breads, biscuits, pancakes, waffles, bagels, saltines, delta crackers bananas, melons, applesauce, white rice, pasta, tender meat, fish and poultry, ham, hebert, shellfish, lunch meat, dairy products. * Avoid high-fiber foods and raw fruits and vegetables. These include whole grains, popcorn, brown rice, oatmeal, granola, quinoa, nuts, seeds, dried beans, baked beans, peas and lentils, dried fruit. * You can take Zofran 1 tablet every 6 hours as needed for nausea. * Stay hydrated and drink plenty of fluids. Stay physically active as tolerated. * Follow-up with your GI team outpatient and inform them of this hospitalization. * Follow-up with your PCP in 1-2 weeks. Recommend getting a bone density test outpatient. Please return to the hospital if you experience any of the following: Worsening abdominal pain, persistent nausea/vomiting, inability to tolerate oral intake, fever of 100.5 F or higher, chest pain, shortness of breath, lightheadedness, passing out, confusion, or any other symptoms concerning for you. It was a pleasure taking care of you while you were in the hospital, Romana Ni PA-C Pending Studies at Discharge: No Stand-Alone Forms: My [facility] GIGAS, Smoking Cessation Medications and DC Order Prescriptions: New ondansetron 4 mg tablet,disintegrating 4 mg PO Q6H PRN (Reason: nausea and vomiting) Qty: 20 0RF prednisone 10 mg tablet 10 mg PO DIRECTED Qty: 47 0RF Rx Instructions: see taper instructions Continued cyanocobalamin (vitamin B-12) 1,000 mcg/mL solution 1,000 mcg IM .Weekly Qty: 10 2RF (DME) BD Integra Syringe 3 mL 25 gauge x 1" syringe See Rx Instructions .Route Qty: 1 0RF Rx Instructions: As directed with b12 injections multivitamin Tablet 1 tab PO DAILY Remicade 100 mg recon soln See Rx Instructions IV Q8WK Rx Instructions: INFUSE 10MG/KG EVERY 8 WEEKS IV. cholecalciferol (vitamin D3) 25 mcg (1,000 unit) capsule 125 mcg PO DAILY albuterol sulfate [Ventolin HFA] 90 mcg/actuation HFA aerosol inhaler See Rx Instructions inhalation .COMPLEX PRN (Reason: shortness of breath or wheezing) Qty: 8.5 0RF Rx Instructions: 1-2 INH 4-6 PRN; benzonatate 100 mg capsule 100 mg PO .COMPLEX PRN (Reason: cough) Qty: 30 0RF Rx Instructions: 100 mg orally 1 or 2 capsules every 8 hours as needed for cough. PRN; prednisone 20 mg tablet 40 mg PO DAILY 5 Days Qty: 10 0RF Rx Instructions: Take with food Discharge Orders: Discharge Order (Routine); Ordered 05/05/24 Ordered By: Romana Willis/Other Patient Handouts: Small Bowel Obstruction, Crohns Disease Dc Admission Data Admit Date/Time: 05/04/24 21:01 Attending Provider: Favio Bennett Admit Provider: David Glass Primary Care Provider: Shoaib Schmidt Other Providers: Erick Roy Other Interventions: Discharge Summary Assessment (RN) Last Done: 05/05/24 15:56 Hospital Stay Data Consultations 05/04/24 19:57 Consult General Surgery Stat ED Decision to Admit Stat Diagnostic Imagining Performed 05/04/24 18:03 CT abd pelvis IV con only Stat Pending Results Patient Have Any Pending Studies at Discharge: No Discharge Instructions Given to Patient (Per Discharging Provider) Raul Stahl were admitted to the hospital due to concern of Crohn's flare versus adhesive small bowel obstruction (SBO). You have improved quickly and did not require any surgical intervention. Since you have had return of your bowel function (passing gas) and tolerating food, you can be discharged from the hospital and continue your course of treatment at home. Upon discharge from the hospital: * Take prednisone taper as instructed below Take 50 mg (5 pills) x 3 days, then 40 mg (4 pills) x 3 days, then 30 mg (3 pills) x 3 days, then 20 mg (2 pills) x 3 days, then 10 mg (1 pill) x 3 days, then 5 mg (half tablet) x 4 days * Please eat a low fiber/residue diet for 1 week; you can advance your diet as tolerated. These foods include breads, biscuits, pancakes, waffles, bagels, saltines, delta crackers bananas, melons, applesauce, white rice, pasta, tender meat, fish and poultry, ham, hebert, shellfish, lunch meat, dairy products. * Avoid high-fiber foods and raw fruits and vegetables. These include whole grains, popcorn, brown rice, oatmeal, granola, quinoa, nuts, seeds, dried beans, baked beans, peas and lentils, dried fruit. * You can take Zofran 1 tablet every 6 hours as needed for nausea. * Stay hydrated and drink plenty of fluids. Stay physically active as tolerated. * Follow-up with your GI team outpatient and inform them of this hospitalization. * Follow-up with your PCP in 1-2 weeks. Recommend getting a bone density test outpatient. Please return to the hospital if you experience any of the following: Worsening abdominal pain, persistent nausea/vomiting, inability to tolerate oral intake, fever of 100.5 F or higher, chest pain, shortness of breath, lightheadedness, passing out, confusion, or any other symptoms concerning for you. It was a pleasure taking care of you while you were in the hospital, Romana Ni PA-C Supervising Physician Co-Signing Physician Notes Attending Attestation & Discharge Note: Chart reviewed, discharge care plan d/w DIANE Ni. I agree w/ the martini components of her discharge documentation. Of note - I did not perform a bedside visit or personal examination on day of discharge. 44yo male with long-standing Crohn's disease since age 12, on Remicade IV - followed by [facility]. History of multiple bowel obstructions requiring surgery. Presented with diffuse abd pain & nausea. CT abd/pelvis showed small bowel obstruction with transition point in the right lower quadrant. Likely that SBO was 2nd to Crohn's inflammation itself. Treated with IV steroids and conservative Rx. Seen by general surgery - no surgical intervention recommended Prior to discharge was tolerating diet and passing flatus/stool. At discharge will take a slow prednisone taper and f/u with [facility] shortly after d/c. b/l AVN of hips --> seen on imaging - DEXA, outpatient follow-up recommended. Favio Bennett MD Total Time Total Time Spent Total Time Spent (In Minutes): Greater than 30 minutes spent completing this discharge process including direct patient care, medication reconciliation, documentation, review of labs and images, and coordination of care. Coding Level of Care Code 68607 INP/OBS DISCH >30 MIN Diagnoses Small bowel obstruction K56.609 Crohn's disease of ileum with intestinal obstruction K50.012 S/P small bowel resection Z90.49
== END 2024-05-05 16:21 | disposition home or self-care (01) | DRG 386 ==
LOC: ED 17:53 → 3N 21:01 → INTOOBSV 21:01 → SUATTDRO 21:01 → 3N 22:22

== ENCOUNTER 2024-06-27 08:06 | Observation (INO) ==
[2024-06-27] MEDS ORDERED: MoRPHine SULFATE 4 MG/ML 1 ML CARP\\VIAL IV PRN (08:23)
--- NOTE | 2024-06-27 08:27 | Emergency Department Note ---
Impression & Plan Acute upper abdominal pain, SBO (small bowel obstruction), Leukocytosis, Crohn's disease ED Provider Note NAME: ROSCOE YEAGER AGE: 44 SEX: M : 1980 ARRIVES VIA: Walk-In INFORMANT: [Patient] ED PROVIDER(S): [Albin Nina MD] CHIEF COMPLAINT: Abdominal pain HISTORY OF PRESENT ILLNESS: The patient is a 44-year-old male with a history of Crohn's disease and small bowel obstruction. He awoke last night at around 2 AM, just over 6 hours ago with upper abdominal pain. The pain has escalated. He has not nausea, no vomiting, last bowel movement was yesterday. He has not had shortness of breath or chest pain. No fever. He states this may be another bowel obstruction. He was hospitalized earlier this year for a obstruction that resolved spontaneously. He has had previous abdominal surgery. There has been no change in his Crohn's regimen. His pain involves the entire upper abdomen. PMHx/PSHx/Social Hx: See Below PHYSICAL EXAM: GENERAL: Patient is in mild distress from pain. HEENT: No acute trauma, normocephalic atraumatic, mucous membranes moist, no nasal congestion. NECK: No stridor, no adenopathy, no meningismus, trachea is midline. LUNGS: Clear to auscultation bilaterally, no wheeze, no rhonchi, breath sounds equal. HEART: Without murmurs gallops or rubs, regular rate and rhythm. ABDOMEN: Soft, tender in the upper abdomen bilaterally. No distention. Bowel sounds are noted. EXTREMITIES: No cyanosis, full range of motion of all the joints without pain or difficulty. NEUROLOGIC: Oriented x 3, no acute motor or sensory deficits, no focal weakness. SKIN: No jaundice, no diaphoresis. DIFFERENTIAL DIAGNOSIS: Small bowel obstruction, gastritis or ulcer, pancreatitis, diverticulitis, foodborne or viral illness, among others. EMERGENCY DEPARTMENT PROCEDURES: MEDICAL DECISION MAKING: There is a slight leukocytosis, this could be consistent with infection or just his pain. There was a normal hemoglobin and platelet count. No renal failure or significant electrolyte abnormality. No worrisome liver enzyme elevation. No evidence for pancreatitis. Abdominal and pelvis CT does show a small bowel obstruction. On exam, the patient was tender in the upper abdomen, he appeared uncomfortable. He was not toxic or febrile. Patient was given IV saline, 1 L. He was given IV Zofran and IV morphine. He was given IV Pepcid. With the above interventions, the patient feels markedly improved and is much more comfortable. I did talk about placing an NG tube, the patient refused an NG tube. He has done well in the past without this intervention. The patient will require a hospital stay. He has Crohn's disease and today was found to have a small bowel obstruction, he has had this issue before. I did speak with case management, the on-call hospitalist was consulted. Prior/Outside records/notes reviewed: Discharge summary note from 05/05/2024 describing his presentation, hospital course and plan outpatient. Imaging/x-ray results per my interpretation: Chronic Medical/Social conditions affecting care: History of Crohn's disease and bowel obstruction. Care/Management discussed with: Case management, the on-call hospitalist. Level of care consideration(s): After review of the information above and other included data: --I believe the patient requires escalation of care to admission DISPOSITION: Admission Past Med/Surg History Problem List (Updated 06/27/24 @ 13:12 by Albin Nina MD) Crohn's disease (Acute) Leukocytosis (Acute) SBO (small bowel obstruction) (Acute) Acute upper abdominal pain (Acute) S/P small bowel resection Apr 2020 laparoscopic converted to open lysis of adhesions and bowel resection [facility] Small bowel obstruction (Acute) B12 deficiency Inguinal hernia Testicular pain COVID-19 (Acute) Medical non-compliance Crohn's disease of ileum with intestinal obstruction Medical History Nephrolithiasis URI (upper respiratory infection) Crohn's disease Lumbar herniated disc SBO (small bowel obstruction) Hx of renal calculi Crohns disease Surgical History S/P small bowel resection Apr 2020 laparoscopic converted to open lysis of adhesions and bowel resection [facility] History of cystoscopy Hx of vasectomy History of colostomy reversal 1995 History of tonsillectomy History of surgical removal of terminal ileum Hx of colostomy 1995 Family History Other Adopted Unobtainable family history due to adoption Social History Smoking Status: Never smoker Tobacco Type: Cigarettes Age Started Using Tobacco: 16; Age Quit Using Tobacco: 30; packs per day: 0.5; Second Hand Exposure: No; Do You Dip or Chew Tobacco: No; Hx Alcohol Use: Yes Alcohol type: hard liquor Alcohol Intake Frequency: 2-4 x/Month Hx Substance Use: No Preferred Language: Serbian Communication Ability: Effective Visual Impairment: Partially Limited Hearing Ability: Normal Contract Accountant Required: No Beliefs That Will Affect Care: None marital status: Current Living Situation: Spouse Current Living Situation Comment: Lives with and 2 kids current occupational status: employed current occupation: [employer] How many Children do You have: 2 Feels Safe at Home: Yes Diet: regular Diet Comment: low residue do to chrons caffeine: Yes (coffee 1 cup a day. 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 Severe Bowel Unverified 06/27/24 11:52 Obstruction - All solid nuts clarithromycin [From Biaxin] Allergy Intermediate "got Verified 06/27/24 11:52 really sick" Home Meds Home Medications Medication Instructions Recorded Confirmed infliximab 100 mg intravenous See Rx Instructions IV Q8WK 12/15/19 06/27/24 solution (Remicade) ibuprofen 200 mg tablet (Advil) 200 mg PO Q6H PRN Pain 06/27/24 06/27/24 Previous Rx's Medication Instructions Recorded syringe with needle, safety 3 mL #1 ea 12/24/23 25 gauge x 1" (BD Integra Syringe) Results & Data (ED) Vital Signs Vital Signs - 24 hr 06/27/24 08:15 06/27/24 09:49 Temperature 36.8 C Temperature Source Oral Pulse Rate 75 Pulse Rate [Right Finger] 83 Pulse Rhythm Regular Pulse Rhythm [Right Finger] Regular Pulse Strength Normal Pulse Strength [Right Finger] Normal Respiratory Rate 20 18 Respiratory Effort / Characteristics Non-Labored Spontaneous Non-Labored Spontaneous Respiratory Depth Normal Normal Respiratory Pattern Regular Regular Blood Pressure 145/94 H Blood Pressure [Right Arm] 134/85 Blood Pressure Mean 111 Blood Pressure Mean [Right Arm] 101 Blood Pressure Position Sitting Blood Pressure Position [Right Arm] Lying Pulse Oximetry 98 97 Oxygen Delivery Method Room Air Room Air Sepsis Recent Fever Within 48 Hours No Sepsis New/Unexplained Change in Mental Status No Sepsis Action Taken by Nursing No Action Required Home Medications Current Medication List: was personally reviewed by me Laboratory Data Attestation: I reviewed the patient's lab results. 06/27/24 08:44 06/27/24 08:44 Lab Results 06/27/24 Range/Units 08:44 WBC 11.23 H (4.8-10.8) K/ul RBC 5.18 (4.70-6.10) M/uL Hgb 15.5 (14.0-18.0) g/dl Hct 47.5 (42.0-52.0) % MCV 91.7 (80.0-100.0) fL MCH 29.9 (25.0-34.0) pg MCHC 32.6 (32.0-36.0) g/dL RDW Std Deviation 41.8 (36.4-46.3) fL RDW Coeff of Aga 12.4 (11.5-14.5) % Plt Count 289 (130-400) K/uL MPV 9.2 L (9.4-12.4) fL Immature Gran % (Auto) 0.5 % Neut % (Auto) 81.6 % Lymph % (Auto) 14.9 % Millard % (Auto) 2.7 % Eos % (Auto) 0.1 % Baso % (Auto) 0.2 % Neut # (Auto) 9.17 H (1.40-6.50) K/uL Lymph # (Auto) 1.67 (1.20-3.40) K/uL Millard # (Auto) 0.30 (0.11-0.59) K/uL Eos # (Auto) 0.01 (0.00-0.50) K/uL Baso # (Auto) 0.02 (0.00-0.20) K/uL Immature Gran # (Auto) 0.06 (0.01-0.20) K/uL Sodium 140 (136-145) mmol/L Potassium 4.1 (3.5-5.1) mmol/L Chloride 104 (98-107) mmol/L Carbon Dioxide 28 (21-32) mmol/L Anion Gap 8 (3-11) BUN 12 (6-23) mg/dl Creatinine 1.07 (0.6-1.4) mg/dl Est Cr Clr Drug Dosing 87.1 ml/min eGFR 87.76 BUN/Creatinine Ratio 11.2 (10-20) Glucose 111 H (70-99(Fasting)) mg/dl Calcium 9.8 (8.6-10.3) mg/dl Magnesium 2.0 (1.7-2.4) mg/dl Total Bilirubin 0.5 (0.2-1.0) mg/dl AST 19 (13-39) U/L ALT 17 (7-52) U/L Alkaline Phosphatase 109 H (34-104) U/L C-Reactive Protein 0.85 H (0-0.5) mg/dl Total Protein 8.6 H (6.0-8.3) gm/dl Albumin 4.6 (3.4-5.0) gm/dl Globulin 4.0 (2.5-4.0) gm/dl Albumin/Globulin Ratio 1.1 (0.9-2) Lipase 19 (11-82) U/L Administered Medications Discontinued Medications Sodium Chloride (Nss) 1,000 mls @ 999 mls/hr IV .Q1H1M ONE Stop: 06/27/24 09:18 Last Infusion: 06/27/24 11:40 Dose: Infused Documented By: Admin: 06/27/24 08:49 Dose: 999 mls/hr Documented By: [facility] Famotidine (Pepcid 20mg Iv Push) 20 mg in 5 mls @ 2.5 mls/min IV NOW STA Stop: 06/27/24 08:24 Last Admin: 06/27/24 08:48 Dose: 2.5 mls/min Documented By: [facility] Ioversol (Optiray 320 100ml) 93 ml IV ONCE ONE Stop: 06/27/24 10:26 Last Admin: 06/27/24 10:26 Dose: 93 ml Documented By: [facility] Morphine Sulfate (Morphine Sulfate 4 Mg/Ml 1 Ml Carp\\Vial) 4 mg IV NOW STA Stop: 06/27/24 08:24 Last Admin: 06/27/24 08:48 Dose: 4 mg Documented By: [facility] Ondansetron HCl (Ondansetron Inj 2 Mg/Ml 2 Ml Vial) 4 mg IV NOW STA Stop: 06/27/24 08:24 Last Admin: 06/27/24 08:48 Dose: 4 mg Documented By: [facility] Imaging Data Radiologist's Impression: Abdomen/Pelvis CT 06/27/24 08:[address] WITH IV CONTRAST CT DOSE: 616.01 mGy.cm HISTORY: poss sbo TECHNIQUE: Multiaxial CT images of the abdomen and pelvis were performed following the IV administration of 90 cc of Optiray, A dose lowering technique was utilized adhering to the principles of ALARA. COMPARISON STUDY: 05/04/2024 FINDINGS: ABDOMEN: Liver, gallbladder, spleen, pancreas, and adrenal glands are unremarkable. There are a few nonobstructing calculi at the left kidney. There is no hydronephrosis bilaterally. There are a few tiny cysts at the right kidney. No abdominal aortic aneurysm. Pelvis: Prostate is mildly enlarged. Urinary bladder is nondistended. There is mild sigmoid diverticulosis. No acute diverticulitis. There is moderate retained stool. There is stable right colectomy with anastomosis at the mid aspect of the transverse colon. There is interval distention, mild inflammation, and adjacent small amount of free fluid at a few right abdominal small bowel loops, measuring up to 4 cm diameter. There is a focal transition zone likely at the mid to distal jejunum best seen on coronal series 300 images 67 through 83. No other bowel inflammation or dilatation seen. No free air or abscess. No enlarged adenopathy. Osseous structures: There is degenerative disc disease at L5-S1. There is mixed patchy sclerosis and lucency at the femoral heads consistent with AVN. IMPRESSION: 1. Findings consistent with focal small bowel obstruction likely at the mid to distal jejunum. There is a focal transition zone as described. No obstructing mass identified, so this could be due to adhesion. 2. Otherwise as described. ACT 112: Negative or not required by law. The above report was generated using voice recognition software. It may contain grammatical, syntax or spelling errors. Electronically signed by: Erick Shultz M.D. 06/27/2024 10:41 AM Discharge Plan Visit Data Chief Complaint: Constipation Stated Complaint: BOWEL OBSTRUCTION ED Provider: Feese,Albin J Discharge Problem: Acute upper abdominal pain, SBO (small bowel obstruction), Leukocytosis, Crohn's disease Patient Disposition: Admitted As Inpatient Condition: Fair Discharge Instructions Interventions: ED Discharge Assessment Last Done: 06/27/24 12:10 Discharge Problem: Leukocytosis Qualifiers: Leukocytosis type: unspecified Qualified Code(s): D72.829 - Elevated white blood cell count, unspecified Crohn's disease Qualifiers: Gastrointestinal tract location: unspecified location Digestive disease complication type: with intestinal obstruction Qualified Code(s): K50.912 - Crohn's disease, unspecified, with intestinal obstruction
[2024-06-27] MEDS: MoRPHine SULFATE 4 MG/ML 1 ML CARP\\VIAL IV STA (08:48)
[2024-06-27] MEDS: FAMOTIDINE 20MG IV PUSH 20 MG/5 ML SYR IV STA (08:48)
[2024-06-27] MEDS: ONDANSETRON INJ 2 MG/ML 2 ML VIAL IV STA (08:48)
[2024-06-27] MEDS: SODIUM CHLORIDE 0.9% 1,000 ML IV ONE (08:49)
[2024-06-27 08:55] LABS: Basophils # (auto) 0.02 K/uL (0.00-0.20); Basophils % (auto) 0.2 %; Eosinophils # (auto) 0.01 K/uL (0.00-0.50); Eosinophils % (auto) 0.1 %; Hematocrit (blood only) 47.5 % (42.0-52.0); Hemoglobin 15.5 g/dl (14.0-18.0); Immature Granulocytes # (auto) 0.06 K/uL (0.01-0.20); Immature Granulocytes % (auto) 0.5 %; Lymphocytes # (auto) 1.67 K/uL (1.20-3.40); Lymphocytes % (auto) 14.9 %; Mean Corpuscular Hemoglobin 29.9 pg (25.0-34.0); Mean Corpuscular Hgb Conc 32.6 g/dL (32.0-36.0); Mean Corpuscular Volume 91.7 fL (80.0-100.0); Mean Platelet Volume 9.2 fL (9.4-12.4); Monocytes % (auto) 2.7 %; Neutrophils # (auto) 9.17 K/uL (1.40-6.50); Neutrophils % (auto) 81.6 %; Platelet Count 289 K/uL (130-400); RDW Coefficient of Variation 12.4 % (11.5-14.5); RDW Standard Deviation 41.8 fL (36.4-46.3); Red Blood Count 5.18 M/uL (4.70-6.10); White Blood Count 11.23 K/ul (4.8-10.8)
[2024-06-27 09:30] LABS: Albumin Level 4.6 gm/dl (3.4-5.0); Bilirubin,Total 0.5 mg/dl (0.2-1.0); Calcium 9.8 mg/dl (8.6-10.3); Potassium 4.1 mmol/L (3.5-5.1)
[2024-06-27 09:36] LABS: Albumin Globulin Ratio 1.1 (0.9-2); BUN Creatinine Ratio 11.2 (10-20); Creatinine Clr Calc Pharmacy 87.1 ml/min; Total Protein 8.6 gm/dl (6.0-8.3)
[2024-06-27] MEDS: OPTIRAY 320 100ml IV ONE (10:26)
--- NOTE | 2024-06-27 10:43 | CT Scan Report ---
ABDOMEN AND PELVIS CT WITH IV CONTRAST CT DOSE: 616.01 mGy.cm HISTORY: poss sbo TECHNIQUE: Multiaxial CT images of the abdomen and pelvis were performed following the IV administrat ion of 90 cc of Optiray, A dose lowering technique was utilized adhering to the principles of ALARA. COMPARISON STUDY: 05/04/2024 FINDINGS: ABDOMEN: Liver, gallbladder, spleen, pancreas, and adrenal glands are unremarkable. There are a few n onobstructing calculi at the left kidney. There is no hydronephrosis bilaterally. There are a few tin y cysts at the right kidney. No abdominal aortic aneurysm. Pelvis: Prostate is mildly enlarged. Urinary bladder is nondistended. There is mild sigmoid diverticu losis. No acute diverticulitis. There is moderate retained stool. There is stable right colectomy wit h anastomosis at the mid aspect of the transverse colon. There is interval distention, mild inflammat ion, and adjacent small amount of free fluid at a few right abdominal small bowel loops, measuring up to 4 cm diameter. There is a focal transition zone likely at the mid to distal jejunum best seen on coronal series 300 images 67 through 83. No other bowel inflammation or dilatation seen. No free air or abscess. No enlarged adenopathy. Osseous structures: There is degenerative disc disease at L5-S1. There is mixed patchy sclerosis and lucency at the femoral heads consistent with AVN. IMPRESSION: 1. Findings consistent with focal small bowel obstruction likely at the mid to distal jejunum. There is a focal transition zone as described. No obstructing mass identified, so this could be due to adhe alan. 2. Otherwise as described. ACT 112: Negative or not required by law. The above report was generated using voice recognition software. It may contain grammatical, syntax o r spelling errors. Electronically signed by: Erick Shultz M.D. 06/27/2024 10:41 AM
--- NOTE | 2024-06-27 10:55 | History & Physical Report ---
Date of Service June 27, 2024 Assessment & Plan (1) Small bowel obstruction: (2) Crohn's disease of ileum with intestinal obstruction: Lucina Stahl is a 44-year-old male who presented for acute onset of epigastric pain on the morning of 06/27. H/o multiple admissions for SBO, and reports that this is consistent with prior episodes. Coming in for SBO: Conservative measures, IVF, and bowel rest. #Small bowel obstruction A/P CT revealed findings consistent with focal SBO in the mid to distal jejunum Strict n.p.o. and bowel rest Patient declined NG tube on admission; he reports that he has had multiple SBO's in the past, which have often resolved with fluids and bowel rest Surgery consult appreciated IVF maintenance with NSS at 110mL/hr x 2 days; please add on additional fluids as needed IV pain control PRN; note: Patient reports he would prefer to avoid narcotics IV antiemetics PRN #Crohn's disease/Crohn's ileitis Currently on Remicade (infliximab) outpatient; last injection on 05/08 Not currently on prednisone GI consult appreciated Suspect SBO may be more consistent with adhesions vs inflammation associated with Crohn's However, will start patient on Solumedrol 20 mg IV q12h #History of small bowel resection H/o 4 small bowel surgeries, with the last being at [facility] in 2019 (per patient) Disposition: Admit to [facility] Full code N.p.o. VTE PPx: Low risk; SCDs, encourage ambulation History of Present Illness Chief Complaint: Epigastric pain Primary Care Provider: MILI Razo Favio is a pleasant 44-year-old male with PMH of Crohn's disease of ileum with intestinal obstruction, multiple bowel obstruction surgeries s/p small bowel resection, B12 deficiency, and inguinal hernia. He presented on 06/27 for epigastric pain that woke him from sleep around 2 or 3 AM. He reports that the pain came in waves, and while it was consistent with prior episodes of small bowel obstruction, the waves were coming "quicker" than prior episodes; every 20 seconds versus every 1 to 5 minutes. Patient would lay on his stomach and apply pressure to alleviate the pain. He rated the pain 9/10 prior to arrival, and 2/10 after receiving pain medicine in the ED. Patient does not take medicine on a daily basis. Additionally, he notes he was sweating (dripping with sweat) when he woke up, and initially thought it might be a stomach bug. He denies any recent changes in diet, but does report he is cut bread and pasta out of his diet and is eating more proteins. He is around sick contacts at home who have cold/congestion, but no stomach bugs. His last bowel movement was yesterday on 06/26, and he reports he is still passing gas this morning. He does receive Remicade injections for his Crohn's disease, and his next injection is scheduled for Monday 07/03. His most recent injection was on 05/08. Patient is not currently on prednisone. He has a history of 4 surgeries on his small bowel, with the last being in 2019 or 2020 at [facility]. Patient declines NG tu be at time of admission, as he reports he has done well with bowel rest and fluids with prior episodes of SBO. Patient denies smoking, tobacco use, recent alcohol use. Patient's vitals are stable at time of admission. ED course: Morphine sulfate 4 mg IV NSS 1000 mL IV Zofran 4 mg IV Famotidine 20 mg IV ROS: Patient endorses epigastric pain, chills, night-sweats (dripping wet overnight), headache (attributes to dehydration), congestion, productive cough (yellow sputum production x 1 week), nausea, and intermittent diarrhea (attributes to Crohn's disease),. Patient denies fever, dizziness, lightheadedness, chest pain, SOB, pleuritic CP, vomiting, burning with urination, blood in the urine/stool, melena, or numbness/tingling in the arms or legs. 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 Severe Bowel Unverified 06/27/24 11:52 Obstruction - All solid nuts clarithromycin [From Biaxin] Allergy Intermediate "got Verified 06/27/24 11:52 really sick" Home Medications Medication Instructions Recorded Confirmed Type infliximab 100 mg intravenous See Rx Instructions IV [id number] 12/15/19 06/27/24 History solution (Remicade) syringe with needle, safety 3 mL #1 ea 09/20/24 Rx 25 gauge x 1" (BD Integra Syringe) ibuprofen 200 mg tablet (Advil) 200 mg PO Q6H PRN Pain 06/27/24 06/27/24 History Past Med/Surg History Problem List Crohn's disease (Acute) Leukocytosis (Acute) SBO (small bowel obstruction) (Acute) Acute upper abdominal pain (Acute) S/P small bowel resection Apr 2020 laparoscopic converted to open lysis of adhesions and bowel resection [facility] Small bowel obstruction (Acute) B12 deficiency Inguinal hernia Testicular pain COVID-19 (Acute) Medical non-compliance Crohn's disease of ileum with intestinal obstruction Medical History Nephrolithiasis URI (upper respiratory infection) Crohn's disease Lumbar herniated disc SBO (small bowel obstruction) Hx of renal calculi Crohns disease Surgical History History of cystoscopy Hx of vasectomy History of colostomy reversal 1995 History of tonsillectomy History of surgical removal of terminal ileum Hx of colostomy 1995 Family History Other Adopted Unobtainable family history due to adoption Social History Smoking Status: Never smoker Tobacco Type: Cigarettes Age Started Using Tobacco: 16; Age Quit Using Tobacco: 30; packs per day: 0.5; Second Hand Exposure: No; Do You Dip or Chew Tobacco: No; Hx Alcohol Use: Yes Alcohol type: hard liquor Alcohol Intake Frequency: 2-4 x/Month Hx Substance Use: No Preferred Language: Ethiopian Communication Ability: Effective Visual Impairment: Partially Limited Hearing Ability: Normal Chicken Buyer Required: No Beliefs That Will Affect Care: None marital status: Current Living Situation: Spouse Current Living Situation Comment: Lives with and 2 kids current occupational status: employed 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 ) during the past year weight has: remained stable Dental Care, Regularly: Yes Physical Activity Frequency: 5-6 Times per Week Seatbelt Use: always Sunscreen Use: No Assistive Devices: Glasses Review of Systems Review of Systems: See HPI above Physical Exam Physical Exam: General: no acute distress; pleasant affect; non-toxic appearing; well- nourished; cooperative; SpO2 97% on RA HEENT: normocephalic, atraumatic; no scleral icterus; PERRLA; vision and hearing grossly intact Neck: supple; no lymphadenopathy; trachea midline Skin: warm, dry without signs of tenting; no cyanosis; no rashes, bruising, lesions, or erythema noted CV: chest wall NTP; RRR; S1/S2 normal; no murmurs/rubs/gallops; pulses intact and symmetric at radial, DP, and PT Lungs: no acute respiratory distress; symmetrical chest wall expansion; clear breath sounds across all lung emerson w/o adventitious sounds; no wheezing ABD: Soft, NTP in all 4 quadrants; NTP in the epigastric region; no rashes or bruising on the abdomen or flanks bilaterally; BS present; no rebound/guarding; no distention MSK: no tics or fasciculations; no edema noted in the LEs b/l, nonerythematous Neuro: A&Ox3; normal mood and affect; fluent speech; no focal deficits; sensation intact and symmetric in the lower EXTR bilaterally Results & Data Results & Data Vital Signs (Past 12 Hours) Vital Signs Temp Pulse Pulse Resp BP BP Pulse Ox 06/27/24 09:49 83 18 134/85 97 06/27/24 08:15 36.8 C 75 20 145/94 H 98 O2 Del Method 06/27/24 09:49 Room Air 06/27/24 08:15 Room Air Laboratory Results Abnormal lab results 06/27/24 Range/Units 08:44 WBC 11.23 H (4.8-10.8) K/ul MPV 9.2 L (9.4-12.4) fL Neut # (Auto) 9.17 H (1.40-6.50) K/uL Glucose 111 H (70-99(Fasting)) mg/dl Alkaline Phosphatase 109 H (34-104) U/L Total Protein 8.6 H (6.0-8.3) gm/dl Diagnostic Findings Abdomen/Pelvis CT 06/27/24 08:[address] WITH IV CONTRAST CT DOSE: 616.01 mGy.cm HISTORY: poss sbo TECHNIQUE: Multiaxial CT images of the abdomen and pelvis were performed following the IV administration of 90 cc of Optiray, A dose lowering technique was utilized adhering to the principles of ALARA. COMPARISON STUDY: 05/04/2024 FINDINGS: ABDOMEN: Liver, gallbladder, spleen, pancreas, and adrenal glands are unremarkable. There are a few nonobstructing calculi at the left kidney. There is no hydronephrosis bilaterally. There are a few tiny cysts at the right kidney. No abdominal aortic aneurysm. Pelvis: Prostate is mildly enlarged. Urinary bladder is nondistended. There is mild sigmoid diverticulosis. No acute diverticulitis. There is moderate retained stool. There is stable right colectomy with anastomosis at the mid aspect of the transverse colon. There is interval distention, mild inflammation, and adjacent small amount of free fluid at a few right abdominal small bowel loops, measuring up to 4 cm diameter. There is a focal transition zone likely at the mid to distal jejunum best seen on coronal series 300 images 67 through 83. No other bowel inflammation or dilatation seen. No free air or abscess. No enlarged adenopathy. Osseous structures: There is degenerative disc disease at L5-S1. There is mixed patchy sclerosis and lucency at the femoral heads consistent with AVN. IMPRESSION: 1. Findings consistent with focal small bowel obstruction likely at the mid to distal jejunum. There is a focal transition zone as described. No obstructing mass identified, so this could be due to adhesion. 2. Otherwise as described. ACT 112: Negative or not required by law. The above report was generated using voice recognition software. It may contain grammatical, syntax or spelling errors. Electronically signed by: Erick Shultz M.D. 06/27/2024 10:41 AM Code Status & VTE Plan Code Status Full code VTE Prophylaxis Plan VTE Prophylaxis will be ordered: Yes Supervising Physician Co-Signing Physician Notes I personally saw and examined the patient. I independently reviewed the labs, EKG, imaging, problem list, medication list, past medical history and family history. I verified all martini points and agree with Damion Mir PA-C with the following exceptions and/or additions: 44 year old with known Crohn's disease presents with flare and small bowel obst ruction shortly prior to receiving his Remicade dosing. O/E HS RRR, no murmurs, Chest CTAB, Abdo mild RLQ pain without guarding or rebound tenderness A/P Crohn's flare / SBO - NPO, IV fluids, Solu-medrol 40mg IV BID, consider decreasing duration between Remicade dosing as outpatient PG Care Time/CCT Total # of Minutes Spent Total Time Spent with Patient: Total time spent is greater than 50% in coordination of care (as documented) at patient's floor/unit and/or counseling patient: Coding [place] [address] INT INP/OBS CARE 3/75MIN Patient Type Established Medical Decision Making High Complexity Diagnoses Small bowel obstruction K56.609 Crohn's disease of ileum with intestinal obstruction K50.012
[2024-06-27] MEDS ORDERED: methylPREDNISolone 1000 MG/16 ML IV SCH (11:30)
--- OUTSIDE RECORDS SUMMARY | 2024-06-27 12:27 | External Medical Summary | Continuity of Care Document ---
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 Name Role Phone Keyshawn Frost Primary Care Physician [phone] [facility] [id number] Date(s): 05/02/24 - 05/02/24 [place] [address] [address] [phone] Encounter Diagnosis Crohn's disease(Discharge Diagnosis) - 05/02/24 Therapeutic drug monitoring(Discharge Diagnosis) - 05/02/24 Epigastric abdominal pain(Discharge Diagnosis) - 05/02/24 Early satiety(Discharge Diagnosis) - 05/02/24 Vitamin D deficiency(Discharge Diagnosis) - 05/02/24 Elevated alkaline phosphatase level(Discharge Diagnosis) - 05/02/24 Vitamin B12 deficiency(Discharge Diagnosis) - 05/02/24 Anemia(Discharge Diagnosis) - 05/02/24 Skin lesion(Discharge Diagnosis) - 05/02/24 Discharge Disposition: Home or Self Care Attending Physician: ENA Summers Michaella Allergies, Adverse Reactions, Alerts Substance Criticality Severity Reaction Reaction Severity Status Biaxin n/a Active Assessment and Plan Extracted from: Title:Office Visit Note Author:ENA Summers, Raz may Date:05/02/24 1. Crohn's disease Patient is a 44 year old make with a pmhx of stricturing and fistulizing ileocolonic crohn's disease requiring multiple small bowel resections in the past who is currently managed on Remicade q8 weeks. Clinically doing well. Unfortunately he is well overdue for his endoscopic evaluation. - Patient overdue for surveillance Colonoscopy - last in 2019. Patient tells me he is not willing to move forward with a colonoscopy at this time "because I don't want to." I did discuss with him that I will not continue moving forward with prescribing him a biologic if he is not going to comply with surveillance recommendations for colon cancer screening which he is at higher risk for with his personal history of inflammatory bowel disease. Patient did agree to getting the procedure done but "sometime this year." Colonoscopy ordered, and will need to be performed before next office visit in 1 year. It was ordered after his last office visit but patient did not move forward with the endoscopic evaluation. IBD Health Maintenance - High Risk Colon Cancer Screening: Overdue, last colo 2019 - Drug Toxicity Monitoring/Counseling: Skin cancer screening yearly recommended - referred to dermatology. Hx of dysplastic nevus from July 2020 - Drug Monitoring - labs ordered - Bone Disease: monitor vitamin D at least yearly, DEXA - Vaccinations: - Influenza recommended annually - refuses - Pneumonia - Prevnar (PCV13), followed by pneumovax (PPSV23) 8 weeks later, and a repeat PPSV23 5 years after the first dose. - Inactive shingles - COVID and boosters - refuses - Live vaccine precautions reviewed: patient should NOT receive Shingles Vaccine (Zostavax) or Yellow Fever Vaccine while on immunosuppression. - Depression: n/a - Smoking Cessation: n/a, hx of tobacco use - Medication Compliance: reports compliance with infusions, "not good at taking pills which is why I have done so well on the Remicade" 2. Therapeutic drug monitoring - Remicade levels and antibodies ordered 3. Epigastric abdominal pain 4. Early satiety - Recommend EGD for further evaluation. This was discussed at his last office visit with Dr. Carlos, but patient did not want to have it done and therefore did not schedule. 5. Elevated alkaline phosphatase level - isoenzymes ordered - hx of recurrent prednisone use, vitamin D deficiency may need dexa 6. Vitamin D deficiency - has not been compliant with vitamin D supplementation - check levels 7. Vitamin B12 deficiency - has not been compliant with b12 supplementation, recommend checking levels. may need IM injections 8. Anemia - cbc ordered 9. Skin lesion - Per chart review patient did have a dermatology OV from July of 2020 for atypical pigmented nevi which were removed from his back with pathology showing "Lentiginous junctional dysplastic nevus" and "Lentiginous compound dysplastic nevus, examined margins free from involvement" GI follow up 1 year, sooner if needed. I have spent 53 minutes in evaluation, education and documentation of this pt in both face to face and non-face to face activities. Patient is advised to call the office if they have any questions or concerns between now and next appointment. Medications BD 3mL Luer-Ronal Syringe 20G x 1" Start: 06/30/23 4:56:00 PM EDT, See Instructions, Disp# 10 each, Refills: 1, Use as directed. Max __1__/day. Use new syringe with each injection., Pharmacy: [facility] #[id number] Start Date: 06/30/23 Status: Ordered Remicade 100 mg intravenous injection Start: 05/03/24 8:38:00 PM EST, See Instructions, Disp# 8 each, Refills: 5, 10 mg/kmg IV every8 weeks., Pharmacy: [facility] Start Date: 05/03/24 Status: Ordered Mental Status 05/02/24 Barriers to Learning one year None evide nt Mandatory Health Literacy Documentation Yes Health Literacy Communication Barriers N ever Primary Language Tajik Problem List Condition Confirmation Course Effective Dates Status Health St atus Informant Anemia Confirmed Active B12 deficiency Confirmed Active Crohn's ileocolitis Confirmed Active Vitamin D deficiency Confirmed Active Diagnosis Diagnosis Type Effective Dates Health Status Clinical Service Informant Vitamin D deficiency Discharge Diagnosis 05/02/24 Non-Specified Vitamin B12 deficiency Discharge Diagnosis 05/02/24 Non-Specified Crohn's disease Discharge Diagnosis 05/02/24 Non-Specified Anemia Discharge Diagnosis 05/02/24 Non-Specified Epigastric abdominal pain Discharge Diagnosis 05/02/24 Non-Specified Skin lesion Discharge Diagnosis 05/02/24 Non-Specified Early satiety Discharge Diagnosis 05/02/24 Non-Specified Elevated alkaline phosphatase level Discharge Diagnosis 05/02/24 Non-Specified Therapeutic drug monitoring Discharge Diagnosis 05/02/24 Non-Specified Procedures Procedure Date Related Diagnosis Body Site Status Shave biopsy and cauterization of skin 05/21/23 Completed Laboratory findings data interpretation 1 06/08/[address] of abdomen and pelvis 2 01/01/22 Completed Laboratory findings data interpretation 3 12/15/21 Completed Laboratory findings data interpretation 4 07/31/21 Completed Evaluation of test results 5 05/20/21 Completed Laboratory findings data interpretation 6 03/18/21 Completed Laboratory findings data interpretation 7 12/11/20 Completed Small bowel follow through 8 09/30/20 Completed KUB X-ray 9 09/20/20 Completed Ultrasound of kidney 10 09/20/20 C ompleted Shave biopsy of skin 07/17/20 Comp leted Shave biopsy of skin 07/17/20 Comp leted 1BUN nl, CR nl, AST nl, ALT nl, CBC Hgb 13.2 L 21) Findings are compatible with small bowel obstruction with a right lower quadrant distal transition point. No evidence of closed loop obstruction, bowel ischemia or perforation. 2) Nonobstructive nephrolithiasis. No evidence of hdronephrosis 3) Additional findings as above 3BUN nl, CR nl, AST nl, ALT nl, CBC Hgb 12.5 L. MCV nl, 4BUN, Cr, AST, ALT all normal. CBC Hgb 13.2 L, 5BUN, CR, AST, ALT, CBC, Hgb 13.3 MCV nl. 6CBC Hgb 13.2 L, BUN 13 nl, CR 1.0 nl, AST 13, ALT 23, 7BUN, CR AST, ALT normal. CBC Hgb 13.2 L, Hct 40.2 L, 8Impression: No evidence for a small bowel obstruction. Status post right hemicolectomy. Unremarkable small bowel for pattern although neoterminal ileum slightly obscured. 9Nonobstructed abdominal bowel gas pattern 101) Mild right hydronephrosis. No uretreral calculi identified although these may be occult by sonography 2) No left hydronephrosis 3) Apparent mild bladder wall thickening adjacent to the ureterovesical junctions. Vital Signs Most recent to oldest [Reference Range]: 1 Patient Weight 76.2 kg (05/02/24 11:02 AM) Heart Rate 72 bpm (05/02/24 11:02 AM) Respiratory Rate 18 br/min (05/02/24 11:02 AM) Blood Pressure 124/80mmHg (05/02/24 11:02 AM) Cuff Pulse Pressure 44 mmHg (05/02/24 11:02 AM) Social History Social History Type Response Smoking Status Never smoked cigaret yifan Sex Sex Representation Male (finding) Gastroenterology Outpatient Note * ENA Summers Michaella: PERFORM Event Display: Gastroenterology Outpt Note Authored Date: [id number] Chief Complaint needs remicade refill. no concerns History of Present Illness The patient is a pleasant 44 year-old Male who presents today for IBD. Prior records, [facility] gastroenterology intake form, and past medical history reviewed. Prior records reviewed: 02/21/[address] Orellana reviewed: Patient of Dr. Granados with ileocolonic crohns since age 12. 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 S/P ileocecal resection 04/2020 [facility] and new anastomosis and lysis of adhesion. On remicade q8 weeks since 1999. 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 Moving his bowels2-3 times daily semiformed. No abdominal pain. Did have a colonoscopy with Dr. Poon in 2019 but there was active disease at the anastomosis and it was too small and too tight transversed 03/09/[address] Orellana reviewed: Patient feels okay overall. Does get an occasional SBO and did have an attack 01/2022. He was hospitalized for about 24 hours. It resolved spontaneously. States he is taking [id number]-[id number]-[id number] vitamin D3 2000 units once daily. He also takes iron orally once daily 03/23/[address] Orellana reviewed: Patient is on Remicade every 8 weeks. Feels like the last 2 weeks prior to his infusion he has diarrhea, fatigue and joint pain. Has lost weight over the last couple months, up to 20 pounds unintentional. Does not feel hungry. He states he hasnot had a great appetite for years with a lot of fullness postprandially Labs: 09/20/2020 hemoglobin 14.1 03/2021 vitamin B12 2 28L, iron percent 26 WNL, vitamin D 22L 06/08/2022 AST, ALT, creatinine, WNL. CBC hemoglobin 13.2 L. Labs workup anemia were ordered but not done. 03/25/2023 Hgb 13.1 L, K 3.4, Vit D 19L, B12 low 203 L, alk phos 119H, glucose 150H, Remicade level 7.1, antibodies undetectable 06/04/2023 alk phos 118 H, cbc showed worsening anemia 12,5L, vit D 19.6 L, vitamin B12 worse 147. Imaging: Small bowel follow-through 09/30/2020 status post right hemicolectomy CT abdomen pelvis 01/2022 SBO 05/02/2024 GI OV (Melina): Patient is new to me, previously seen by Dr. Orellana and prior to that Dr. Granados. He has a past medical history of ileocolonic Crohn's disease diagnosed age 12 requiring surgery for an ileal stricture in 1995 but developed a psoas abscess and had to be reoperated on with further resection increased including needing a diverting ileostomy which was eventually reversed. More recently in 2020 patient had another small bowel resection for recurrent SBO's. He has been on Remicade every 8 weeks since 1999 and has overall been doing well recently. Has beenmoving bowels 1-2 times daily, no blood, no melena. Denies abdominal pain. Has not had prednisone for several years, telling me his hips are "dying" from the chronic steroid use. He denies weight loss but has had some early satiety. Heartburn comes and goes, was previously managed on PPI but patient had a provider in the past who "did not want to continue writing it for me." He denies nausea or vomiting. Tells me that he does not want his colonoscopy. Tells me he hasnot seen dermatology for a full skin exam in years. Tells me he does not want his influenza or covid immunizations. IBD History - Diagnosis: Fistulizing and stricturing Ileocolonic Crohn's diagnosed age 12 (1991) - Previous treatments: Pentasa, Azathioprine, Prednisone ("a lot") last time was a few years ago - Current treatment: Remicade q8 weeks - IBD surgeries: #4 - TI resection, emergency diverting ileostomy with reversal, then SB resectionin 2020 for recurrent SBOs - Last Steroid us: "few years ago" - Hospitalizations: "few years ago" ([facility]) - Extraintestinal manifestations (joint, eye, mouth ulcers, skin lesions): denies - sees eye doctor (last was a few months ago). Has not been in for a full skin check with dermatology - Upper GI or Perianal involvement: denies - FHx of IBD or CRC: adopted, does not know - Smoking history: quit 10 years ago Social History: ETOH use: rare, 2 drinks a week Tobacco use: denies recent, hx of tobacco use NSAID use: Advil, 2x/month No further complaints or concerns today. Physical Exam Vitals & Measurements HR: 72 (Monitored) RR: 18 BP: 124/80 SpO2: 98% WT: 76.200 kg (Dosing) WT: 76.2 kg General: Alert and oriented, No acute distress, appears stated age HENT: Normocephalic, normal hearing Respiratory: Respiration are non-labored, pt speaking in complete sentences, and no evidence of respiratory distress is noted Integumentary: Exposed skin viewable is dry and intact Psychiatric: Cooperative, appropriate mood & affect, Normal judgement Assessment/Plan 1. Crohn's disease Patient is a 44 year old make with a pmhx of stricturing and fistulizing ileocolonic crohn's disease requiring multiple small bowel resections in the past who is currently managed on Remicade q8 weeks. Clinically doing well. Unfortunately he is well overdue for his endoscopic evaluation. - Patient overdue for surveillance Colonoscopy - last in 2019. Patient tells me he is not willing to move forward with a colonoscopy at this time "because I don't want to." I did discuss with himthat I will not continue moving forward with prescribing him a biologic if he is not going to comply with surveillance recommendations for colon cancer screening which he is at higher risk for with his personal history of inflammatory bowel disease. Patient did agree to getting the procedure done but "sometime this year." Colonoscopy ordered, and will need to be performed before next office visit in 1 year. It was ordered after his last office visit but patient did not move forward with the endoscopic evaluation. IBD Health Maintenance - High Risk Colon Cancer Screening: Overdue, last colo 2019 - Drug Toxicity Monitoring/Counseling: Skin cancer screening yearly recommended - referred to dermatology. Hx of dysplastic nevus from July 2020 - Drug Monitoring - labs ordered - Bone Disease: monitor vitamin D at least yearly, DEXA - Vaccinations: - Influenza recommended annually - refuses - Pneumonia - Prevnar (PCV13), followed by pneumovax (PPSV23) 8 weeks later, and a [id number] 5 years after the first dose. - Inactive shingles - COVID and boosters - refuses - Live vaccine precautions reviewed: patient should NOT receive Shingles Vaccine (Zostavax) or Yellow Fever Vaccine while on immunosuppression. - Depression: n/a - Smoking Cessation: n/a, hx of tobacco use - Medication Compliance: reports compliance with infusions, "not good at taking pills which is whyI have done so well on the Remicade" 2. Therapeutic drug monitoring - Remicade levels and antibodies ordered 3. Epigastric abdominal pain 4. Early satiety - Recommend EGD for further evaluation. This was discussed at his last office visit with Dr. Carlos, but patient did not want to have it done and therefore did not schedule. 5. Elevated alkaline phosphatase level - isoenzymes ordered - hx of recurrent prednisone use, vitamin D deficiency may need dexa 6. Vitamin D deficiency - has not been compliant with vitamin D supplementation - check levels 7. Vitamin B12 deficiency - has not been compliant with b12 supplementation, recommend checking levels. may need IM injections 8. Anemia - cbc ordered 9. Skin lesion - Per chart review patient did have a dermatology OV from July of 2020 for atypical pigmented nevi which were removed from his back with pathology showing "Lentiginous junctional dysplastic nevus"and "Lentiginous compound dysplastic nevus, examined margins free from involvement" GI follow up 1 year, sooner if needed. I have spent 53 minutes in evaluation, education and documentation of this pt in both face to face and non-face to face activities. Patient is advised to call the office if they have any questions or concerns between now and next appointment. Problem List/Past Medical History Ongoing Anemia B12 deficiency Crohn's ileocolitis Vitamin D deficiency Procedure/Surgical History •Shave biopsy and cauterization of skin| Service Date: 05/21/2023•Laboratory findings data interpretation| Service Date: 06/08/2022•CT of abdomen and pelvis| Service Date: 01/01/2022•Laboratory findings data interpretation| Service Date: 12/15/2021•Laboratory findings data interpretation|Service Date: 07/31/2021•Evaluation of test results| Service Date: 05/20/2021•Laboratory findings data interpretation| Service Date: 03/18/2021•Laboratory findings data interpretation| Service Date: 12/11/2020•Small bowel follow through| Service Date: 09/30/2020•KUB X-ray| Service Date: 09/20/2020•Ultrasound of kidney| Service Date: 09/20/2020•Shave biopsy of skin| Service Date: 07/04•Shave biopsy of skin| Service Date: 07/17/2020 Medications inFLIXimab(Remicade 100 mg intravenous injection), See Instructions, 5 refills syringe(BD 3mL Luer-Ronal Syringe 20G x 1"), See Instructions, 1 refills Allergies Biaxin n/a Social History Smoking Status Never smoked cigarettes Family History Patient was adopted Family history is unknown Recommendations Health Maintenance Pending (in the next year) OverDue Body Mass Index due 03/10/23 and every 366 day Adult Influenza Vaccine due 10/04/23 and every 1 year Due Adult COVID-19 Vaccination due 05/02/24 Unknown Frequency Adult Social Determinants of Health Screening due 05/02/24 Unknown Frequency Adult Tdap/Td Vaccine due 05/02/24 Unknown Frequency Hepatitis C Screening due 05/02/24 One-time only Lipid Screening due 05/02/24 Unknown Frequency Pneumococcal Vaccine Adults and Adolescents with Chronic Illness due 05/02/24 One-time only Shingles Vaccine due 05/02/24 One-time only Satisfied (in the past 1 year) There are no satisfied recommendations within the defined date range Electronic Signature on File Electronically Reviewed/Signed by: Deepa Summers PA-C Author Signature Dt/Tm:05/02/2024 02:24 PM Division of Gastroenterology Electronically Reviewed/Signed by: Clare Slade M.D. Cosigner Signature Dt/Tm: 05/03/2024 07:20 AM Division of Gastroenterology Patient Care team information Care Team Personnel Name: DO Frost Brian Rodger Position: Referring Member Role: Primary Care Provider Address: [address] [address] Name: Jada Santoro Position: HIS Supervisor_P Member Role: HIS Lifetime Care Team Related Persons Name: JESSIE YEAGER
[2024-06-27 12:43] LABS: C Reactive Protein 0.85 mg/dl (0-0.5)
[2024-06-27] MEDS: SODIUM CHLORIDE 0.9% 1,000 ML IV SCH (13:09)
[2024-06-27] MEDS: methylPREDNISolone 20 MG in SYRINGE 0 ML IV SCH (13:09)
--- NOTE | 2024-06-27 13:10 | Gastrointestinal Consultation ---
Date of Consultation June 27, 2024 Assessment & Plan (1) Crohn's disease: Cicatrical Crohn's disease with flare. He has been started on steroids so I suspect he will resolve fairly quickly. He will get his remicade on Wednesday but I have advised him to discuss with DIANE Reyes in the clinic to advance the dosage to every six weeks. History of Present Illness Reason for Consultation: Crohn's flare Attending Physician: Favio Ayala MD History of Present Illness 44 year old man with longstanding Crohn's disease with frequent admissions for obstructions. He started having pains yesterday that was persistent and caused him to be diaphoretic. He had nausea but he feels that was due to the magnitude of the pain. He always have some diarrhea but never sees blood. He is only on Remicade and he has been on that for 25 years. He thinks he is on (6 or 7) per kilo and every eight weeks. he is due for infusion on Wednesday. His last flare occurred three days before an infusion. 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 Severe Bowel Unverified 06/27/24 11:52 Obstruction - All solid nuts clarithromycin [From Biaxin] Allergy Intermediate "got Verified 06/27/24 11:52 really sick" Home Medications Medication Instructions Recorded Confirmed Type infliximab 100 mg intravenous See Rx Instructions IV Q8WK 12/15/19 06/27/24 History solution (Remicade) syringe with needle, safety 3 mL #1 ea 12/24/23 Rx 25 gauge x 1" (BD Integra Syringe) ibuprofen 200 mg tablet (Advil) 200 mg PO Q6H PRN Pain 06/27/24 06/27/24 History Patient History Medical History Nephrolithiasis URI (upper respiratory infection) Crohn's disease Lumbar herniated disc SBO (small bowel obstruction) Hx of renal calculi Crohns disease Surgical History History of cystoscopy Hx of vasectomy History of colostomy reversal 1995 History of tonsillectomy History of surgical removal of terminal ileum Hx of colostomy 1995 Family History Other Adopted Unobtainable family history due to adoption Social History Smoking Status: Never smoker Tobacco Type: Cigarettes Age Started Using Tobacco: 16; Age Quit Using Tobacco: 30; packs per day: 0.5; Second Hand Exposure: No; Do You Dip or Chew Tobacco: No; Hx Alcohol Use: Yes Alcohol type: hard liquor Alcohol Intake Frequency: 2-4 x/Month Hx Substance Use: No Preferred Language: Bruneian Communication Ability: Effective Visual Impairment: Partially Limited Hearing Ability: Normal 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 ) during the past year weight has: remained stable Dental Care, Regularly: Yes Physical Activity Frequency: 5-6 Times per Week Seatbelt Use: always Sunscreen Use: No Assistive Devices: None Review of Systems Review of Systems: All systems reviewed & are unremarkable except as noted in HPI & below Physical Exam Constitutional: WD/WN, vitals as above Neck: trachea midline, no thyromegaly Respiratory: normal respiratory effort, lungs clear to auscultation Cardiovascular: RRR, no murmur, no edema Gastrointestinal (Abdomen): normal bowel sounds, soft, nontender, no hepatospl enomegaly Results & Data Vital Signs (Past 12 Hours) Vital Signs Temp Pulse Pulse Resp BP BP Pulse Ox 06/27/24 11:41 72 06/27/24 09:49 83 18 134/85 97 06/27/24 08:15 36.8 C 75 20 145/94 H 98 O2 Del Method 06/27/24 11:41 06/27/24 09:49 Room Air 06/27/24 08:15 Room Air Laboratory Results 06/27/24 Range/Units 08:44 WBC 11.23 H (4.8-10.8) K/ul RBC 5.18 (4.70-6.10) M/uL Hgb 15.5 (14.0-18.0) g/dl Hct 47.5 (42.0-52.0) % MCV 91.7 (80.0-100.0) fL MCH 29.9 (25.0-34.0) pg MCHC 32.6 (32.0-36.0) g/dL RDW Std Deviation 41.8 (36.4-46.3) fL RDW Coeff of Aga 12.4 (11.5-14.5) % Plt Count 289 (130-400) K/uL MPV 9.2 L (9.4-12.4) fL Immature Gran % (Auto) 0.5 % Neut % (Auto) 81.6 % Lymph % (Auto) 14.9 % [place] % (Auto) 2.7 % Eos % (Auto) 0.1 % Baso % (Auto) 0.2 % Neut # (Auto) 9.17 H (1.40-6.50) K/uL Lymph # (Auto) 1.67 (1.20-3.40) K/uL [place] # (Auto) 0.30 (0.11-0.59) K/uL Eos # (Auto) 0.01 (0.00-0.50) K/uL Baso # (Auto) 0.02 (0.00-0.20) K/uL Immature Gran # (Auto) 0.06 (0.01-0.20) K/uL Sodium 140 (136-145) mmol/L Potassium 4.1 (3.5-5.1) mmol/L Chloride 104 (98-107) mmol/L Carbon Dioxide 28 (21-32) mmol/L Anion Gap 8 (3-11) BUN 12 (6-23) mg/dl Creatinine 1.07 (0.6-1.4) mg/dl Est Cr Clr Drug Dosing 87.1 ml/min eGFR 87.76 BUN/Creatinine Ratio 11.2 (10-20) Glucose 111 H (70-99(Fasting)) mg/dl Calcium 9.8 (8.6-10.3) mg/dl Magnesium 2.0 (1.7-2.4) mg/dl Total Bilirubin 0.5 (0.2-1.0) mg/dl AST 19 (13-39) U/L ALT 17 (7-52) U/L Alkaline Phosphatase 109 H (34-104) U/L C-Reactive Protein 0.85 H (0-0.5) mg/dl Total Protein 8.6 H (6.0-8.3) gm/dl Albumin 4.6 (3.4-5.0) gm/dl Globulin 4.0 (2.5-4.0) gm/dl Albumin/Globulin Ratio 1.1 (0.9-2) Lipase 19 (11-82) U/L Diagnostic Findings Abdomen/Pelvis CT 06/27/24 08:[address] WITH IV CONTRAST CT DOSE: 616.01 mGy.cm HISTORY: poss sbo TECHNIQUE: Multiaxial CT images of the abdomen and pelvis were performed following the IV administration of 90 cc of Optiray, A dose lowering technique was utilized adhering to the principles of ALARA. COMPARISON STUDY: 05/04/2024 FINDINGS: ABDOMEN: Liver, gallbladder, spleen, pancreas, and adrenal glands are unremarkable. There are a few nonobstructing calculi at the left kidney. There is no hydronephrosis bilaterally. There are a few tiny cysts at the right kidney. No abdominal aortic aneurysm. Pelvis: Prostate is mildly enlarged. Urinary bladder is nondistended. There is mild sigmoid diverticulosis. No acute diverticulitis. There is moderate retained stool. There is stable right colectomy with anastomosis at the mid aspect of the transverse colon. There is interval distention, mild inflammation, and adjacent small amount of free fluid at a few right abdominal small bowel loops, measuring up to 4 cm diameter. There is a focal transition zone likely at the mid to distal jejunum best seen on coronal series 300 images 67 through 83. No other bowel inflammation or dilatation seen. No free air or abscess. No enlarged adenopathy. Osseous structures: There is degenerative disc disease at L5-S1. There is mixed patchy sclerosis and lucency at the femoral heads consistent with AVN. IMPRESSION: 1. Findings consistent with focal small bowel obstruction likely at the mid to distal jejunum. There is a focal transition zone as described. No obstructing mass identified, so this could be due to adhesion. 2. Otherwise as described. ACT 112: Negative or not required by law. The above report was generated using voice recognition software. It may contain grammatical, syntax or spelling errors. Electronically signed by: Erick Shultz M.D. 06/27/2024 10:41 AM (1) Crohn's disease Digestive disease complication type: with intestinal obstruction Gastrointestinal tract location: unspecified location Qualified Code(s): K50.912 - Crohn's disease, unspecified, with intestinal obstruction
--- NOTE | 2024-06-27 14:11 | Surgery Consultation ---
Date of Consultation June 27, 2024 Assessment & Plan (1) Crohn's disease: His CT images and results were personally viewed and interpreted by myself He does have what appears to be an adhesive small bowel obstruction versus small bowel obstruction from his Crohn's disease He is nontoxic-appearing and still passing flatus Gastroenterology has been consulted to aid with medical management of his bowel obstruction No plans for any surgical intervention at this time, will follow along Can have clear liquids from a surgical standpoint (2) SBO (small bowel obstruction): History of Present Illness Reason for Consultation: Small bowel obstruction Attending Physician: Favio Ayala MD History of Present Illness This is a 44-year-old male with a history of Crohn's disease who came to the ER early this morning with 1 day of generalized abdominal pain without radiation. He has a history of multiple bowel obstructions in the past with his most recent a few months ago that was treated conservatively here at [facility]. His last surgery for about obstruction was at [facility] in 2019. No aggravating or relieving factors. He had some nausea without emesis. He is still passing flatus. His last normal bowel movement was yesterday. 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 Severe Bowel Unverified 06/27/24 11:52 Obstruction - All solid nuts clarithromycin [From Biaxin] Allergy Intermediate "got Verified 06/27/24 11:52 really sick" Home Medications Medication Instructions Recorded Confirmed Type infliximab 100 mg intravenous See Rx Instructions IV Q8WK 12/15/19 06/27/24 History solution (Remicade) syringe with needle, safety 3 mL #1 ea 12/24/23 Rx 25 gauge x 1" (BD Integra Syringe) ibuprofen 200 mg tablet (Advil) 200 mg PO Q6H PRN Pain 06/27/24 06/27/24 History Patient History Medical History Nephrolithiasis URI (upper respiratory infection) Crohn's disease Lumbar herniated disc SBO (small bowel obstruction) Hx of renal calculi Crohns disease Surgical History History of cystoscopy Hx of vasectomy History of colostomy reversal 1995 History of tonsillectomy History of surgical removal of terminal ileum Hx of colostomy 1995 Family History Other Adopted Unobtainable family history due to adoption Social History Smoking Status: Never smoker Tobacco Type: Cigarettes Age Started Using Tobacco: 16; Age Quit Using Tobacco: 30; packs per day: 0.5; Second Hand Exposure: No; Do You Dip or Chew Tobacco: No; Hx Alcohol Use: Yes Alcohol type: hard liquor Alcohol Intake Frequency: 2-4 x/Month Hx Substance Use: No Preferred Language: Pashto Communication Ability: Effective Visual Impairment: Partially Limited Hearing Ability: Normal Magazine 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 ) during the past year weight has: remained stable Dental Care, Regularly: Yes Physical Activity Frequency: 5-6 Times per Week Seatbelt Use: always Sunscreen Use: No Assistive Devices: None Review of Systems Constitutional: no fever and no chills Eyes: no blind spots and no dry eyes Ear, Nose, Mouth, Throat: no ear pain and no hearing loss Respiratory: no cough and no dyspnea Cardiovascular: no chest pain and no dyspnea on exertion Gastrointestinal: + abdominal pain, + nausea and + constip ation; no vomiting and no diarrhea/loose stools Genitourinary: no dysuria or no urinary incontinence Musculoskeletal: no back pain and no neck pain Integumentary: no acne, no sores and no dry skin Neurologic: no headache(s) and no confusion Psychiatric: no behavioral changes and no depression Hematologic / Lymphatic: no easy bleeding and no easy bruising Physical Exam Constitutional: WD/WN, vitals as above Eyes: PERRL, conjunctivae normal, anicteric sclerae ENMT: external ear and nose normal, oropharynx normal Neck: trachea midline, no thyromegaly Respiratory: normal respiratory effort, lungs clear to auscultation Cardiovascular: RRR, no murmur, no edema Gastrointestinal (Abdomen): Inspection/Auscultation: abdomen normal to inspection and + abdomen distended (Mild) Percussion/Palpation: + abdomen tender (Mild generalized) and abdomen soft; no guarding and no hernia Musculoskeletal: no cyanosis or clubbing, extremities motor strength 5/5 Skin: no rashes, warm and dry Neurologic: PERRL, EOMI, accommodation nl, no face palsy, no dysarthria Psychiatric: A+Ox3, euthymic affect Results & Data Vital Signs (Past 12 Hours) Vital Signs Temp Pulse Pulse Resp BP BP Pulse Ox 06/27/24 11:41 72 06/27/24 09:49 83 18 134/85 97 06/27/24 08:15 36.8 C 75 20 145/94 H 98 O2 Del Method 06/27/24 11:41 06/27/24 09:49 Room Air 06/27/24 08:15 Room Air PG Care Time/CCT Total # of Minutes Spent Total Time Spent with Patient: Total time spent is greater than 50% in coordination of care (as documented) at patient's floor/unit and/or counseling patient: Coding Level of Care Code 79910 OFFICE CONSULT LVL Diagnoses Crohn's disease K50.912 Digestive disease complication type: with intestinal obstruction Gastrointestinal tract location: unspecified location SBO (small bowel obstruction) K56.609 (1) Crohn's disease Digestive disease complication type: with intestinal obstruction Gastrointestinal tract location: unspecified location Qualified Code(s): K50.912 - Crohn's disease, unspecified, with intestinal obstruction
[2024-06-27 14:22] LABS: Appearance Urine Clear (Clear); Bilirubin Urine Negative (Negative); Blood Urine Negative (Negative); Color Urine Yellow; Glucose Urine UA Negative (Negative); Ketones Urine Negative (Negative); Leukocyte Esterase Urine Negative (Negative); Nitrite Urine Negative (Negative); Protein Urine Negative (Negative); Specific Gravity Urine > 1.045 (1.000-1.030); Urobilinogen Urine Negative (Negative); pH Urine 5.5 (4.5-7.5)
[2024-06-27] MEDS: MoRPHine SULFATE 2 MG/ML CARP IV PRN (14:39)
[2024-06-27] MEDS: ONDANSETRON INJ 2 MG/ML 2 ML VIAL IV PRN (14:39)
[2024-06-27 14:53] LABS: Influenza A virus by PCR Negative (Neg); Influenza B virus by PCR Negative (Neg); RSV by PCR Negative (Neg); SARS CoV2 RNA(COVID-19) Ceph NEGATIVE (Negative)
[2024-06-27] MEDS: ACETAMINOPHEN 1,000 MG/100 ML VIAL IV PRN (17:28)
--- NOTE | 2024-06-28 09:32 | Surgery Progress Note ---
Date of Service June 28, 2024 Assessment & Plan (1) Small bowel obstruction: Plan: He is improved compared to yesterday Can advance his diet to full liquids from a surgical standpoint, but will defer to GI as we are medically managing his small bowel obstruction due to Crohn's disease Again no plans for surgery at this point Surgery will follow (2) Crohn's disease of ileum with intestinal obstruction: Admission and Anticipated Discharge Date Admission Date: June 27, 2024 Subjective Patient seen and examined. Continues to pass flatus. Denies any nausea or vomiting. Denies any abdominal pain this morning. Review of Systems Constitutional: no fever and no chills Eyes: no blind spots and no dry eyes Ear, Nose, Mouth, Throat: no ear pain and no hearing loss Respiratory: no cough and no dyspnea Cardiovascular: no chest pain and no dyspnea on exertion Gastrointestinal: + abdominal pain, + nausea and + constip ation; no vomiting and no diarrhea/loose stools Genitourinary: no dysuria or no urinary incontinence Musculoskeletal: no back pain and no neck pain Integumentary: no acne, no sores and no dry skin Neurologic: no headache(s) and no confusion Psychiatric: no behavioral changes and no depression Hematologic / Lymphatic: no easy bleeding and no easy bruising Physical Exam Constitutional: WD/WN, vitals as above Eyes: PERRL, conjunctivae normal, anicteric sclerae ENMT: external ear and nose normal, oropharynx normal Neck: trachea midline, no thyromegaly Respiratory: normal respiratory effort, lungs clear to auscultation Cardiovascular: RRR, no murmur, no edema Gastrointestinal (Abdomen): Inspection/Auscultation: abdomen normal to inspection and + abdomen distended (Mild) Percussion/Palpation: abdomen soft; abdomen nontender, no guarding and no hernia Musculoskeletal: no cyanosis or clubbing, extremities motor strength 5/5 Skin: no rashes, warm and dry Neurologic: PERRL, EOMI, accommodation nl, no face palsy, no dysarthria Psychiatric: A+Ox3, euthymic affect Results & Data Vital Signs (Past 12 Hours) Vital Signs Temp Pulse Resp BP Pulse Ox O2 Del Method 06/28/24 07:41 36.6 C 73 16 114/63 96 Room Air PG Care Time/CCT Total # of Minutes Spent Total Time Spent with Patient: Total time spent is greater than 50% in coordination of care (as documented) at patient's floor/unit and/or counseling patient: Coding Level of Care Code 32547 SUB INP/OBS CARE Diagnoses Small bowel obstruction K56.609 Crohn's disease of ileum with intestinal obstruction K50.012
[2024-06-28 09:39] LABS: Hematocrit (blood only) 37.9 % (42.0-52.0); Hemoglobin 12.7 g/dl (14.0-18.0); Mean Corpuscular Hemoglobin 30.4 pg (25.0-34.0); Mean Corpuscular Hgb Conc 33.5 g/dL (32.0-36.0); Mean Corpuscular Volume 90.7 fL (80.0-100.0); Mean Platelet Volume 9.7 fL (9.4-12.4); Platelet Count 290 K/uL (130-400); RDW Coefficient of Variation 12.4 % (11.5-14.5); RDW Standard Deviation 41.1 fL (36.4-46.3); Red Blood Count 4.18 M/uL (4.70-6.10); White Blood Count 11.44 K/ul (4.8-10.8)
[2024-06-28 10:02] LABS: Calcium 8.5 mg/dl (8.6-10.3); Potassium 3.7 mmol/L (3.5-5.1)
[2024-06-28 10:07] LABS: BUN Creatinine Ratio 10.8 (10-20); C Reactive Protein 1.91 mg/dl (0-0.5); Creatinine Clr Calc Pharmacy 113.6 ml/min
--- NOTE | 2024-06-28 13:29 | Hospitalist Progress Note ---
Date of Service June 28, 2024 Assessment & Plan (1) Small bowel obstruction: (2) Crohn's disease of ileum with intestinal obstruction: Plan Favio is a 44-year-old male who presented for acute onset of epigastric pain on the morning of 06/27. History of multiple admissions for SBO, and reports that this is consistent with prior episodes. CT A/P revealed findings consistent with focal SBO in the mid to distal jejunum. #Small bowel obstruction - improving. Suspect SBO may be more consistent with adhesions vs inflammation associated with Crohn's Tolerating clear liquid diet, has bowel sounds, and is passing gas Continue IVF maintenance with NSS at 110mL/hr Continue Solu-medrol 20mg IV BID Surgery and GI consults appreciated #Crohn's disease/Crohn's ileitis Currently on Remicade (infliximab) outpatient; last injection on 05/08 Recommend decreasing duration between Remicade dosing to q6 weeks (currently q8 weeks) #History of small bowel resection H/o 4 small bowel surgeries, with the last being at [facility] in 2019 (per patient) Dispo: Anticipate discharge home in next 24-48 hours pending improvement in SBO VTE PPx: Low risk; SCDs, encourage ambulation Admission and Anticipated Discharge Date Admission Date: June 27, 2024 Subjective Patient seen and evaluated at bedside. He reports Physical Exam Physical Exam: General: No acute distress, nondiaphoretic, well-developed, well-nourished. Cardiac: Regular rate and rhythm without murmurs gallops or rubs. Pulm: Clear to auscultation bilaterally without wheezes, rales or rhonchi. Normal respiratory effort. 96% on room air. Abdominal: Neuro: A&O x3. No focal neurological deficits. Results & Data Results & Data Vital Signs (Past 12 Hours) Vital Signs Temp Pulse Resp BP Pulse Ox O2 Del Method 06/28/24 07:41 97.9 F 73 16 114/63 96 Room Air Laboratory Results Reviewed CBC Reviewed BMP, chemistries Diagnostic Findings Reviewed CT A/P PG Care Time/CCT Total # of Minutes Spent Total Time Spent with Patient: Total time spent is greater than 50% in coordination of care (as documented) at patient's floor/unit and/or counseling patient: Coding Diagnoses Small bowel obstruction K56.609 Crohn's disease of ileum with intestinal obstruction K50.012
[2024-06-28 14:07] VITALS: BP 145/83; RESP 14; TEMP 98.2; O2SAT 95
--- NOTE | 2024-06-28 16:58 | Gastroenterology Progress Note ---
Date of Service June 28, 2024 Assessment & Plan (1) Crohn's disease: Plan: He is doing well. Okay with me to go home but would send him home on short course steroids to tide him over to Wednesday when he gets Remicade. he will follow up in GI clinic Admission and Anticipated Discharge Date Admission Date: June 27, 2024 Subjective Feeling great. Had a small bowel movement. Pain is gone. He feels normal Physical Exam Physical Exam: He looks well Constitutional: WD/WN, vitals as above Results & Data Vital Signs (Past 12 Hours) Vital Signs Temp Pulse Resp BP BP Pulse Ox O2 Del Method 06/28/24 14:06 36.8 C 76 14 145/83 H 95 Room Air 06/28/24 07:41 36.6 C 73 16 114/63 96 Room Air (1) Crohn's disease Digestive disease complication type: with intestinal obstruction Gastrointestinal tract location: unspecified location Qualified Code(s): K50.912 - Crohn's disease, unspecified, with intestinal obstruction
[2024-06-28 17:37] VITALS: PULSE 66
--- NOTE | 2024-06-28 18:54 | Discharge Summary ---
Discharge Summary Date of Service June 28, 2024 Principal Dx & Hospital Course #1 = Principal Diagnosis (1) Small bowel obstruction: (2) Crohn's disease of ileum with intestinal obstruction: (3) Avascular necrosis of femoral head: Lucina Favio is a 44-year-old male with a past medical history including Crohn's disease since age 12, on Remicade IV per outpatient GI, history of multiple bowel obstruction surgeries. He presented for acute onset of epigastric pain on the morning of 06/27. He reports that this is consistent with prior episodes of SBO. CT A/P revealed findings consistent with focal SBO in the mid to distal jejunum. He was treated with IV fluids and Solu-Medrol 20 mg IV BID while hospitalized. #Small bowel obstruction - Suspect SBO may be more consistent with adhesions vs inflammation associated with Crohn's Improved with conservative measures. Abdominal pain and nausea resolved. Return of bowel function with passing gas and stool. Tolerated low fiber diet Surgery and GI consults appreciated Prednisone taper on discharge of 50 mg x 3 days, 40 mg x 30 days, 30 mg x 3 days, 20 mg x 3 days, 10 mg x 3 days, 5 mg x 3 days Recommend following low fiber/residue diet x 1 week then advancing as tolerated #Crohn's disease/Crohn's ileitis Currently on Remicade (infliximab) outpatient; last injection on 05/08 Recommend decreasing duration between Remicade dosing to q6 weeks (currently q8 weeks) #History of small bowel resection H/o 4 small bowel surgeries, with the last being at [facility] in 2019 (per patient) #Avascular necrosis of bilateral femoral heads Noted of CT A/P during previous admission. Suspect this is due to heavy steroid usage in the past Follow-up with PCP and consider referral to orthopedic surgery Dispo: Discharged home 06/28 Notes For Next Care Provider Recommend decreasing duration between Remicade infusions to every 6 weeks (currently getting every 8 weeks) Recommend to follow-up on avascular necrosis of bilateral femoral heads which was noted on CT A/P during previous admission Medication Changes From Visit Prednisone taper Admission HPI Per Admitting Provider Favio is a pleasant 44-year-old male with PMH of Crohn's disease of ileum with intestinal obstruction, multiple bowel obstruction surgeries s/p small bowel resection, B12 deficiency, and inguinal hernia. He presented on 06/27 for epigastric pain that woke him from sleep around 2 or 3 AM. He reports that the pain came in waves, and while it was consistent with prior episodes of small bowel obstruction, the waves were coming "quicker" than prior episodes; every 20 seconds versus every 1 to 5 minutes. Patient would lay on his stomach and apply pressure to alleviate the pain. He rated the pain 9/10 prior to arrival, and 2/10 after receiving pain medicine in the ED. Patient does not take medicine on a daily basis. Additionally, he notes he was sweating (dripping with sweat) when he woke up, and initially thought it might be a stomach bug. He denies any recent changes in diet, but does report he is cut bread and pasta out of his diet and is eating more proteins. He is around sick contacts at home who have cold/congestion, but no stomach bugs. His last bowel movement was yesterday on 06/26, and he reports he is still passing gas this morning. He does receive Remicade injections for his Crohn's disease, and his next injection is scheduled for Monday 07/03. His most recent injection was on 05/08. Patient is not currently on prednisone. He has a history of 4 surgeries on his small bowel, with the last being in 2020 or 2020 at [facility]. Patient declines NG tube at time of admission, as he reports he has done well with bowel rest and fluids with prior episodes of SBO. Patient denies smoking, tobacco use, recent alcohol use. Patient's vitals are stable at time of admission. ED course: Morphine sulfate 4 mg IV NSS 1000 mL IV Zofran 4 mg IV Famotidine 20 mg IV ROS: Patient endorses epigastric pain, chills, night-sweats (dripping wet overnight), headache (attributes to dehydration), congestion, productive cough (yellow sputum production x 1 week), nausea, and intermittent diarrhea (attributes to Crohn's disease),. Patient denies fever, dizziness, lightheadedness, chest pain, SOB, pleuritic CP, vomiting, burning with urination, blood in the urine/stool, melena, or num bness/tingling in the arms or legs. Discharge Exam General: No acute distress, nondiaphoretic, well-developed, well-nourished. Cardiac: Regular rate and rhythm without murmurs gallops or rubs. Pulm: Clear to auscultation bilaterally without wheezes, rales or rhonchi. Normal respiratory effort. 96% on room air. Abdominal: Soft, nontender, nondistended. Bowel sounds present. Neuro: A&O x3. No focal neurological deficits. Discharge Plan Discharge Items Patient Disposition: Home - Self-Care Reason For Visit: SBO Discharge Diagnosis: SBO, now resolved Condition on Discharge: Fair Activity: Resume your previous activity Non-emergency contact: Primary Care Provider and Kiln Worker Call non-emergency contact if: you have any medication questions, your symptoms worsen and your pain is not controlled Follow-up/Referrals: Shoaib Schmidt CRNP [Primary Care Provider] - (Follow-up in 1-2 weeks) Clare Slade Jr, MD [Physician] - (Follow-up in 1-2 weeks) Diet: Low Fiber Addtl Attending Provider Instructions: Favio Raul were admitted to the hospital due to concern of Crohn's flare versus adhesive small bowel obstruction (SBO). You have improved quickly and did not require any surgical intervention. Since you have had return of your bowel function (passing gas) and tolerating food, you can be discharged from the hospital and continue your course of treatment at home. Upon discharge from the hospital: * Take prednisone taper as instructed below Take 50 mg (5 pills) x 3 days, then 40 mg (4 pills) x 3 days, then 30 mg (3 pills) x 3 days, then 20 mg (2 pills) x 3 days, then 10 mg (1 pill) x 3 days, then 5 mg (half tablet) x 4 days * Please eat a low fiber/residue diet for 1 week; you can advance your diet as tolerated. These foods include breads, biscuits, pancakes, waffles, bagels, saltines, delta crackers bananas, melons, applesauce, white rice, pasta, tender meat, fish and poultry, ham, hebert, shellfish, lunch meat, dairy products. * Avoid high-fiber foods and raw fruits and vegetables. These include whole grains, popcorn, brown rice, oatmeal, granola, quinoa, nuts, seeds, dried beans, baked beans, peas and lentils, dried fruit. * You can take Zofran 1 tablet every 6 hours as needed for nausea. * Stay hydrated and drink plenty of fluids. Stay physically active as tolerated. * Follow-up with your GI team outpatient as scheduled. * Follow-up with your PCP in 1-2 weeks. Please return to the hospital if you experience any of the following: Worsening abdominal pain, persistent nausea/vomiting, inability to tolerate oral intake, fever of 100.5 F or higher, chest pain, shortness of breath, lightheadedness, passing out, confusion, or any other symptoms concerning for you. It was a pleasure taking care of you while you were in the hospital, Romana Ni PA-C Pending Studies at Discharge: No Stand-Alone Forms: My [facility], Smoking Cessation Medications and DC Order Prescriptions: New prednisone 10 mg tablet 10 mg PO DIRECTED Qty: 47 0RF Rx Instructions: see taper instructions ondansetron HCl 4 mg tablet 4 mg PO Q6H PRN (Reason: nausea and vomiting) Qty: 20 0RF Continued (DME) BD Integra Syringe 3 mL 25 gauge x 1" syringe See Rx Instructions .Route Qty: 1 0RF Rx Instructions: As directed with b12 injections Remicade 100 mg recon soln See Rx Instructions IV [id number] Rx Instructions: INFUSE 10MG/KG EVERY 8 WEEKS IV. ibuprofen [Advil] 200 mg Tablet 200 mg PO Q6H PRN (Reason: Pain) Discharge Orders: Discharge Order (Routine); Ordered 06/28/24 Ordered By: Romana Ni Admission Data Admit Date/Time: 06/27/24 11:22 Attending Provider: Maricruz Mccray Admit Provider: Favio Ayala Primary Care Provider: Shoaib Schmidt Other Providers: Favio Ayala; Florentin Siddiqi; Patrick Hunter Other Interventions: Discharge Summary Assessment (RN) Last Done: 06/28/24 17:26 Hospital Stay Data Consultations 06/27/24 11:02 ED Decision to Admit Stat 06/27/24 11:20 Consult General Surgery Routine 06/27/24 11:30 Consult Gastroenterology Routine Diagnostic Imagining Performed Abdomen/Pelvis CT 06/27/24 08:[address] WITH IV CONTRAST CT DOSE: 616.01 mGy.cm HISTORY: poss sbo TECHNIQUE: Multiaxial CT images of the abdomen and pelvis were performed following the IV administration of 90 cc of Optiray, A dose lowering technique was utilized adhering to the principles of ALARA. COMPARISON STUDY: 05/04/2024 FINDINGS: ABDOMEN: Liver, gallbladder, spleen, pancreas, and adrenal glands are unremarkable. There are a few nonobstructing calculi at the left kidney. There is no hydronephrosis bilaterally. There are a few tiny cysts at the right kidney. No abdominal aortic aneurysm. Pelvis: Prostate is mildly enlarged. Urinary bladder is nondistended. There is mild sigmoid diverticulosis. No acute diverticulitis. There is moderate retained stool. There is stable right colectomy with anastomosis at the mid aspect of the transverse colon. There is interval distention, mild inflammation, and adjacent small amount of free fluid at a few right abdominal small bowel loops, measuring up to 4 cm diameter. There is a focal transition zone likely at the mid to distal jejunum best seen on coronal series 300 images 67 through 83. No other bowel inflammation or dilatation seen. No free air or abscess. No enlarged adenopathy. Osseous structures: There is degenerative disc disease at L5-S1. There is mixed patchy sclerosis and lucency at the femoral heads consistent with AVN. IMPRESSION: 1. Findings consistent with focal small bowel obstruction likely at the mid to distal jejunum. There is a focal transition zone as described. No obstructing mass identified, so this could be due to adhesion. 2. Otherwise as described. ACT 112: Negative or not required by law. The above report was generated using voice recognition software. It may contain grammatical, syntax or spelling errors. Electronically signed by: Erick Shultz M.D. 06/27/2024 10:41 AM Pending Results Patient Have Any Pending Studies at Discharge: No Discharge Instructions Given to Patient (Per Discharging Provider) Favio Raul were admitted to the hospital due to concern of Crohn's flare versus adhesive small bowel obstruction (SBO). You have improved quickly and did not require any surgical intervention. Since you have had return of your bowel function (passing gas) and tolerating food, you can be discharged from the hospital and continue your course of treatment at home. Upon discharge from the hospital: * Take prednisone taper as instructed below Take 50 mg (5 pills) x 3 days, then 40 mg (4 pills) x 3 days, then 30 mg (3 pills) x 3 days, then 20 mg (2 pills) x 3 days, then 10 mg (1 pill) x 3 days, then 5 mg (half tablet) x 4 days * Please eat a low fiber/residue diet for 1 week; you can advance your diet as tolerated. These foods include breads, biscuits, pancakes, waffles, bagels, saltines, delta crackers bananas, melons, applesauce, white rice, pasta, tender meat, fish and poultry, ham, hebert, shellfish, lunch meat, dairy products. * Avoid high-fiber foods and raw fruits and vegetables. These include whole grains, popcorn, brown rice, oatmeal, granola, quinoa, nuts, seeds, dried beans, baked beans, peas and lentils, dried fruit. * You can take Zofran 1 tablet every 6 hours as needed for nausea. * Stay hydrated and drink plenty of fluids. Stay physically active as tolerated. * Follow-up with your GI team outpatient as scheduled. * Follow-up with your PCP in 1-2 weeks. Please return to the hospital if you experience any of the following: Worsening abdominal pain, persistent nausea/vomiting, inability to tolerate oral intake, fever of 100.5 F or higher, chest pain, shortness of breath, lightheadedness, passing out, confusion, or any other symptoms concerning for you. It was a pleasure taking care of you while you were in the hospital, Romana Ni PA-C Supervising Physician Co-Signing Physician Notes PA Supervision Note: I did not personally see or examine the patient today, but I verified all martini points of DIANE Ni's assessment and plan with the following exceptions/additions: None Total Time Total Time Spent Total Time Spent (In Minutes): Greater than 30 minutes spent completing this discharge process including direct patient care, medication reconciliation, documentation, review of labs and images, and coordination of care. Coding Level of Care Code 42875 INP/OBS DISCH >30 MIN Diagnoses Small bowel obstruction K56.609 Crohn's disease of ileum with intestinal obstruction K50.012 Avascular necrosis of femoral head M87.059
--- NOTE | 2024-06-29 09:44 | Coding Query ---
CODING QUERY To promote full compliance with coding requirements relating to patient care, provider participation is requested in all cases of security site supervisor uncertainty. Please assist us with the question(s) below: Coding Question(s): There is documentation on the Discharge Summary of, "#Avascular necrosis of bilateral femoral heads Noted of CT A/P during previous admission. Suspect this is due to heavy steroid usage in the past Follow-up with PCP and consider referral to orthopedic surgery". Please specify below, in your clinical opinion, regarding Avascular Necrosis of bilateral femoral heads: ( ) Avascular Necrosis of bilateral femoral heads was a significant diagnosis that was treated and/or monitored during this admission (X ) Avascular Necrosis of bilateral femoral heads was not treated and/or monitored and is not a significant diagnosis during this admission Physician's Response(s): Thank you Rebekah Epstein Principal Diagnosis: "that condition established after study, to be chiefly responsible for occasioning the admission of the patient to the hospital for care." Co-Existing Principal Diagnosis: "when two or more diagnoses equally meet the criteria for principal diagnosis as determined by the circumstances of admission, diagnostic work up, and/or therapy provided, and the Alphabetic Index, Tabular List, or another coding guideline does not provide sequencing direction, any one of the diagnoses may be sequenced first." "When the physician has documented what appears to be a current diagnosis in the body of the record, but has not included the diagnosis in the final diagnostic statement, the physician should be asked whether the diagnosis should be added." (Source Coding [facility] 2 QTR90. p3-4) JEREMIAH
== END 2024-06-28 18:17 | disposition home or self-care (01) ==
LOC: ED 08:06 → INTOOBSV 11:22 → SUATTDRO 11:22 → EDINP 11:22 → 3N 12:10

== ENCOUNTER 2025-02-18 17:51 | Observation (INO) ==
--- NOTE | 2025-02-18 18:14 | Emergency Department Note ---
Impression & Plan SBO (small bowel obstruction), Abdominal pain ED Provider Note NAME: ROSCOE YEAGER AGE: 45 SEX: M : 1980 ARRIVES VIA: Walk-In INFORMANT: Patient, ED PROVIDER(S): Blane Kendrick DO CHIEF COMPLAINT: Abdominal pain HPI: The patient is a 45-year-old male who presented to the emergency department for abdominal pain. The patient states he has a history of Crohn's. He has had a history of bowel obstruction as well as intra-abdominal infections. The patient started having pain that worsened throughout the day. He feels as though he has significant nausea. The patient denies having any bleeding. He denies have any lower extremity swelling or pain. He came to emergency department for further evaluation. He is been compliant with his outpatient medications but he recently switched his medications for his inflammatory bowel disease. ROS: See above HPI for pertinent positives & negatives. A total of 10 systems reviewed and were otherwise negative. PAST MEDICAL HISTORY: See Below PAST SURGICAL HISTORY: See Below FAMILY HISTORY: See Below SOCIAL HISTORY: See Below HOME MEDICATIONS: See Below ALLERGIES: See Below VITALS: See Below PHYSICAL EXAMINATION: GENERAL: The patient is awake and alert. The patient is very anxious and appears uncomfortable. EYES: The conjunctivae are clear. The pupils are round and reactive. EARS, NOSE, MOUTH AND THROAT: The nose is without any evidence of any deformity. NECK: The neck is nontender and supple. RESPIRATORY: Normal respiratory effort is noted there is no evidence of wheezing rhonchi or rales CARDIOVASCULAR: Regular rate and rhythm noted there no murmurs rubs or gallops normal S1 normal S2. GASTROINTESTINAL: The abdomen was nondistended. There is diffuse guarding in the abdomen. There is diffuse pain to palpation. MUSCULOSKELETAL/EXTREMITIES: There is no evidence of gross deformity full range of motion is noted in the hips and shoulders. SKIN: There is no obvious evidence of any rash. There are no petechiae, pallor or cyanosis noted. NEUROLOGIC: Patient is awake alert and oriented x3 MEDICAL DECISION MAKING: The patient is a 45-year-old male who has a history of bowel resection as well as Crohn disease who presented to the emergency department for abdominal pain. The patient's history and physical exam was consistent with significant abdominal pain. Given his past medical history further laboratory and radiographic studies were obtained. CT of the abdomen and pelvis was obtained which appears to be consistent with a small bowel obstruction with a transition point near the area of the anastomosis. The patient was treated with IV fluids and IV pain medication. He was also treated with IV antiemetics. On reevaluation he was feeling much better. I discussed the patient's condition with the on-call [facility] hospitalist. I also discussed his condition with the on-call soldering machine setter. They do recommend involving surgery in this patient's care. The patient's not actively vomiting I do not feel he would benefit from an NG tube at this time. Triage Nursing notes reviewed. Prior medical records reviewed Vital Signs: reviewed and remarkable for no significant abnormalities Differential diagnosis: Etiologies such as appendicitis, diverticulitis, obstruction, inflammatory bowel disease, renal colic, PUD, biliary pathology, pancreatitis, mesenteric ischemia, aortic pathology, infections, genitourinary, UTI, perforated viscus, as well as others were entertained. ER treatment provided: See below Diagnostics interpreted by me: ECG: none Cardiac Monitoring: An order was placed for continuous cardiac monitoring. The monitor shows a rate of 85 bpm with sinus rhythm. Laboratory studies: As stated above and show below. Imaging studies: See below. Radiographic imaging was reviewed by myself Consultation(s): I discussed this case with Dr. Hunter who is on-call for gastroenterology. I discussed this case with Dr. Gannon who is on-call for the [facility]. Past Med/Surg History Problem List (Updated 02/18/25 @ 23:17 by Blane Kendrick DO) Abdominal pain (Acute) SBO (small bowel obstruction) (Acute) Avascular necrosis of femoral head Crohn's disease (Acute) Leukocytosis (Acute) SBO (small bowel obstruction) (Acute) S/P small bowel resection Apr 2020 laparoscopic converted to open lysis of adhesions and bowel resection [facility] B12 deficiency Inguinal hernia Testicular pain COVID-19 (Acute) Medical non-compliance Medical History Acute upper abdominal pain Crohn's disease of ileum with intestinal obstruction Nephrolithiasis URI (upper respiratory infection) Crohn's disease Lumbar herniated disc SBO (small bowel obstruction) Hx of renal calculi Crohns disease Surgical History History of cystoscopy Hx of vasectomy History of colostomy reversal 1995 History of tonsillectomy History of surgical removal of terminal ileum Hx of colostomy 1995 Family History Other Adopted Unobtainable family history due to adoption Social History Smoking Status: Never smoker Tobacco Type: Cigarettes Age Started Using Tobacco: 16; Age Quit Using Tobacco: 30; packs per day: 0.5; Second Hand Exposure: No; Do You Dip or Chew Tobacco: No; Hx Alcohol Use: Yes Alcohol type: hard liquor Alcohol Intake Frequency: 2-4 x/Month Hx Substance Use: No Preferred Language: [place] Communication Ability: Effective Visual Impairment: Partially Limited Hearing Ability: Normal 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 ) during the past year weight has: remained stable Dental Care, Regularly: Yes Physical Activity Frequency: 5-6 Times per Week Seatbelt Use: always Sunscreen Use: No Assistive Devices: None Allergies Allergies Allergy/AdvReac Type Severity Reaction Status Date / Time nut - unspecified AdvReac Severe Bowel Verified 02/18/25 19:39 Obstruction - All solid nuts tree nut AdvReac Severe Bowel Verified 02/18/25 19:39 Obstruction - All solid nuts clarithromycin [From Biaxin] AdvReac Intermediate "got Verified 02/18/25 19:39 really sick" Home Meds Home Medications Medication Instructions Recorded Confirmed ibuprofen 200 mg tablet (Advil) 200 mg PO Q6H PRN Pain 06/27/24 02/18/25 risankizumab-rzaa 150 mg/mL 0 mg subcut MONTHLY 02/18/25 02/18/25 subcutaneous syringe (Skyrizi) Previous Rx's Medication Instructions Recorded syringe with needle, safety 3 mL #1 ea 12/24/23 25 gauge x 1" (BD Integra Syringe) ondansetron HCl 4 mg tablet 4 mg PO Q6H PRN nausea and 06/28/24 vomiting #20 tabs Results & Data (ED) Vital Signs Vital Signs - 24 hr 02/18/25 17:54 02/18/25 18:46 02/18/25 18:49 Temperature 36.6 C Temperature Source Oral Pulse Rate 84 77 Pulse Rate [Left Apical] 72 Respiratory Rate 20 18 Respiratory Effort / Characteristics Non-Labored Spontaneous Respiratory Depth Normal Blood Pressure 153/103 H Blood Pressure [Right Arm] 146/101 H Blood Pressure Mean 119 Blood Pressure Mean [Right Arm] 116 Blood Pressure Position [Right Arm] Lying Pulse Oximetry 96 96 Oxygen Delivery Method Room Air Sepsis Recent Fever Within 48 Hours No Sepsis New/Unexplained Change in Mental Status N/A Sepsis Action Taken by Nursing No Action Required 02/18/25 19:02 02/18/25 21:27 02/18/25 21:27 Temperature Temperature Source Pulse Rate 87 Pulse Rate [Left Apical] 74 85 Respiratory Rate 16 18 18 Respiratory Effort / Characteristics Respiratory Depth Blood Pressure Blood Pressure [Right Arm] 136/101 H 154/98 H Blood Pressure Mean Blood Pressure Mean [Right Arm] 112 116 Blood Pressure Position [Right Arm] Lying Pulse Oximetry 96 95 95 Oxygen Delivery Method Room Air Room Air Room Air Sepsis Recent Fever Within 48 Hours Sepsis New/Unexplained Change in Mental Status Sepsis Action Taken by Nursing 02/18/25 22:51 02/18/25 23:04 Temperature Temperature Source Pulse Rate 79 Pulse Rate [Left Apical] 76 Respiratory Rate 18 Respiratory Effort / Characteristics Respiratory Depth Blood Pressure Blood Pressure [Right Arm] 137/92 Blood Pressure Mean Blood Pressure Mean [Right Arm] 107 Blood Pressure Position [Right Arm] Lying Pulse Oximetry 95 Oxygen Delivery Method Room Air Sepsis Recent Fever Within 48 Hours Sepsis New/Unexplained Change in Mental Status Sepsis Action Taken by [facility] Medications Current Medication List: was personally reviewed by me Laboratory Data Attestation: I reviewed the patient's lab results. 02/18/25 18:19 02/18/25 18:19 Lab Results 02/18/25 Range/Units 18:19 WBC 7.95 (4.8-10.8) K/ul RBC 4.89 (4.70-6.10) M/uL Hgb 14.4 (14.0-18.0) g/dL Hct 43.9 (42.0-52.0) % MCV 89.8 (80.0-100.0) fL MCH 29.4 (25.0-34.0) pg MCHC 32.8 (32.0-36.0) g/dL RDW Std Deviation 40.3 (36.4-46.3) fL RDW Coeff of Aga 12.3 (11.5-14.5) % Plt Count 264 (130-400) K/uL MPV 10.0 (9.4-12.4) fL Immature Gran % (Auto) 0.4 % Neut % (Auto) 69.4 % Lymph % (Auto) 23.8 % [place] % (Auto) 5.5 % Eos % (Auto) 0.5 % Baso % (Auto) 0.4 % Neut # (Auto) 5.52 (1.40-6.50) K/uL Lymph # (Auto) 1.89 (1.20-3.40) K/uL [place] # (Auto) 0.44 (0.11-0.59) K/uL Eos # (Auto) 0.04 (0.00-0.50) K/uL Baso # (Auto) 0.03 (0.00-0.20) K/uL Immature Gran # (Auto) 0.03 (0.01-0.20) K/uL ESR 58 H (0-15) mm/hr Sodium 139 (136-145) mmol/L Potassium 3.9 (3.5-5.1) mmol/L Chloride 101 (98-107) mmol/L Carbon Dioxide 28 (21-32) mmol/L Anion Gap 10 (3-11) BUN 12 (6-23) mg/dl Creatinine 0.83 (0.6-1.4) mg/dl Est Cr Clr Drug Dosing 97.3 ml/min eGFR 109.99 BUN/Creatinine Ratio 14.5 (10-20) Glucose 81 (70-99(Fasting)) mg/dl Calcium 9.8 (8.6-10.3) mg/dl Total Bilirubin 0.5 (0.2-1.0) mg/dl AST 19 (13-39) U/L ALT 14 (7-52) U/L Alkaline Phosphatase 111 H (34-104) U/L C-Reactive Protein 3.04 H (0-0.5) mg/dl Total Protein 8.6 H (6.0-8.3) gm/dl Albumin 4.6 (3.4-5.0) gm/dl Globulin 4.0 (2.5-4.0) gm/dl Albumin/Globulin Ratio 1.1 (0.9-2) Lipase 12 (11-82) U/L Administered Medications Acetaminophen (Ofirmev) 1,000 mg in 100 mls @ 400 mls/hr IV Q8H PRN PRN Reason: Fever/mild pain Stop: 02/21/25 22:17 Last Admin: 02/18/25 23:06 Dose: 400 mls/hr Documented By: Morphine Sulfate (Morphine Sulfate 4 Mg/Ml 1 Ml Carp\\Vial) 4 mg IV Q15M PRN PRN Reason: Pain Stop: 03/04/25 18:00 Last Admin: 02/18/25 21:25 Dose: 4 mg Documented By: Admin: 02/18/25 19:05 Dose: 4 mg Documented By: Ondansetron HCl (Ondansetron Inj 2 Mg/Ml 2 Ml Vial) 4 mg IV Q4H PRN PRN Reason: Nausea Stop: 03/20/25 22:17 Last Admin: 02/18/25 22:58 Dose: 4 mg Documented By: Discontinued Medications Sodium Chloride (Nss) 1,000 mls @ 999 mls/hr IV .Q1H1M STA Stop: 02/18/25 19:01 Last Infusion: 02/18/25 21:21 Dose: Infused Documented By: Admin: 02/18/25 19:04 Dose: 999 mls/hr Documented By: Ioversol (Optiray 320 100ml) 94 ml IV ONCE ONE Stop: 02/18/25 20:30 Last Admin: 02/18/25 20:30 Dose: 94 ml Documented By: JIM Methylprednisolone (Methylprednisolone 125 Mg/2 Ml Vial) 40 mg IV NOW STA Stop: 02/18/25 22:20 Last Admin: 02/18/25 22:57 Dose: 40 mg Documented By: Ondansetron HCl (Ondansetron Inj 2 Mg/Ml 2 Ml Vial) 4 mg IV NOW STA Stop: 02/18/25 18:02 Last Admin: 02/18/25 19:05 Dose: 4 mg Documented By: Imaging Data Attestation: I personally reviewed and interpreted this imaging study as follows: My Impression: CT of the abdomen and pelvis was obtained in the emergency department. My interpretation is no free air, dilated loops of small bowel were noted, final report below. Radiologist's Impression: Abdomen/Pelvis CT 02/18/25 18:01 Exam(s): CT ABDOMEN + PELVIS With Contrast Oral - High Density Amt: GASTRO, IV Amt: 93ML OPTIRAY 320 EXAM: CT Abdomen and Pelvis With Intravenous Contrast CLINICAL HISTORY: Reason for exam: pain and crohns. TECHNIQUE: Axial computed tomography images of the abdomen and pelvis with intravenous contrast. CTDI is 12.87 mGy and DLP is 706.5 mGy-cm. Automated exposure control was utilized for the study. A dose lowering technique was utilized adhering to the principles of ALARA. CONTRAST: Patient received GASTRO of Oral - High Density and 93ML OPTIRAY 320 of IV contrast COMPARISON: 01/25/2025 FINDINGS: Lung bases: Unremarkable. ABDOMEN: Liver: Unremarkable. No mass. Gallbladder and bile ducts: Cholelithiasis without evidence of cholecystitis. No ductal dilation. Pancreas: Unremarkable. No mass. No ductal dilation. Spleen: Unremarkable. No splenomegaly. Adrenals: Unremarkable. No mass. Kidneys and ureters: Symmetric renal enhancement. No hydronephrosis. At least 2 nonobstructing left kidney stones, largest 4 mm. Stomach and bowel: Oral contrast administered extending to the jejunum. Postoperative changes of right hemicolectomy. Small-bowel obstruction with right lateral midabdomen transition point (series 2, images 51-58), likely due to adhesion. PELVIS: Appendix: Appendix is absent. Bladder: Unremarkable. No mass. Reproductive: Unremarkable as visualized. ABDOMEN and PELVIS: Intraperitoneal space: Mesenteric edema and trace interloop ascites in the right abdomen. No free air. Bones/joints: Disc degeneration at the lumbosacral junction. No acute fracture. No dislocation. Soft tissues: Unremarkable. Vasculature: Unremarkable. No abdominal aortic aneurysm. Lymph nodes: Unremarkable. No enlarged lymph nodes. IMPRESSION: Small-bowel obstruction with right lateral midabdomen transition point (series 2, images 51-58), likely due to adhesion. Electronically signed by: Tarik Carrillo M.D. 02/18/25 21:05 PM Discharge Plan Visit Data Chief Complaint: Abdominal Pain Stated Complaint: VIRUS OR CHRONS FLAIR ED Provider: Blane Kendrick Discharge Problem: SBO (small bowel obstruction), Abdominal pain Patient Disposition: Being Evaluated by Hospitalist Condition: Fair Forms Stand Alone Forms: My [facility] Prescriptions Prescriptions: No Action (DME) BD Integra Syringe 3 mL 25 gauge x 1" syringe See Rx Instructions .Route Qty: 1 0RF Rx Instructions: As directed with b12 injections Skyrizi 150 mg/mL Syringe 0 mg SUBCUT MONTHLY Rx Instructions: PER PT "HAD LAST INFUSION 02/15/25, WILL GO TO MONTHLY INJECTIONS NOW". ibuprofen [Advil] 200 mg Tablet 200 mg PO Q6H PRN (Reason: Pain) ondansetron HCl 4 mg tablet 4 mg PO Q6H PRN (Reason: nausea and vomiting) Qty: 20 0RF Referrals Referrals: Shoaib Schmidt CRNP [Primary Care Provider] -
[2025-02-18 18:43] LABS: Hematocrit (blood only) 43.9 % (42.0-52.0); Hemoglobin 14.4 g/dL (14.0-18.0); Immature Granulocytes # (auto) 0.03 K/uL (0.01-0.20); Immature Granulocytes % (auto) 0.4 %; Mean Corpuscular Hemoglobin 29.4 pg (25.0-34.0); Mean Corpuscular Volume 89.8 fL (80.0-100.0); Platelet Count 264 K/uL (130-400); RDW Standard Deviation 40.3 fL (36.4-46.3); Red Blood Count 4.89 M/uL (4.70-6.10); White Blood Count 7.95 K/ul (4.8-10.8)
[2025-02-18 18:55] LABS: Alanine Aminotransferase 14.0 U/L (7-52); Albumin Globulin Ratio 1.1 (0.9-2); Albumin Level 4.6 gm/dl (3.4-5.0); Alkaline Phosphatase 111.0 U/L (34-104); Anion Gap 10.0 (3-11); Bilirubin,Total 0.5 mg/dl (0.2-1.0); Blood Urea Nitrogen 12.0 mg/dl (6-23); Calcium 9.8 mg/dl (8.6-10.3); Carbon Dioxide 28.0 mmol/L (21-32); Chloride 101.0 mmol/L (98-107); Creatinine Clr Calc Pharmacy 97.3 ml/min; Globulin 4.0 gm/dl (2.5-4.0); Glucose 81.0 mg/dl (70-99(Fasting)); Lipase 12.0 U/L (11-82); Potassium 3.9 mmol/L (3.5-5.1); Sodium 139.0 mmol/L (136-145); Total Protein 8.6 gm/dl (6.0-8.3)
[2025-02-18] MEDS: SODIUM CHLORIDE 0.9% 1,000 ML IV STA (19:04)
[2025-02-18] MEDS: MoRPHine SULFATE 4 MG/ML 1 ML CARP\\VIAL IV PRN (19:05)
[2025-02-18] MEDS: ONDANSETRON INJ 2 MG/ML 2 ML VIAL IV STA (19:05)
[2025-02-18] MEDS: OPTIRAY 320 100ml IV ONE (20:30)
--- NOTE | 2025-02-18 21:06 | CT Scan Report ---
Exam(s): CT ABDOMEN + PELVIS With Contrast Oral - High Density Amt: GASTRO, IV Amt: 93ML OPTIRAY 320 EXAM: CT Abdomen and Pelvis With Intravenous Contrast CLINICAL HISTORY: Reason for exam: pain and crohns. TECHNIQUE: Axial computed tomography images of the abdomen and pelvis with intravenous contrast. CTDI is 12.87 mGy and DLP is 706.5 mGy-cm. Automated exposure control was utilized for the study. A dose lowering technique was utilized adhering to the principles of ALARA. CONTRAST: Patient received GASTRO of Oral - High Density and 93ML OPTIRAY 320 of IV contrast COMPARISON: 01/25/2025 FINDINGS: Lung bases: Unremarkable. ABDOMEN: Liver: Unremarkable. No mass. Gallbladder and bile ducts: Cholelithiasis without evidence of cholecystitis. No ductal dilation. Pancreas: Unremarkable. No mass. No ductal dilation. Spleen: Unremarkable. No splenomegaly. Adrenals: Unremarkable. No mass. Kidneys and ureters: Symmetric renal enhancement. No hydronephrosis. At least 2 nonobstructing left kidney stones, largest 4 mm. Stomach and bowel: Oral contrast administered extending to the jejunum. Postoperative changes of right hemicolectomy. Small-bowel obstruction with right lateral midabdomen transition point (series 2, images 51-58), likely due to adhesion. PELVIS: Appendix: Appendix is absent. Bladder: Unremarkable. No mass. Reproductive: Unremarkable as visualized. ABDOMEN and PELVIS: Intraperitoneal space: Mesenteric edema and trace interloop ascites in the right abdomen. No free air. Bones/joints: Disc degeneration at the lumbosacral junction. No acute fracture. No dislocation. Soft tissues: Unremarkable. Vasculature: Unremarkable. No abdominal aortic aneurysm. Lymph nodes: Unremarkable. No enlarged lymph nodes. IMPRESSION: Small-bowel obstruction with right lateral midabdomen transition point (series 2, images 51-58), likely due to adhesion. Electronically signed by: Tarik Carrillo M.D. 02/18/25 21:05 PM
--- NOTE | 2025-02-18 22:03 | History & Physical Report ---
Date of Service February 18, 2025 Assessment & Plan (1) SBO (small bowel obstruction): (2) Crohn's disease: Plan 45-year-old male PMHx Crohn's disease of ilium with intestinal obstruction, multiple bowel obstruction surgeries s/p SB resection, B12 deficiency, and inguinal hernia presenting for abdominal pain. Evaluation is without leukocytosis or gross electrolyte abnormalities, but ESR and CRP are increased at [address] imaging of abdomen is with SBO at R lateral midabdomen transition point. Admission for IVF, abx, and further consults. #SBO/Crohn's disease Abdominal pain starting morning of arrival; prior history multiple abdominal surgeries (ileal resection 1995 w/ subsequent psoas abscess, s/p ileocecal resection 2020). Admission 06/27-06/28/2024 for SBO, Crohn's ileitis. Pt transitioned to [facility] 2/2 insurance reasons ~ 3 months [employer] (previously on Remicade since 1999), most recent dose 02/15/2025. Follows with GI, most recent visit 11/27/2024. Pain improved w/ pain medications. Admission for SBO. - CBC WNL; CMP alk phos 111; ESR 58; CRP 3.04 - BMP am - CTAP SBO with R lateral midabdomen transition point, likely 2/2 adhesion - NPO - IVF LR @ 125 mL/hr - Zofran prn N/V - Acetaminophen IV prn fever/pain, morphine IV prn moderate-severe pain - Zosyn 4.5g IV - continue - Methylprednisolone 40mg IV now then BID - GI consulted - appreciate input + recs - Gen sx consulted - appreciate input + recs Dispo: Admit, med/sx VTE Prophylaxis: SCDs This document was dictated utilizing [employer]. Please excuse any grammatical errors that may be secondary to use of this software. Admission and Anticipated Discharge Date Admission Date: 02/18/2025 History of Present Illness Chief Complaint: Abdominal pain Primary Care Provider: MILI Razo 45-year-old male PMHx Crohn's disease of ilium with intestinal obstruction, multiple bowel obstruction surgeries s/p SB resection, B12 deficiency, and inguinal hernia presenting for abdominal pain. Pt reports that the AM of arrival he woke up and thought that he had had the "stomach bug." Reports 7/10 abdominal pain throughout the day, located in the center of his abdomen just above the umbilicus. He has been nauseous, no vomiting. Passing gas. Over the past 2 months he feels that he has been generally sick, with on and off URI symptoms and generalized not feeling well. He states that this now feels similar to prior flares, but he was not expecting it to be an obstruction because he "had all the scar tissue removed." He is without CP, SOB, palpitations, LUTS, F/C, numbness/tingling, weakness, syncope, or falls. ED evaluation reveals CBC WNL; CMP alk phos 111, protein 8.6; ESR 58, CRP 3.04; lipase 12; CTAP SBO with R lateral midabdomen transition point likely d/t adhesion.; Provided with 1L NSS, Zosyn 4.5g IV, morphine 4mg IV, and zofran 4mg IV in ED. Please see Dr. Glass attestation for adjustments/additions to treatment plan. Allergies Allergy/AdvReac Type Severity Reaction Status Date / Time nut - unspecified AdvReac Severe Bowel Verified 02/18/25 19:39 Obstruction - All solid nuts tree nut AdvReac Severe Bowel Verified 02/18/25 19:39 Obstruction - All solid nuts clarithromycin [From Biaxin] AdvReac Intermediate "got Verified 02/18/25 19:39 really sick" Home Medications Medication Instructions Recorded Confirmed Type syringe with needle, safety 3 mL #1 ea 12/24/23 10/10/24 Rx 25 gauge x 1" (BD Integra Syringe) ibuprofen 200 mg tablet (Advil) 200 mg PO Q6H PRN Pain 06/27/24 02/18/25 History ondansetron HCl 4 mg tablet 4 mg PO Q6H PRN nausea and 06/28/24 02/18/25 Rx vomiting #20 tabs risankizumab-rzaa 150 mg/mL 0 mg subcut MONTHLY 02/18/25 02/18/25 History subcutaneous syringe (Skyrizi) Past Med/Surg History Problem List Abdominal pain (Acute) SBO (small bowel obstruction) (Acute) Avascular necrosis of femoral head Crohn's disease (Acute) Leukocytosis (Acute) SBO (small bowel obstruction) (Acute) S/P small bowel resection Apr 2020 laparoscopic converted to open lysis of adhesions and bowel resection [facility] B12 deficiency Inguinal hernia Testicular pain COVID-19 (Acute) Medical non-compliance Medical History Acute upper abdominal pain Crohn's disease of ileum with intestinal obstruction Nephrolithiasis URI (upper respiratory infection) Crohn's disease Lumbar herniated disc SBO (small bowel obstruction) Hx of renal calculi Crohns disease Surgical History History of cystoscopy Hx of vasectomy History of colostomy reversal 1995 History of tonsillectomy History of surgical removal of terminal ileum Hx of colostomy 1995 Family History Other Adopted Unobtainable family history due to adoption Social History Smoking Status: Never smoker Tobacco Type: Cigarettes Age Started Using Tobacco: 16; Age Quit Using Tobacco: 30; packs per day: 0.5; Second Hand Exposure: No; Do You Dip or Chew Tobacco: No; Hx Alcohol Use: Yes Alcohol type: hard liquor Alcohol Intake Frequency: 2-4 x/Month Hx Substance Use: No Preferred Language: German Communication Ability: Effective Visual Impairment: Partially Limited Hearing Ability: Normal Project Manager/Design Manager Required: No Beliefs That Will Affect Care: None marital status: Current Living Situation: Spouse Current Living Situation Comment: Lives with and 2 kids current occupational status: employed current occupation: [employer] How many Children do You have: 2 Feels Safe at Home: Yes Diet: regular Diet Comment: low residue do to chrons caffeine: Yes (coffee 1 cup a day. ) during the past year weight has: remained stable Dental Care, Regularly: Yes Physical Activity Frequency: 5-6 Times per Week Seatbelt Use: always Sunscreen Use: No Assistive Devices: None Review of Systems Review of Systems: All systems reviewed & are unremarkable except as noted in Subjective Physical Exam Physical Exam: General: No acute distress Skin: Warm and dry Head: Normocephalic, atraumatic Eyes: PERRL, conjunctivae clear, sclera non-icteric; wearing glasses ENT: External ear and ear canal without swelling; nose atraumatic; good dentition, tongue normal appearance, pharynx normal Neck: Supple, no LAD Cardio: RRR, no M/G/R, S1 and S2 normal Resp: No respiratory distress, Lungs CTA in all lobes bilaterally, no wheezes, rales, or rhonchi Abdomen: Soft, symmetric, diffuse but mild tenderness to palpation; No masses or hepatosplenomegaly MSK: No deformities; pulses palpable and equal; no edema. Neuro: Awake, alert; Sensation intact bilaterally; CN grossly intact Psych: Appropriate mood and affect; good judgement and insight. Results & Data Results & Data Vital Signs (Past 12 Hours) Vital Signs Temp Pulse Pulse Resp BP BP Pulse Ox 02/18/25 21:27 87 18 95 02/18/25 21:27 85 18 154/98 H 95 02/18/25 19:02 74 16 136/101 H 96 02/18/25 18:49 77 02/18/25 18:46 72 18 146/101 H 96 02/18/25 17:54 36.6 C 84 20 153/103 H 96 O2 Del Method 02/18/25 21:27 Room Air 02/18/25 21:27 Room Air 02/18/25 19:02 Room Air 02/18/25 18:49 02/18/25 18:46 Room Air 02/18/25 17:54 Laboratory Results 02/18/25 18:19 WBC 7.95 RBC 4.89 Hgb 14.4 Hct 43.9 MCV 89.8 MCH 29.4 MCHC 32.8 RDW Std Deviation 40.3 RDW Coeff of Aga 12.3 Plt Count 264 MPV 10.0 Immature Gran % (Auto) 0.4 Neut % (Auto) 69.4 Lymph % (Auto) 23.8 Wake % (Auto) 5.5 Eos % (Auto) 0.5 Baso % (Auto) 0.4 Neut # (Auto) 5.52 Lymph # (Auto) 1.89 Wake # (Auto) 0.44 Eos # (Auto) 0.04 Baso # (Auto) 0.03 Immature Gran # (Auto) 0.03 ESR 58 H Sodium 139 Potassium 3.9 Chloride 101 Carbon Dioxide 28 Anion Gap 10 BUN 12 Creatinine 0.83 Est Cr Clr Drug Dosing 97.3 eGFR 109.99 BUN/Creatinine Ratio 14.5 Glucose 81 Calcium 9.8 Total Bilirubin 0.5 AST 19 ALT 14 Alkaline Phosphatase 111 H C-Reactive Protein 3.04 H Total Protein 8.6 H Albumin 4.6 Globulin 4.0 Albumin/Globulin Ratio 1.1 Lipase 12 Diagnostic Findings Abdomen/Pelvis CT 02/18/25 18:01 Exam(s): CT ABDOMEN + PELVIS With Contrast Oral - High Density Amt: GASTRO, IV Amt: 93ML OPTIRAY 320 EXAM: CT Abdomen and Pelvis With Intravenous Contrast CLINICAL HISTORY: Reason for exam: pain and crohns. TECHNIQUE: Axial computed tomography images of the abdomen and pelvis with intravenous contrast. CTDI is 12.87 mGy and DLP is 706.5 mGy-cm. Automated exposure control was utilized for the study. A dose lowering technique was utilized adhering to the principles of ALARA. CONTRAST: Patient received GASTRO of Oral - High Density and 93ML OPTIRAY 320 of IV contrast COMPARISON: 01/25/2025 FINDINGS: Lung bases: Unremarkable. ABDOMEN: Liver: Unremarkable. No mass. Gallbladder and bile ducts: Cholelithiasis without evidence of cholecystitis. No ductal dilation. Pancreas: Unremarkable. No mass. No ductal dilation. Spleen: Unremarkable. No splenomegaly. Adrenals: Unremarkable. No mass. Kidneys and ureters: Symmetric renal enhancement. No hydronephrosis. At least 2 nonobstructing left kidney stones, largest 4 mm. Stomach and bowel: Oral contrast administered extending to the jejunum. Postoperative changes of right hemicolectomy. Small-bowel obstruction with right lateral midabdomen transition point (series 2, images 51-58), likely due to adhesion. PELVIS: Appendix: Appendix is absent. Bladder: Unremarkable. No mass. Reproductive: Unremarkable as visualized. ABDOMEN and PELVIS: Intraperitoneal space: Mesenteric edema and trace interloop ascites in the right abdomen. No free air. Bones/joints: Disc degeneration at the lumbosacral junction. No acute fracture. No dislocation. Soft tissues: Unremarkable. Vasculature: Unremarkable. No abdominal aortic aneurysm. Lymph nodes: Unremarkable. No enlarged lymph nodes. IMPRESSION: Small-bowel obstruction with right lateral midabdomen transition point (series 2, images 51-58), likely due to adhesion. Electronically signed by: Tarik Carrillo M.D. 02/18/25 21:05 PM Medications Administered 1L NSS Zosyn 4.5g IV Zofran 4mg IV Morphine 4mg IV Code Status & VTE Plan Code Status Full Supervising Physician Co-Signing Physician Notes Attending addendum: I have physically seen this patient, have supervised the FIDEL's activities, and agree with the H&P unless as otherwise noted. Assessment and Plan: The patient is a 45-year-old male with past medical history including Crohn's disease of ileum with intestinal obstruction, multiple bowel obstructions surgeries status post small bowel resection, B12 deficiency, and inguinal hernia. He presents to the emergency department with abdominal pain. CT scan of abdomen and pelvis reveals a small bowel obstruction with right lateral mid abdomen transition point likely due to adhesion. [facility], consult to general surgery. Small bowel obstruction/Crohn's disease/history of previous SBO's- He feels that he is not doing as well since he was transitioned from Remicade, which he was on for 25 years, to Skyrizi 3 months ago, because of insurance issues. CT abdomen pelvis with SBO with right lateral mid abdomen transition point, like ly due to adhesion. NPO LR 125 mL/h Acetaminophen 1 g IV every 8 hours as needed for mild pain or fever Morphine 2 mg IV every 3 hours as needed for moderate pain Morphine 4 mg IV every 3 hours as needed for severe pain Zosyn 4.5 g IV every 8 hours Pantoprazole 40 mg IV now and daily Methylprednisolone 40 mg IV now, and then twice daily General Surgery consulted already by the ED Consult gastroenterology PG Care Time/CCT Total # of Minutes Spent Total Time Spent with Patient: Total time spent is greater than 50% in coordination of care (as documented) at patient's floor/unit and/or counseling patient: Coding Level of Care Code 39372 INT INP/OBS CARE 3MIN Diagnoses SBO (small bowel obstruction) K56.609 Crohn's disease K50.912 Digestive disease complication type: with intestinal obstruction Gastrointestinal tract location: unspecified location (2) Crohn's disease Digestive disease complication type: with intestinal obstruction Gastrointestinal tract location: unspecified location Qualified Code(s): K50.912 - Crohn's disease, unspecified, with intestinal obstruction
[2025-02-18] MEDS ORDERED: MoRPHine SULFATE 2 MG/ML CARP IV PRN (22:18)
[2025-02-18] MEDS ORDERED: MoRPHine SULFATE 4 MG/ML 1 ML CARP\\VIAL IV PRN (22:18)
[2025-02-18] MEDS: ONDANSETRON INJ 2 MG/ML 2 ML VIAL IV PRN (22:58)
[2025-02-18] MEDS: ACETAMINOPHEN 1,000 MG/100 ML VIAL IV PRN (23:06)
[2025-02-18] MEDS ORDERED: ONDANSETRON INJ 2 MG/ML 2 ML VIAL IV PRN (23:51)
[2025-02-18 23:53] VITALS: RESP 16
[2025-02-19] MEDS: LACTATED RINGER'S 1,000 ML IV SCH (00:02)
[2025-02-19] MEDS: PIPERACILLIN/TAZOBACTAM 4.5 GM/100 ML BAG IV ONE (00:08)
--- NOTE | 2025-02-19 00:18 | Surgery Consultation ---
Date of Consultation February 19, 2025 Assessment & Plan (1) SBO (small bowel obstruction): Patient has been admitted on the hospitalist service. From a surgical perspective we recommend the following: Appears that the patient has a small bowel obstruction. This may be on the basis of a Crohn's flare or from adhesions. Hospital service has placed the patient on intravenous steroids which we will continue at their discretion for possible Crohn's flare Would recommend keeping the patient n.p.o. Would hydrate him with IV fluids As the patient has not had any nausea or vomiting and does not have a distended abdomen I feel we can hold on placing NG tube. I did discuss this modality with the patient and note that this may be recommended if he does have worsening of his abdominal exam or if he has the development of any nausea or vomitingthe patient notes that even if this modality is recommended he would refuse Would be preferable to avoid surgical intervention in this patient due to his underlying Crohn's disease and numerous previous abdominal surgeries Would recommend following serial labs At the time of my interview the patient was nontoxic-appearing Additional recommendations to be forthcoming based on his clinical course as unfolds Supervising Physician Co-Signing Physician Notes Discussed with FIDEL overnight, labs and imaging reviewed, agree with above. History of Crohn's disease, came in with abdominal pain and bloating. CT scan personally viewed and interpreted and agree with the assessment of partial small bowel obstruction, may be related to adhesions or Crohn's flare. No surgical intervention indicated at this time. Will attempt nonoperative management, may need GI consult for possible steroid dosing. Dr. Richardson to take over patient's care. History of Present Illness Reason for Consultation: Small bowel obstruction Attending Physician: David Glass MD History of Present Illness This a 45-year-old male who is known about any physician of general surgery. He has a history of Crohn's disease and has had numerous admissions secondary to small bowel obstructions. His most recent such admission was in June of this year at which time he was treated successfully in a conservative manner. The patient presented to the hospital today as he has been having abdominal pain located just superior to his umbilicus since yesterday. He has not had any nausea or vomiting. He denies any bowel movement or flatus in the last 8 hours. He has not had any fevers in the last 24 hours. Patient notes that he has had multiple abdominal surgerieshe has had his terminal ileum removed, following this surgery he required an emergency ileostomy secondary to surgical dehiscence. He subsidy had his ileostomy removed. These 3 surgeries were performed around 1995 or 1996. He also had an additional surgery for lysis of adhesions. Patient notes that he was previously taking Remicade but now takes Skyrizi for his Crohn's disease. Since arrival to hospital he has had labs and imaging which) reviewed. A CT scan of the abdomen pelvis showed no free intraperitoneal air. He did have findings concerning for small bowel obstruction with transition point in the right lateral mid abdomen felt to be likely due to adhesions. Labs include a CBC were white blood cell count, hemoglobin, hematocrit, and platelet count were all normal. Erythrocyte sedimentation rate is elevated at 58 and his C-reactive protein was elevated at 3.0. This chemistry profile showed sodium and potassium as well as BUN and creatinine were normal. At the time of my interview he was resting comfortably in bed he was in no distress. Allergies Allergy/AdvReac Type Severity Reaction Status Date / Time nut - unspecified AdvReac Severe Bowel Verified 02/18/25 19:39 Obstruction - All solid nuts tree nut AdvReac Severe Bowel Verified 02/18/25 19:39 Obstruction - All solid nuts clarithromycin [From Biaxin] AdvReac Intermediate "got Verified 02/18/25 19:39 really sick" Home Medications Medication Instructions Recorded Confirmed Type syringe with needle, safety 3 mL #1 ea 12/24/23 10/10/24 Rx 25 gauge x 1" (BD Integra Syringe) ibuprofen 200 mg tablet (Advil) 200 mg PO Q6H PRN Pain 06/27/24 02/18/25 History ondansetron HCl 4 mg tablet 4 mg PO Q6H PRN nausea and 06/28/24 02/18/25 Rx vomiting #20 tabs risankizumab-rzaa 150 mg/mL 0 mg subcut MONTHLY 02/18/25 02/18/25 History subcutaneous syringe (Skyrizi) Patient History Medical History Acute upper abdominal pain Crohn's disease of ileum with intestinal obstruction Nephrolithiasis URI (upper respiratory infection) Crohn's disease Lumbar herniated disc SBO (small bowel obstruction) Hx of renal calculi Crohns disease Surgical History History of cystoscopy Hx of vasectomy History of colostomy reversal 1995 History of tonsillectomy History of surgical removal of terminal ileum Hx of colostomy 1995 Family History Other Adopted Unobtainable family history due to adoption Social History Smoking Status: Never smoker Tobacco Type: Cigarettes Age Started Using Tobacco: 16; Age Quit Using Tobacco: 30; packs per day: 0.5; Second Hand Exposure: No; Do You Dip or Chew Tobacco: No; Hx Alcohol Use: Yes Alcohol type: hard liquor Alcohol Intake Frequency: 2-4 x/Month Hx Substance Use: No Preferred Language: Luxembourger Communication Ability: Effective Visual Impairment: Partially Limited Hearing Ability: Normal Aerial Gunner Required: No Beliefs That Will Affect Care: None marital status: Current Living Situation: Spouse Current Living Situation Comment: Lives at home with and 2 daughter current occupational status: employed current occupation: [employer] How many Children do You have: 2 Other Information That Helps Us Care for You: No Feels Safe at Home: Yes Safety Concerns: Feels Safe At This Time Diet: regular Diet Comment: low residue do to chrons caffeine: Yes (coffee 1 cup a day. ) during the past year weight has: remained stable Dental Care, Regularly: Yes Physical Activity Frequency: 5-6 Times per Week Seatbelt Use: always Sunscreen Use: No Assistive Devices: Glasses Review of Systems Review of Systems: All systems reviewed & are unremarkable except as noted in HPI & below Physical Exam Constitutional: WD/WN, vitals as above Eyes: no conjunctival abnormality ENMT: Ears: no hearing impairment and no external ear abnormality Mouth: no oropharynx abnormality Neck: trachea midline Respiratory: normal respiratory effort; no respiratory distress and no labored breathing Cardiovascular: Rate/Rhythm: regular rate and regular rhythm Gastrointestinal (Abdomen): Abdomen is soft without distention. There is no pain noted with palpation at the time of my exam. There is no rebound tenderness or guarding Musculoskeletal: No calf tenderness Skin: no rashes Neurologic: moves all extremities Psychiatric: A+Ox3, euthymic affect Results & Data Vital Signs (Past 12 Hours) Vital Signs Temp Pulse Pulse Resp BP BP Pulse Ox 02/18/25 23:53 36.6 C 87 16 145/94 H 96 02/18/25 23:28 02/18/25 23:04 76 18 137/92 95 02/18/25 22:51 79 02/18/25 21:27 87 18 95 02/18/25 21:27 85 18 154/98 H 95 02/18/25 19:02 74 16 136/101 H 96 02/18/25 18:49 77 02/18/25 18:46 72 18 146/101 H 96 02/18/25 17:54 36.6 C 84 20 153/103 H 96 O2 Del Method 02/18/25 23:53 Room Air 02/18/25 23:28 Room Air 02/18/25 23:04 Room Air 02/18/25 22:51 02/18/25 21:27 Room Air 02/18/25 21:27 Room Air 02/18/25 19:02 Room Air 02/18/25 18:49 02/18/25 18:46 Room Air 02/18/25 17:54 PG Care Time/CCT Total # of Minutes Spent Total Time Spent with Patient: Total time spent is greater than 50% in coordination of care (as documented) at patient's floor/unit and/or counseling patient: Coding Level of Care Code 33330 IN/OBS CONSULT LVL 5,80M Diagnoses SBO (small bowel obstruction) K56.609
[2025-02-19] MEDS: PANTOprazole 40 MG/10 ML SYR IV ONE (00:43)
[2025-02-19] MEDS: PIPERACILLIN/TAZOBACTAM 4.5 GM/100 ML BAG IV SCH (05:31)
[2025-02-19 07:22] VITALS: O2SAT 94
[2025-02-19 08:28] LABS: Anion Gap 9.0 (3-11); Blood Urea Nitrogen 9.0 mg/dl (6-23); Calcium 9.1 mg/dl (8.6-10.3); Carbon Dioxide 25.0 mmol/L (21-32); Chloride 103.0 mmol/L (98-107); Creatinine Clr Calc Pharmacy 121.9 ml/min; Glucose 128.0 mg/dl (70-99(Fasting)); Potassium 4.4 mmol/L (3.5-5.1); Sodium 137.0 mmol/L (136-145)
[2025-02-19] MEDS: PANTOprazole 40 MG/10 ML SYR IV SCH (08:47)
--- NOTE | 2025-02-19 12:02 | Gastrointestinal Consultation ---
Date of Consultation February 19, 2025 Assessment & Plan (1) SBO (small bowel obstruction): (2) Crohn's disease: Plan 45yowm with h/o Crohn's disease s/p ileal resection in 1995 is seen today on inpatient rounds for SBO. Clinically he has been NPO since yesterday. ESR 58, CRP 3.08. CBC, CMP, Lipase unremarkable. He's been started on IV antibiotics and Steroids. General surgical consulted - recommended conservative management. No NG tube necessary at this time. (1) Crohn's disease s/p ileal resection 1995 and multiple SBO is seen today for SBO. - Case, CT scan, Recent MRE and Colonoscopies reviewed with supervising MD. - Recommend holding steroids as we suspect this is more adhesive disease. - We may trial clear liquids to see how he tolerates this. - Further recommendations to come based on how his symptoms evolve. - Please see Supervising comments for any adjustments on rounds later this day. Supervising Physician Co-Signing Physician Notes Reviewed above notes by the PA. Agree without change. Reviewed history with patient. He has had colonoscopy and a recent MRI enterography. Both of these suggest only minimal to no Crohn's disease and certainly no stricturing disease. Small bowel obstructions are likely related to adhesive disease. He has had previous adhesional lysis performed in [place] back in [address] [facility]. I suspect this is a reoccurrence of that process. I would not treat him with steroids based on this He is feeling somewhat improved advance diet as tolerated. He does note since switching from Remicade to Skyrizi he has noting a wearing off effect at the 6- week. His option at this point is to return to Remicade, try Humira or increase Skyrizi to every 6 weeks. 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 Discharge home when tolerating p.o. He should be on a low residue diet History of Present Illness Reason for Consultation: SBO, Crohns Attending Physician: Favio Ayala MD History of Present Illness 45yowm with h/o Crohn's disease, s/p recurrent SBO s/p Terminal ileum resection/Ileostomy creation in distant past, s/p Adhesiolysis a few years ago is seen today for admission for SBO. He reports that he developed symptoms of abdominal discomfort and nausea characteristic of his typical SBO yesterday which lead him to come to the ER. Upon arrival CBC, CMP, Lipase were unremarkable. CRP 3.04, ESR 58, CT abd/pelvis revealed SBO. He was admitted with Gastroenterology and General surgery consultation. He was started on IV Methylprednisolone 40mg BID and IV Zosyn. Today he reports that he's feeling better and he'd like to try clear liquids. We reviewed his IBD history. He follows with [facility] locally and recently switched from Remicade to Skyrizi d/t insurance preference. He reports that he has had a number of issues since then and is looking to transitioning back now. He denies any vomiting, melena or hematochezia. Family history - Adopted. Social History - No alcohol, tobacco or drug use Surgical History -EGD and Colonoscopy, Ileal resection in distant past. Adhesiolysis. Pertinent Diagnostics - CBC, CMP, Lipase unremarkable. - CRP 3.08 - ESR - 58 CT abd/pelvis ABDOMEN: Liver: Unremarkable. No mass. Gallbladder and bile ducts: Cholelithiasis without evidence of cholecystitis. No ductal dilation. Pancreas: Unremarkable. No mass. No ductal dilation. Spleen: Unremarkable. No splenomegaly. Adrenals: Unremarkable. No mass. Kidneys and ureters: Symmetric renal enhancement. No hydronephrosis. At least 2 nonobstructing left kidney stones, largest 4 mm. Stomach and bowel: Oral contrast administered extending to the jejunum. Postoperative changes of right hemicolectomy. Small-bowel obstruction with right lateral midabdomen transition point (series 2, images 51-58), likely due to adhesion. PELVIS: Appendix: Appendix is absent. Bladder: Unremarkable. No mass. Reproductive: Unremarkable as visualized. ABDOMEN and PELVIS: Intraperitoneal space: Mesenteric edema and trace interloop ascites in the right abdomen. No free air. Bones/joints: Disc degeneration at the lumbosacral junction. No acute fracture. No dislocation. Soft tissues: Unremarkable. Vasculature: Unremarkable. No abdominal aortic aneurysm. Lymph nodes: Unremarkable. No enlarged lymph nodes. IMPRESSION: Small-bowel obstruction with right lateral midabdomen transition point (series 2, images 51-58), likely due to adhesion. Last Colonoscopy 09/2024 - [facility] - Ileal erosions noted with biopies consistent with Crohn's disease. MRE 08/2024 - No evidence of active Crohn's in the small bowel. Allergies Allergy/AdvReac Type Severity Reaction Status Date / Time nut - unspecified AdvReac Severe Bowel Verified 02/18/25 19:39 Obstruction - All solid nuts tree nut AdvReac Severe Bowel Verified 02/18/25 19:39 Obstruction - All solid nuts clarithromycin [From Biaxin] AdvReac Intermediate "got Verified 02/18/25 19:39 really sick" Home Medications Medication Instructions Recorded Confirmed Type syringe with needle, safety 3 mL #1 ea 12/24/23 10/10/24 Rx 25 gauge x 1" (BD Integra Syringe) ibuprofen 200 mg tablet (Advil) 200 mg PO Q6H PRN Pain 06/27/24 02/18/25 History ondansetron HCl 4 mg tablet 4 mg PO Q6H PRN nausea and 06/28/24 02/18/25 Rx vomiting #20 tabs risankizumab-rzaa 150 mg/mL 0 mg subcut MONTHLY 02/18/25 02/18/25 History subcutaneous syringe (Skyrizi) Patient History Medical History Acute upper abdominal pain Crohn's disease of ileum with intestinal obstruction Nephrolithiasis URI (upper respiratory infection) Crohn's disease Lumbar herniated disc SBO (small bowel obstruction) Hx of renal calculi Crohns disease Surgical History History of cystoscopy Hx of vasectomy History of colostomy reversal 1995 History of tonsillectomy History of surgical removal of terminal ileum Hx of colostomy 1995 Family History Other Adopted Unobtainable family history due to adoption Social History Smoking Status: Never smoker Tobacco Type: Cigarettes Age Started Using Tobacco: 16; Age Quit Using Tobacco: 30; packs per day: 0.5; Second Hand Exposure: No; Do You Dip or Chew Tobacco: No; Hx Alcohol Use: Yes Alcohol type: hard liquor Alcohol Intake Frequency: 2-4 x/Month Hx Substance Use: No Preferred Language: Frisian Communication Ability: Effective Visual Impairment: Partially Limited Hearing Ability: Normal Novelty Dipper Required: No Beliefs That Will Affect Care: None marital status: Current Living Situation: Spouse Current Living Situation Comment: Lives at home with and 2 daughter current occupational status: employed 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 ) during the past year weight has: remained stable Dental Care, Regularly: Yes Physical Activity Frequency: 5-6 Times per Week Seatbelt Use: always Sunscreen Use: No Assistive Devices: Glasses Review of Systems Review of Systems: See HPI Physical Exam Physical Exam: Constitutional: NAD. Alert. Answering questions appropriately. Respiratory: Breathing is even, non-labored. Lungs emerson are clear to auscultation anteriorly. Cardiovascular: Regular Rate and Rhythm, no murmurs, rubs or gallops appreciated. Gastrointestinal (Abdomen): Normoactive bowel sounds x4, soft, non-distended, non-tender. Musculoskeletal: Lying in bed comfortably. No peripheral edema. Results & Data Vital Signs (Past 12 Hours) Vital Signs Temp Pulse Resp BP Pulse Ox O2 Del Method 02/19/25 07:19 97.7 F 56 L 16 112/70 94 Room Air PG Care Time/CCT Total # of Minutes Spent Total Time Spent with Patient: Total time spent is greater than 50% in coordination of care (as documented) at patient's floor/unit and/or counseling patient: Coding Level of Care Code 18204 IN/OBS CONSULT LVL 2,35M Diagnoses SBO (small bowel obstruction) K56.609 Crohn's disease K50.912 Digestive disease complication type: with intestinal obstruction Gastrointestinal tract location: unspecified location (2) Crohn's disease Digestive disease complication type: with intestinal obstruction Gastrointestinal tract location: unspecified location Qualified Code(s): K50.912 - Crohn's disease, unspecified, with intestinal obstruction
--- NOTE | 2025-02-19 12:53 | Surgery Progress Note ---
Date of Service February 19, 2025 Assessment & Plan (1) SBO (small bowel obstruction): Plan: Clinically much improved. I think it is reasonable to advance his diet and see how he does. If he tolerates low fiber tonight potential for discharge tomorrow. No urgent indications for surgical intervention. (2) Crohn's disease: (3) S/P small bowel resection: Admission and Anticipated Discharge Date Admission Date: February 18, 2025 Subjective Patient feeling much better today. He had a large bowel movement this morning and has already tolerated full liquids for lunch. He is hungry and would like more to eat. He has no pain or nausea Physical Exam Constitutional: WD/WN, vitals as above no acute distress and not ill appearing Eyes: PERRL, conjunctivae normal, anicteric sclerae EOM intact bilaterally ENMT: external ear and nose normal, oropharynx normal Ears: no hearing impairment Neck: trachea midline, no thyromegaly Respiratory: normal respiratory effort; no respiratory distress and does not use accessory muscles Cardiovascular: Rate/Rhythm: regular rate and regular rhythm Gastrointestinal (Abdomen): normal bowel sounds, soft, nontender, no hepatosplenomegaly Skin: no rashes, warm and dry Psychiatric: Orientation: alert, oriented x 3 and cooperative Results & Data Vital Signs (Past 12 Hours) Vital Signs Temp Pulse Resp BP Pulse Ox O2 Del Method 02/19/25 07:19 36.5 C 56 L 16 112/70 94 Room Air PG Care Time/CCT Total # of Minutes Spent Total Time Spent with Patient: Total time spent is greater than 50% in coordination of care (as documented) at patient's floor/unit and/or counseling patient: Coding Level of Care Code 08915 SUB INP/OBS CARE 04/29MIN Diagnoses SBO (small bowel obstruction) K56.609 Crohn's disease K50.912 Digestive disease complication type: with intestinal obstruction Gastrointestinal tract location: unspecified location S/P small bowel resection Z90.49 (2) Crohn's disease Digestive disease complication type: with intestinal obstruction Gastrointestinal tract location: unspecified location Qualified Code(s): K50.912 - Crohn's disease, unspecified, with intestinal obstruction
[2025-02-19 14:36] VITALS: BP 139/78; PULSE 75; TEMP 97.9
--- NOTE | 2025-02-19 15:28 | Hospitalist Progress Note ---
Date of Service February 19, 2025 Assessment & Plan (1) SBO (small bowel obstruction): (2) Crohn's disease: Plan 45-year-old male PMHx Crohn's disease of ilium with intestinal obstruction, multiple bowel obstruction surgeries s/p SB resection, B12 deficiency, and inguinal hernia presenting for abdominal pain. Evaluation is without leukocytosis or gross electrolyte abnormalities, but ESR and CRP are increased at [address] imaging of abdomen is with SBO at R lateral midabdomen transition point. Admission for IVF, abx, and further consults. #SBO/Crohn's disease Abdominal pain starting morning of arrival; prior history multiple abdominal surgeries (ileal resection 1995 w/ subsequent psoas abscess, s/p ileocecal resection 2020). Admission 06/27-06/28/2024 for SBO, Crohn's ileitis. Pt transitioned to Skyrizi 2/2 insurance reasons ~ 3 months [employer] (previously on Remicade since 1999), most recent dose 02/15/2025. Follows with GI, most recent visit 11/27/2024. Pain improved w/ pain medications. Admission for SBO. CBC WNL; CMP alk phos 111; ESR 58; CRP 3.04 - BMP am CT A/P SBO with R lateral midabdomen transition point, likely 2/2 adhesion General Surgery consult appreciated Patient advance to full liquid diet without setbacks on 02/19 Advance to low fiber diet on the evening of 02/19 Zofran prn N/V Acetaminophen IV prn fever/pain, morphine IV prn moderate-severe pain No leukocytosis; afebrile; hemodynamically stable; discontinue Zosyn Patient received methylprednisolone 40mg IV BID on arrival Unclear if patient's current SBO is due to Crohn's flare vs. adhesions vs. viral GI illness vs. switching from Remicade to Skyrizi GI consult appreciated Based on most recent MRE and scope, suspect this is adhesional; steroids discontinued Re: Switching from Remicade to Skyrizi His option at this point is to return to Remicade, try Humira, or increase Skyrizi to every 6 weeks Recommend follow-up with GI as an outpatient #History of Crohn's ileitis Ileocolonic Crohn's since age 12 S/p ileal resection in 1995 S/p ileocecal resection 2020 and new anastomosis and lysis of adhesions Dispo: Continued stay on MedSurg, with hopeful discharge home once tolerating low fiber diet VTE Prophylaxis: SCDs This document was dictated utilizing [employer]. Please excuse any grammatical errors that may be secondary to use of this software. Admission and Anticipated Discharge Date Admission Date: February 18, 2025 Subjective Mr. Guy reports he is doing very well this morning. He is currently pain- free. No abdominal pain overnight. No nausea or vomiting. He denies any vomiting prior to coming into the hospital, but has just been feeling nauseous. Originally, he thought it was due to a stomach bug that has been going around. Patient did have a bowel movement this morning, which was mainly watery. He is open to trying a diet today, and advancing as tolerated. Patient reports that his SBO normally resolves after starting on IV steroids. Additionally, patient reports that he was on Remicade x 25 years, but was recently switched off of it due to an insurance issue. He has been on Skyrizi for the past 3 months. ROS: Patient endorses liquidy stool. Patient denies fever, chills, night sweats, headache, lightheadedness/dizziness, chest pain, SOB, abdominal pain, nausea, vomiting, or blood in the urine or stool. Review of Systems Review of Systems: See HPI above Physical Exam Physical Exam: General: no acute distress; pleasant affect; non-toxic appearing; cooperative; SpO2 94% on RA HEENT: normocephalic, atraumatic; PERRLA; vision and hearing intact Neck: supple; trachea midline Skin: warm, dry without signs of tenting; no cyanosis; no rashes, bruising, lesions, or erythema noted CV: chest wall NTP; RRR; S1/S2 normal; no murmurs/rubs/gallops; pulses intact and symmetric at radial, DP, and PT Lungs: no acute respiratory distress; symmetrical chest wall expansion; clear breath sounds across all lung emerson w/o adventitious sounds; no wheezing ABD: Soft, NTP in all 4 quadrants; BS present; no rebound/guarding; no distention MSK: no tics or fasciculations; no edema noted in the LEs b/l, nonerythematous Neuro: A&Ox3; normal mood and affect; fluent speech; sensation intact and symmetric in the LEs b/l Results & Data Results & Data Vital Signs (Past 12 Hours) Vital Signs Temp Pulse Resp BP Pulse Ox O2 Del Method 02/19/25 14:34 36.6 C 75 16 139/78 94 Room Air 02/19/25 07:19 36.5 C 56 L 16 112/70 94 Room Air PG Care Time/CCT Total # of Minutes Spent Total Time Spent with Patient: Total time spent is greater than 50% in coordination of care (as documented) at patient's floor/unit and/or counseling patient: Coding [place] [address] SUB INP/OBS CARE 2/35MIN Patient Type Established Medical Decision Making Moderate Complexity Diagnoses SBO (small bowel obstruction) K56.609 Crohn's disease K50.912 Digestive disease complication type: with intestinal obstruction Gastrointestinal tract location: unspecified location (2) Crohn's disease Digestive disease complication type: with intestinal obstruction Gastrointestinal tract location: unspecified location Qualified Code(s): K50.912 - Crohn's disease, unspecified, with intestinal obstruction
--- NOTE | 2025-02-19 19:09 | Discharge Summary ---
Discharge Summary Date of Service February 19, 2025 Principal Dx & Hospital Course #1 = Principal Diagnosis (1) SBO (small bowel obstruction): (2) Crohn's disease: Plan 45-year-old male PMHx Crohn's disease of ilium with intestinal obstruction, multiple bowel obstruction surgeries s/p SB resection, B12 deficiency, and inguinal hernia presenting for abdominal pain. Evaluation is without leukocytosis or gross electrolyte abnormalities, but ESR and CRP are increased at [address] imaging of abdomen is with SBO at R lateral midabdomen transition point. Admission for IVF, abx, and further consults. #SBO/Crohn's disease Abdominal pain starting morning of arrival; prior history multiple abdominal surgeries (ileal resection 1995 w/ subsequent psoas abscess, s/p ileocecal resection 2020). Admission 06/27-06/28/2024 for SBO, Crohn's ileitis. Pt transitioned to Skyrizi 2/2 insurance reasons ~ 3 months [employer] LO[employer] (previously on Remicade since 1999), most recent dose 02/15/2025. Follows with GI, most recent visit 11/27/2024. Pain improved w/ pain medications. Admission for SBO. CBC WNL; CMP alk phos 111; ESR 58; CRP 3.04 - BMP am CT A/P SBO with R lateral midabdomen transition point, likely 2/2 adhesion General Surgery consult appreciated Patient advance to full liquid diet without setbacks on 02/19 Advance to low fiber diet on the evening of 02/19 Zofran prn N/V Acetaminophen IV prn fever/pain, morphine IV prn moderate-severe pain No leukocytosis; afebrile; hemodynamically stable; discontinue Zosyn Patient received methylprednisolone 40mg IV BID on arrival Unclear if patient's current SBO is due to Crohn's flare vs. adhesions vs. viral GI illness vs. switching from Remicade to Skyrizi GI consult appreciated Based on most recent MRE and scope, suspect this is adhesional; steroids discontinued Re: Switching from Remicade to Skyrizi His option at this point is to return to Remicade, try Humira, or increase Skyrizi frequency to every 6 weeks Recommend follow-up with GI as an outpatient #History of Crohn's ileitis Ileocolonic Crohn's since age 12 S/p ileal resection in 1995 S/p ileocecal resection 2020 and new anastomosis and lysis of adhesions Day of Discharge 02/19: Mr. Guy reports he is doing very well this morning. He is currently pain- free. No abdominal pain overnight. No nausea or vomiting. He denies any vomiting prior to coming into the hospital, but has just been feeling nauseous. Originally, he thought it was due to a stomach bug that has been going around. Patient did have a bowel movement this morning, which was mainly watery. He is open to trying a diet today, and advancing as tolerated. Patient reports that his SBO normally resolves after starting on IV steroids. Additionally, patient reports that he was on Remicade x 25 years, but was recently switched off of it due to an insurance issue. He has been on Skyrizi for the past 3 months. ROS: Patient endorses liquidy stool. Patient denies fever, chills, night sweats, headache, lightheadedness/dizziness, chest pain, SOB, abdominal pain, nausea, vomiting, or blood in the urine or stool. Addendum at 1900: Patient has still not had dinner yet, but does report he had no difficulty with lunch and would feel comfortable returning home to deal with his SBO at home (as he has gone through this process many times before). He is still having mild abdominal cramping, but is otherwise well. He verbalizes that, should he be unable to keep down fluids or develops worsening abdominal pain, he should return to the hospital. Patient reports his would be able to pick him up from the hospital and drive him home tonight if needed. Disposition: If tolerating low fiber diet for dinner, will plan for patient discharged on the evening of 02/19; if any setbacks overnight, will see patient on the morning of 02/20 This document was dictated utilizing [employer]. Please excuse any grammatical errors that may be secondary to use of this software. Notes For Next Care Provider Patient hospitalized for recurrence of SBO. History of multiple admissions for similar. However, this SBO was likely due to adhesions rather than a Crohn's flare (per GI team). No plan for steroids on discharge. It is also recommended that patient be seen by GI outpatient, as he was previously taken off of Remicade, and has not done as well on Skyrizi. His options moving forward would be to restart Remicade, try Humira, or increase Skyrizi frequency. Admission HPI Per Admitting Provider 45-year-old male PMHx Crohn's disease of ilium with intestinal obstruction, multiple bowel obstruction surgeries s/p SB resection, B12 deficiency, and inguinal hernia presenting for abdominal pain. Pt reports that the AM of arrival he woke up and thought that he had had the "stomach bug." Reports 7/10 abdominal pain throughout the day, located in the center of his abdomen just above the umbilicus. He has been nauseous, no vomiting. Passing gas. Over the past 2 months he feels that he has been generally sick, with on and off URI symptoms and generalized not feeling well. He states that this now feels similar to prior flares, but he was not expecting it to be an obstruction because he "had all the scar tissue removed." He is without CP, SOB, palpitations, LUTS, F/C, numbness/tingling, weakness, syncope, or falls. ED evaluation reveals CBC WNL; CMP alk phos 111, protein 8.6; ESR 58, CRP 3.04; lipase 12; CTAP SBO with R lateral midabdomen transition point likely d/t adhesion.; Provided with 1L NSS, Zosyn 4.5g IV, morphine 4mg IV, and zofran 4mg IV in ED. Please see Dr. Glass attestation for adjustments/additions to treatment plan. Admission Exam Per Admitting Provider General: No acute distress Skin: Warm and dry Head: Normocephalic, atraumatic Eyes: PERRL, conjunctivae clear, sclera non-icteric; wearing glasses ENT: External ear and ear canal without swelling; nose atraumatic; good dentition, tongue normal appearance, pharynx normal Neck: Supple, no LAD Cardio: RRR, no M/G/R, S1 and S2 normal Resp: No respiratory distress, Lungs CTA in all lobes bilaterally, no wheezes, rales, or rhonchi Abdomen: Soft, symmetric, diffuse but mild tenderness to palpation; No masses or hepatosplenomegaly MSK: No deformities; pulses palpable and equal; no edema. Neuro: Awake, alert; Sensation intact bilaterally; CN grossly intact Psych: Appropriate mood and affect; good judgement and insight. Discharge Exam General: no acute distress; pleasant affect; non-toxic appearing; cooperative; SpO2 94% on RA HEENT: normocephalic, atraumatic; PERRLA; vision and hearing intact Neck: supple; trachea midline Skin: warm, dry without signs of tenting; no cyanosis; no rashes, bruising, lesions, or erythema noted CV: chest wall NTP; RRR; S1/S2 normal; no murmurs/rubs/gallops; pulses intact and symmetric at radial, DP, and PT Lungs: no acute respiratory distress; symmetrical chest wall expansion; clear breath sounds across all lung emerson w/o adventitious sounds; no wheezing ABD: Soft, NTP in all 4 quadrants; BS present; no rebound/guarding; no distention MSK: no tics or fasciculations; no edema noted in the LEs b/l, nonerythematous Neuro: A&Ox3; normal mood and affect; fluent speech; sensation intact and symmetric in the LEs b/l Discharge Plan Discharge Items Patient Disposition: Home - Self-Care Reason For Visit: SBO, CROHN'S Discharge Diagnosis: Small bowel obstruction Condition on Discharge: Fair Activity: Resume your previous activity Non-emergency contact: Primary Care Provider and Associate Buyer Call non-emergency contact if: you have any medication questions, your symptoms worsen, your pain is not controlled and you have a fever Follow-up/Referrals: Shoaib Schmidt CRNP [Primary Care Provider] - Diet: Low Fiber Diet Comment: If abdominal pain/nausea with eating, return to clear liquid diet Addtl Attending Provider Instructions: You were hospitalized at [facility] from 02/18 to 02/19 after presenting with abdominal pain. Imaging of your abdomen pelvis on arrival revealed a small bowel obstruction with a right lateral mid abdomen transition point. While you are initially treated with IV steroids on arrival, as you have history of SBO due to Crohn's flares, you were assessed by our gastroenterology team, who felt that this was more likely to be due to your abdominal adhesions. Over the course of your hospital stay, your vitals remained stable. You did not have an elevated white blood cell count to indicate signs of severe infection. Given you reported having a bowel movements, and your diet was advanced to a full/low fiber diet without any setbacks (no abdominal pain, bloating, nausea, vomiting) we feel that you are safe to return home at this time. New prescription on discharge: Ondansetron ("Zofran") 4mg oral dissolvable tablet every 6 hours as needed for nausea and vomiting Upon discharge: * Please eat a low fiber/residue diet for 1 week; you can advance your diet as tolerated. These foods include breads, biscuits, pancakes, waffles, bagels, saltines, delta crackers bananas, melons, applesauce, white rice, pasta, tender meat, fish and poultry, ham, hebert, shellfish, lunch meat, dairy products. * Avoid high-fiber foods and raw fruits and vegetables. These include whole grains, popcorn, brown rice, oatmeal, granola, nuts, seeds, dried beans, baked beans, peas and lentils, dried fruit. * You can take Zofran 1 oral dissolvable tablet every 6 hours as needed for nausea. * Stay hydrated and drink plenty of fluids. Stay physically active as tolerated. Please plan to follow-up with your PCP in the next 7 to 10 days for a transitional care appointment. We also recommend that you follow-up with gastroenterology on an outpatient basis. If you develop any new or worsening symptoms, such as fever, chills, intractable nausea and vomiting, severe stomach pain, dark/tarry stool, or blood in the urine/stool, please return to the emergency department immediately. It was a pleasure taking care of you. Please reach out with any questions or concerns. Sincerely, The Hospital medicine team at [facility] Pending Studies at Discharge: No Stand-Alone Forms: [facility] Medications and DC Order Prescriptions: New ondansetron 4 mg tablet,disintegrating 4 mg PO Q6H PRN (Reason: nausea and vomiting) Qty: 14 0RF Rx Instructions: Dissolve one tablet under your tongue every six hours as needed for nausea and vomiting Continued (DME) BD Integra Syringe 3 mL 25 gauge x 1" syringe See Rx Instructions .Route Qty: 1 0RF Rx Instructions: As directed with b12 injections Skyrizi 150 mg/mL Syringe 0 mg SUBCUT MONTHLY Rx Instructions: PER PT "HAD LAST INFUSION 02/15/25, WILL GO TO MONTHLY INJECTIONS NOW". ibuprofen [Advil] 200 mg Tablet 200 mg PO Q6H PRN (Reason: Pain) Discontinued ondansetron HCl 4 mg tablet 4 mg PO Q6H PRN (Reason: nausea and vomiting) Qty: 20 0RF Discharge Orders: Discharge Order (Routine); Ordered 02/19/25 Ordered By: Damion Mir Admission Data Admit Date/Time: 02/18/25 22:17 Attending Provider: Favio Ayala Admit Provider: David Glass Primary Care Provider: Shoaib Schmidt Other Providers: David Glass; Patrick Hunter; Erick Roy Other Interventions: Discharge Summary Assessment (RN) Last Done: 02/19/25 19:33 Hospital Stay Data Consultations 02/18/25 21:38 ED Decision to Admit Stat 02/18/25 23:51 Consult Gastroenterology Routine Consult General Surgery Routine Diagnostic Imagining Performed 02/18/25 18:01 CT abd pelvis oral and IV con Stat Pending Results Patient Have Any Pending Studies at Discharge: No Discharge Instructions Given to Patient (Per Discharging Provider) You were hospitalized at [facility] from 02/18 to 02/19 after presenting with abdominal pain. Imaging of your abdomen pelvis on arrival revealed a small bowel obstruction with a right lateral mid abdomen transition point. While you are initially treated with IV steroids on arrival, as you have history of SBO due to Crohn's flares, you were assessed by our gastroenterology team, who felt that this was more likely to be due to your abdominal adhesions. Over the course of your hospital stay, your vitals remained stable. You did not have an elevated white blood cell count to indicate signs of severe infection. Given you reported having a bowel movements, and your diet was advanced to a full/low fiber diet without any setbacks (no abdominal pain, bloating, nausea, vomiting) we feel that you are safe to return home at this time. New prescription on discharge: Ondansetron ("Zofran") 4mg oral dissolvable tablet every 6 hours as needed for nausea and vomiting Upon discharge: * Please eat a low fiber/residue diet for 1 week; you can advance your diet as tolerated. These foods include breads, biscuits, pancakes, waffles, bagels, saltines, delta crackers bananas, melons, applesauce, white rice, pasta, tender meat, fish and poultry, ham, hebert, shellfish, lunch meat, dairy products. * Avoid high-fiber foods and raw fruits and vegetables. These include whole grains, popcorn, brown rice, oatmeal, granola, nuts, seeds, dried beans, baked beans, peas and lentils, dried fruit. * You can take Zofran 1 oral dissolvable tablet every 6 hours as needed for nausea. * Stay hydrated and drink plenty of fluids. Stay physically active as tolerated. Please plan to follow-up with your PCP in the next 7 to 10 days for a [facility] care appointment. We also recommend that you follow-up with gastroenterology on an outpatient basis. If you develop any new or worsening symptoms, such as fever, chills, intractable nausea and vomiting, severe stomach pain, dark/tarry stool, or blood in the urine/stool, please return to the emergency department immediately. It was a pleasure taking care of you. Please reach out with any questions or concerns. Sincerely, The Hospital medicine team at [facility] Total Time Total Time Spent Total Time Spent (In Minutes): 45 Coding Level of Care Code 37712 INP/OBS DISCH >30 MIN Diagnoses SBO (small bowel obstruction) K56.609 Crohn's disease K50.912 Digestive disease complication type: with intestinal obstruction Gastrointestinal tract location: unspecified location
--- NOTE | 2025-02-20 18:45 | Communication Note ---
Date of Service: February 20, 2025 Patient just discharged. High-grade obstruction. Surgery has evaluated. As per my previous note I do not believe this represents active Crohn's disease based on recent negative MRI enterography and colonoscopy. Management of persistent high-grade bowel obstruction will be surgery. NG placement is required.
== END 2025-02-19 19:54 | disposition home or self-care (01) | DRG 389 ==
LOC: ED 17:51 → INTOOBSV 22:17 → SUATTDRO 22:17 → 3N 22:17

== ENCOUNTER 2025-02-20 11:24 | Inpatient (IN) ==
[2025-02-20 13:12] LABS: Hematocrit (blood only) 40.5 % (42.0-52.0); Hemoglobin 14.1 g/dL (14.0-18.0); Immature Granulocytes # (auto) 0.07 K/uL (0.01-0.20); Immature Granulocytes % (auto) 0.6 %; Mean Corpuscular Hemoglobin 30.5 pg (25.0-34.0); Mean Corpuscular Volume 87.7 fL (80.0-100.0); Platelet Count 356 K/uL (130-400); RDW Standard Deviation 39.3 fL (36.4-46.3); Red Blood Count 4.62 M/uL (4.70-6.10); White Blood Count 12.46 K/ul (4.8-10.8)
[2025-02-20] MEDS: HYDROmorphone INJ 0.5 MG/0.5 ML SYR IV STA ×2 (13:13→14:55)
[2025-02-20] MEDS: ONDANSETRON INJ 2 MG/ML 2 ML VIAL IV STA (13:13)
[2025-02-20 13:39] LABS: Alanine Aminotransferase 10.0 U/L (7-52); Albumin Globulin Ratio 1.0 (0.9-2); Albumin Level 3.8 gm/dl (3.4-5.0); Alkaline Phosphatase 94.0 U/L (34-104); Anion Gap 10.0 (3-11); Bilirubin,Total 0.3 mg/dl (0.2-1.0); Blood Urea Nitrogen 11.0 mg/dl (6-23); Calcium 9.3 mg/dl (8.6-10.3); Carbon Dioxide 29.0 mmol/L (21-32); Chloride 101.0 mmol/L (98-107); Creatinine Clr Calc Pharmacy 117.5 ml/min; Globulin 4.0 gm/dl (2.5-4.0); Glucose 90.0 mg/dl (70-99(Fasting)); Lipase 17.0 U/L (11-82); Potassium 3.8 mmol/L (3.5-5.1); Sodium 140.0 mmol/L (136-145); Total Protein 7.8 gm/dl (6.0-8.3)
--- NOTE | 2025-02-20 13:51 | Emergency Department Note ---
History of Present Illness General Chief complaint: GI Assessment Stated complaint: BOWEL OBSTRUCTION Time Seen by Provider: 02/20/25 11:46 Source: patient Mode of arrival: ambulatory Limitations: no limitations History of Present Illness Maximum Pain Intensity: 7 Patient is a 45-year-old male with a history of Crohn's disease who presents for persistent abdominal pain and difficulty passing gas. He was recently admitted to the hospital for a small bowel obstruction and discharged yesterday. He says since then he has not been able to pass gas and his pain has increased. Describes a cramping squeezing pain to the mid abdomen that comes and goes. Also reports increased belching and nausea. He has had watery diarrhea since his hospital stay. Denies any fevers, chills, vomiting, chest pain or shortness of breath. No change in urination. Home Medications Medication Instructions Recorded Confirmed Type syringe with needle, safety 3 mL #1 ea 12/24/23 10/10/24 Rx 25 gauge x 1" (BD Integra Syringe) ibuprofen 200 mg tablet (Advil) 200 mg PO Q6H PRN Pain 06/27/24 02/18/25 History risankizumab-rzaa 150 mg/mL 0 mg subcut MONTHLY 02/18/25 02/18/25 History subcutaneous syringe (Skyrizi) ondansetron 4 mg disintegrating 4 mg PO Q6H PRN nausea and 02/19/25 Rx tablet vomiting #14 tabs Allergies Allergy/AdvReac Type Severity Reaction Status Date / Time nut - unspecified AdvReac Severe Bowel Verified 02/18/25 19:39 Obstruction - All solid nuts tree nut AdvReac Severe Bowel Verified 02/18/25 19:39 Obstruction - All solid nuts clarithromycin [From Biaxin] AdvReac Intermediate "got Verified 02/18/25 19:39 really sick" Past Med/Surg History Problem List Abdominal pain (Acute) SBO (small bowel obstruction) (Acute) Avascular necrosis of femoral head Crohn's disease (Acute) Leukocytosis (Acute) SBO (small bowel obstruction) (Acute) S/P small bowel resection Apr 2020 laparoscopic converted to open lysis of adhesions and bowel resection [facility] B12 deficiency Inguinal hernia Testicular pain COVID-19 (Acute) Medical non-compliance Medical History Acute upper abdominal pain Crohn's disease of ileum with intestinal obstruction Nephrolithiasis URI (upper respiratory infection) Crohn's disease Lumbar herniated disc SBO (small bowel obstruction) Hx of renal calculi Crohns disease Surgical History History of cystoscopy Hx of vasectomy History of colostomy reversal 1995 History of tonsillectomy History of surgical removal of terminal ileum Hx of colostomy 1995 Family History Other Adopted Unobtainable family history due to adoption Social History Smoking Status: Never smoker Tobacco Type: Cigarettes Age Started Using Tobacco: 16; Age Quit Using Tobacco: 30; packs per day: 0.5; Second Hand Exposure: No; Do You Dip or Chew Tobacco: No; Hx Alcohol Use: Yes Alcohol type: hard liquor Alcohol Intake Frequency: 2-4 x/Month Hx Substance Use: No Preferred Language: Tamazight Communication Ability: Effective Visual Impairment: Partially Limited Hearing Ability: Normal Report Programmer Required: No Beliefs That Will Affect Care: None marital status: Current Living Situation: Spouse Current Living Situation Comment: Lives at home with and 2 daughter current occupational status: employed 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 ) during the past year weight has: remained stable Dental Care, Regularly: Yes Physical Activity Frequency: 5-6 Times per Week Seatbelt Use: always Sunscreen Use: No Assistive Devices: Glasses Review of Systems Review of systems negative outside of positive findings mentioned in HPI. Physical Exam Vital Signs Vital Signs - 24 hr 02/20/25 11:37 02/20/25 12:15 02/20/25 12:29 Temperature 36.8 C Temperature Source Temporal Artery Scan Pulse Rate 67 56 L Pulse Rate [Apical] 53 L Respiratory Rate 18 16 Respiratory Effort / Characteristics Non-Labored Non-Labored Spontaneous Respiratory Depth Normal Normal Respiratory Pattern Regular Regular Blood Pressure 150/94 H Blood Pressure [Left Arm] 135/95 Blood Pressure Mean 112 Blood Pressure Mean [Left Arm] 108 Pulse Oximetry 95 98 Oxygen Delivery Method Room Air Room Air Sepsis Recent Fever Within 48 Hours No Sepsis New/Unexplained Change in Mental Status N/A Sepsis Action Taken by Nursing No Action Required 02/20/25 13:00 02/20/25 14:00 Temperature Temperature Source Pulse Rate 55 L Pulse Rate [Apical] 51 L Respiratory Rate 16 16 Respiratory Effort / Characteristics Non-Labored Spontaneous Respiratory Depth Normal Respiratory Pattern Regular Blood Pressure Blood Pressure [Left Arm] 139/91 Blood Pressure Mean Blood Pressure Mean [Left Arm] 107 Pulse Oximetry 96 95 Oxygen Delivery Method Room Air Room Air Sepsis Recent Fever Within 48 Hours Sepsis New/Unexplained Change in Mental Status Sepsis Action Taken by Nursing See below. Constitutional WD/WN, vitals as above Respiratory normal respiratory effort, lungs clear to auscultation Cardiovascular RRR, no murmur, no edema Gastrointestinal (Abdomen) Inspection/Auscultation: abdomen normal to inspection; abdomen not distended and + abnormal bowel sounds (decreased ) Percussion/Palpation: + abdomen tender, + guarding and abdomen soft Course Administered Medications Lactated Ringer's (Lr) 1,000 mls @ 999 mls/hr IV .Q1H1M ONE Stop: 02/20/25 15:47 Last Admin: 02/20/25 14:55 Dose: 999 mls/hr Documented By: CARLOS Discontinued Medications Hydromorphone HCl (Hydromorphone Inj 0.5 Mg/0.5 Ml Syr) 0.5 mg IV NOW STA Stop: 02/20/25 12:57 Last Admin: 02/20/25 13:13 Dose: 0.5 mg Documented By: CARLOS Hydromorphone HCl (Hydromorphone Inj 0.5 Mg/0.5 Ml Syr) 0.5 mg IV NOW STA Stop: 02/20/25 14:47 Last Admin: 02/20/25 14:55 Dose: 0.5 mg Documented By: CARLOS Ioversol (Optiray 320 100ml) 90 ml IV ONCE ONE Stop: 02/20/25 14:29 Last Admin: 02/20/25 14:28 Dose: 90 ml Documented By: SHARDA Ondansetron HCl (Ondansetron Inj 2 Mg/Ml 2 Ml Vial) 4 mg IV NOW STA Stop: 02/20/25 12:57 Last Admin: 02/20/25 13:13 Dose: 4 mg Documented By: CARLOS Medical Decision Making Differential Diagnosis DDx includes but not limited to: SBO, Crohn's flare, perforation, intra- abdominal abscess, gastroenteritis Medical Records Attestation: I reviewed the patient's medical records. Home Medications Current Medication List: was personally reviewed by me Laboratory Data Attestation: I reviewed the patient's lab results. 02/20/25 12:51 02/20/25 12:51 Lab Results 02/20/25 Range/Units 12:51 WBC 12.46 H (4.8-10.8) K/ul RBC 4.62 L (4.70-6.10) M/uL Hgb 14.1 (14.0-18.0) g/dL Hct 40.5 L (42.0-52.0) % MCV 87.7 (80.0-100.0) fL MCH 30.5 (25.0-34.0) pg MCHC 34.8 (32.0-36.0) g/dL RDW Std Deviation 39.3 (36.4-46.3) fL RDW Coeff of Aga 12.3 (11.5-14.5) % Plt Count 356 (130-400) K/uL MPV 10.1 (9.4-12.4) fL Immature Gran % (Auto) 0.6 % Neut % (Auto) 79.6 % Lymph % (Auto) 13.2 % Mcminn % (Auto) 5.9 % Eos % (Auto) 0.5 % Baso % (Auto) 0.2 % Neut # (Auto) 9.93 H (1.40-6.50) K/uL Lymph # (Auto) 1.65 (1.20-3.40) K/uL Mcminn # (Auto) 0.73 H (0.11-0.59) K/uL Eos # (Auto) 0.06 (0.00-0.50) K/uL Baso # (Auto) 0.02 (0.00-0.20) K/uL Immature Gran # (Auto) 0.07 (0.01-0.20) K/uL Sodium 140 (136-145) mmol/L Potassium 3.8 (3.5-5.1) mmol/L Chloride 101 (98-107) mmol/L Carbon Dioxide 29 (21-32) mmol/L Anion Gap 10 (3-11) BUN 11 (6-23) mg/dl Creatinine 0.82 (0.6-1.4) mg/dl Est Cr Clr Drug Dosing 117.5 ml/min eGFR 110.40 BUN/Creatinine Ratio 13.4 (10-20) Glucose 90 (70-99(Fasting)) mg/dl Calcium 9.3 (8.6-10.3) mg/dl Total Bilirubin 0.3 (0.2-1.0) mg/dl AST 14 (13-39) U/L ALT 10 (7-52) U/L Alkaline Phosphatase 94 (34-104) U/L Total Protein 7.8 (6.0-8.3) gm/dl Albumin 3.8 (3.4-5.0) gm/dl Globulin 4.0 (2.5-4.0) gm/dl Albumin/Globulin Ratio 1.0 (0.9-2) Lipase 17 (11-82) U/L Imaging Data Radiologist's Impression: Abdomen/Pelvis CT 02/20/25 11:[address] WITH IV AND ORAL CONTRAST CT DOSE: 623.14 mGy.cm HISTORY: Acute abdominal pain in a patient with history of Crohn's disease. f/u SBO TECHNIQUE: Multiaxial CT images of the abdomen and pelvis were performed following the IV administration of 90 cc of Optiray and oral contrast. A dose lowering technique was utilized adhering to the principles of ALARA. COMPARISON STUDY: 02/18/2025 and 01/25/2025, 06/27/2024 and 05/04/2024. FINDINGS: Mild dependent bibasilar atelectasis. No pneumatosis or pneumoperitoneum. Unremarkable spleen, pancreas and adrenal glands. Cholelithiasis without CT evidence of acute cholecystitis. Unremarkable liver. Patency of the hepatic and portal veins. Nonobstructing calculus left kidney measure up to 5 mm. No ureteral calculi or hydronephrosis. Unremarkable urinary bladder. Mild prostamegaly. No abdominal aortic aneurysm or lymphadenopathy. Contrast filled distended stomach. No contrast is seen within the proximal jejunum. There is however contrast present within several loops of left lower quadrant small bowel and rectosigmoid which may be from the contrast-enhanced study 2 days ago. Circumferential wall thickening involves several loops of small bowel within the right lateral abdomen, notably on image 242 series 3 where there is focal transition point with upstream dilation, small bowel loops measuring up to 3.6 cm, similar pattern on numerous prior studies. There is interloop edema with trace ascites. Possible malrotation of the small bowel. Prior bowel resections with midline cecum, partial hemicolectomy with ileocolic anastomosis. No acute fracture or suspicious bone lesion. IMPRESSION: 1. Small bowel wall thickening within the right lateral midabdomen with upstream dilated small bowel loops and distal decompressed loops suggestive of high-grade obstruction secondary to acute inflammatory bowel disease versus adhesions is redemonstrated, with similar pattern of disease within this same area seen on numerous prior exams. 2. Interloop edema with trace ascites has progressed from 02/18/2025. 3. No pneumatosis or pneumoperitoneum. 4. Nonobstructing left nephrolithiasis. 5. Cholelithiasis. ACT 112: Negative or not required by law. The above report was generated using voice recognition software. It may contain grammatical, syntax or spelling errors. Electronically signed by: Davion Madrigal M.D. 02/20/2025 2:58 PM MDM Narrative Patient is a 45-year-old male with history of Crohn's disease presenting for recurrent abdominal pain and decreased flatus. Recent SBO admission. Hemodynamically stable. Nonperitoneal abdominal exam. Lab work was ordered and reviewed. No evidence of sepsis or endorgan damage. Mild leukocytosis noted. IV fluids, IV pain medication and antiemetics were given. CT scan shows persistent high-grade SBO in the right lower quadrant similar to prior location. Surgical PA was made aware and recommends hospitalist admission. They will consult on the patient. No indication for NG tube at this time. Impression & Plan SBO (small bowel obstruction) Discharge Plan Visit Data Chief Complaint: GI Assessment Stated Complaint: BOWEL OBSTRUCTION ED Provider: Keyshawn Spring Discharge Problem: SBO (small bowel obstruction) Patient Disposition: Admitted As Inpatient Condition: Good Forms Stand Alone Forms: [employer] Prescriptions Prescriptions: No Action (DME) BD Integra Syringe 3 mL 25 gauge x 1" syringe See Rx Instructions .Route Qty: 1 0RF Rx Instructions: As directed with b12 injections Skyrizi 150 mg/mL Syringe 0 mg SUBCUT MONTHLY Rx Instructions: PER PT "HAD LAST INFUSION 02/15/25, WILL GO TO MONTHLY INJECTIONS NOW". ondansetron 4 mg tablet,disintegrating 4 mg PO Q6H PRN (Reason: nausea and vomiting) Qty: 14 0RF Rx Instructions: Dissolve one tablet under your tongue every six hours as needed for nausea and vomiting ibuprofen [Advil] 200 mg Tablet 200 mg PO Q6H PRN (Reason: Pain) Referrals Referrals: Shoaib Schmidt CRNP [Primary Care Provider] -
[2025-02-20] MEDS: OPTIRAY 320 100ml IV ONE (14:28)
--- NOTE | 2025-02-20 14:50 | Surgery Consultation ---
Date of Consultation February 20, 2025 Assessment & Plan (1) SBO (small bowel obstruction): This is a 45y M with a PMH of crohns with PSH including ileal resection, ileostomy creation and eventual takedown, and history of lysis of adhesions who presents to the [facility] ED on 02/20/25 with complaints of lack of bowel function in terms of gas and + burping with upper crampy abdominal pain. Of significance patient was just admitted here with SBO 02/18/25-02/19/25. As he felt better and symptoms improved diet was advanced and he was sent to home. Unfortunately since returning home symptoms returned in terms of pain and lack of bowel function. In the ER he underwent a CT a/p was performed revealing small bowel wall thickening within the right lateral midabdomen with upstream dilated small bowel loops and distal decompressed loops suggestive of high-grade obstruction secondary to acute inflammatory bowel disease versus adhesions is redemonstrated, with similar pattern of disease within this same area seen on numerous prior exams. There is some interloop edema with trace ascites has progressed from 02/18/2025. There is no pneumatosis or pneumoperitoneum. Blood work today shows WBC 12.4, Hbg 14.4, K 3.8, Cr 0.8. Vital signs are stable, patient's HRs in the 50s. On exam patient resting in stretcher, some mild bloat in upper abdomen, but he is soft and not overly tender to palpation. Would recommend admission to the hospital, keep NPO with IVF today. GI was on board and saw patient yesterday and thought his presentation was more consistent with adhesions and had low suspicion for crohns flare to require steroids, but patient does report steroids and bowel rest are usually what has helped him in the past. Patient wants to withhold on NGT for now, but if develops worsening nausea or vomiting or worsening abdominal exam would recommend insertion. Will follow, but not plans for surgical intervention emergently. History of Present Illness History of Present Illness This is a 45y M with a PMH of crohns with PSH including ileal resection, ileostomy creation and eventual takedown, and history of lysis of adhesions who presents to the [facility] ED on 02/20/25 with complaints of lack of bowel function in terms of gas and + burping with upper crampy abdominal pain. Of significance patient was just admitted here with SBO 02/18/25-02/19/25. As he felt better and symptoms improved diet was advanced and he was sent to home. Unfortunately since returning home symptoms returned in terms of pain and lack of bowel function. He has had several SBO in the past and knows the signs, therefore he presented back to the hospital. In the ER he underwent a CT a/p was performed revealing small bowel wall thickening within the right lateral midabdomen with upstream dilated small bowel loops and distal decompressed loops suggestive of high-grade obstruction secondary to acute inflammatory bowel disease versus adhesions is redemonstrated, with similar pattern of disease within this same area seen on numerous prior exams. There is some interloop edema with trace ascites has progressed from 02/18/2025. There is no pneumatosis or pneumoperitoneum. Patient denies CP/SOB, nausea/vomiting, fevers, chills. He passed some liquid per rectum this AM but not true stool. No flatus and is burping some. Has not had anything to eat today. He describes the upper abdominal discomfort as there intermittently but not necessarily tender to palpation. Allergies Allergy/AdvReac Type Severity Reaction Status Date / Time nut - unspecified AdvReac Severe Bowel Verified 02/18/25 19:39 Obstruction - All solid nuts tree nut AdvReac Severe Bowel Verified 02/18/25 19:39 Obstruction - All solid nuts clarithromycin [From Biaxin] AdvReac Intermediate "got Verified 02/18/25 19:39 really sick" Home Medications Medication Instructions Recorded Confirmed Type syringe with needle, safety 3 mL #1 ea 12/24/23 10/10/24 Rx 25 gauge x 1" (BD Integra Syringe) ibuprofen 200 mg tablet (Advil) 200 mg PO Q6H PRN Pain 06/27/24 02/18/25 History risankizumab-rzaa 150 mg/mL 0 mg subcut MONTHLY 02/18/25 02/18/25 History subcutaneous syringe (Skyrizi) ondansetron 4 mg disintegrating 4 mg PO Q6H PRN nausea and 02/19/25 Rx tablet vomiting #14 tabs Patient History Medical History Acute upper abdominal pain Crohn's disease of ileum with intestinal obstruction Nephrolithiasis URI (upper respiratory infection) Crohn's disease Lumbar herniated disc SBO (small bowel obstruction) Hx of renal calculi Crohns disease Surgical History History of cystoscopy Hx of vasectomy History of colostomy reversal 1995 History of tonsillectomy History of surgical removal of terminal ileum Hx of colostomy 1995 Family History Other Adopted Unobtainable family history due to adoption Social History Smoking Status: Never smoker Tobacco Type: Cigarettes Age Started Using Tobacco: 16; Age Quit Using Tobacco: 30; packs per day: 0.5; Second Hand Exposure: No; Do You Dip or Chew Tobacco: No; Hx Alcohol Use: Yes Alcohol type: hard liquor Alcohol Intake Frequency: 2-4 x/Month Hx Substance Use: No Preferred Language: Latvian Communication Ability: Effective Visual Impairment: Partially Limited Hearing Ability: Normal 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 ) during the past year weight has: remained stable Dental Care, Regularly: Yes Physical Activity Frequency: 5-6 Times per Week Seatbelt Use: always Sunscreen Use: No Assistive Devices: Glasses Review of Systems Constitutional: no fever and no chills Respiratory: no dyspnea Cardiovascular: no chest pain Gastrointestinal: + abdominal pain, + belching and + const ipation; no nausea and no vomiting Genitourinary: no problem reported Physical Exam Physical Exam: awake, alert, no distress Respiratory: normal respiratory effort Gastrointestinal (Abdomen): Inspection/Auscultation: + abdomen distended (mild in upper abdomen ) and + abdominal surgical scar Percussion/Palpation: abdomen soft; abdomen nontender (mild discomfort in upper abdomen ), no guarding and abdomen not firm Results & Data Vital Signs (Past 12 Hours) Vital Signs Temp Pulse Pulse Resp BP BP Pulse Ox 02/20/25 14:00 51 L 16 139/91 95 02/20/25 13:00 55 L 16 96 02/20/25 12:29 53 L 16 135/95 98 02/20/25 12:15 56 L 02/20/25 11:37 98.2 F 67 18 150/94 H 95 O2 Del Method 02/20/25 14:00 Room Air 02/20/25 13:00 Room Air 02/20/25 12:29 Room Air 02/20/25 12:15 02/20/25 11:37 Room Air Diagnostic Findings ABDOMEN AND PELVIS CT WITH IV AND ORAL CONTRAST CT DOSE: 623.14 mGy.cm HISTORY: Acute abdominal pain in a patient with history of Crohn's disease. f/u SBO TECHNIQUE: Multiaxial CT images of the abdomen and pelvis were performed following the IV administration of 90 cc of Optiray and oral contrast. A dose lowering technique was utilized adhering to the principles of ALARA. COMPARISON STUDY: 02/18/2025 and 01/25/2025, 06/27/2024 and 05/04/2024. FINDINGS: Mild dependent bibasilar atelectasis. No pneumatosis or pneumoperitoneum. Unremarkable spleen, pancreas and adrenal glands. Cholelithiasis without CT evidence of acute cholecystitis. Unremarkable liver. Patency of the hepatic and portal veins. Nonobstructing calculus left kidney measure up to 5 mm. No ureteral calculi or hydronephrosis. Unremarkable urinary bladder. Mild prostamegaly. No abdominal aortic aneurysm or lymphadenopathy. Contrast filled distended stomach. No contrast is seen within the proximal jejunum. There is however contrast present within several loops of left lower quadrant small bowel and rectosigmoid which may be from the contrast-enhanced study 2 days ago. Circumferential wall thickening involves several loops of small bowel within the right lateral abdomen, notably on image 242 series 3 where there is focal transition point with upstream dilation, small bowel loops measuring up to 3.6 cm, similar pattern on numerous prior studies. There is interloop edema with trace ascites. Possible malrotation of the small bowel. Prior bowel resections with midline cecum, partial hemicolectomy with ileocolic anastomosis. No acute fracture or suspicious bone lesion. IMPRESSION: 1. Small bowel wall thickening within the right lateral midabdomen with upstream dilated small bowel loops and distal decompressed loops suggestive of high-grade obstruction secondary to acute inflammatory bowel disease versus adhesions is redemonstrated, with similar pattern of disease within this same area seen on numerous prior exams. 2. Interloop edema with trace ascites has progressed from 02/18/2025. 3. No pneumatosis or pneumoperitoneum. 4. Nonobstructing left nephrolithiasis. 5. Cholelithiasis. ACT 112: Negative or not required by law. The above report was generated using voice recognition software. It may contain grammatical, syntax or spelling errors. Electronically signed by: Davion Madrigal M.D. 02/20/2025 2:58 PM PG Care Time/CCT Total # of Minutes Spent Total Time Spent with Patient: Total time spent is greater than 50% in coordination of care (as documented) at patient's floor/unit and/or counseling patient: Coding Level of Care Code 83703 IN/OBS CONSULT LVL 2,35M Diagnoses SBO (small bowel obstruction) K56.609
[2025-02-20] MEDS: LACTATED RINGER'S 1,000 ML IV ONE (14:55)
--- NOTE | 2025-02-20 15:00 | CT Scan Report ---
ABDOMEN AND PELVIS CT WITH IV AND ORAL CONTRAST CT DOSE: 623.14 mGy.cm HISTORY: Acute abdominal pain in a patient with history of Crohn's disease. f/u SBO TECHNIQUE: Multiaxial CT images of the abdomen and pelvis were performed following the IV administrat ion of 90 cc of Optiray and oral contrast. A dose lowering technique was utilized adhering to the pr inciples of ISIAH. COMPARISON STUDY: 02/18/2025 and 01/25/2025, 06/27/2024 and 05/04/2024. FINDINGS: Mild dependent bibasilar atelectasis. No pneumatosis or pneumoperitoneum. Unremarkable sple en, pancreas and adrenal glands. Cholelithiasis without CT evidence of acute cholecystitis. Unremarka ble liver. Patency of the hepatic and portal veins. Nonobstructing calculus left kidney measure up to 5 mm. No ureteral calculi or hydronephrosis. Unremarkable urinary bladder. Mild prostamegaly. No abd ominal aortic aneurysm or lymphadenopathy. Contrast filled distended stomach. No contrast is seen within the proximal jejunum. There is however contrast present within several loops of left lower quadrant small bowel and rectosigmoid which may b e from the contrast-enhanced study 2 days ago. Circumferential wall thickening involves several loops of small bowel within the right lateral abdomen, notably on image 242 series 3 where there is focal transition point with upstream dilation, small bowel loops measuring up to 3.6 cm, similar pattern on numerous prior studies. There is interloop edema with trace ascites. Possible malrotation of the sma ll bowel. Prior bowel resections with midline cecum, partial hemicolectomy with ileocolic anastomosis . No acute fracture or suspicious bone lesion. IMPRESSION: 1. Small bowel wall thickening within the right lateral midabdomen with upstream dilated small bowel loops and distal decompressed loops suggestive of high-grade obstruction secondary to acute inflammat ory bowel disease versus adhesions is redemonstrated, with similar pattern of disease within this rosanne e area seen on numerous prior exams. 2. Interloop edema with trace ascites has progressed from 02/18/2025. 3. No pneumatosis or pneumoperitoneum. 4. Nonobstructing left nephrolithiasis. 5. Cholelithiasis. ACT 112: Negative or not required by law. The above report was generated using voice recognition software. It may contain grammatical, syntax o r spelling errors. Electronically signed by: Davion Madrigal M.D. 02/20/2025 2:58 PM
--- NOTE | 2025-02-20 15:19 | History & Physical Report ---
Date of Service February 20, 2025 Assessment & Plan (1) SBO (small bowel obstruction): (2) Crohn's disease: Plan This patient is a 45-year-old male with a history of Crohn's disease on Skyrizi, multiple bowel obstructions with lysis of adhesions and small bowel resection, B12 deficiency, AVN of the bilateral hips, and inguinal hernia who was just discharged from the hospital yesterday after having a small bowel obstruction, who presents back to the ED with recurrent mid abdominal pain and lack of passing flatus. He has had belching and nausea but no vomiting. He is having increasing indigestion as well. No fevers or chills. 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 He had a mild leukocytosis, but labs otherwise unremarkable. His vitals were stable and there is no evidence of sepsis. He declined to have an NG tube on admission and discussion with the surgery PA. He will be admitted for recurrent small bowel obstruction in the setting of Crohn's disease. #Recurrent small bowel obstruction/Crohn's disease-seen by GI last admission and this was thought to be an SBO related to adhesive disease and not inflammation from Crohn's. Steroids were not recommended. He has had more issues since switching from Remicade to Skyrizi due to insurance issues. - Admit to medical/surgical unit - Place NG tube if has worsening nausea or vomiting - Keep n.p.o., continue maintenance fluids with LR at 125 mL/h - IV Dilaudid for moderate to severe pain, IV Tylenol for mild pain - Consult GI for opinion on Crohn's - Appreciate surgery consult-if would need surgical intervention, would likely need colorectal surgery given underlying Crohn's disease #B12 deficiency-on last check was 296 in 04/2024. It does not seem he is on any outpatient supplementation - Follow as an outpatient #Bilateral AVN of hips-noted on previous imaging of the abdomen/pelvis. He does not seem to have symptoms with this - Follow-up with orthopedics as an outpatient DVT prophylaxis-SCDs, hold off on anticoagulation in case of need for surgery Disposition-admit to medical/surgical unit History of Present Illness Chief Complaint: Abdominal pain Primary Care Provider: MILI Razo This patient is a 45-year-old male with a history of Crohn's disease on Skyrizi, multiple bowel obstructions with lysis of adhesions and small bowel resection, B12 deficiency, AVN of the bilateral hips, and inguinal hernia who was just discharged from the hospital yesterday after having a small bowel obstruction, who presents back to the ED with recurrent mid abdominal pain and lack of passing flatus. He has had belching and nausea but no vomiting. He is having increasing indigestion as well. No fevers or chills. 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 He had a mild leukocytosis, but labs otherwise unremarkable. His vitals were stable and there is no evidence of sepsis. He declined to have an NG tube on admission and discussion with the surgery PA. He will be admitted for recurrent small bowel obstruction in the setting of Crohn's disease. Allergies Allergy/AdvReac Type Severity Reaction Status Date / Time nut - unspecified AdvReac Severe Bowel Verified 02/18/25 19:39 Obstruction - All solid nuts tree nut AdvReac Severe Bowel Verified 02/18/25 19:39 Obstruction - All solid nuts clarithromycin [From Biaxin] AdvReac Intermediate "got Verified 02/18/25 19:39 really sick" Home Medications Medication Instructions Recorded Confirmed Type syringe with needle, safety 3 mL #1 ea 12/24/23 10/10/24 Rx 25 gauge x 1" (BD Integra Syringe) ibuprofen 200 mg tablet (Advil) 200 mg PO Q6H PRN Pain 06/27/24 02/18/25 History risankizumab-rzaa 150 mg/mL 0 mg subcut MONTHLY 02/18/25 02/18/25 History subcutaneous syringe (Skyrizi) ondansetron 4 mg disintegrating 4 mg PO Q6H PRN nausea and 02/19/25 Rx tablet vomiting #14 tabs Past Med/Surg History Problem List Abdominal pain (Acute) SBO (small bowel obstruction) (Acute) Avascular necrosis of femoral head Crohn's disease (Acute) Leukocytosis (Acute) SBO (small bowel obstruction) (Acute) S/P small bowel resection Apr 2020 laparoscopic converted to open lysis of adhesions and bowel resection [facility] B12 deficiency Inguinal hernia Testicular pain COVID-19 (Acute) Medical non-compliance Medical History Acute upper abdominal pain Crohn's disease of ileum with intestinal obstruction Nephrolithiasis URI (upper respiratory infection) Crohn's disease Lumbar herniated disc SBO (small bowel obstruction) Hx of renal calculi Crohns disease Surgical History History of cystoscopy Hx of vasectomy History of colostomy reversal 1995 History of tonsillectomy History of surgical removal of terminal ileum Hx of colostomy 1995 Family History Other Adopted Unobtainable family history due to adoption Social History Smoking Status: Never smoker Tobacco Type: Cigarettes Age Started Using Tobacco: 16; Age Quit Using Tobacco: 30; packs per day: 0.5; Second Hand Exposure: No; Do You Dip or Chew Tobacco: No; Hx Alcohol Use: Yes Alcohol type: hard liquor Alcohol Intake Frequency: 2-4 x/Month Hx Substance Use: No Preferred Language: Macedonian Communication Ability: Effective Visual Impairment: Partially Limited Hearing Ability: Normal Laundromat Worker Required: No Beliefs That Will Affect Care: None marital status: Current Living Situation: Family Current Living Situation Comment: lives at home with and 2 daughters current occupational status: employed 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 ) during the past year weight has: remained stable Dental Care, Regularly: Yes Physical Activity Frequency: 5-6 Times per Week Seatbelt Use: always Sunscreen Use: No Assistive Devices: Glasses Review of Systems Review of Systems: All systems reviewed & are unremarkable except as noted in HPI & below Physical Exam Constitutional: WD/WN, vitals as above Eyes: + anicteric sclerae Neck: trachea midline, no thyromegaly Respiratory: normal respiratory effort, lungs clear to auscultation Cardiovascular: RRR, no murmur, no edema Chest (Breasts): Chest: normal inspection of chest Gastrointestinal (Abdomen): Inspection/Auscultation: + abdomen distended (Mild) and + hypoactive bowel sounds Percussion/Palpation: + abdomen tender (Diffusely without guarding or rebound) and abdomen soft; no guarding Musculoskeletal: Extremities: extremities normal to inspection; no cyanosis and no clubbing Skin: no rashes, warm and dry Neurologic: moves all extremities and awake; no focal motor deficits Psychiatric: A+Ox3, euthymic affect Lymphatic: no lymphedema Results & Data Results & Data Vital Signs (Past 12 Hours) Vital Signs Temp Pulse Pulse Resp BP BP Pulse Ox 02/20/25 14:00 51 L 16 139/91 95 02/20/25 13:00 55 L 16 96 02/20/25 12:29 53 L 16 135/95 98 02/20/25 12:15 56 L 02/20/25 11:37 36.8 C 67 18 150/94 H 95 O2 Del Method 02/20/25 14:00 Room Air 02/20/25 13:00 Room Air 02/20/25 12:29 Room Air 02/20/25 12:15 02/20/25 11:37 Room Air Laboratory Results CBC, CMP, lipase reviewed Diagnostic Findings CT abdomen/pelvis reviewed: Abdomen/Pelvis CT 02/20/25 11:[address] WITH IV AND ORAL CONTRAST CT DOSE: 623.14 mGy.cm HISTORY: Acute abdominal pain in a patient with history of Crohn's disease. f/u SBO TECHNIQUE: Multiaxial CT images of the abdomen and pelvis were performed following the IV administration of 90 cc of Optiray and oral contrast. A dose lowering technique was utilized adhering to the principles of ALARA. COMPARISON STUDY: 02/18/2025 and 01/25/2025, 06/27/2024 and 05/04/2024. FINDINGS: Mild dependent bibasilar atelectasis. No pneumatosis or pneumoperitoneum. Unremarkable spleen, pancreas and adrenal glands. Cholelithiasis without CT evidence of acute cholecystitis. Unremarkable liver. Patency of the hepatic and portal veins. Nonobstructing calculus left kidney measure up to 5 mm. No ureteral calculi or hydronephrosis. Unremarkable urinary bladder. Mild prostamegaly. No abdominal aortic aneurysm or lymphadenopathy. Contrast filled distended stomach. No contrast is seen within the proximal jejunum. There is however contrast present within several loops of left lower quadrant small bowel and rectosigmoid which may be from the contrast-enhanced study 2 days ago. Circumferential wall thickening involves several loops of small bowel within the right lateral abdomen, notably on image 242 series 3 where there is focal transition point with upstream dilation, small bowel loops measuring up to 3.6 cm, similar pattern on numerous prior studies. There is interloop edema with trace ascites. Possible malrotation of the small bowel. Prior bowel resections with midline cecum, partial hemicolectomy with ileocolic anastomosis. No acute fracture or suspicious bone lesion. IMPRESSION: 1. Small bowel wall thickening within the right lateral midabdomen with upstream dilated small bowel loops and distal decompressed loops suggestive of high-grade obstruction secondary to acute inflammatory bowel disease versus adhesions is redemonstrated, with similar pattern of disease within this same area seen on numerous prior exams. 2. Interloop edema with trace ascites has progressed from 02/18/2025. 3. No pneumatosis or pneumoperitoneum. 4. Nonobstructing left nephrolithiasis. 5. Cholelithiasis. ACT 112: Negative or not required by law. The above report was generated using voice recognition software. It may contain grammatical, syntax or spelling errors. Electronically signed by: Davion Madrigal M.D. 02/20/2025 2:58 PM Code Status & VTE Plan Code Status Full code VTE Prophylaxis Plan VTE Prophylaxis will be ordered: Yes PG Care Time/CCT Total # of Minutes Spent Total Time Spent with Patient: Total time spent is greater than 50% in coordination of care (as documented) at patient's floor/unit and/or counseling patient: Coding Level of Care Code 29819 INT INP/OBS CARE 3/75MIN Diagnoses SBO (small bowel obstruction) K56.609 Crohn's disease K50.912 Digestive disease complication type: with intestinal obstruction Gastrointestinal tract location: unspecified location (2) Crohn's disease Digestive disease complication type: with intestinal obstruction Gastrointestinal tract location: unspecified location Qualified Code(s): K50.912 - Crohn's disease, unspecified, with intestinal obstruction
[2025-02-20] MEDS: ACETAMINOPHEN 1,000 MG/100 ML VIAL IV STA (18:11)
[2025-02-20] MEDS ORDERED: HYDROmorphone INJ 0.5 MG/0.5 ML SYR IV PRN (18:58)
[2025-02-20] MEDS: LACTATED RINGER'S 1,000 ML IV SCH (19:24)
[2025-02-20] MEDS: PANTOprazole 40 MG/10 ML SYR IV SCH (20:53)
[2025-02-20] MEDS: HYDROmorphone INJ 1 MG/ML SYRINGE IV PRN (20:59)
[2025-02-20] MEDS: ONDANSETRON INJ 2 MG/ML 2 ML VIAL IV PRN (20:59)
[2025-02-21 07:20] LABS: Hematocrit (blood only) 35.7 % (42.0-52.0); Hemoglobin 12.3 g/dL (14.0-18.0); Immature Granulocytes # (auto) 0.05 K/uL (0.01-0.20); Immature Granulocytes % (auto) 0.4 %; Mean Corpuscular Hemoglobin 30.4 pg (25.0-34.0); Mean Corpuscular Volume 88.4 fL (80.0-100.0); Platelet Count 306 K/uL (130-400); RDW Standard Deviation 38.9 fL (36.4-46.3); Red Blood Count 4.04 M/uL (4.70-6.10); White Blood Count 11.24 K/ul (4.8-10.8)
[2025-02-21 07:45] LABS: Alanine Aminotransferase 7.0 U/L (7-52); Albumin Globulin Ratio 1.3 (0.9-2); Albumin Level 3.5 gm/dl (3.4-5.0); Alkaline Phosphatase 73.0 U/L (34-104); Anion Gap 8.0 (3-11); Bilirubin,Total 0.3 mg/dl (0.2-1.0); Blood Urea Nitrogen 10.0 mg/dl (6-23); Calcium 8.9 mg/dl (8.6-10.3); Carbon Dioxide 29.0 mmol/L (21-32); Chloride 100.0 mmol/L (98-107); Creatinine Clr Calc Pharmacy 128.4 ml/min; Globulin 2.8 gm/dl (2.5-4.0); Glucose 88.0 mg/dl (70-99(Fasting)); Magnesium 2.0 mg/dl (1.7-2.4); Potassium 4.0 mmol/L (3.5-5.1); Sodium 137.0 mmol/L (136-145); Total Protein 6.3 gm/dl (6.0-8.3)
--- NOTE | 2025-02-21 09:11 | Gastrointestinal Consultation ---
Date of Consultation February 21, 2025 Assessment & Plan (1) SBO (small bowel obstruction): (2) Crohn's disease: Plan 45yowm with h/o Crohn's disease, s/p recurrent SBO s/p Terminal ileum resection/Ileostomy creation in distant past, s/p Adhesiolysis a few years ago is seen today for re-admission for SBO. Patient seen at bedside with attending reed fixer. (1) SBO in setting of Crohn's - Thought to be adhesional as he has had negative Colonoscopy and MR enterogra phy over the Summer. - Although he's withheld treatment for 3 months and recently switched medications, it's not typical to develop stricturing disease this fast. - Furthermore, imaging suggests bowel wall thickening and mild ascites which is concerning for stress on bowel wall. Therefore, priority is decompression with NG tube. Patient agreeable. - We recommend continuing to hold on steroids as this can increase risk for perforation and/or infection. - We'll plan to repeat Abdominal series tomorrow with consideration of Small bowel enterography afterwards to r/o any active disease within the bowel. - Thank you for allowing us to participate in the care of this patient. Please call with any acute changes, questions or concerns. Please see addendum below with additional recommendation from my supervising physician. Supervising Physician Co-Signing Physician Notes Patient reassessed. CT scan shows high-grade obstruction. Proximal small bowel dilatation. Patient agreeable to have NG placed at this time. The intraloop edema and trace ascites is surrounding. Reluctant to provide steroids and will situation potential increased risk of abscess since. I think with a high-grade obstruction of course management would be decompression of the bowel. Surgical service is to continue to follow. Could consider a small bowel study in a day or 2 to evaluate small bowel further. Point however that a fairly recent MR E enterography stricturing disease. Extremity disease. Colonoscopy also was said to show only a few erosions at the GE junction. Patient has known adhesive bowel disease with previous adhesional lysis. Feel etiology is probably adhesions. Patient has abdominal distention. Bowel sounds present no guarding rebound or rigidity. Suggest NG decompression hold steroids at present. Depending on clinical course could consider repeat small bowel study through NG in a day or 2. History of Present Illness Reason for Consultation: SBO in setting of Crohns disease Attending Physician: Maricruz Mccray MD History of Present Illness 45yowm with h/o Crohn's disease, s/p recurrent SBO s/p Terminal ileum resection/Ileostomy creation in distant past, s/p Adhesiolysis a few years ago is seen today for re-admission for SBO. Patient was recently hospitalized with SBO. He was seen by General surgery and the GI service. He improved quickly. Steroids were discontinued as it was felt to be more adhesional given disease free MRE and Colonoscopy over the Summer. He advanced diet well and was discharged home however, after his first meal at home symptoms started to re-occur and progressed leading him to return yesterday. CT scan in ER revealed high grade obstruction and he was re-admitted. Clinically he's throwing up small amounts of fluid every 30 minutes or so. He's not passing gas. We reviewed his IBD history. He follows with [facility] locally and recently switched from Remicade to Skyrizi d/t insurance preference. He states that he fought with insurance that resulted in a 3 month gap where he didn't recieve any treatment. Then he tried Inflectra SQ which caused headaches x 1 month. Now he's been on Skyrizi for the last 3 months. He states that since starting this he notes that in the final week he starts to notice abdominal cramping that then resolves with the next injection. He denies any fevers, melena or hematochezia. Family history - Adopted. Social History - No alcohol, tobacco or drug use Surgical History -EGD and Colonoscopy, Ileal resection in distant past. Adhesiolysis. Pertinent Diagnostics CBC - Hgb 12.3g/dl Hct 35.7%, WBC 11.24, Plt 306k/ul CMP - Glucose 88 BUN 10, Cr 0.75, Cl 100 CO2 29 Na 137, K 4.0 T-Bili 0.3, AST 12, ALT 7, Alk Phos 73. CT abd/pelvis with IV and oral contrast - 02/20/25 COMPARISON STUDY: 02/18/2025 and 01/25/2025, 06/27/2024 and 05/04/2024. FINDINGS: Mild dependent bibasilar atelectasis. No pneumatosis or pneumoperitoneum. Unremarkable spleen, pancreas and adrenal glands. Cholelithiasis without CT evidence of acute cholecystitis. Unremarkable liver. Patency of the hepatic and portal veins. Nonobstructing calculus left kidney measure up to 5 mm. No ureteral calculi or hydronephrosis. Unremarkable urinary bladder. Mild prostamegaly. No abdominal aortic aneurysm or lymphadenopathy. Contrast filled distended stomach. No contrast is seen within the proximal jejunum. There is however contrast present within several loops of left lower quadrant small bowel and rectosigmoid which may be from the contrast-enhanced study 2 days ago. Circumferential wall thickening involves several loops of small bowel within the right lateral abdomen, notably on image 242 series 3 where there is focal transition point with upstream dilation, small bowel loops measuring up to 3.6 cm, similar pattern on numerous prior studies. There is interloop edema with trace ascites. Possible malrotation of the small bowel. Prior bowel resections with midline cecum, partial hemicolectomy with ileocolic anastomosis. No acute fracture or suspicious bone lesion. IMPRESSION: 1. Small bowel wall thickening within the right lateral midabdomen with upstream dilated small bowel loops and distal decompressed loops suggestive of high-grade obstruction secondary to acute inflammatory bowel disease versus adhesions is redemonstrated, with similar pattern of disease within this same area seen on numerous prior exams. 2. Interloop edema with trace ascites has progressed from 02/18/2025. 3. No pneumatosis or pneumoperitoneum. 4. Nonobstructing left nephrolithiasis. 5. Cholelithiasis. ACT 112: Negative or not required by law. Allergies Allergy/AdvReac Type Severity Reaction Status Date / Time nut - unspecified AdvReac Severe Bowel Verified 02/18/25 19:39 Obstruction - All solid nuts tree nut AdvReac Severe Bowel Verified 02/18/25 19:39 Obstruction - All solid nuts clarithromycin [From Biaxin] AdvReac Intermediate "got Verified 02/18/25 19:39 really sick" Home Medications Medication Instructions Recorded Confirmed Type syringe with needle, safety 3 mL #1 ea 12/24/23 10/10/24 Rx 25 gauge x 1" (BD Integra Syringe) ibuprofen 200 mg tablet (Advil) 200 mg PO Q6H PRN Pain 06/27/24 02/18/25 History risankizumab-rzaa 150 mg/mL 0 mg subcut MONTHLY 02/18/25 02/18/25 History subcutaneous syringe (Skyrizi) ondansetron 4 mg disintegrating 4 mg PO Q6H PRN nausea and 02/19/25 Rx tablet vomiting #14 tabs Patient History Medical History Acute upper abdominal pain Crohn's disease of ileum with intestinal obstruction Nephrolithiasis URI (upper respiratory infection) Crohn's disease Lumbar herniated disc SBO (small bowel obstruction) Hx of renal calculi Crohns disease Surgical History History of cystoscopy Hx of vasectomy History of colostomy reversal 1995 History of tonsillectomy History of surgical removal of terminal ileum Hx of colostomy 1995 Family History Other Adopted Unobtainable family history due to adoption Social History Smoking Status: Never smoker Tobacco Type: Cigarettes Age Started Using Tobacco: 16; Age Quit Using Tobacco: 30; packs per day: 0.5; Second Hand Exposure: No; Do You Dip or Chew Tobacco: No; Hx Alcohol Use: Yes Alcohol type: hard liquor Alcohol Intake Frequency: 2-4 x/Month Hx Substance Use: No Preferred Language: Vietnamese Communication Ability: Effective Visual Impairment: Partially Limited Hearing Ability: Normal 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 ) during the past year weight has: remained stable Dental Care, Regularly: Yes Physical Activity Frequency: 5-6 Times per Week Seatbelt Use: always Sunscreen Use: No Assistive Devices: Glasses Review of Systems Review of Systems: See HPI Physical Exam Physical Exam: Constitutional: NAD. Alert. Answering questions appropriately. Respiratory: Breathing is even, non-labored. Lungs emerson are clear to auscultation anteriorly. Cardiovascular: Regular Rate and Rhythm, no murmurs, rubs or gallops appreciated. Gastrointestinal (Abdomen): Normoactive bowel sounds x4, soft, mildly distended. No gaurding or rebound tenderness. Musculoskeletal: Lying in bed comfortably. No peripheral edema. Results & Data Vital Signs (Past 12 Hours) Vital Signs Temp Pulse Resp BP Pulse Ox O2 Del Method 02/21/25 07:21 97.5 F L 61 12 133/78 95 Room Air PG Care Time/CCT Total # of Minutes Spent Total Time Spent with Patient: Total time spent is greater than 50% in coordination of care (as documented) at patient's floor/unit and/or counseling patient: Coding Level of Care Code 90751 IN/OBS CONSULT LVL 3,45M Diagnoses SBO (small bowel obstruction) K56.609 Crohn's disease K50.912 Digestive disease complication type: with intestinal obstruction Gastrointestinal tract location: unspecified location (2) Crohn's disease Digestive disease complication type: with intestinal obstruction Gastrointestinal tract location: unspecified location Qualified Code(s): K50.912 - Crohn's disease, unspecified, with intestinal obstruction
[2025-02-21] MEDS: ACETAMINOPHEN 1,000 MG/100 ML VIAL IV PRN (09:54)
--- NOTE | 2025-02-21 10:16 | XRay Report ---
XR abdomen 2V w PA chest CLINICAL HISTORY: SBO COMPARISON STUDY: 01/01/2022 and 02/20/2025 FINDINGS: CHEST: Inspiration is shallow. There is mild stranding opacity in the lung bases. No other pulmonary consolidation or pleural effusion. No pneumothorax. ABDOMEN: There is a small amount of residual contrast in the stomach, small bowel and left colon. Con trast has progressed to the rectum. There are multiple dilated small bowel loops measuring up to 5 cm diameter at the left upper quadrant, mildly increased. No colonic distention seen. No gross free air . IMPRESSION: 1. Atelectasis versus early pneumonia in the lung bases. 2. Contrast has progressed to the rectum. Mildly increased small bowel distention. ACT 112: Negative or not required by law. Electronically signed by: Erick Shultz M.D. 02/21/2025 10:14 AM
--- NOTE | 2025-02-21 11:20 | XRay Report ---
XR chest 1V portable CLINICAL HISTORY: CONFIRMATION OF NG TUBE COMPARISON STUDY: 02/21/2025 FINDINGS: Nasogastric tube tip is in the proximal stomach with the sidehole near the GE junction. Ins piration is shallow. There is increased stranding opacity at the left lung base. Stable stranding rig ht lung base. IMPRESSION: 1. Nasogastric tube tip is in the proximal stomach with the sidehole near the GE junction. 2. Atelectasis versus early pneumonia left lung base. ACT 112: Negative or not required by law. Electronically signed by: Erick Shultz M.D. 02/21/2025 11:19 AM
--- NOTE | 2025-02-21 11:27 | Surgery Progress Note ---
<Statement entered by Hari Dumont MD - 02/21/25 13:03> I independently saw the patient and I agree with the assessment and plan of care Date of Service February 21, 2025 Assessment & Plan (1) SBO (small bowel obstruction): Plan: Patient with history of Crohns with multiple abdominal surgeries here w/ SBO WBC 11.2, Vitals stable Pt feels worse this AM than yesterday, has now developed nausea/vomiting Recommend inserting NGT at this point and he is agreeable KUB this AM shows mildly increased small bowel distention, but contrast from yesterday CT scan has reached rectum Continue NPO/IVF and see how he fairs with NGT GI on board, no plans for steroids at this time Admission and Anticipated Discharge Date Admission Date: February 20, 2025 Subjective Patient feels worse than yesterday. Started developing nausea with multiple bouts of emesis. Pain overall controlled. No return of bowel function at this time Physical Exam Physical Exam: awake, appears like he is sick to stomach, belching Respiratory: normal respiratory effort Gastrointestinal (Abdomen): Inspection/Auscultation: + abdomen distended (mild ) Percussion/Palpation: abdomen soft; abdomen nontender (not overly tender) Results & Data Vital Signs (Past 12 Hours) Vital Signs Temp Pulse Resp BP Pulse Ox O2 Del Method 02/21/25 07:21 97.5 F L 61 12 133/78 95 Room Air PG Care Time/CCT Total # of Minutes Spent Total Time Spent with Patient: Total time spent is greater than 50% in coordination of care (as documented) at patient's floor/unit and/or counseling patient: Coding Level of Care Code 10300 SUB INP/OBS CARE 04/29MIN Diagnoses SBO (small bowel obstruction) K56.609
[2025-02-21] MEDS: CHLORASEPTIC (PHENOL) 1.4% SOLN 180 ML BTL MT PRN (11:37)
[2025-02-21] MEDS ORDERED: HYDROmorphone INJ 0.5 MG/0.5 ML SYR IV PRN (12:18)
[2025-02-21] MEDS: HYDROmorphone INJ 0.5 MG/0.5 ML SYR IV STA (12:36)
--- NOTE | 2025-02-21 13:09 | Hospitalist Progress Note ---
Date of Service February 21, 2025 Assessment & Plan (1) SBO (small bowel obstruction): (2) Crohn's disease: Plan This patient is a 45-year-old male with a history of Crohn's disease on Skyrizi, multiple bowel obstructions with LUIS M and previous SBR, B12 deficiency, AVN of the bilateral hips, and inguinal hernia who was just discharged from the hospital the day prior to admission after having a SBO, who presents back to the ED with recurrent mid abdominal pain and lack of passing flatus. P/W belching and nausea but no vomiting, no fevers or chills. 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 He had a mild leukocytosis, but labs otherwise unremarkable. His vitals were stable and there is no evidence of sepsis. He declined to have an NG tube on admission, but developed nausea/vomiting on the morning of 02/21 and NG tube was placed. He is admitted for recurrent SBO likely secondary to adhesions in the setting of Crohn's disease and history of multiple abdominal surgeries. #Recurrent small bowel obstruction/Crohn's disease-seen by GI last admission and again this admission -SBO thought to be related to adhesive disease and not inflammation from Crohn's. Steroids are not recommended. He has had more issues he believes with his Crohn's since switching from Remicade to Skyrizi due to insurance issues. Steroids will also increased risk of bowel perforation. Now with NG tube in place and with increasing bowel movements. He did move bowels and has contrast seen in the rectum on KUB on 02/21, however there was contrast seen in the colon on CT A/P on 02/20 likely residual from previous CT A/P on 02/18. -Continue NG tube to LIS - Keep n.p.o., continue maintenance fluids with LR at 125 mL/h - Increase IV Dilaudid frequency to every 4 hours for moderate to severe pain, IV Tylenol for mild pain - Consult GI for opinion on Crohn's appreciated-plan for small bowel follow- through/enterography using NG tube on 02/22 or 02/23 - Appreciate surgery consult-if would need surgical intervention, would likely need colorectal surgery given underlying Crohn's disease-Dr. Dumont of colorectal surgery is following #B12 deficiency-on last check was 296 in 04/2024. It does not seem he is on any outpatient supplementation - Follow as an outpatient and plan to resume replacement if remains low #Bilateral AVN of hips-noted on previous imaging of the abdomen/pelvis. He does not seem to have symptoms with this. Likely secondary to previous history of steroid use for Crohn's disease - Follow-up with orthopedics as an outpatient DVT prophylaxis-SCDs, start Lovenox SQ Disposition-continued stay on medical/surgical unit Admission and Anticipated Discharge Date Admission Date: February 20, 2025 Subjective Patient had multiple episodes of nausea and vomiting this morning and had NG tube placed by surgery earlier in the morning. He was having increasing pain. He reports he did move his bowels liquid stool 2 or 3 times since admission. Feeling better in the abdomen since placement of NG tube and increased dose of IV Dilaudid, however now main source of discomfort is the NG tube. Otherwise, questions why he has not been given steroids and we discussed the reasons for this and the opinion of the home economics expert, risk of bowel perforation, etc. I discussed his care with the surgery FIDEL Physical Exam Constitutional: WD/WN, vitals as above Eyes: + anicteric sclerae Neck: trachea midline, no thyromegaly Respiratory: normal respiratory effort, lungs clear to auscultation Cardiovascular: RRR, no murmur, no edema Chest (Breasts): Chest: normal inspection of chest Gastrointestinal (Abdomen): Inspection/Auscultation: normal bowel sounds; abdomen not distended Percussion/Palpation: abdomen soft; abdomen nontender and no guarding Skin: no rashes, warm and dry Neurologic: moves all extremities and awake; no focal motor deficits Psychiatric: A+Ox3, euthymic affect Results & Data Results & Data Vital Signs (Past 12 Hours) Vital Signs Temp Pulse Resp BP Pulse Ox O2 Del Method 02/21/25 07:21 36.4 C L 61 12 133/78 95 Room Air Laboratory Results CBC, BMP, phosphorus, magnesium, LFTs reviewed Diagnostic Findings KUB/abdominal series/CXR reviewed PG Care Time/CCT Total # of Minutes Spent Total Time Spent with Patient: Total time spent is greater than 50% in coordination of care (as documented) at patient's floor/unit and/or counseling patient: Coding Level of Care Code 47162 SUB INP/OBS CARE Diagnoses SBO (small bowel obstruction) K56.609 Crohn's disease K50.912 Digestive disease complication type: with intestinal obstruction Gastrointestinal tract location: unspecified location (2) Crohn's disease Digestive disease complication type: with intestinal obstruction Gastrointestinal tract location: unspecified location Qualified Code(s): K50.912 - Crohn's disease, unspecified, with intestinal obstruction
[2025-02-21] MEDS: ENOXAPARIN INJ 40 MG/0.4 ML SYR SQ SCH (14:03)
--- NOTE | 2025-02-21 17:39 | Communication Note ---
Date of Service: February 21, 2025 Reexamined at the bedside. Post NG tube placement. He is feeling significantly improved. Continue NG suction at this time. Potential small bowel study tomorrow or Wednesday. Surgery following. If persistent high-grade bowel obstruction surgical intervention at their discretion
[2025-02-21] MEDS: HYDROmorphone INJ 1 MG/ML SYRINGE IV PRN (18:02)
[2025-02-22 06:52] LABS: Hematocrit (blood only) 38.0 % (42.0-52.0); Hemoglobin 12.8 g/dL (14.0-18.0); Immature Granulocytes # (auto) 0.12 K/uL (0.01-0.20); Immature Granulocytes % (auto) 1.1 %; Mean Corpuscular Hemoglobin 29.5 pg (25.0-34.0); Mean Corpuscular Volume 87.6 fL (80.0-100.0); Platelet Count 300 K/uL (130-400); RDW Standard Deviation 38.6 fL (36.4-46.3); Red Blood Count 4.34 M/uL (4.70-6.10); White Blood Count 10.46 K/ul (4.8-10.8)
[2025-02-22 07:29] LABS: Anion Gap 10.0 (3-11); Blood Urea Nitrogen 9.0 mg/dl (6-23); Calcium 8.7 mg/dl (8.6-10.3); Carbon Dioxide 29.0 mmol/L (21-32); Chloride 98.0 mmol/L (98-107); Creatinine Clr Calc Pharmacy 121.9 ml/min; Glucose 67.0 mg/dl (70-99(Fasting)); Magnesium 1.8 mg/dl (1.7-2.4); Potassium 3.5 mmol/L (3.5-5.1); Sodium 137.0 mmol/L (136-145)
[2025-02-22] MEDS: D5W AND LACTATED RINGERS 1,000 ML IV SCH (10:00)
--- NOTE | 2025-02-22 10:28 | XRay Report ---
XR abdomen 2V w PA chest CLINICAL HISTORY: F/U obstruction COMPARISON STUDY: 02/21/2025 FINDINGS: CHEST: Heart size and pulmonary vasculature are normal. There is stable mild opacity at the lateral l eft lung base. Otherwise the lungs remain aerated. ABDOMEN: Nasogastric tube tip is in the proximal stomach with the sidehole in the distal esophagus ne ar the GE junction. There is residual contrast throughout the left colon, sigmoid colon, and rectum. There are a few mildly distended small bowel loops measuring up to 3.5 cm, improved. No gross free ai r. There is patchy sclerosis and lucency at the femoral heads consistent with bilateral hip AVN. IMPRESSION: 1. Stable mild opacity left lung base. 2. Nasogastric tube tip is in the proximal stomach with the sidehole in the distal esophagus. 3. Mild small bowel distention, improved. 4. Otherwise as described. ACT 112: Negative or not required by law. Electronically signed by: Erick Shultz M.D. 02/22/2025 10:27 AM
--- NOTE | 2025-02-22 10:33 | Surgery Progress Note ---
Date of Service February 22, 2025 Assessment & Plan (1) SBO (small bowel obstruction): Plan: Pt with history of crohns here w SBO WBC 10.4, Hbg 12.8. Vitals stable Abdomen soft,non distended, not tender NGT with 350cc Follow up on KUB images this AM show improved small bowel distention Anticipate keeping NGT in until return of bowel function; may need to advance it some Encourage ambulation/OOB Appreciate GI and Hospitalist input As above. He has had Crohn's flares in the past which did improve with steroids. I think risk-benefit would warrant initiating some steroid therapy and see how he does. There is no urgent indication for surgical intervention. Continue NG tube and IV fluids and supportive care. Will continue to follow closely. Admission and Anticipated Discharge Date Admission Date: February 20, 2025 Subjective Patient feeling better since NGT insertion. Currently denies pain,nausea/vomiting. He is not yet passing flatus. Physical Exam Physical Exam: awake/alert, no distress Respiratory: normal respiratory effort Gastrointestinal (Abdomen): Percussion/Palpation: abdomen soft; abdomen nontender NGT 350cc bilious fluid Results & Data Vital Signs (Past 12 Hours) Vital Signs Temp Pulse Resp BP Pulse Ox O2 Del Method 02/22/25 07:35 97.9 F 68 18 134/85 93 Room Air 02/21/25 23:15 98.2 F 61 16 167/96 H 95 Room Air PG Care Time/CCT Total # of Minutes Spent Total Time Spent with Patient: Total time spent is greater than 50% in coordination of care (as documented) at patient's floor/unit and/or counseling patient: Coding Level of Care Code 42188 SUB INP/OBS CARE 04/29MIN Diagnoses SBO (small bowel obstruction) K56.609
--- NOTE | 2025-02-22 11:58 | Hospitalist Progress Note ---
Date of Service February 22, 2025 Assessment & Plan (1) SBO (small bowel obstruction): (2) Crohn's disease: Plan This patient is a 45-year-old male with a history of Crohn's disease on Skyrizi, multiple bowel obstructions with LUIS M and previous SBR, B12 deficiency, AVN of the bilateral hips, and inguinal hernia who was just discharged from the hospital the day prior to admission after having a SBO, who presents with recurrent high-grade SBO. 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 He declined to have an NG tube on admission, but developed nausea/vomiting on the morning of 02/21 and NG tube was placed. He is admitted for recurrent SBO likely secondary to adhesions in the setting of Crohn's disease and history of multiple abdominal surgeries. #Recurrent small bowel obstruction/Crohn's disease-seen by GI last admission and again this admission -SBO thought to be related to adhesive disease and not inflammation from Crohn's. Steroids are not recommended. He has had more issues he believes with his Crohn's since switching from Remicade to Skyrizi due to insurance issues. Steroids will also increase risk of bowel perforation. Now with NG tube in place and improving. He did move bowels on the day of admission but not passing flatus or stool since then-may have been residual stool in the colon. He had contrast seen in the rectum on KUB on 02/21, however there was contrast seen in the colon on CT A/P on 02/20 likely residual from previous CT A/P on 02/18. Abdominal x-ray in 02/22 shows significant improvement in bowel distention and it seems like the contrast from most recent CT is moving along. -Continue NG tube to LIS, but if starts passing flatus, would likely clamp tube later today - Continue n.p.o., continue maintenance fluids with but changed to D5 LR at 100 mL/h due to hypoglycemia with glucose 67 on morning labs - Continue IV Dilaudid q 4 hours for moderate to severe pain, IV Tylenol for mild pain - Consult GI for opinion on Crohn's appreciated-plan for small bowel follow- through/enterography using NG tube possibly on 02/23 - Appreciate surgery consult-if would need surgical intervention, would likely need colorectal surgery given underlying Crohn's disease-Dr. Dumont of colorectal surgery is following #B12 deficiency-on last check was 296 in 04/2024. It does not seem he is on any outpatient supplementation - Follow as an outpatient and plan to resume replacement if remains low #Bilateral AVN of hips-noted on previous imaging of the abdomen/pelvis. He does not seem to have symptoms with this. Likely secondary to previous history of steroid use for Crohn's disease - Follow-up with orthopedics as an outpatient DVT prophylaxis-SCDs, Lovenox SQ Disposition-continued stay on medical/surgical unit Admission and Anticipated Discharge Date Admission Date: February 20, 2025 Subjective Patient reports feeling better, still not passing flatus or stool. NG tube was advanced this morning as it had come out to the GE junction on x-ray. He denies pain but did take IV Dilaudid 2 hours before I saw him. No nausea. Physical Exam Constitutional: WD/WN, vitals as above Eyes: + anicteric sclerae Neck: trachea midline, no thyromegaly Respiratory: normal respiratory effort, lungs clear to auscultation Cardiovascular: RRR, no murmur, no edema Gastrointestinal (Abdomen): Inspection/Auscultation: normal bowel sounds and + hypoactive bowel sounds; abdomen not distended Percussion/Palpation: abdomen soft; abdomen nontender and no guarding Musculoskeletal: Extremities: extremities normal to inspection; no cyanosis and no clubbing Skin: no rashes, warm and dry Neurologic: moves all extremities and awake; no focal motor deficits Psychiatric: A+Ox3, euthymic affect Lymphatic: no lymphedema Results & Data Results & Data Vital Signs (Past 12 Hours) Vital Signs Temp Pulse Resp BP Pulse Ox O2 Del Method 02/22/25 07:35 36.6 C 68 18 134/85 93 Room Air Laboratory Results CBC, BMP, magnesium, phosphorus reviewed Diagnostic Findings Abdominal x-ray reviewed PG Care Time/CCT Total # of Minutes Spent Total Time Spent with Patient: Total time spent is greater than 50% in coordination of care (as documented) at patient's floor/unit and/or counseling patient: Coding Level of Care Code 40254 SUB INP/OBS CARE 2/35MIN Diagnoses SBO (small bowel obstruction) K56.609 Crohn's disease K50.912 Digestive disease complication type: with intestinal obstruction Gastrointestinal tract location: unspecified location (2) Crohn's disease Digestive disease complication type: with intestinal obstruction Gastrointestinal tract location: unspecified location Qualified Code(s): K50.912 - Crohn's disease, unspecified, with intestinal obstruction
--- NOTE | 2025-02-22 13:26 | Gastroenterology Progress Note ---
Date of Service February 22, 2025 Assessment & Plan (1) SBO (small bowel obstruction): Plan Patient was seen on rounds with Dr. Hunter who advised on plan. Recommend continuation of NG. Will plan to check a sbft tomorrow for further assessment. Admission and Anticipated Discharge Date Admission Date: February 20, 2025 Supervising Physician Co-Signing Physician Notes Feeling better. Plan small bowel follow-through tomorrow. Patient still not passing any gas or moving his bowels. Concern for persistent high-grade bowel obstruction. Steroids started by surgery. Subjective Patient has not been moving bowels or passing gas. abdominal pain improving. NG passing brown fluid. Xray done today shown mild small bowel distention. Review of Systems Review of Systems: All systems reviewed & are unremarkable except as noted in HPI & below Physical Exam Gastrointestinal (Abdomen): hypoactive bowel sounds, nontender, soft. Results & Data Results & Data Vital Signs (Past 12 Hours) Vital Signs Temp Pulse Resp BP Pulse Ox O2 Del Method 02/22/25 07:35 97.9 F 68 18 134/85 93 Room Air Coding Level of Care Code 86676 SUB INP/OBS CARE 2/35MIN Diagnoses SBO (small bowel obstruction) K56.609
[2025-02-23 06:55] LABS: Hematocrit (blood only) 37.2 % (42.0-52.0); Hemoglobin 13.1 g/dL (14.0-18.0); Immature Granulocytes # (auto) 0.09 K/uL (0.01-0.20); Immature Granulocytes % (auto) 1.3 %; Mean Corpuscular Hemoglobin 30.2 pg (25.0-34.0); Mean Corpuscular Volume 85.7 fL (80.0-100.0); Platelet Count 338 K/uL (130-400); RDW Standard Deviation 36.9 fL (36.4-46.3); Red Blood Count 4.34 M/uL (4.70-6.10); White Blood Count 7.13 K/ul (4.8-10.8)
[2025-02-23 07:21] LABS: Anion Gap 10.0 (3-11); Calcium 9.3 mg/dl (8.6-10.3); Carbon Dioxide 27.0 mmol/L (21-32); Chloride 99.0 mmol/L (98-107); Magnesium 2.1 mg/dl (1.7-2.4); Potassium 4.1 mmol/L (3.5-5.1); Sodium 136.0 mmol/L (136-145)
[2025-02-23 07:27] LABS: Blood Urea Nitrogen 8.0 mg/dl (6-23); Creatinine Clr Calc Pharmacy 137.6 ml/min; Glucose 148.0 mg/dl (70-99(Fasting))
--- NOTE | 2025-02-23 10:25 | Surgery Progress Note ---
Date of Service February 23, 2025 Assessment & Plan (1) SBO (small bowel obstruction): (2) Crohn's disease: Plan: avss no leukocytosis abdomen soft, nondistended +flatus this am awaiting SBFT IV steroids started yesterday await SBFT results continue IV steroids, will need taper 60 mg IV for next two days, then 40 mg IV next two days continue conservative measures continue medical management Admission and Anticipated Discharge Date Admission Date: February 20, 2025 Subjective feeling better started passing gas this morning went down for SBFT but NGT needed to be further advanced, going down later this morning hopefully to complete study no abdominal pain or distention no n,v Physical Exam Constitutional: WD/WN, vitals as above cooperative and comfortable; no acute distress, not ill appearing and not combative Gastrointestinal (Abdomen): Inspection/Auscultation: abdomen normal to inspection and + abdominal surgical scar (midline laparotomy scar, laparoscopic scars); abdomen not distended Percussion/Palpation: abdomen soft; abdomen nontender, no guarding and abdomen not rigid NGT with bilious output Skin: no rashes, warm and dry Psychiatric: Orientation: alert and oriented x 3 Results & Data Vital Signs (Past 12 Hours) Vital Signs Temp Pulse Resp BP Pulse Ox O2 Del Method 02/23/25 07:37 36.8 C 49 L 20 131/85 94 Room Air Laboratory Results 02/23/25 Range/Units 05:59 WBC 7.13 (4.8-10.8) K/ul RBC 4.34 L (4.70-6.10) M/uL Hgb 13.1 L (14.0-18.0) g/dL Hct 37.2 L (42.0-52.0) % MCV 85.7 (80.0-100.0) fL MCH 30.2 (25.0-34.0) pg MCHC 35.2 (32.0-36.0) g/dL RDW Std Deviation 36.9 (36.4-46.3) fL RDW Coeff of Aga 11.8 (11.5-14.5) % Plt Count 338 (130-400) K/uL MPV 9.9 (9.4-12.4) fL Immature Gran % (Auto) 1.3 % Neut % (Auto) 75.4 % Lymph % (Auto) 15.1 % [place] % (Auto) 8.1 % Eos % (Auto) 0.0 % Baso % (Auto) 0.1 % Neut # (Auto) 5.37 (1.40-6.50) K/uL Lymph # (Auto) 1.08 L (1.20-3.40) K/uL [place] # (Auto) 0.58 (0.11-0.59) K/uL Eos # (Auto) 0.00 (0.00-0.50) K/uL Baso # (Auto) 0.01 (0.00-0.20) K/uL Immature Gran # (Auto) 0.09 (0.01-0.20) K/uL Sodium 136 (136-145) mmol/L Potassium 4.1 (3.5-5.1) mmol/L Chloride 99 (98-107) mmol/L Carbon Dioxide 27 (21-32) mmol/L Anion Gap 10 (3-11) BUN 8 (6-23) mg/dl Creatinine 0.70 (0.6-1.4) mg/dl Est Cr Clr Drug Dosing 137.6 ml/min eGFR 115.80 BUN/Creatinine Ratio 11.4 (10-20) Glucose 148 H (70-99(Fasting)) mg/dl Calcium 9.3 (8.6-10.3) mg/dl Phosphorus 3.8 (2.5-4.9) mg/dl Magnesium 2.1 (1.7-2.4) mg/dl (2) Crohn's disease Digestive disease complication type: with intestinal obstruction Gastrointestinal tract location: unspecified location Qualified Code(s): K50.912 - Crohn's disease, unspecified, with intestinal obstruction
--- NOTE | 2025-02-23 11:03 | Hospitalist Progress Note ---
Date of Service February 23, 2025 Assessment & Plan (1) SBO (small bowel obstruction): (2) Crohn's disease: Plan This patient is a 45-year-old male with a history of Crohn's disease on Skyrizi, multiple bowel obstructions with LUIS M and previous SBR, B12 deficiency, AVN of the bilateral hips, and inguinal hernia who was just discharged from the hospital the day prior to admission after having a SBO, who presents with recurrent high-grade SBO. 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 He declined to have an NG tube on admission, but developed nausea/vomiting on the morning of 02/21 and NG tube was placed. He is admitted for recurrent SBO likely secondary to adhesions in the setting of Crohn's disease and history of multiple abdominal surgeries. #Recurrent small bowel obstruction/Crohn's disease-seen by GI last admission and again this admission -SBO thought to be related to adhesive disease and not inflammation from Crohn's. Steroids are not recommended byt GI but were started by Surgery on 02/22. He has had more issues he believes with his Crohn's since switching from Remicade to Skyrizi due to insurance issues. Now with NG tube in place and much improved, passing BMs and flatus, no further abd pain. He had contrast seen in the rectum on KUB on 02/21, however there was contrast seen in the colon on CT A/P on 02/20 likely residual from previous CT A/P on 02/18. Abdominal x-ray in 02/22 shows significant improvement in bowel distention and it seems like the contrast from most recent CT is moving along. SBFT planned for 02/23 but reconnaissance man film showed NGT in esophagus--> advanced 5 cm and will send back down for SBFT -Continue NG tube to LIS, but if SBFT normal, will likely clamp tube later today - Continue n.p.o., continue maintenance fluids with D5 LR at 100 mL/h - Continue IV Dilaudid q 4 hours for moderate to severe pain, IV Tylenol for mild pain - Consult GI for opinion on Crohn's appreciated - Appreciate surgery consult-if would need surgical intervention, would likely need colorectal surgery given underlying Crohn's disease-Dr. Dumont of colorectal surgery is following #B12 deficiency-on last check was 296 in 04/2024. It does not seem he is on any outpatient supplementation - Follow as an outpatient and plan to resume replacement if remains low #Bilateral AVN of hips-noted on previous imaging of the abdomen/pelvis. He does not seem to have symptoms with this. Likely secondary to previous history of steroid use for Crohn's disease - Follow-up with orthopedics as an outpatient DVT prophylaxis-SCDs, Lovenox SQ Disposition-continued stay on medical/surgical unit Admission and Anticipated Discharge Date Admission Date: February 20, 2025 Subjective Pt had 2 BMs yesterday evening, and passed flatus this AM. Denies any abd pain but has been taking dilaudid for the pain from the NGT and to help him sleep. No nausea, no other complaints. Physical Exam Constitutional: WD/WN, vitals as above Eyes: + anicteric sclerae ENMT: Nose: + external nose abnormality (NGT in place) Neck: trachea midline, no thyromegaly Respiratory: normal respiratory effort, lungs clear to auscultation Cardiovascular: RRR, no murmur, no edema Chest (Breasts): Chest: normal inspection of chest Gastrointestinal (Abdomen): Inspection/Auscultation: normal bowel sounds; abdomen not distended Percussion/Palpation: abdomen soft; abdomen nontender and no guarding Musculoskeletal: Extremities: extremities normal to inspection; no cyanosis and no clubbing Skin: no rashes, warm and dry Neurologic: moves all extremities and awake; no focal motor deficits Psychiatric: A+Ox3, euthymic affect Lymphatic: no lymphedema Results & Data Results & Data Vital Signs (Past 12 Hours) Vital Signs Temp Pulse Resp BP Pulse Ox O2 Del Method 02/23/25 07:37 36.8 C 49 L 20 131/85 94 Room Air Laboratory Results CBC, BMP, Mag, phos reviewed Diagnostic Findings reconnaissance man KUB from SBFT reviewed PG Care Time/CCT Total # of Minutes Spent Total Time Spent with Patient: Total time spent is greater than 50% in coordination of care (as documented) at patient's floor/unit and/or counseling patient: Coding Level of Care Code 48875 SUB INP/OBS CARE 2/35MIN Diagnoses SBO (small bowel obstruction) K56.609 Crohn's disease K50.912 Digestive disease complication type: with intestinal obstruction Gastrointestinal tract location: unspecified location (2) Crohn's disease Digestive disease complication type: with intestinal obstruction Gastrointestinal tract location: unspecified location Qualified Code(s): K50.912 - Crohn's disease, unspecified, with intestinal obstruction
--- NOTE | 2025-02-23 13:06 | Gastroenterology Progress Note ---
Date of Service February 23, 2025 Assessment & Plan (1) SBO (small bowel obstruction): Plan 45yowm with h/o Crohn's disease, s/p recurrent SBO s/p Terminal ileum resection/Ileostomy creation in distant past, s/p Adhesiolysis a few years ago is seen today for daily rounds for follow up of SBO. (1) SBO with h/o Crohn's disease. - Symptoms are improving. - Passing gas but no BM at time of visit. - I just recently spoke with primary team and he did have a large BM which is re-assuring. - We'll plan to f/u on afternoon rounds with review of SBFT. - Thank you for allowing us to participate in the care of this patient. Please call with any acute changes, questions or concerns. Please see addendum below with additional recommendation from my supervising physician. Admission and Anticipated Discharge Date Admission Date: February 20, 2025 Subjective 45yowm with h/o Crohn's disease, s/p recurrent SBO s/p Terminal ileum resection /Ileostomy creation in distant past, s/p Adhesiolysis a few years ago is seen today for daily rounds for follow up of SBO. Please refer to previous notes for full history. He remains on NG tube. Planning to get SBFT today for further evaluation of mucosal disease in Small bowel. They were planning to have this done earlier in the day, but it had to be cancelled d/t poor placement of NG tube. He reports that he should be going done shortly for the study. He was started on IV steroids per General surgery. Today he reports that he feels better clinically. He states he's been passing gas for about an hour. He denies any fevers, chills, abdominal pain, N/V/D, melena or hematochezia. Pertinent Diagnostics. Hgb 13.1g/dl Hct 37.2%, WBC 7.13, Plt 338. Review of Systems Review of Systems: See HPI Physical Exam Physical Exam: Constitutional: NAD. Alert. Answering questions appropriately. NG tube insitu. Respiratory: Breathing is even, non-labored. Lungs emerson are clear to auscultation anteriorly. Cardiovascular: Regular Rate and Rhythm, no murmurs, rubs or gallops appreciated. Gastrointestinal (Abdomen): Normoactive bowel sounds x4, soft, non-distended, non-tender. Musculoskeletal: Lying in bed comfortably. No peripheral edema. Results & Data Results & Data Vital Signs (Past 12 Hours) Vital Signs Temp Pulse Resp BP Pulse Ox O2 Del Method 02/23/25 07:37 98.2 F 49 L 20 131/85 94 Room Air PG Care Time/CCT Total # of Minutes Spent Total Time Spent with Patient: Total time spent is greater than 50% in coordination of care (as documented) at patient's floor/unit and/or counseling patient: Coding Level of Care Code 58950 SUB INP/OBS CARE 2/35MIN Diagnoses SBO (small bowel obstruction) K56.609
--- NOTE | 2025-02-23 13:31 | Fluoroscopy Report ---
FL small bowel follow through CLINICAL HISTORY: SBO. TECHNIQUE: Barium was administered through the nasogastric tube and serial radiographs of the abdomen were performed. COMPARISON STUDY: 02/22/2025 FINDINGS: Contrast progresses normally through the stomach into the small bowel. Contrast progresses to the colon within 30 minutes. Small bowel fold pattern is unremarkable. No persistent small bowel d istention or stricture seen. There is no colonic distention. Contrast progresses to the rectum. IMPRESSION: No bowel obstruction. ACT 112: Negative or not required by law. The above report was generated using voice recognition software. It may contain grammatical, syntax o r spelling errors. Electronically signed by: Erick Shultz M.D. 02/23/2025 1:29 PM
--- NOTE | 2025-02-23 20:52 | Communication Note ---
Date of Service: February 23, 2025 Patient examined at the bedside. Resolved small bowel obstruction symptoms. Small bowel follow-through showed no abnormalities of the small bowel no evidence of luminal Crohn's disease. This is in keeping with his colonoscopy and MRI enterography report. This episode consistent with adhesive bowel disease resolution with NG decompression. Recommend patient follow-up with his previous surgeon to consider adhesion lysis as previously performed. 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
[2025-02-24 06:57] LABS: Hematocrit (blood only) 36.6 % (42.0-52.0); Hemoglobin 12.2 g/dL (14.0-18.0); Immature Granulocytes # (auto) 0.10 K/uL (0.01-0.20); Immature Granulocytes % (auto) 1.0 %; Mean Corpuscular Hemoglobin 29.0 pg (25.0-34.0); Mean Corpuscular Volume 86.9 fL (80.0-100.0); Platelet Count 331 K/uL (130-400); RDW Standard Deviation 38.9 fL (36.4-46.3); Red Blood Count 4.21 M/uL (4.70-6.10); White Blood Count 9.99 K/ul (4.8-10.8)
[2025-02-24 07:17] VITALS: PULSE 57
[2025-02-24 07:35] LABS: Alanine Aminotransferase 25.0 U/L (7-52); Albumin Globulin Ratio 1.2 (0.9-2); Albumin Level 3.5 gm/dl (3.4-5.0); Alkaline Phosphatase 88.0 U/L (34-104); Anion Gap 8.0 (3-11); Bilirubin,Total 0.4 mg/dl (0.2-1.0); Blood Urea Nitrogen 11.0 mg/dl (6-23); Calcium 8.6 mg/dl (8.6-10.3); Carbon Dioxide 30.0 mmol/L (21-32); Chloride 103.0 mmol/L (98-107); Creatinine Clr Calc Pharmacy 112.0 ml/min; Globulin 2.9 gm/dl (2.5-4.0); Glucose 107.0 mg/dl (70-99(Fasting)); Magnesium 2.1 mg/dl (1.7-2.4); Potassium 3.4 mmol/L (3.5-5.1); Sodium 141.0 mmol/L (136-145); Total Protein 6.4 gm/dl (6.0-8.3)
[2025-02-24 14:53] VITALS: BP 123/83; RESP 16; TEMP 98.4; O2SAT 95
--- NOTE | 2025-02-24 16:58 | Discharge Summary ---
Discharge Summary Date of Service February 24, 2025 Principal Dx & Hospital Course #1 = Principal Diagnosis (1) SBO (small bowel obstruction): (2) Crohn's disease: Plan This patient is a 45-year-old male with a history of Crohn's disease on Skyrizi, multiple bowel obstructions with LUIS M and previous SBR, B12 deficiency, AVN of the bilateral hips, and inguinal hernia who was just discharged from the hospital the day prior to admission after having a SBO, who presents with recurrent high-grade SBO. 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 He was admitted for recurrent SBO likely secondary to adhesions in the setting of Crohn's disease and history of multiple abdominal surgeries. #Recurrent small bowel obstruction/Crohn's disease-seen by GI last admission and again this admission -SBO thought to be related to adhesive disease and not inflammation from Crohn's. Steroids are not recommended by GI but were started by Surgery on 02/22. He has had more issues he believes with his Crohn's since switching from Remicade to Skyrizi due to insurance issues. He declined to have an NG tube on admission, but developed nausea/vomiting on the morning of 02/21 and NG tube was placed. After NG tube in place, he was much improved, passing BMs and flatus, no further abd pain. SBFT 02/23 was normal-no masses or evidence of Crohn's Was given IVFs, pain meds. Diet slowly advanceed to low fiber and tolerating, moving bowels regularly, doing well Appreciate Surgery and GI consult -finish out 12 day course of steroid taper with prednisone on discharge -f/u with GI -GI recommends f/u with Surgery to discuss possible LUIS M in future #B12 deficiency-on last check was 296 in 04/2024. -continues on IM injections as outpt #Bilateral AVN of hips-noted on previous imaging of the abdomen/pelvis. He does not seem to have symptoms with this. Likely secondary to previous history of steroid use for Crohn's disease - Follow-up with orthopedics as an outpatient DVT prophylaxis-SCDs, Lovenox SQ Disposition-dc to home Notes For Next Care Provider Medication Changes From Visit prednisone taper Admission HPI Per Admitting Provider This patient is a 45-year-old male with a history of Crohn's disease on Skyrizi, multiple bowel obstructions with lysis of adhesions and small bowel resection, B12 deficiency, AVN of the bilateral hips, and inguinal hernia who was just discharged from the hospital yesterday after having a small bowel obstruction, who presents back to the ED with recurrent mid abdominal pain and lack of passing flatus. He has had belching and nausea but no vomiting. He is having increasing indigestion as well. No fevers or chills. 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 He had a mild leukocytosis, but labs otherwise unremarkable. His vitals were stable and there is no evidence of sepsis. He declined to have an NG tube on admission and discussion with the surgery PA. He will be admitted for recurrent small bowel obstruction in the setting of Crohn's disease. Discharge Exam Constitutional WD/WN, vitals as above Eyes + anicteric sclerae Neck trachea midline, no thyromegaly Respiratory normal respiratory effort, lungs clear to auscultation Cardiovascular RRR, no murmur, no edema Chest (Breasts) Chest: normal inspection of chest Gastrointestinal (Abdomen) normal bowel sounds, soft, nontender, no hepatosplenomegaly Musculoskeletal Extremities: extremities normal to inspection; no cyanosis and no clubbing Skin no rashes, warm and dry Neurologic moves all extremities and awake; no focal motor deficits Psychiatric A+Ox3, euthymic affect Lymphatic no lymphedema Discharge Plan Discharge Items Patient Disposition: Home - Self-Care Reason For Visit: RECURRENT SBO Discharge Diagnosis: Recurrent small bowel obstruction Crohn's disease Condition on Discharge: Good Activity: As commented below Bathing: No limitations Exercise/Sports: Gradually increase as tolerated Driving/Machine Use: No limitations Non-emergency contact: Primary Care Provider and [employer] Call non-emergency contact if: you have any medication questions, your symptoms worsen, your pain is not controlled and your pain is worsening Follow-up/Referrals: Shoaib Schmidt CRNP [Primary Care Provider] - (Follow up within 1-2 weeks) Diet: Low Fiber Addtl Attending Provider Instructions: Please finish out the prednisone taper over the ext 2 weeks. Stay hydrated and make sure your bowels are moving regularly. Continue a low fiber diet. Please follow up with your GI doctor within 2 weeks. Pending Studies at Discharge: No Stand-Alone Forms: [facility], Smoking Cessation Medications and DC Order Prescriptions: New prednisone 10 mg tablet 40 mg PO DAILY Qty: 30 0RF Rx Instructions: x 3 days, then decrease by 10mg every 3 days until gone prednisone 10 mg tablet 40 mg PO DAILY Qty: 30 0RF Rx Instructions: x 3 days, then decrease by 10mg every 3 days until gone Continued (DME) BD Integra Syringe 3 mL 25 gauge x 1" syringe See Rx Instructions .Route Qty: 1 0RF Rx Instructions: As directed with b12 injections Skyrizi 150 mg/mL Syringe 0 mg SUBCUT MONTHLY Rx Instructions: PER PT "HAD LAST INFUSION 02/15/25, WILL GO TO MONTHLY INJECTIONS NOW". ondansetron 4 mg tablet,disintegrating 4 mg PO Q6H PRN (Reason: nausea and vomiting) Qty: 14 0RF Rx Instructions: Dissolve one tablet under your tongue every six hours as needed for nausea and vomiting ibuprofen [Advil] 200 mg Tablet 200 mg PO Q6H PRN (Reason: Pain) Discharge Orders: Discharge Order (Routine); Ordered 02/24/25 Ordered By: Maricruz Mccray Admission Data Admit Date/Time: 02/20/25 16:46 Attending Provider: Maricruz Mccray Admit Provider: Maricruz Mccray Primary Care Provider: Shoaib Schmidt Other Providers: Maricruz Mccray; Patrick Hunter Matthew D. Hospital Stay Data Consultations 02/20/25 15:21 Consult Gastroenterology Routine Consult General Surgery Routine ED Decision to Admit Stat Diagnostic Imagining Performed 02/20/25 11:49 CT abd pelvis oral and IV con Stat 02/23/25 10:48 [place] small bowel follow through Stat Pending Results Patient Have Any Pending Studies at Discharge: No Discharge Instructions Given to Patient (Per Discharging Provider) Please finish out the prednisone taper over the ext 2 weeks. Stay hydrated and make sure your bowels are moving regularly. Continue a low fiber diet. Please follow up with your GI doctor within 2 weeks. Total Time Total Time Spent Total Time Spent (In Minutes): 35 min Total Time Includes: Examination of the Patient, Discharge Planning and Medication Reconciliation Coding Level of Care Code 11589 INP/OBS DISCH >30 MIN Diagnoses SBO (small bowel obstruction) K56.609 Crohn's disease K50.912 Digestive disease complication type: with intestinal obstruction Gastrointestinal tract location: unspecified location
[2025-02-25] MEDS ORDERED: predniSONE 20 MG TAB PO SCH (09:00)
== END 2025-02-24 17:38 | disposition home or self-care (01) | DRG 389 ==
LOC: SUATTDRO → ED 11:24 → 3W 16:46